=== PATIENT | female | born 1950 | race Caucasian/White ===

== ENCOUNTER → 2020-05-16 09:15 | Outpatient (BNV) | payer MEDICARE, SELFPAY | PROVIDERS: PCP Internal Medicine; Visit Provider Internal Medicine Medical Oncology | DX: D47.2 Monoclonal gammopathy (principal); M94.1 Relapsing polychondritis | CPT/HCPCS: 99212; 99213; 99214 ==

== ENCOUNTER → 2020-05-28 14:47 | Outpatient (BNVA) | payer MEDICARE, SELFPAY | PROVIDERS: PCP Internal Medicine; Visit Provider Surgery Vascular Surgery | DX: I83.11 Varicose veins of right lower extremity with inflammation (principal) | CPT/HCPCS: 99203; 99213 ==

== ENCOUNTER 2020-06-17 07:54 | Outpatient (REF) | payer MEDICARE, SELFPAY ==
--- NOTE | 2020-06-17 | US_ITS ---
EXAMINATION: RIGHT and LEFT LOWER EXTREMITY VENOUS ULTRASOUND (Reflux Exam) CLINICAL INDICATION: Varicose veins with inflammation COMPARISON: March 11, 2017 TECHNIQUE: Color flow triplex imaging and compression Doppler was performed to evaluate both the deep and the superficial systems bilaterally. To evaluate the superficial system, the examination was performed in the upright position. Color-flow Doppler ultrasound and compression ultrasound were utilized. In addition, maneuvers were utilized to demonstrate reflux. FINDINGS: 1. DEEP VENOUS ULTRASOUND OF THE RIGHT LOWER EXTREMITY: Respiratory variation, normal compression and augmented flow are noted in the right common femoral vein as well as the right popliteal vein and there is no evidence of deep venous thrombosis at these locations. There is no evidence of reflux in the deep system in either the common femoral vein or the popliteal vein. There is no evidence of a popliteal fossa cyst or popliteal artery aneurysm. 2. SUPERFICIAL ULTRASOUND WITH DOPPLER OF RIGHT LOWER EXTREMITY: The right great saphenous vein at the saphenofemoral junction measures 6 mm with no reflux, at the mid thigh 3 mm with no reflux, vdbro-aac-hmqh 3 mm with no reflux, ajujd-gbi-cgzx 2 mm with no reflux, at mid calf 2 mm with segmental reflux of approximately 2 seconds., and at the ankle measures 2 mm without reflux. The right small saphenous vein measures 3 mm and shows no reflux. 3. DEEP VENOUS ULTRASOUND OF THE LEFT LOWER EXTREMITY: Respiratory variation, normal compression and augmented flow are noted in the left common femoral vein as well as the left popliteal vein and there is no evidence of deep venous thrombosis at these locations. There is no evidence of reflux in the deep system in either the common femoral vein or the popliteal vein. . There is no evidence of a popliteal artery aneurysm. There is again noted be a popliteal fossa cyst measuring approximately 5.6 x 1.4 x 2.8 cm in size. 4. SUPERFICIAL ULTRASOUND WITH DOPPLER OF LEFT LOWER EXTREMITY: Left great saphenous vein at the saphenofemoral junction measures 11 mm, at the mid thigh 4 mm, wrykv-whg-[id number] 3 mm, kirbz-fit-slet 3 mm, at mid calf 3 mm and at the ankle measures 3 mm. There is no reflux demonstrated in the left great saphenous vein. The left small saphenous vein measures 4 mm and shows no reflux. US/US venous duplex LE BI IMPRESSION: 1. No evidence of reflux or thrombus in the common femoral veins or popliteal veins bilaterally. 2. Only segmental reflux within the mid calf greater saphenous vein of the right lower extremity.
== END 2020-06-17 07:55 | disposition home or self-care (01) ==
LOC: HO.US 07:54
PROVIDERS: PCP Internal Medicine; Visit Provider Surgery Vascular Surgery
DX: I83.893 Varicose veins of bilateral lower extremities with other complications (principal)
CPT/HCPCS: 93970

== ENCOUNTER → 2020-07-23 11:39 | Outpatient (BNVA) | payer MEDICARE, SELFPAY | PROVIDERS: PCP Internal Medicine; Referring Provider Internal Medicine; Visit Provider Surgery Vascular Surgery | DX: I83.11 Varicose veins of right lower extremity with inflammation (principal); Z87.891 Personal history of nicotine dependence | CPT/HCPCS: Q3014 ==

== ENCOUNTER → 2020-10-04 10:23 | Outpatient (BNVA) | payer MEDICARE, SELFPAY | PROVIDERS: PCP Internal Medicine; Visit Provider Surgery | DX: Q79.0 Congenital diaphragmatic hernia (principal); Z79.899 Other long term (current) drug therapy; Z87.891 Personal history of nicotine dependence | CPT/HCPCS: 99212 ==

== ENCOUNTER → 2020-10-22 09:55 | Outpatient (BNVA) | payer MEDICARE, SELFPAY | PROVIDERS: PCP Internal Medicine; Visit Provider Surgery Vascular Surgery | DX: I83.11 Varicose veins of right lower extremity with inflammation (principal) | CPT/HCPCS: 99212 ==

== ENCOUNTER 2020-11-29 10:01 | Outpatient (REF) | payer MEDICARE, SELFPAY ==
[2020-11-29 11:14] LABS: Glucose Urine UA NEG (NEG); Leukocyte Esterase Urine NEG (NEG); Nitrite Urine NEG (NEG); PH 5.5 (5.0-8.0); Specific Gravity - Urine 1.025 (1.005-1.025); Urine Blood TRACE (NEG); Urine Ketones NEG (NEG); Urine Protein NEG (NEG-TRACE)
[2020-11-29 11:17] LABS: Appearance Urine CLEAR; Color Urine YELLOW
[2020-11-29 11:18] LABS: MANUAL DIFF FLAG NO
[2020-11-29 11:28] LABS: RBC Urine 0-2 /HPF (0); Squamous Epithelial Cell Urine 1+ /LPF; WBC Urine 0 /HPF (0-4)
[2020-11-29 11:34] LABS: Basophils Absolute Auto 0.1 X10*3/uL (0.0-0.2); Basophils Percent Auto 1.3 % (0-2); Eosinophils Absolute Auto 0.2 X10*3/uL (0.0-0.4); Eosinophils Percent Auto 2.7 % (0-4); Hematocrit 42.3 % (37-47); Hemoglobin 13.5 g/dl (12.0-16.0); Imm Gran Abs Auto 0.02 X10*3/uL (0.00-0.03); Imm Gran Pct Auto 0.3 % (0.0-0.4); Lymphocytes Absolute Auto 2.1 X10*3/uL (1.2-4.9); Lymphocytes Percent Auto 32.4 % (20-40); Mean Corpuscular HGB Conc 31.9 g/dl (31.0-35.0); Mean Corpuscular Hemoglobin 29.8 pg (27.0-33.0); Mean Corpuscular Volume 93.4 fL (80-98); Mean Platelet Volume 11.8 fL (9.4-12.3); Monocytes Absolute Auto 0.6 X10*3/uL (0.1-1.2); Monocytes Percent Auto 8.6 % (2-11); Neutrophils Absolute Auto 3.5 X10*3/uL (2.0-8.3); Neutrophils Percent Auto 54.7 % (45-73); Platelet Count 245 X10*3/uL (160-400); Red Blood Count 4.53 X10*6/uL (4.20-5.50); Red Cell Distribution Width 13.7 % (11.0-16.0); White Blood Count 6.4 X10*3/uL (4.8-10.8)
[2020-11-29 11:47] LABS: Alanine Aminotransferase 9 U/L (0-31); Albumin Level 4.1 g/dL (3.5-5.0); Alkaline Phosphatase 95 U/L (39-117); Anion Gap 13 (12-20); Aspartate Amino Transferase 13 U/L (5-31); Bilirubin Total 0.9 mg/dL (0.0-1.0); Blood Urea Nitrogen 15 mg/dL (9-16); Calcium 9.6 mg/dL (8.4-10.2); Carbon Dioxide 28 mmol/L (22-29); Chloride 104 mmol/L (96-108); Cholesterol 225 mg/dL; Estimated Glomerular Filt Rate > 60; Glucose Fasting 105 mg/dL (60-99); HDL Cholesterol 58 mg/dL; LDL Cholesterol Calculated 142 mg/dl; Potassium 3.6 mmol/L (3.3-5.1); Sodium 141 mmol/L (135-145); Total Protein 6.8 g/dL (6.5-8.0); Triglycerides 126 mg/dL
[2020-11-29 12:10] LABS: Free T4 (Free Thyroxine) 1.04 ng/dL (0.71-1.85); TSH reflex Free T4 4.69 uIU/mL (0.32-4.0)
[2020-11-29 12:18] LABS: Erythrocyte Sedimentation Rate 7 MM/HR (0-20)
[2020-11-29 12:33] LABS: Folate 12.2 ng/mL (> or = 4.0); Vitamin B12 782 pg/mL (200-900)
[2020-12-04 20:57] LABS: Vitamin D 25-OH, D2 <4 ng/mL; Vitamin D 25-OH, D3 49 ng/mL; Vitamin D 25-OH, Total 49 ng/mL (30-100)
== END 2020-11-29 10:02 | disposition home or self-care (01) ==
LOC: HO.HMGCLDS 10:01
PROVIDERS: Nurse Practitioner Family; PCP Internal Medicine; Visit Provider Internal Medicine
DX: Z00.00 Encounter for general adult medical examination without abnormal findings (principal); M94.1 Relapsing polychondritis; M06.9 Rheumatoid arthritis, unspecified; E78.00 Pure hypercholesterolemia, unspecified; E53.8 Deficiency of other specified B group vitamins; G57.32 Lesion of lateral popliteal nerve, left lower limb; R73.01 Impaired fasting glucose; E03.9 Hypothyroidism, unspecified; D47.2 Monoclonal gammopathy; I10 Essential (primary) hypertension; K21.9 Gastro-esophageal reflux disease without esophagitis; E66.9 Obesity, unspecified; E55.9 Vitamin D deficiency, unspecified; M85.80 Other specified disorders of bone density and structure, unspecified site; R79.89 Other specified abnormal findings of blood chemistry
CPT/HCPCS: 36415; 80053; 80061; 81001; 82306; 82607; 82746; 84439; 84443; 85025; 85652

== ENCOUNTER 2020-12-11 08:45 | Outpatient (REF) | payer MEDICARE, SELFPAY ==
--- NOTE | ~2020-12-11 | MR_ITS ---
MR LUMBAR SPINE WITHOUT CONTRAST CLINICAL INFORMATION: Radiculopathy, lumbar region COMPARISON: Lumbar spine MRI 08/24/2015. TECHNIQUE: MRI of the lumbar spine was obtained using routine sequences without contrast. FINDINGS: Partially imaged rightward convex scoliotic curvature of the lumbar spine. Grade 1 anterolisthesis of L5 on S1 is unchanged. Vertebral body heights are preserved. Partial disc desiccation at all lumbar levels. Modic type I endplate signal changes at L4-L5. No additional bone marrow edema. No acute fractures. Conus terminates at the L1-L2 level. There is bilateral perinephric stranding. Bilateral paraspinal muscular atrophy. The L1-L2, L2-L3, and L3-L4 disc contours remain normal. There is stable mild to moderate bilateral facet arthropathy at these levels. No central canal stenosis and no foraminal stenosis at these levels. L4-L5: Diffuse annular disc bulge and severe bilateral facet arthropathy and ligamentum flavum thickening. Mild narrowing of the central canal and mild bilateral foraminal encroachment. Findings unchanged. L5-S1: Grade 1 anterolisthesis. Severe bilateral facet arthropathy. No central canal stenosis. No significant foraminal stenosis. MR/MR lumbar spine wo con IMPRESSION: - At L5-S1, there is stable grade 1 anterolisthesis in the setting of severe bilateral facet arthropathy without significant central canal stenosis nor significant foraminal stenosis at this level. - At L4-L5, multifactorial degenerative changes result in stable mild central canal stenosis and mild bilateral foraminal encroachment. - The remaining lumbar disc contours remain normal and there is mild to moderate facet arthropathy throughout the remainder of the lumbar spine. Partially imaged rightward convex scoliotic curvature of the thoracic spine. There is paraspinal muscular atrophy bilaterally that is unchanged.
== END 2020-12-11 08:46 | disposition home or self-care (01) ==
LOC: HO.MRI 08:45
PROVIDERS: Visit Provider Internal Medicine
DX: M54.16 Radiculopathy, lumbar region (principal); M51.36 Other intervertebral disc degeneration, lumbar region
CPT/HCPCS: 72148

== ENCOUNTER 2021-01-02 10:41 | Outpatient (REF) | payer MEDICARE, SELFPAY ==
--- NOTE | 2021-01-02 15:32 | PFT_ITS ---
INDICATION: Dyspnea. SPIROMETRY: The FEV1 to FVC of 86% with an FEV1 of 1.68 L, which is 77% predicted, and an FVC of 1.94 L, which is 68% predicted. No significant response to bronchodilators noted. Maximum voluntary ventilation 99% predicted. LUNG VOLUMES: Total lung capacity 76% predicted with an expiratory reserve volume of 34% predicted. DIFFUSION CAPACITY: 58% predicted. Also to note that the DLCO/VA was improved to 76% predicted. COMPARISONS: None. INTERPRETATION: No obstructive ventilatory defects identified. No significant response to bronchodilators noted. Normal maximum voluntary ventilation. Lung volumes do demonstrate a mild restrictive ventilatory defect. Therefore, need to consider elevated BMI versus underlying interstitial lung conditions and/or neuromuscular conditions. The patient also has a significantly decreased expiratory reserve volume secondary to an elevated BMI. The patient does have a moderate diffusion impairment, to some degree, does correct to normal when correcting for the alveolar volume. Therefore, need to consider underlying pulmonary vascular conditions and/or interstitial lung conditions. Also, should correct for hemoglobin. Clinical correlation warranted. MD RENAY Ochoa/MODMaximiliano / [id number]
== END 2021-01-02 10:42 | disposition home or self-care (01) ==
LOC: HO.RESP 10:41
PROVIDERS: PCP Internal Medicine; Visit Provider Internal Medicine
DX: R06.00 Dyspnea, unspecified (principal)
CPT/HCPCS: 94060; 94727; 94729

== ENCOUNTER → 2021-01-24 09:42 | Outpatient (BNVA) | payer MEDICARE, SELFPAY | PROVIDERS: PCP Internal Medicine; Visit Provider Hospitalist | DX: R91.1 Solitary pulmonary nodule (principal); J98.4 Other disorders of lung; K44.9 Diaphragmatic hernia without obstruction or gangrene | CPT/HCPCS: 99202 ==

== ENCOUNTER 2021-04-16 07:35 | Outpatient (REF) | payer MEDICARE, SELFPAY ==
--- NOTE | ~2021-04-16 | CT_ITS ---
EXAMINATION: CT CHEST WITHOUT CONTRAST CLINICAL INFORMATION: Congenital diaphragmatic hernia. COMPARISON: CT chest 04/18/2020 and 03/04/2019. TECHNIQUE: Multidetector volumetric CT imaging of the chest was done. Axial MIP volume rendering provided. Sagittal and coronal reformatted images were obtained. This CT examination was performed using dose optimization techniques as appropriate, variously including the following: *Automated exposure control *Adjustment of mA and/or kV according to patient size (this includes techniques or standardized protocols for targeted exams where dose is matched to indication/reason for exam; i.e. extremities or head) *Use of iterative reconstruction technique DLP: 211 mGy-cm FINDINGS: POST MANAGER: Mild asymmetric appearing thorax with dextroscoliosis. Moderately expanded lungs with mild cardiomegaly. There is an elevated right hemidiaphragm. LUNGS: The lungs are somewhat well expanded and clear of acute pneumonic process. Again visualized are small 2 mm nodules in the right upper lobe, peripherally based, (image 122/4 and 126/4). No additional pulmonary nodules, mass or consolidation is seen. MEDIASTINUM: The thyroid lobes are symmetrical and normal. The central trachea and the bronchi are widely patent. Heart size and the great vessels are normal caliber. No pericardial effusion is seen. Trace coronary artery calcifications are noted. Small shotty lymph nodes are seen in the mediastinum. PLEURA: There is no pleural effusion. No pleural mass or thickening. AXILLAE: No lymphadenopathy. UPPER ABDOMEN: Visualized liver, spleen, and pancreas appear unremarkable. There is a solitary gallstone. Bilateral adrenal glands are unremarkable. Stable left Bochdalek hernia containing fat. OSSEOUS STRUCTURES: There is mild dextroscoliosis with spondylosis throughout the mid dorsal spine. No lytic process. No fracture. There is acute kyphotic deformity mid dorsal spine. CT/CT chest wo con IMPRESSION: Stable right upper lobe 2 mm peripheral-based pulmonary nodules. No new nodules are seen. Elevated right hemidiaphragm with moderate kyphotic deformity mid dorsal spine and dextroscoliosis, stable. Solitary gallstone.
== END 2021-04-16 07:36 | disposition home or self-care (01) ==
LOC: HO.CT 07:35
PROVIDERS: Visit Provider Surgery
DX: Q79.0 Congenital diaphragmatic hernia (principal)
CPT/HCPCS: 71250

== ENCOUNTER → 2021-04-18 10:35 | Outpatient (BNVA) | payer MEDICARE, SELFPAY | PROVIDERS: PCP Internal Medicine; Visit Provider Surgery | DX: Q79.0 Congenital diaphragmatic hernia (principal); J98.6 Disorders of diaphragm; Z79.899 Other long term (current) drug therapy | CPT/HCPCS: 99212 ==

== ENCOUNTER 2021-04-25 12:18 | Outpatient (REF) | payer MEDICARE, SELFPAY ==
--- NOTE | ~2021-04-25 | FL_ITS ---
EXAMINATION: XR FLUOROSCOPY CLINICAL INFORMATION: Elevated diaphragm, sniff test. COMPARISON: None. TECHNIQUE: On the upright AP and lateral view under fluoroscopy, a sniff test was performed. FINDINGS: There is normal movement of entire right and left diaphragm and completed inspiration, expiration and stiff test in AP and lateral view. Also fluoroscopy cine was performed. FLUOROSCOPY TIME: 1.6 minutes. DOSE AREA PRODUCT: 34.437 uGy-m2 (microgray-meter squared). FL/FL fluoroscopy <1hr IMPRESSION: Normal movement of diaphragm on AP and lateral views under fluoroscopy.
== END 2021-04-25 12:19 | disposition home or self-care (01) ==
LOC: HO.XRAY 12:18
PROVIDERS: PCP Internal Medicine; Visit Provider Surgery
DX: J98.6 Disorders of diaphragm (principal)
CPT/HCPCS: 76000

== ENCOUNTER → 2021-05-02 10:24 | Outpatient (BNVA) | payer MEDICARE, SELFPAY | PROVIDERS: PCP Internal Medicine; Visit Provider Surgery | DX: Q79.0 Congenital diaphragmatic hernia (principal); Z79.899 Other long term (current) drug therapy | CPT/HCPCS: 99212 ==

== ENCOUNTER 2021-05-26 10:35 | Outpatient (REF) | payer MEDICARE, SELFPAY ==
[2021-05-26 13:53] LABS: MANUAL DIFF FLAG NO
[2021-05-26 13:58] LABS: Basophils Absolute Auto 0.1 X10*3/uL (0.0-0.2); Basophils Percent Auto 0.9 % (0-2); Eosinophils Absolute Auto 0.2 X10*3/uL (0.0-0.4); Eosinophils Percent Auto 2.4 % (0-4); Hematocrit 42.6 % (37-47); Imm Gran Abs Auto 0.02 X10*3/uL (0.00-0.03); Imm Gran Pct Auto 0.3 % (0.0-0.4); Lymphocytes Absolute Auto 2.2 X10*3/uL (1.2-4.9); Mean Corpuscular HGB Conc 32.9 g/dl (31.0-35.0); Mean Corpuscular Hemoglobin 30.3 pg (27.0-33.0); Mean Corpuscular Volume 92.2 fL (80-98); Mean Platelet Volume 12.1 fL (9.4-12.3); Monocytes Absolute Auto 0.7 X10*3/uL (0.1-1.2); Monocytes Percent Auto 8.9 % (2-11); Neutrophils Absolute Auto 4.3 X10*3/uL (2.0-8.3); Neutrophils Percent Auto 57.5 % (45-73); Platelet Count 240 X10*3/uL (160-400); Red Blood Count 4.62 X10*6/uL (4.20-5.50); White Blood Count 7.4 X10*3/uL (4.8-10.8)
[2021-05-26 13:59] LABS: Appearance Urine CLEAR; Color Urine YELLOW; Glucose Urine UA NEG (NEG); Leukocyte Esterase Urine NEG (NEG); Nitrite Urine NEG (NEG); Urine Blood NEG (NEG); Urine Ketones 5 MG/DL (NEG); Urine Protein NEG (NEG-TRACE)
[2021-05-26 14:09] LABS: Alanine Aminotransferase 11 U/L (0-31); Albumin Level 4.5 g/dL (3.5-5.0); Alkaline Phosphatase 92 U/L (39-117); Anion Gap 13 (12-20); Aspartate Amino Transferase 18 U/L (5-31); Bilirubin Total 0.6 mg/dL (0.0-1.0); Blood Urea Nitrogen 15 mg/dL (9-16); Calcium 10.5 mg/dL (8.4-10.2); Carbon Dioxide 30 mmol/L (22-29); Chloride 103 mmol/L (96-108); Estimated Glomerular Filt Rate > 60; Glucose Random 93 mg/dL (60-115); Potassium 4.7 mmol/L (3.3-5.1); Sodium 141 mmol/L (135-145); Total Protein 7.1 g/dL (6.5-8.0)
[2021-05-26 14:10] LABS: Cholesterol 207 mg/dL; HDL Cholesterol 53 mg/dL; LDL Cholesterol Calculated 135 mg/dl; Triglycerides 96 mg/dL
[2021-05-26 14:30] LABS: Free T4 (Free Thyroxine) 1.11 ng/dL (0.71-1.85); Thyroid Stimulating Hormone 6.59 uIU/mL (0.32-4.0); Vitamin D 25-OH Total 49.1 ng/mL (>30)
[2021-05-26 14:55] LABS: Erythrocyte Sedimentation Rate 13 MM/HR (0-20)
== END 2021-05-26 10:36 | disposition home or self-care (01) ==
LOC: HO.HMGCLDS 10:35
PROVIDERS: PCP Internal Medicine; Visit Provider Internal Medicine Rheumatology
DX: E78.00 Pure hypercholesterolemia, unspecified (principal); I10 Essential (primary) hypertension; E03.9 Hypothyroidism, unspecified; M06.09 Rheumatoid arthritis without rheumatoid factor, multiple sites; M85.89 Other specified disorders of bone density and structure, multiple sites; E55.9 Vitamin D deficiency, unspecified
CPT/HCPCS: 36415; 80053; 80061; 81003; 82306; 84439; 84443; 85025; 85652

== ENCOUNTER 2021-07-31 08:02 | Outpatient (REF) | payer MEDICARE, SELFPAY ==
--- NOTE | ~2021-07-31 | MM_ITS ---
EXAMINATION: BONE DENSITOMETRY CLINICAL INDICATION: Asymptomatic menopausal state. COMPARISON: Previous BD dated 09/24/2017 and baseline BD dated 05/18/2007. TECHNIQUE: Using a GTI DXA System (software version: 13.1) manufactured by [employer], dual-energy x-ray absorptiometry was performed of the lumbar spine and left hip. The images are of good technical quality. Summary results are attached. FINDINGS: AP SPINE L1-L4: Current: BMD 0.983 g/cm2, Z-score -1.1, T-score -1.6, osteopenia, 5.7% increase from previous, 6.3% decrease from baseline (<5% change is not significant). Prior: BMD 0.930 g/cm2. Baseline: BMD 0.925 g/cm2. LEFT FEMUR, NECK: Current: BMD 0.792 g/cm2, Z-score -0.8, T-score -1.8, osteopenia. Prior: BMD 0.803 g/cm2. Baseline: BMD 0.867 g/cm2. LEFT FEMUR, TOTAL: Current: BMD 0.918 g/cm2, Z-score 0.0, T-score -0.7, normal, 2.8% decrease from previous, 1.7% decrease from baseline (<5% change is not significant). Prior: BMD 0.944 g/cm2. Baseline: BMD 0.934 g/cm2. IDENTIFIED RISK FACTORS: Rheumatoid arthritis, osteoporosis, height loss, low calcium intake, anticonvulsants, menopause. HISTORY OF FRACTURE: None listed. MEDICATIONS: Vitamin D. MM/XR DEXA axial skeleton IMPRESSION: 1. DIAGNOSIS: Osteopenia based on the lowest T-score value of -1.8 in the femoral neck applying World Health Organization criteria. 2. 10-YEAR FRACTURE RISK PREDICTION, FRAX: Major osteoporotic fracture (clinical spine, forearm, hip or shoulder) 12.7%. Hip fracture 2.4%. 3. Treatment Recommendations: NOF guidelines recommend consideration for treatment in postmenopausal women and men age 50 and older presenting with the following: -A hip or vertebral (clinical or morphometric) fracture. -T-score less than or equal to -2.5 at the femoral neck or spine after appropriate evaluation to exclude secondary causes. -Low bone mass at the hip or spine and a 10-year fracture probability by FRAX of greater than or equal to 3% for hip fracture or greater than or equal to 20% for major osteoporotic fracture based on the [place] adapted WHO algorithm. 4. Other Recommendations: All treatment decisions require clinical judgment and consideration of individual patient factors, including patient preferences, comorbidities, previous drug use, risk factors not captured in the FRAX model (e.g. frailty, falls, vitamin D deficiency, increased bone turnover, interval significant decline in bone density) and possible under or overestimation of fracture risk by FRAX. Additional medical evaluation for secondary cause of low bone mineral density may be appropriate. FUTURE SCAN RECOMMENDATION: People with diagnosed cases of osteoporosis or at high risk for fracture should have regular bone mineral density tests. For patients eligible for Medicare, routine testing is allowed once every 2 years. The testing frequency can be increased to one year for patients who have rapidly progressing disease, those who are receiving or discontinuing medical therapy to restore bone mass, or have additional risk factors.
== END 2021-07-31 08:03 | disposition home or self-care (01) ==
LOC: HO.MAMMO 08:02
PROVIDERS: Visit Provider Internal Medicine
DX: Z13.820 Encounter for screening for osteoporosis (principal); M85.80 Other specified disorders of bone density and structure, unspecified site; Z78.0 Asymptomatic menopausal state; M05.9 Rheumatoid arthritis with rheumatoid factor, unspecified; Z79.899 Other long term (current) drug therapy
CPT/HCPCS: 77080

== ENCOUNTER 2021-08-19 09:00 | Outpatient (RCR) | payer MEDICARE, SELFPAY ==
--- NOTE | 2021-06-02 10:50 | MHC.PT.EP ---
[facility] [place] [facility] [place] Office [address] Yudi Fierro [address] [phone] F: [phone] F: [phone] F: [phone] F: [phone] Physical Therapy Plan of Care Date of Evaluation: Date of Surgery: Diagnosis: DECREASED BALANCE Assessment: Angela is a pleasant 71 yo female with increasing balance deficits following total knee arthroplasty in 2017. Upon exam she demonstrates weakness in the knee and hip, weakened core musculature, demonstrates altered gait pattern and balance. Functional limitations include decreased ability to perform long periods of walking and standing, decreased ability to perform stairs and squatting. She reports difficulty with homemaking and selfcare tasks, disrupted sleep. She reports decreased participation in community and recreational activities. Pt is a good candidate for skilled PT due to age, potential remediation of impairments, typical disease/condition progression and prognosis, comorbidities, and motivation. pt would benefit from tailored program of therapeutic activities, functional training, gait training, postural education, neuromuscular re-education, and modalities as needed. Frequency and Duration: The patient will be seen 2 x week for 6 weeks Short Term Goals: Initiate HEP and promote self management of symptoms Fci Goals: IN 6 WEEKS: TO DEMONSTRATE FULL KNEE ROM, EQUAL NILES TO DEMONSTRATE FULL LE STRENGTH, EQUAL NILES TO ASCEND AND DESCEND STAIRS WITHOUT PAIN GREATER THAN 2/10 TO AMBULATE AD DAVID ON LEVEL AND UNEVEN SURFACES FOR FITNESS WITHOUT PAIN GREATER THAN 2/10 TO PERFORM FULL FUNCTIONAL SQUAT WITHOUT SUBSTITUTION Treatment Plan: Modalities to reduce pain, spasms and effusion. Manual therapy to restore motion and function. Therapeutic exercise to improve strength and flexibility. Neuromuscular re-education for posture and balance. Therapeutic activities to return to functional activities of daily living. Electronically signed by: Kassi Pedraza PT, DPT Please sign and return to therapist. Thank you for your referral.
--- NOTE | 2021-09-12 13:26 | MHC.PT.DC ---
[facility] [place] Office [place] Office [place] Office [address] Fierro [address] [phone] F: [phone] F: [phone] F: [phone] F: [phone] Physical Therapy Discharge Report Diagnosis: DECREASED BALANCE Date of Surgery: Date of Evaluation: 06/02/21 Date of Discharge: 08/08/21 Treatments to Date: 19 Cancellations to Date: 3 No Shows to Date: 0 Discharge Status: Achieved Goals Improved Function Independent with HEP Discharge Summary: ALEXUS HAD PROGRESSED WELL WITH PT DEMONSTRATING IMPROVED GAIT PATTERN, IMPROVED BALANCE AND STRONGER LEs NILES. SHE IS INDEPENDENT WITH HER CURRENT HOME PROGRAM AND WILL CONTACT US WITH ANY QUESTIONS OR CONCERNS. Electronically signed by: KIMBER BELL PT, DPT Please sign and return to therapist. Thank you for your referral.
== END 2021-09-12 13:33 | disposition home or self-care (01) ==
LOC: HO.PT 09:00
PROVIDERS: PCP Internal Medicine; Visit Provider Internal Medicine Medical Oncology
DX: R26.89 Other abnormalities of gait and mobility (principal)
CPT/HCPCS: 97110; 97162; 97530

== ENCOUNTER → 2021-08-26 11:04 | Outpatient (BNVA) | payer MEDICARE, SELFPAY | PROVIDERS: PCP Internal Medicine; Visit Provider Hospitalist | DX: J98.4 Other disorders of lung (principal); R91.1 Solitary pulmonary nodule; G47.33 Obstructive sleep apnea (adult) (pediatric); K44.9 Diaphragmatic hernia without obstruction or gangrene | CPT/HCPCS: 99212 ==

== ENCOUNTER → 2021-09-15 09:01 | Outpatient (REF) | payer MEDICARE, SELFPAY | LOC: HO.SL 09:01 | PROVIDERS: PCP Internal Medicine; Visit Provider Hospitalist | DX: G47.33 Obstructive sleep apnea (adult) (pediatric) (principal) | CPT/HCPCS: 95806 ==

== ENCOUNTER 2021-10-20 09:49 | Outpatient (REF) | payer MEDICARE, SELFPAY ==
[2021-10-20 11:28] LABS: Appearance Urine CLEAR; Color Urine YELLOW; Glucose Urine UA NEG (NEG); Leukocyte Esterase Urine NEG (NEG); Nitrite Urine NEG (NEG); PH 6.5 (5.0-8.0); UACC Culture Trigger NO; Urine Blood TRACE (NEG); Urine Ketones NEG (NEG); Urine Protein NEG (NEG-TRACE)
[2021-10-20 11:40] LABS: MANUAL DIFF FLAG NO
[2021-10-20 11:52] LABS: Basophils Absolute Auto 0.1 X10*3/uL (0.0-0.2); Basophils Percent Auto 0.9 % (0-2); Eosinophils Absolute Auto 0.1 X10*3/uL (0.0-0.4); Eosinophils Percent Auto 1.9 % (0-4); Hematocrit 43.2 % (37.0-47.0); Hemoglobin 13.6 g/dl (12.0-16.0); Imm Gran Abs Auto 0.01 X10*3/uL (0.00-0.03); Imm Gran Pct Auto 0.1 % (0.0-0.4); Lymphocytes Absolute Auto 2.3 X10*3/uL (1.2-4.9); Lymphocytes Percent Auto 31.1 % (20-40); Mean Corpuscular HGB Conc 31.5 g/dl (31.0-35.0); Mean Corpuscular Hemoglobin 29.3 pg (27.0-33.0); Mean Corpuscular Volume 93.1 fL (80.0-98.0); Mean Platelet Volume 11.8 fL (9.4-12.3); Monocytes Absolute Auto 0.6 X10*3/uL (0.1-1.2); Monocytes Percent Auto 8.4 % (2-11); Neutrophils Absolute Auto 4.3 x10*3/uL (2.0-8.3); Neutrophils Percent Auto 57.6 % (45-73); Platelet Count 261 X10*3/uL (160-400); Red Blood Count 4.64 X10*6/uL (4.20-5.50); Red Cell Distribution Width 14.1 % (11.0-16.0); White Blood Count 7.5 X10*3/uL (4.8-10.8)
[2021-10-20 11:53] LABS: RBC Urine 0-2 /HPF (0); Squamous Epithelial Cell Urine TRACE /LPF; WBC Urine 0 /HPF (0-4)
[2021-10-20 12:13] LABS: Alanine Aminotransferase 13 U/L (0-31); Albumin Level 4.2 g/dL (3.5-5.0); Alkaline Phosphatase 90 U/L (39-117); Anion Gap 12 (12-20); Aspartate Amino Transferase 17 U/L (5-31); Bilirubin Total 0.7 mg/dL (0.0-1.0); Blood Urea Nitrogen 10 mg/dL (9-16); Calcium 10.2 mg/dL (8.4-10.2); Carbon Dioxide 30 mmol/L (22-29); Chloride 101 mmol/L (96-108); Cholesterol 221 mg/dL; Estimated Glomerular Filt Rate > 60; Glucose Fasting 101 mg/dL (60-99); HDL Cholesterol 61 mg/dL; LDL Cholesterol Calculated 137 mg/dl; Potassium 4.1 mmol/L (3.3-5.1); Sodium 139 mmol/L (135-145); Total Protein 6.9 g/dL (6.5-8.0); Triglycerides 115 mg/dL
[2021-10-20 12:37] LABS: Estimated Average Glucose 105 mg/dL; Hemoglobin A1c % 5.3 %
[2021-10-20 12:40] LABS: Thyroid Stimulating Hormone 7.35 uIU/mL (0.32-4.0); Vitamin D 25-OH Total 39.5 ng/mL (>30)
[2021-10-20 12:48] LABS: Folate 7.3 ng/mL (> or = 4.0); Vitamin B12 711 pg/mL (200-900)
== END 2021-10-20 09:50 | disposition home or self-care (01) ==
LOC: HO.HMGCLDS 09:49
PROVIDERS: PCP Internal Medicine; Visit Provider Internal Medicine
DX: E53.8 Deficiency of other specified B group vitamins (principal); R73.01 Impaired fasting glucose; E55.9 Vitamin D deficiency, unspecified; E03.9 Hypothyroidism, unspecified; I10 Essential (primary) hypertension; E78.00 Pure hypercholesterolemia, unspecified
CPT/HCPCS: 36415; 80053; 80061; 81001; 82306; 82607; 82746; 83036; 84439; 84443; 85025

== ENCOUNTER → 2021-12-01 11:09 | Outpatient (BNVA) | payer MEDICARE, SELFPAY | PROVIDERS: PCP Internal Medicine; Visit Provider Hospitalist | DX: J98.4 Other disorders of lung (principal); G47.33 Obstructive sleep apnea (adult) (pediatric); R91.1 Solitary pulmonary nodule; K44.9 Diaphragmatic hernia without obstruction or gangrene | CPT/HCPCS: 99212 ==

== ENCOUNTER 2022-02-16 07:25 | Outpatient (REF) | payer MEDICARE, SELFPAY ==
[2022-02-16 11:16] LABS: MANUAL DIFF FLAG NO
[2022-02-16 11:26] LABS: Basophils Absolute Auto 0.1 X10*3/uL (0.0-0.2); Basophils Percent Auto 1.2 % (0-2); Eosinophils Absolute Auto 0.2 X10*3/uL (0.0-0.4); Eosinophils Percent Auto 2.4 % (0-4); Hematocrit 41.4 % (37.0-47.0); Hemoglobin 13.3 g/dl (12.0-16.0); Imm Gran Abs Auto 0.03 X10*3/uL (0.00-0.03); Imm Gran Pct Auto 0.4 % (0.0-0.4); Lymphocytes Absolute Auto 2.2 X10*3/uL (1.2-4.9); Lymphocytes Percent Auto 33.1 % (20-40); Mean Corpuscular HGB Conc 32.1 g/dl (31.0-35.0); Mean Corpuscular Hemoglobin 29.3 pg (27.0-33.0); Mean Corpuscular Volume 91.2 fL (80.0-98.0); Mean Platelet Volume 12.7 fL (9.4-12.3); Monocytes Absolute Auto 0.5 X10*3/uL (0.1-1.2); Monocytes Percent Auto 7.4 % (2-11); Neutrophils Absolute Auto 3.7 x10*3/uL (2.0-8.3); Neutrophils Percent Auto 55.5 % (45-73); Platelet Count 237 X10*3/uL (160-400); Red Blood Count 4.54 X10*6/uL (4.20-5.50); Red Cell Distribution Width 13.8 % (11.0-16.0); White Blood Count 6.7 X10*3/uL (4.8-10.8)
[2022-02-16 11:31] LABS: Appearance Urine CLEAR; Color Urine YELLOW; Glucose Urine UA NEG (NEG); Leukocyte Esterase Urine NEG (NEG); Nitrite Urine NEG (NEG); Specific Gravity - Urine 1.015 (1.005-1.025); Urine Blood NEG (NEG); Urine Ketones NEG (NEG); Urine Protein NEG (NEG-TRACE)
[2022-02-16 11:37] LABS: Estimated Average Glucose 108 mg/dL; Hemoglobin A1c % 5.4 %
[2022-02-16 11:56] LABS: Alanine Aminotransferase 10 U/L (0-31); Albumin Level 4.1 g/dL (3.5-5.0); Alkaline Phosphatase 91 U/L (39-117); Anion Gap 12 (12-20); Aspartate Amino Transferase 16 U/L (5-31); Bilirubin Total 0.3 mg/dL (0.0-1.0); Blood Urea Nitrogen 10 mg/dL (9-16); Calcium 9.7 mg/dL (8.4-10.2); Carbon Dioxide 25 mmol/L (22-29); Chloride 108 mmol/L (96-108); Cholesterol 178 mg/dL; Estimated Glomerular Filt Rate > 60; Glucose Fasting 101 mg/dL (60-99); HDL Cholesterol 50 mg/dL; LDL Cholesterol Calculated 110 mg/dl; Potassium 4.5 mmol/L (3.3-5.1); Sodium 140 mmol/L (135-145); Total Protein 6.7 g/dL (6.5-8.0); Triglycerides 93 mg/dL
[2022-02-16 12:04] LABS: Thyroid Stimulating Hormone 6.13 uIU/mL (0.32-4.0); Vitamin D 25-OH Total 37.6 ng/mL (>30)
== END 2022-02-16 07:26 | disposition home or self-care (01) ==
LOC: HO.HMGCLDS 07:25
PROVIDERS: PCP Internal Medicine; Visit Provider Internal Medicine
DX: E78.00 Pure hypercholesterolemia, unspecified (principal); E55.9 Vitamin D deficiency, unspecified; I10 Essential (primary) hypertension; E03.9 Hypothyroidism, unspecified; R73.01 Impaired fasting glucose
CPT/HCPCS: 36415; 80053; 80061; 81003; 82306; 83036; 84439; 84443; 85025

== ENCOUNTER → 2022-03-16 10:50 | Outpatient (BNVA) | payer MEDICARE, SELFPAY | PROVIDERS: PCP Internal Medicine; Visit Provider Anesthesiology | DX: M47.816 Spondylosis without myelopathy or radiculopathy, lumbar region (principal); Z96.651 Presence of right artificial knee joint; E66.01 Morbid (severe) obesity due to excess calories; G89.4 Chronic pain syndrome; Z68.39 Body mass index [BMI] 39.0-39.9, adult | CPT/HCPCS: 99202 ==

== ENCOUNTER 2022-03-31 06:28 | Outpatient (REF) | payer MEDICARE, SELFPAY ==
--- NOTE | ~2022-03-31 | FL_ITS ---
EXAMINATION: XR FLUOROSCOPY WITH IMAGES CLINICAL INFORMATION: Bilateral lumbar injection. COMPARISON: Lumbar spine radiographs dated 03/29/2020. TECHNIQUE: Fluoroscopy performed by Dr. Kingston. Fluoroscopy time: 0.7. Cumulative Dose: 14.3 mGy. DAP: 3.92 Gy-cm2. Images: 6. FL/FL guidance in treatment room FINDINGS/IMPRESSION: Final image shows needles in place bilaterally at L3, L4 and L5. Please refer to the procedure report for more detailed findings.
== END 2022-03-31 06:29 | disposition home or self-care (01) ==
LOC: HO.RADIR 06:28
PROVIDERS: Visit Provider Anesthesiology
DX: M47.816 Spondylosis without myelopathy or radiculopathy, lumbar region (principal); G89.4 Chronic pain syndrome; E66.01 Morbid (severe) obesity due to excess calories; Z96.651 Presence of right artificial knee joint
CPT/HCPCS: 64493; 64494

== ENCOUNTER → 2022-04-02 11:14 | Outpatient (BNVA) | payer MEDICARE, SELFPAY | PROVIDERS: PCP Internal Medicine; Visit Provider Anesthesiology | DX: G89.4 Chronic pain syndrome (principal); M47.816 Spondylosis without myelopathy or radiculopathy, lumbar region; E66.01 Morbid (severe) obesity due to excess calories; Z96.651 Presence of right artificial knee joint | CPT/HCPCS: Q3014 ==

== ENCOUNTER 2022-04-14 06:29 | Outpatient (REF) | payer MEDICARE, SELFPAY | END 2022-04-14 06:30 | disposition home or self-care (01) | LOC: HO.RADIR 06:29 | PROVIDERS: Visit Provider Anesthesiology | DX: M47.816 Spondylosis without myelopathy or radiculopathy, lumbar region (principal); M25.561 Pain in right knee; E66.01 Morbid (severe) obesity due to excess calories; G89.4 Chronic pain syndrome; Z96.651 Presence of right artificial knee joint | CPT/HCPCS: 64450; J0690; J3300 ==

== ENCOUNTER 2022-05-20 10:34 | Outpatient (REF) | payer MEDICARE, SELFPAY ==
--- NOTE | ~2022-05-20 | CT_ITS ---
EXAMINATION: CT CHEST WITHOUT CONTRAST CLINICAL INFORMATION: Congenital diaphragmatic hernia COMPARISON: CT chest 04/16/2021 TECHNIQUE: Multidetector volumetric CT imaging of the chest was done. Axial MIP volume rendering provided. Sagittal and coronal reformatted images were obtained. This CT examination was performed using dose optimization techniques as appropriate, variously including the following: *Automated exposure control *Adjustment of mA and/or kV according to patient size (this includes techniques or standardized protocols for targeted exams where dose is matched to indication/reason for exam; i.e. 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 LUNGS: The lungs are well-expanded without acute pneumonic process. Previously seen subpleural 2 mm nodules in the right upper lobe, axial image 93/7 and 90/7, are stable. No additional nodules seen. No acute consolidation, mass or ground-glass density seen. MEDIASTINUM: There is focal eventration of posterior diaphragm. The thyroid lobes are symmetrical and normal. The central trachea and the bronchi are widely patent. Heart size and the great vessels are normal caliber. No pericardial effusion seen. No abnormal size mediastinal or hilar lymph nodes seen. There is posterior left hemidiaphragm Bochdalek hernia and focal eventration. CORONARY ARTERY CALCIFICATION: Trace coronary artery calcifications seen. PLEURA: There is no pleural effusion. No pleural mass or thickening. AXILLA: No lymphadenopathy. UPPER ABDOMEN: Visualized liver, spleen, pancreas and bilateral adrenal glands are unremarkable. There are multiple small radiopaque gallstones without wall thickening. OSSEOUS STRUCTURES: There is exaggerated thoracic kyphosis with mild ventral spondylosis. No aggressive lytic or sclerotic process seen. CT/CT chest wo IV con IMPRESSION: 1. Stable 2 mm subpleural nodules, right upper lobe. No new nodules seen. 2. Small left diaphragm Bochdalek hernia containing fat, is stable also visualized is focal eventration of left posterior diaphragm 3. Small radiopaque gallstones without wall thickening. Fleischner guidelines were followed.
== END 2022-05-20 10:35 | disposition home or self-care (01) ==
LOC: HO.CT 10:34
PROVIDERS: PCP Internal Medicine; Visit Provider Surgery
DX: Q79.0 Congenital diaphragmatic hernia (principal)
CPT/HCPCS: 71250

== ENCOUNTER → 2022-05-29 08:19 | Outpatient (BNVA) | payer MEDICARE, SELFPAY | PROVIDERS: PCP Internal Medicine; Visit Provider Surgery | DX: Q79.0 Congenital diaphragmatic hernia (principal) | CPT/HCPCS: Q3014 ==

== ENCOUNTER → 2022-06-22 11:34 | Outpatient (BNVA) | payer MEDICARE, SELFPAY | PROVIDERS: PCP Internal Medicine; Visit Provider Anesthesiology | DX: M47.816 Spondylosis without myelopathy or radiculopathy, lumbar region (principal); G89.4 Chronic pain syndrome; E66.01 Morbid (severe) obesity due to excess calories; Z68.41 Body mass index [BMI] 40.0-44.9, adult; Z96.651 Presence of right artificial knee joint | CPT/HCPCS: 99212 ==

== ENCOUNTER 2022-06-25 09:46 | Outpatient (REF) | payer MEDICARE, SELFPAY ==
[2022-06-25 10:02] LABS: MANUAL DIFF FLAG NO
[2022-06-25 10:18] LABS: Appearance Urine Clear; Color Urine Dark Yellow; Glucose Urine UA Negative (Negative); Leukocyte Esterase Urine Negative (Negative); Nitrite Urine Negative (Negative); PH 5.5 (5.0-9.0); Urine Blood Negative (Negative); Urine Ketones Trace mg/dL (Negative); Urine Protein Trace mg/dL (Neg-Trace)
[2022-06-25 10:49] LABS: Basophils Absolute Auto 0.1 X10*3/uL (0.0-0.2); Basophils Percent Auto 0.8 % (0-2); Eosinophils Absolute Auto 0.2 X10*3/uL (0.0-0.4); Eosinophils Percent Auto 3.3 % (0-4); Hematocrit 41.9 % (37.0-47.0); Hemoglobin 13.3 g/dl (12.0-16.0); Imm Gran Abs Auto 0.02 X10*3/uL (0.00-0.03); Imm Gran Pct Auto 0.3 % (0.0-0.4); Lymphocytes Absolute Auto 2.2 X10*3/uL (1.2-4.9); Lymphocytes Percent Auto 33.3 % (20-40); Mean Corpuscular HGB Conc 31.7 g/dl (31.0-35.0); Mean Corpuscular Hemoglobin 28.7 pg (27.0-33.0); Mean Corpuscular Volume 90.3 fL (80.0-98.0); Monocytes Absolute Auto 0.7 X10*3/uL (0.1-1.2); Monocytes Percent Auto 10.1 % (2-11); Neutrophils Absolute Auto 3.4 x10*3/uL (2.0-8.3); Neutrophils Percent Auto 52.2 % (45-73); Platelet Count 270 X10*3/uL (160-400); Red Blood Count 4.64 X10*6/uL (4.20-5.50); Red Cell Distribution Width 13.7 % (11.0-16.0); White Blood Count 6.5 X10*3/uL (4.8-10.8)
[2022-06-25 14:17] LABS: Alanine Aminotransferase 657 U/L (0-31); Alkaline Phosphatase 477 U/L (39-117); Anion Gap 15 (12-20); Aspartate Amino Transferase 532 U/L (5-31); Blood Urea Nitrogen 11 mg/dL (9-16); Calcium 10.1 mg/dL (8.4-10.2); Carbon Dioxide 27 mmol/L (22-29); Chloride 106 mmol/L (96-108); Cholesterol 181 mg/dL; Estimated Glomerular Filt Rate > 60; Free T4 (Free Thyroxine) 1.09 ng/dL (0.71-1.85); Glucose Fasting 96 mg/dL (60-99); HDL Cholesterol 49 mg/dL; LDL Cholesterol Calculated 118 mg/dl; Potassium 4.6 mmol/L (3.3-5.1); Sodium 143 mmol/L (135-145); Thyroid Stimulating Hormone 4.37 uIU/mL (0.32-4.0); Total Protein 6.6 g/dL (6.5-8.0); Triglycerides 70 mg/dL; Vitamin D 25-OH Total 50.1 ng/mL (>30)
[2022-06-25 16:39] LABS: Vitamin B12 1462 pg/mL (200-900)
== END 2022-06-25 09:47 | disposition home or self-care (01) ==
LOC: HO.LAB 09:46
PROVIDERS: PCP Internal Medicine; Visit Provider Internal Medicine
DX: I10 Essential (primary) hypertension (principal); E03.9 Hypothyroidism, unspecified; E55.9 Vitamin D deficiency, unspecified; E53.8 Deficiency of other specified B group vitamins; E78.00 Pure hypercholesterolemia, unspecified
CPT/HCPCS: 36415; 80053; 80061; 81003; 82306; 82607; 82746; 84439; 84443; 85025

== ENCOUNTER 2022-06-30 12:30 | Outpatient (REF) | payer MEDICARE, SELFPAY ==
[2022-06-30 12:46] LABS: MANUAL DIFF FLAG NO
[2022-06-30 13:53] LABS: Basophils Absolute Auto 0.1 X10*3/uL (0.0-0.2); Eosinophils Absolute Auto 0.2 X10*3/uL (0.0-0.4); Eosinophils Percent Auto 1.9 % (0-4); Hematocrit 37.6 % (37.0-47.0); Imm Gran Abs Auto 0.03 X10*3/uL (0.00-0.03); Imm Gran Pct Auto 0.4 % (0.0-0.4); Lymphocytes Absolute Auto 2.3 X10*3/uL (1.2-4.9); Lymphocytes Percent Auto 29.9 % (20-40); Mean Corpuscular HGB Conc 31.9 g/dl (31.0-35.0); Mean Corpuscular Hemoglobin 29.3 pg (27.0-33.0); Mean Corpuscular Volume 91.9 fL (80.0-98.0); Monocytes Absolute Auto 0.7 X10*3/uL (0.1-1.2); Monocytes Percent Auto 9.4 % (2-11); Neutrophils Absolute Auto 4.4 x10*3/uL (2.0-8.3); Neutrophils Percent Auto 57.4 % (45-73); Platelet Count 285 X10*3/uL (160-400); Red Blood Count 4.09 X10*6/uL (4.20-5.50); Red Cell Distribution Width 13.9 % (11.0-16.0); White Blood Count 7.7 X10*3/uL (4.8-10.8)
[2022-06-30 15:09] LABS: Alanine Aminotransferase 549 U/L (0-31); Albumin Level 3.8 g/dL (3.5-5.0); Alkaline Phosphatase 485 U/L (39-117); Aspartate Amino Transferase 745 U/L (5-31); Bilirubin Direct 0.3 mg/dL (0.0-0.5); Bilirubin Total 0.5 mg/dL (0.0-1.0); Gamma Glutamyl Transpeptidase 647 U/L (7-33); Lipase 23 U/L (8-78); Total Protein 6.2 g/dL (6.5-8.0)
[2022-06-30 16:12] LABS: Monotest Negative (Negative)
[2022-07-01 04:48] LABS: HBS Num1 0.33 mIU/mL (0-7.99); HBc Num1 0.23 S/CO (0.00-0.79); HBsAGNum1 0.18 S/CO (0.00-0.99); Hepatitis A Antibody IgM 0.15 Index (0-0.79); Hepatitis B Core Antibody Nonreactive (Nonreactive); Hepatitis B Surface Antigen Negative (Negative); ~HepC Num1 0.08 S/CO (0.00-0.79); ~Hepatitis A Antibody IgM Nonreactive (Nonreactive); ~Hepatitis B Surface Antibody NONREACTIVE (Nonreactive); ~Hepatitis C Antibody Nonreactive (Nonreactive)
== END 2022-06-30 12:31 | disposition home or self-care (01) ==
LOC: HO.LAB 12:30
PROVIDERS: PCP Internal Medicine; Visit Provider Internal Medicine
DX: R10.9 Unspecified abdominal pain (principal); R74.01 Elevation of levels of liver transaminase levels
CPT/HCPCS: 36415; 80076; 82977; 83690; 85025; 86308; 86704; 86706; 86709; 86803; 87340

== ENCOUNTER 2022-07-01 08:54 | Outpatient (REF) | payer MEDICARE, SELFPAY ==
--- NOTE | ~2022-07-01 | US_ITS ---
EXAMINATION: US ABDOMEN COMPLETE CLINICAL INFORMATION: Elevated LFTs. COMPARISON: Abdominal ultrasound and [address] scan both dated 03/04/2019. TECHNIQUE: Real-time imaging of the abdominal viscera. FINDINGS: PANCREAS: Visualized portions unremarkable. ABDOMINAL AORTA: Visualized portions unremarkable. INFERIOR VENA CAVA: Visualized portions unremarkable. LIVER: Unremarkable. GALLBLADDER: Small dependent gallstones without surrounding abnormality. COMMON BILE DUCT: Normal in caliber measuring 0.7 cm in diameter. RIGHT KIDNEY: 11.2 cm. Unremarkable. LEFT KIDNEY: 12.4 cm. Unremarkable. SPLEEN: 10.0 cm. Unremarkable. FREE FLUID: None. US/US abdomen complete IMPRESSION: Cholelithiasis without evidence for acute cholecystitis.
== END 2022-07-01 08:55 | disposition home or self-care (01) ==
LOC: HO.HMGCX 08:54
PROVIDERS: PCP Internal Medicine; Visit Provider Internal Medicine
DX: R10.9 Unspecified abdominal pain (principal); R74.01 Elevation of levels of liver transaminase levels
CPT/HCPCS: 76700

== ENCOUNTER → 2022-07-07 09:03 | Outpatient (BNVA) | payer MEDICARE, SELFPAY | PROVIDERS: PCP Internal Medicine; Visit Provider Hospitalist | DX: R91.1 Solitary pulmonary nodule (principal); J98.4 Other disorders of lung; K44.9 Diaphragmatic hernia without obstruction or gangrene; G47.33 Obstructive sleep apnea (adult) (pediatric) | CPT/HCPCS: 99212 ==

== ENCOUNTER 2022-07-08 11:56 | Inpatient (IN) | payer MEDICARE, SELFPAY ==
--- NOTE | ~2022-07-08 | CT_ITS ---
EXAMINATION: CT ABDOMEN AND PELVIS WITH CONTRAST CLINICAL INFORMATION: Abdominal pain, bloating COMPARISON: Ultrasound from 07/01/[address] from 03/04/2019 TECHNIQUE: Multidetector volumetric images were obtained from the superior aspect of the liver through the pubic symphysis following administration 85 mL of Omnipaque 350 intravenous contrast. Sagittal and coronal reformatted images were obtained on the technologist's workstation. Oral contrast: No This CT examination was performed using dose optimization techniques as appropriate, variously including the following: *Automated exposure control *Adjustment of mA and/or kV according to patient size (this includes techniques or standardized protocols for targeted exams where dose is matched to indication/reason for exam; i.e. extremities or head) *Use of iterative reconstruction technique DLP: 1048 mGy-cm FINDINGS: LUNG BASES: The visualized lung bases are unremarkable. LIVER, GALLBLADDER, AND BILIARY TREE: The liver is normal in size, shape, and attenuation. No focal hepatic lesion or biliary ductal dilatation is present. Calcified stones are seen within the fundus of the gallbladder. No gallbladder wall thickening. There is intrahepatic and extrahepatic biliary ductal dilatation is seen with 2 noncalcified filling defects seen in the distal common bile duct. Common bile duct measures a maximum diameter of 1.2 cm which is increased in size compared to the prior ultrasound, previously measuring 7 mm. Findings concerning for underlying choledocholithiasis with a worsening biliary obstruction PANCREAS: Unremarkable. SPLEEN: Unremarkable. ADRENAL GLANDS: Unremarkable. KIDNEYS AND URETERS: The kidneys are normal in size, shape, and attenuation. No hydronephrosis, hydroureter, or calculi seen. No perinephric stranding. BLADDER: Unremarkable. GASTROINTESTINAL TRACT: The small are unremarkable. The appendix is clearly identified. Diverticula seen within the sigmoid colon without evidence of acute diverticulitis ABDOMINAL WALL: No significant hernia is appreciated. LYMPH NODES: Normal. VASCULAR: Atherosclerotic calcifications seen in the aorta. PELVIC VISCERA: Coarse calcification seen within the uterus which could represent old fibroids. No pelvic mass lesion seen. OSSEOUS STRUCTURES: Unremarkable. CT/CT abdomen pelvis w IV con IMPRESSION: Noncalcified filling defects seen within the distal common bile duct with increasing intrahepatic and extrahepatic biliary duct dilatation. Findings consistent with choledocholithiasis with a worsening biliary obstruction.
--- NOTE | ~2022-07-08 | FL_ITS ---
EXAMINATION: XR FLUOROSCOPY WITH IMAGES CLINICAL INFORMATION: ERCP. Biliary ductal dilatation, noncalcified filling defects distal common duct on CT. COMPARISON: CT abdomen and pelvis with IV contrast 07/08/2022 TECHNIQUE: Fluoroscopy Supervised By: Dr. Faheem Peters. Fluoroscopy Time: 5.2 minutes. Cumulative Dose: 124.5 mGy. DAP: 33.8 Gycm2. Images: 4. FINDINGS: There is dilatation common hepatic duct and common bile duct. No focal stricture or extravasation. Filling defects noted on CT are not appreciated on the fluoroscopic spot images. FL/FL guidance in OR IMPRESSION: -Distended common hepatic duct and common bile duct. -No focal stricture or extravasation. -The noncalcified filling defects noted on CT are not clearly visualized.
[2022-07-08 14:24] VITALS: BP 170/81; PULSE 76; RESP 18; TEMP 36.8; O2SAT 97; BMI 38.0
--- NOTE | 2022-07-08 14:38 | ECG_ITS ---
Test Reason : Severe Abdominal Pain Blood Pressure : / mmHG Vent. 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
--- NOTE | 2022-07-08 14:40 | ED_ITS ---
HPI - Abdominal Pain General Chief Complaint: Abdominal Pain Stated Complaint: Sever abd pain/Back pain/Nausea Time Seen by Provider: 07/08/22 20:01 Related Data Home Medications Medication Instructions Recorded Confirmed cholecalciferol (vitamin D3) 25 1,000 unit PO DAILY 05/16/20 07/08/22 mcg (1,000 unit) chewable tablet (Vitamin D3) cyanocobalamin (vitamin B-12) 1,000 mcg PO DAILY 05/16/20 07/08/22 1,000 mcg tablet (Vitamin B-12) thiamine HCl (vitamin B1) 100 mg 300 mg PO DAILY 05/16/20 07/08/22 tablet (Vitamin B-1) pyridoxine (vitamin B6) 25 mg 25 mg PO DAILY 01/24/21 07/08/22 tablet levothyroxine 75 mcg tablet 75 mcg PO DAILY 07/08/22 07/08/22 Previous Rx's Medication Instructions Recorded albuterol sulfate 90 mcg/actuation 2 inh inhalation Q6H PRN shortness 08/26/21 aerosol inhaler of breath or wheezing 30 days #18 grams gabapentin 300 mg capsule 300 mg PO TID #270 caps 12/08/21 ibuprofen 800 mg tablet 800 mg PO TID PRN for fever #90 01/13/22 tabs amlodipine 2.5 mg tablet 2.5 mg PO DAILY #90 tabs 02/17/22 lisinopril 40 mg tablet 40 mg PO DAILY #90 tabs 02/17/22 omeprazole 20 mg capsule,delayed 20 mg PO DAILY #90 caps 03/31/22 release Allergies Allergy/AdvReac Type Severity Reaction Status Date / Time No Known Allergies Allergy Verified 07/07/22 09:07 [No Known Allergies*] [facility] Past Medical History Medical History Acquired hypothyroidism Benign essential hypertension Bochdalek hernia Chronic restrictive lung disease Depression Elevated LFTs Exertional dyspnea GERD without esophagitis Hernia, diaphragmatic Hiatal hernia Hypothyroidism Impaired fasting glucose Lumbar degenerative disc disease Neuropathy of left peroneal nerve Obesity (BMI 30-39.9) Osteopenia Primary osteoarthritis of right knee Pulmonary nodule Pure hypercholesterolemia Relapsing polychondritis Rheumatoid arthritis Right lumbar radiculopathy Thoracic scoliosis Vitamin B12 deficiency Vitamin D deficiency Surgical History History of appendectomy (~1963) History of carpal tunnel surgery (~03/2016) History of cataract surgery History of colonoscopy History of right knee joint replacement (~08/2016) History of surgery on right wrist (~02/2020) History of surgery on right wrist (~05/2004) Family History Family History Father CVD (cardiovascular disease) Mother Cancer Maternal Aunt Breast cancer Brother Colon cancer Social History Social History Household Members: Spouse Housing: House Are you a primary animal care technician to a significant other at home: No Do you presently have visiting nurse or other home services: No Alcohol intake: current Alcohol intake frequency: a few times a week Patient Tobacco Use Status: Former Tobacco user Tobacco use type: Cigarette Years Smoked: 40 e-Cigarette/Vaping Use: Never Used Second Hand Smoke Exposure: No Advance Directives: Yes Advance Directives Information Provided: No Advance Directives on File: No service: No Current occupational status: retired Cognitive needs: No Hearing needs: No Vision needs: Yes (reading glasses) Physical Exam ED Vital Signs: Vital Signs - 24 hr 07/08/22 14:24 Temperature 98.2 F Pulse Rate 76 Respiratory Rate 18 Blood Pressure 170/81 H Pulse Oximetry 97 Oxygen Delivery Method Room Air BMI result Body Mass Index 38.0 Course Course Course Narrative: RME: 72-year-old female history of depression, restrictive lung disease, GERD, rheumatoid arthritis, small-bowel obstruction, recently told that she had elevated liver tests of unclear cause who presents emergency department for evaluation of upper abdominal pain, nausea, feeling bloated x2 days. Patient states that the pain is constant but waxes and wanes in intensity, located mainly in the epigastric area sharp and is 10/10. She had no bowel movement today but did have a bowel movement yesterday. Vital signs revealed an elevated blood pressure of 170/81 otherwise unremarkable. Patient is awake alert, cooperative does not appear to be in distress HEENT exam unremarkable, neck supple, lungs clear to auscultation, breath sounds symmetric bilaterally, heart exam regular rate rhythm, abdomen patient has moderate right upper quadrant, moderate to severe epigastric and moderate left upper quadrant tenderness, she h as normoactive bowel sounds. Back revealed no CVA tenderness extremities unremarkable neurologic was nonfocal. I did order a CBC, CMP, lactic acid, lipase, PT/INR, urinalysis. Given the severity of her pain and her tenderness, patient be break brought back to a room and I did order morphine 4 mg IV, Zofran 4 mg IV normal saline x1 L. I will also obtain a CT scan of the abdomen pelvis with IV contrast and a right upper quadrant ultrasound. Medications Administered Generic Name Dose Route Start Last Admin Trade Name Freq PRN Reason Stop Dose Admin Amlodipine Besylate 2.5 mg 07/08/22 22:30 07/08/22 22:46 Amlodipine Besylate 2.5 Mg Tablet PO Not Given DAILY IGOR Protocol Gabapentin 300 mg 07/08/22 22:30 07/08/22 22:49 Gabapentin 300 Mg Capsule PO 300 mg TID IGOR Administration Lisinopril 40 mg 07/08/22 22:30 07/08/22 22:47 Lisinopril 40 Mg Tablet PO Not Given DAILY IGOR Protocol Discontinued Medications Generic Name Dose Route Start Last Admin Trade Name Freq PRN Reason Stop Dose Admin Famotidine 20 mg 07/08/22 20:21 07/08/22 21:16 Famotidine/Pf 20 Mg/2 Ml Vial IVPUSH 07/08/22 20:22 20 mg ONCE ONE Administration Sodium Chloride 1,000 mls @ 999 mls/hr 07/08/22 14:37 07/08/22 22:39 Ns IV 07/08/22 15:37 Infused .Q1H1M STA Infusion Ceftriaxone Sodium 1 gm/ 50 mls @ 100 mls/hr 07/08/22 21:42 07/08/22 23:18 Sodium Chloride IV 07/08/22 22:11 Infused ONCE ONE Infusion Iohexol 100 ml 07/08/22 20:28 07/08/22 20:28 Iohexol 350 Mg/Ml 100 Ml Infus..Btl IV 07/08/22 20:29 85 ml ONCE ONE Administration Morphine Sulfate 4 mg 07/08/22 14:37 07/08/22 21:17 Morphine Sulfate 4 Mg/Ml Cartridge IVPUSH 07/08/22 14:38 Not Given ONCE STA Protocol Ondansetron HCl 4 mg 07/08/22 14:37 07/08/22 21:16 Ondansetron Hcl 4 Mg/2 Ml Vial IVPUSH 07/08/22 14:38 Not Given ONCE ONE MDM - Abdominal Pain Lab Data Result diagrams: 07/08/22 15:08 07/08/22 15:08 Labs: Lab Results 07/08/22 07/08/22 07/08/22 Range/Units 15:08 15:08 15:08 WBC 8.0 (4.8-10.8) X10*3/uL RBC 4.51 (4.20-5.50) X10*6/uL Hgb 13.1 (12.0-16.0) g/dl Hct 40.2 (37.0-47.0) % MCV 89.1 (80.0-98.0) fL MCH 29.0 (27.0-33.0) pg MCHC 32.6 (31.0-35.0) g/dl RDW 13.8 (11.0-16.0) % Plt Count 208 D (160-400) X10*3/uL MPV 11.8 (9.4-12.3) fL Immature Gran % (Auto) 0.6 H (0.0-0.4) % Neut % (Auto) 84.1 H (45-73) % Lymph % (Auto) 5.5 L (20-40) % [place] % (Auto) 9.0 (2-11) % Eos % (Auto) 0.4 (0-4) % Baso % (Auto) 0.4 (0-2) % Lymph # (Auto) 0.4 L (1.2-4.9) X10*3/uL [place] # (Auto) 0.7 (0.1-1.2) X10*3/uL Eos # (Auto) 0.0 (0.0-0.4) X10*3/uL Baso # (Auto) 0.0 (0.0-0.2) X10*3/uL Abs Immat Gran (auto) 0.05 H (0.00-0.03) X10*3/uL Absolute Neuts (auto) 6.7 (2.0-8.3) x10*3/uL Absolute Nucleated RBC 0.000 (0.0-0.012) X10*3/uL Nucleated RBC % (auto) 0.0 (0.0-0.2) /100WBC PT (10.0-13.1) SEC INR (0.9-1.1) APTT (26.0-36.4) SEC Sodium 137 (135-145) mmol/L Potassium 4.4 (3.3-5.1) mmol/L Chloride 100 (96-108) mmol/L Carbon Dioxide 29 (22-29) mmol/L Anion Gap 12 (12-20) BUN 9 (9-16) mg/dL Creatinine 0.72 (0.5-1.4) mg/dL Estim Creat Clear Calc 78.5 Estimated GFR > 60 Random Glucose 119 H (60-115) mg/dL Lactic Acid 1.1 (0.5-2.0) mmol/L Calcium 9.9 (8.4-10.2) mg/dL Total Bilirubin 3.2 H (0.0-1.0) mg/dL AST 624 H (5-31) U/L ALT 571 H (0-31) U/L Alkaline Phosphatase 417 H (39-117) U/L Total Protein 6.5 (6.5-8.0) g/dL Albumin 3.9 (3.5-5.0) g/dL Lipase 22 (8-78) U/L Acetaminophen < 1 (<30) mcg/mL COVID-19 (PATRICIA) (Negative) COVID-19 Clin Com Influenza Type A (EVELYN) (Negative) Influenza Type B (EVELYN) (Negative) Influenza A & B Note 07/08/22 07/08/22 07/08/22 Range/Units 15:08 15:08 15:08 WBC (4.8-10.8) X10*3/uL RBC (4.20-5.50) X10*6/uL Hgb (12.0-16.0) g/dl Hct (37.0-47.0) % MCV (80.0-98.0) fL MCH (27.0-33.0) pg MCHC (31.0-35.0) g/dl RDW (11.0-16.0) % Plt Count (160-400) X10*3/uL MPV (9.4-12.3) fL Immature Gran % (Auto) (0.0-0.4) % Neut % (Auto) (45-73) % Lymph % (Auto) (20-40) % [place] % (Auto) (2-11) % Eos % (Auto) (0-4) % Baso % (Auto) (0-2) % Lymph # (Auto) (1.2-4.9) X10*3/uL [place] # (Auto) (0.1-1.2) X10*3/uL Eos # (Auto) (0.0-0.4) X10*3/uL Baso # (Auto) (0.0-0.2) X10*3/uL Abs Immat Gran (auto) (0.00-0.03) X10*3/uL Absolute Neuts (auto) (2.0-8.3) x10*3/uL Absolute Nucleated RBC (0.0-0.012) X10*3/uL Nucleated RBC % (auto) (0.0-0.2) /100WBC PT (10.0-13.1) SEC INR (0.9-1.1) APTT 31.0 (26.0-36.4) SEC Sodium (135-145) mmol/L Potassium (3.3-5.1) mmol/L Chloride (96-108) mmol/L Carbon Dioxide (22-29) mmol/L Anion Gap (12-20) BUN (9-16) mg/dL Creatinine (0.5-1.4) mg/dL Estim Creat Clear Calc Estimated GFR Random Glucose (60-115) mg/dL Lactic Acid (0.5-2.0) mmol/L Calcium (8.4-10.2) mg/dL Total Bilirubin (0.0-1.0) mg/dL AST (5-31) U/L ALT (0-31) U/L Alkaline Phosphatase (39-117) U/L Total Protein (6.5-8.0) g/dL Albumin (3.5-5.0) g/dL Lipase (8-78) U/L Acetaminophen (<30) mcg/mL COVID-19 (PATRICIA) Negative (Negative) COVID-19 Clin Com See Note Influenza Type A (EVELYN) Negative (Negative) Influenza Type B (EVELYN) Negative (Negative) Influenza A & B Note See Note 07/08/22 Range/Units 15:08 WBC (4.8-10.8) X10*3/uL RBC (4.20-5.50) X10*6/uL Hgb (12.0-16.0) g/dl Hct (37.0-47.0) % MCV (80.0-98.0) fL MCH (27.0-33.0) pg MCHC (31.0-35.0) g/dl RDW (11.0-16.0) % Plt Count (160-400) X10*3/uL MPV (9.4-12.3) fL Immature Gran % (Auto) (0.0-0.4) % Neut % (Auto) (45-73) % Lymph % (Auto) (20-40) % [place] % (Auto) (2-11) % Eos % (Auto) (0-4) % Baso % (Auto) (0-2) % Lymph # (Auto) (1.2-4.9) X10*3/uL [place] # (Auto) (0.1-1.2) X10*3/uL Eos # (Auto) (0.0-0.4) X10*3/uL Baso # (Auto) (0.0-0.2) X10*3/uL Abs Immat Gran (auto) (0.00-0.03) X10*3/uL Absolute Neuts (auto) (2.0-8.3) x10*3/uL Absolute Nucleated RBC (0.0-0.012) X10*3/uL Nucleated RBC % (auto) (0.0-0.2) /100WBC PT 12.3 (10.0-13.1) SEC INR 1.1 (0.9-1.1) APTT (26.0-36.4) SEC Sodium (135-145) mmol/L Potassium (3.3-5.1) mmol/L Chloride (96-108) mmol/L Carbon Dioxide (22-29) mmol/L Anion Gap (12-20) BUN (9-16) mg/dL Creatinine (0.5-1.4) mg/dL Estim Creat Clear Calc Estimated GFR Random Glucose (60-115) mg/dL Lactic Acid (0.5-2.0) mmol/L Calcium (8.4-10.2) mg/dL Total Bilirubin (0.0-1.0) mg/dL AST (5-31) U/L ALT (0-31) U/L Alkaline Phosphatase (39-117) U/L Total Protein (6.5-8.0) g/dL Albumin (3.5-5.0) g/dL Lipase (8-78) U/L Acetaminophen (<30) mcg/mL COVID-19 (PATRICIA) (Negative) COVID-19 Clin Com Influenza Type A (EVELYN) (Negative) Influenza Type B (EVELYN) (Negative) Influenza A & B Note Discharge Plan Discharge Clinical Impression: Biliary colic, Gallstone Patient Disposition: Admitted As Inpatient
[2022-07-08 15:15] LABS: MANUAL DIFF FLAG NO
[2022-07-08 15:17] LABS: Basophils Percent Auto 0.4 % (0-2); Eosinophils Percent Auto 0.4 % (0-4); Hematocrit 40.2 % (37.0-47.0); Hemoglobin 13.1 g/dl (12.0-16.0); Imm Gran Abs Auto 0.05 X10*3/uL (0.00-0.03); Imm Gran Pct Auto 0.6 % (0.0-0.4); Lymphocytes Absolute Auto 0.4 X10*3/uL (1.2-4.9); Lymphocytes Percent Auto 5.5 % (20-40); Mean Corpuscular HGB Conc 32.6 g/dl (31.0-35.0); Mean Corpuscular Volume 89.1 fL (80.0-98.0); Mean Platelet Volume 11.8 fL (9.4-12.3); Monocytes Absolute Auto 0.7 X10*3/uL (0.1-1.2); Neutrophils Absolute Auto 6.7 x10*3/uL (2.0-8.3); Neutrophils Percent Auto 84.1 % (45-73); Platelet Count 208 X10*3/uL (160-400); Red Blood Count 4.51 X10*6/uL (4.20-5.50); Red Cell Distribution Width 13.8 % (11.0-16.0)
[2022-07-08 15:23] LABS: INTERNATIONAL NORM RATIO 1.1 (0.9-1.1); Prothrombin Time 12.3 SEC (10.0-13.1)
[2022-07-08 15:28] LABS: Lactic Acid 1.1 mmol/L (0.5-2.0)
[2022-07-08 15:29] LABS: COVID-19 Test Negative (Negative); IDNOW Serial# BCCEAD1C
[2022-07-08 15:31] LABS: Alanine Aminotransferase 571 U/L (0-31); Albumin Level 3.9 g/dL (3.5-5.0); Alkaline Phosphatase 417 U/L (39-117); Anion Gap 12 (12-20); Aspartate Amino Transferase 624 U/L (5-31); Bilirubin Total 3.2 mg/dL (0.0-1.0); Blood Urea Nitrogen 9 mg/dL (9-16); Calcium 9.9 mg/dL (8.4-10.2); Carbon Dioxide 29 mmol/L (22-29); Chloride 100 mmol/L (96-108); Creatinine Clr Calc Pharmacy 78.5; Estimated Glomerular Filt Rate > 60; Glucose Random 119 mg/dL (60-115); IDNOW Serial# 9DB6401D; Influenza A Negative (Negative); Influenza B2 Negative (Negative); Lipase 22 U/L (8-78); Potassium 4.4 mmol/L (3.3-5.1); Sodium 137 mmol/L (135-145); Total Protein 6.5 g/dL (6.5-8.0)
[2022-07-08] MEDS: iohexoL 350 MG/ML 100 ML INFUS..BTL IV (20:28)
[2022-07-08] MEDS: Famotidine/PF 20 MG/2 ML VIAL IVPUSH (21:16)
[2022-07-08] MEDS: 0.9 % Sodium Chloride 1,000 ML 999 ML IV (21:17)
--- NOTE | 2022-07-08 22:07 | PHA.MEDREC ---
Pharmacy Consult ? Medication Reconciliation Pharmacy has completed the medication reconciliation. Pt told to stop her crestor per her Doctor
--- NOTE | 2022-07-08 22:30 | PM.IMHP ---
History of Present Illness Date of Service: 07/08/22 Chief Complaint: abd pain 72-year-old female with past medical history of hypertension, hyperlipidemia, hypothyroidism, presents to the hospital with complaints of intermittent abdominal pain and abnormal labs. Patient reports that she has been experiencing abdominal pain in the left upper, epigastric region radiating to the right, this has been going on for about a month, the pain is intermittent, associated with chills, lasting few minutes, resolving spontaneously. Worse with eating. Associated with nausea with no vomiting. Patient is also experiencing constipation last bowel movement 1 day ago. S Patient is also complaining of dark urine with no urinary symptoms including no frequency dysuria or urgency. 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 She denies any fever, no chest pain, no shortness of breath, no weakness numbness or tingling. According to the patient her doctor noticed abnormal liver chest, he asked her to stop taking statin, she has been off statin for 1 week and repeat liver panel continues to show elevated LFTs therefore asked to come to the hospital. On arrival to the ED patient hemodynamically stable with no significant abnormal vitals Labs are significant for 30 C count of 8.0, total bili of 3.2 up from 0.5 on 06/30 , AST of 624 ( 532->745->624 today), and ALT of 571 which has increased. Alk phos of 417. Abdomen pelvic CT shows noncalcified filling defect seen within the distal common bile duct with increasing intrahepatic and extrahepatic biliary duct dilatation, consistent with choledocholithiasis with worsening biliary obstruction. Review of Systems Review of Systems: Yes all other systems are reviewed and are negative [facility] Medical History Acquired hypothyroidism Benign essential hypertension Bochdalek hernia Chronic restrictive lung disease Depression Elevated LFTs Exertional dyspnea GERD without esophagitis Hernia, diaphragmatic Hiatal hernia Hypothyroidism Impaired fasting glucose Lumbar degenerative disc disease Neuropathy of left peroneal nerve Obesity (BMI 30-39.9) Osteopenia Primary osteoarthritis of right knee Pulmonary nodule Pure hypercholesterolemia Relapsing polychondritis Rheumatoid arthritis Right lumbar radiculopathy Thoracic scoliosis Vitamin B12 deficiency Vitamin D deficiency Family History Father CVD (cardiovascular disease) Mother Cancer Maternal Aunt Breast cancer Brother Colon cancer Surgical History History of appendectomy (~1963) History of carpal tunnel surgery (~03/2016) History of cataract surgery History of colonoscopy History of right knee joint replacement (~08/2016) History of surgery on right wrist (~02/2020) History of surgery on right wrist (~05/2004) Social History Household Members: Spouse Housing: House Are you a primary senior resident care director to a significant other at home: No Do you presently have visiting nurse or other home services: No Alcohol intake: current Alcohol intake frequency: holidays/special occasions only Alcohol type: wine Patient Tobacco Use Status: Former Tobacco user Tobacco use type: Cigarette Years Smoked: 40 Smoked in Last 30 Days: No e-Cigarette/Vaping Use: Never Used Second Hand Smoke Exposure: No Use of substances other than those prescribed or required for medical reasons: No Advance Directives: Yes Advance Directives Information Provided: No Advance Directives on File: No service: No Current occupational status: retired Cognitive needs: No Hearing needs: No Vision needs: Yes (reading glasses) Meds Allergies Allergy/AdvReac Type Severity Reaction Status Date / Time No Known Allergies Allergy Verified 07/07/22 09:07 [No Known Allergies*] Active Medications: Current Medications Acetaminophen (Acetaminophen Supp 650 Mg Supp.Rect) 650 mg MD Q6H PRN PRN Reason: Pain, Mild (Pain Scale 1-3) Morphine Sulfate (Morphine Sulfate 4 Mg/Ml Cartridge) 4 mg IVPUSH Q4H PRN; Protocol PRN Reason: Pain, Severe (Pain Scale 7-10) Ondansetron HCl (Ondansetron Hcl 4 Mg/2 Ml Vial) 4 mg IVPUSH Q8H PRN PRN Reason: Nausea and Vomiting Pharmacy Consult (Consult Rx Perform Med Rec) 1 each MISCELLANE ONCE PRN PRN Reason: Consult order Sodium Chloride (0.9 % Sodium Chloride Flush 3 Ml Syringe) [facility] Medications Medication Instructions Recorded Confirmed Last Taken Type cholecalciferol (vitamin D3) 25 1,000 unit PO DAILY 05/16/20 07/08/22 07/07/22 History mcg (1,000 unit) chewable tablet (Vitamin D3) cyanocobalamin (vitamin B-12) 1,000 mcg PO DAILY 05/16/20 07/08/22 07/07/22 History 1,000 mcg tablet (Vitamin B-12) thiamine HCl (vitamin B1) 100 mg 300 mg PO DAILY 05/16/20 07/08/22 07/07/22 History tablet (Vitamin B-1) pyridoxine (vitamin B6) 25 mg 25 mg PO DAILY 01/24/21 07/08/22 07/07/22 History tablet levothyroxine 75 mcg tablet 75 mcg PO DAILY 07/08/22 07/08/22 07/08/22 History Physical Exam Vital Signs and Narrative: Vital Signs: Last Vital Signs Temp 98.2 F 07/08/22 14:24 Pulse 76 07/08/22 14:24 Resp 18 07/08/22 14:24 BP 170/81 H 07/08/22 14:24 Pulse Ox 97 07/08/22 14:24 O2 Del Method 07/08/22 14:24 BMI result Body Mass Index 38.0 Const: General: cooperative and no acute distress Orientation/consciousness: patient oriented x3 Eyes: General: appearance normal, both eyes and all related structures Pupils: Equal, round and reactive pupils present Resp: Effort & Inspection: normal respiratory effort Auscultation: clear to auscultation bilaterally Cardio: Rate: regular rate Rhythm: regular rhythm GI: Other: Abdomen is tender to palpation in the epigastric and right upper quadrant, no rebound or guarding Palpation (GI): Soft to palpation Auscultation: normal bowel sounds Skin: General skin exam: no rashes or lesions noted Neuro: General: patient oriented x3 Cranial nerves: Yes Equal, round and reactive pupils present Cognition (Neuro): normal cognition Extrem: General: Yes normal to inspection and Yes no pedal edema Results Labs CBC and Chem 7: 07/08/22 15:08 07/08/22 15:08 Labs: Laboratory Results - last 24 hr 07/08/22 07/08/22 07/08/22 15:08 15:08 15:08 MCV 89.1 MCH 29.0 MCHC 32.6 RDW 13.8 Plt Count 208 D MPV 11.8 Immature Gran % (Auto) 0.6 H Neut % (Auto) 84.1 H Lymph % (Auto) 5.5 L [place] % (Auto) 9.0 Eos % (Auto) 0.4 Baso % (Auto) 0.4 Lymph # (Auto) 0.4 L [place] # (Auto) 0.7 Eos # (Auto) 0.0 Baso # (Auto) 0.0 Abs Immat Gran (auto) 0.05 H Absolute Neuts (auto) 6.7 Absolute Nucleated RBC 0.000 Nucleated RBC % (auto) 0.0 PT INR APTT Anion Gap 12 Estim Creat Clear Calc 78.5 Estimated GFR > 60 Random Glucose 119 H Lactic Acid 1.1 Calcium 9.9 Total Bilirubin 3.2 H AST 624 H ALT 571 H Alkaline Phosphatase 417 H Total Protein 6.5 Albumin 3.9 Lipase 22 COVID-19 (PATRICIA) COVID-19 Clin Com Influenza Type A (EVELYN) Influenza Type B (EVELYN) Influenza A & B Note 07/08/22 07/08/22 07/08/22 15:08 15:08 15:08 MCV MCH MCHC RDW Plt Count MPV Immature Gran % (Auto) Neut % (Auto) Lymph % (Auto) [place] % (Auto) Eos % (Auto) Baso % (Auto) Lymph # (Auto) [place] # (Auto) Eos # (Auto) Baso # (Auto) Abs Immat Gran (auto) Absolute Neuts (auto) Absolute Nucleated RBC Nucleated RBC % (auto) PT INR APTT 31.0 Anion Gap Estim Creat Clear Calc Estimated GFR Random Glucose Lactic Acid Calcium Total Bilirubin AST ALT Alkaline Phosphatase Total Protein Albumin Lipase COVID-19 (PATRICIA) Negative COVID-19 Clin Com See Note Influenza Type A (EVELYN) Negative Influenza Type B (EVELYN) Negative Influenza A & B Note See Note 07/08/22 15:08 MCV MCH MCHC RDW Plt Count MPV Immature Gran % (Auto) Neut % (Auto) Lymph % (Auto) [place] % (Auto) Eos % (Auto) Baso % (Auto) Lymph # (Auto) [place] # (Auto) Eos # (Auto) Baso # (Auto) Abs Immat Gran (auto) Absolute Neuts (auto) Absolute Nucleated RBC Nucleated RBC % (auto) PT 12.3 INR 1.1 APTT Anion Gap Estim Creat Clear Calc Estimated GFR Random Glucose Lactic Acid Calcium Total Bilirubin AST ALT Alkaline Phosphatase Total Protein Albumin Lipase COVID-19 (PATRICIA) COVID-19 Clin Com Influenza Type A (EVELYN) Influenza Type B (EVELYN) Influenza A & B Note Imaging Radiologist's Impressions: Impressions Abdomen/Pelvis CT 07/08/22 20:27 IMPRESSION: Noncalcified filling defects seen within the distal common bile duct with increasing intrahepatic and extrahepatic biliary duct dilatation. Findings consistent with choledocholithiasis with a worsening biliary obstruction. Assessment and Plan (1) Abdominal pain: Qualifiers: Abdominal location: generalized Qualified Code(s): R10.84 - Generalized abdominal pain Status: Acute (2) Choledocholithiasis: Status: Acute (3) Biliary colic: Status: Acute (4) Transaminitis: Status: Acute Plan 72-year-old female with past medical history of hypertension, hypothyroidism, presents the hospital with complaints of abdominal pain as well as abnormal LFTs # abdominal pain - likely secondary to biliary colic /choledocholithiasis - CT abdomen as above showing concern for choledocholithiasis - will treat with IV fluids, pain control # choledocholithiasis/biliary colic - evidence of transaminitis, with biliary duct dilatation is seen on CT abdomen - will order MRCP - GI consult for possible ERCP - at this time will hold off antibiotics as patient has no evidence of an acute infection - will keep NPO # transaminitis - likely secondary to above - hepatitis panel as well as Tylenol level ordered - hold statin - follow liver panel # hypertension - slightly elevated - resume home medications # hypothyroidism - levothyroxine DVT prophylaxis: SCDs for possible anticipation of surgical intervention given patient's choledocholithiasis, biliary colic, as well as transaminitis requiring further evaluation and management by GI patient required minimum 2 night inpatient hospital stay for further management and monitoring Quality Stroke Does the patient have a stroke diagnosis?: No VTE Prior VTE?: No VTE Risk Level:: Medical - moderate - high VTE Device Contraindication: N/A - Device Ordered VTE Drug Contraindication: Treatment Not Indicated
[2022-07-08] MEDS: cefTRIAXone sodium 1 GM in 0.9 % Sodium Chloride 50 ML IV (22:45)
[2022-07-08] MEDS: Gabapentin 300 MG CAPSULE PO (22:49)
[2022-07-08 23:09] LABS: Acetaminophen LAB < 1 mcg/mL (<30)
--- NOTE | 2022-07-08 23:14 | PC.NURSE ---
Notified Nicho Desouza MD to re-time pt.'s Amlodipine and Lisinopril. Also req. PRN Ibuprofen for pt.
[2022-07-08 23:56] VITALS: BP 148/69; PULSE 66; RESP 16; TEMP 37.1; O2SAT 97
[2022-07-09] VITALS (16 sets, daily range): BP systolic 130–178; BP diastolic 57–92; PULSE 56–80; RESP 11–20; TEMP 36.2–37; O2SAT 93–99
--- NOTE | 2022-07-09 04:37 | PC.NURSE ---
pt ambulated from her room to bathroom no problem
[2022-07-09 06:34] LABS: MANUAL DIFF FLAG NO
[2022-07-09 06:37] LABS: Basophils Percent Auto 0.8 % (0-2); Eosinophils Absolute Auto 0.1 X10*3/uL (0.0-0.4); Eosinophils Percent Auto 1.3 % (0-4); Hematocrit 35.5 % (37.0-47.0); Hemoglobin 11.6 g/dl (12.0-16.0); Imm Gran Abs Auto 0.01 X10*3/uL (0.00-0.03); Imm Gran Pct Auto 0.2 % (0.0-0.4); Lymphocytes Absolute Auto 1.2 X10*3/uL (1.2-4.9); Lymphocytes Percent Auto 23.1 % (20-40); Mean Corpuscular HGB Conc 32.7 g/dl (31.0-35.0); Mean Corpuscular Hemoglobin 29.1 pg (27.0-33.0); Monocytes Absolute Auto 0.8 X10*3/uL (0.1-1.2); Monocytes Percent Auto 15.5 % (2-11); Neutrophils Absolute Auto 3.1 x10*3/uL (2.0-8.3); Neutrophils Percent Auto 59.1 % (45-73); Platelet Count 185 X10*3/uL (160-400); Red Blood Count 3.99 X10*6/uL (4.20-5.50); Red Cell Distribution Width 13.9 % (11.0-16.0); White Blood Count 5.3 X10*3/uL (4.8-10.8)
[2022-07-09] MEDS: Levothyroxine Sodium 75 MCG TABLET PO (06:46)
[2022-07-09] MEDS: Omeprazole 20 MG CAPSULE.DR PO (06:46)
[2022-07-09 07:12] LABS: Alanine Aminotransferase 385 U/L (0-31); Albumin Level 3.3 g/dL (3.5-5.0); Alkaline Phosphatase 350 U/L (39-117); Aspartate Amino Transferase 302 U/L (5-31); Bilirubin Direct 2.2 mg/dL (0.0-0.5); Bilirubin Total 3.3 mg/dL (0.0-1.0); Blood Urea Nitrogen 7 mg/dL (9-16); Calcium 9.2 mg/dL (8.4-10.2); Creatinine Clr Calc Pharmacy 92.7; Estimated Glomerular Filt Rate > 60; Glucose Random 90 mg/dL (60-115); Total Protein 5.5 g/dL (6.5-8.0)
[2022-07-09 07:28] LABS: Anion Gap 12 (12-20); Carbon Dioxide 25 mmol/L (22-29); Chloride 103 mmol/L (96-108); Potassium 3.2 mmol/L (3.3-5.1); Sodium 137 mmol/L (135-145)
[2022-07-09 07:29] LABS: Appearance Urine Clear; Color Urine Dark Yellow; Glucose Urine UA Negative (Negative); Leukocyte Esterase Urine Small (1+) (Negative); Nitrite Urine Negative (Negative); PH 6.5 (5.0-9.0); UMIC TRIGGER UACC YES; Urine Blood Negative (Negative); Urine Ketones Trace mg/dL (Negative); Urine Protein Negative (Neg-Trace)
[2022-07-09 07:42] LABS: Bacteria Urine None Seen (None Seen); Hyaline Casts Urine 0-2 /LPF (0-2); Squamous Epithelial Cell Urine 0-2 /HPF (0-2); UACC Culture Trigger YES; WBC Urine 0-5 /HPF (0-5)
--- NOTE | 2022-07-09 08:13 | PC.NURSE ---
dr. huerta at bedside, pt aware of plan of care.
--- NOTE | 2022-07-09 08:40 | PC.NURSE ---
pt is a/o 4 no sob/reshma noted. lugs - cta. speaks in full sentences. heart sounds - regular. skin pink warm dry. no edema noted. c/o lower back disc. pt aware of plan of care for ercp this am.
[2022-07-09] MEDS: Gabapentin 300 MG CAPSULE PO ×3 (08:42→20:06)
[2022-07-09] MEDS: lisinopriL 40 MG TABLET PO (08:42)
[2022-07-09] MEDS: Cholecalciferol (Vitamin D3) 25 MCG TABLET PO (08:42)
[2022-07-09] MEDS: Pyridoxine HCl (Vitamin B6) 50 MG TABLET 25 MG PO (08:42)
[2022-07-09] MEDS: Cyanocobalamin (Vitamin B-12) 1,000 MCG TABLET 1000 MCG PO (08:43)
[2022-07-09] MEDS: 0.9 % Sodium Chloride Flush 3 ML SYRINGE IVFLUSH ×3 (08:43→20:06)
[2022-07-09] MEDS: Thiamine HCL 100 MG TABLET 300 MG PO (08:43)
[2022-07-09] MEDS: amLODIPine Besylate 2.5 MG TABLET PO (08:43)
--- NOTE | 2022-07-09 09:00 | PC.NURSE ---
rn to rn given to demond from [employer] [facility] [employer]. pt aware of plan of care.
--- NOTE | 2022-07-09 09:08 | PM.EVENT ---
Event Note Date of Service: 07/09/22 Event Note: GI consult dictated ERCP planned for today for treatment of CBD stones. Angela is aware of risks and benefits and agress to proceed. Surgical consultation ordered for consideration of cholecystectomy.
[2022-07-09 09:29] LABS: HBS Num1 0.54 mIU/mL (0-7.99); HBc Num1 0.12 S/CO (0.00-0.79); HBsAGNum1 0.24 S/CO (0.00-0.99); Hepatitis A Antibody IgM 0.11 Index (0-0.79); Hepatitis B Core Antibody Nonreactive (Nonreactive); Hepatitis B Surface Antigen Negative (Negative); ~HepC Num1 0.07 S/CO (0.00-0.79); ~Hepatitis A Antibody IgM Nonreactive (Nonreactive); ~Hepatitis B Surface Antibody NONREACTIVE (Nonreactive); ~Hepatitis C Antibody Nonreactive (Nonreactive)
--- NOTE | 2022-07-09 09:29 | P.CONAN_ITS ---
[facility] Active Problems Active Problems: All Active Problems (Updated 07/09/22 @ 06:00 by Yunior Desouza MD) Choledocholithiasis (Acute) Biliary colic (Acute) Gallstone (Acute) Abdominal pain (Acute) Transaminitis (Acute) Morbid obesity (Acute) Chronic pain syndrome (Acute) Status post total knee replacement, right (Acute) Spondylosis without myelopathy or radiculopathy, lumbar region (Acute) Depression (Acute) CHRIS (obstructive sleep apnea) (Acute) Pre-operative clearance (Acute) Acquired hypothyroidism (Acute) Osteopenia (Acute) Relapsing polychondritis (Acute) Acquired elevated diaphragm (Acute) Hiatal hernia (Acute) Chronic restrictive lung disease (Acute) Pulmonary nodule (Acute) Right lumbar radiculopathy (Acute) Hernia, diaphragmatic (Acute) Obesity (BMI 30-39.9) (Acute) Relapsing polychondritis (Acute) Vitamin D deficiency (Acute) Osteopenia (Acute) Elevated LFTs (Acute) GERD without esophagitis (Acute) Thoracic scoliosis (Acute) Lumbar degenerative disc disease (Acute) Vitamin B12 deficiency (Acute) Rheumatoid arthritis (Acute) Impaired fasting glucose (Acute) Primary osteoarthritis of right knee (Acute) Neuropathy of left peroneal nerve (Acute) Hypothyroidism (Acute) Exertional dyspnea (Acute) Pure hypercholesterolemia (Acute) Benign essential hypertension (Acute) Bo[place]dalek hernia (Acute) Varicose veins of right lower extremity with inflammation (Acute) MGUS (monoclonal gammopathy of unknown significance) (Acute) Past Medical History Medical History Acquired hypothyroidism Benign essential hypertension Bochdalek hernia Chronic restrictive lung disease Depression Elevated LFTs Exertional dyspnea GERD without esophagitis Hernia, diaphragmatic Hiatal hernia Hypothyroidism Impaired fasting glucose Lumbar degenerative disc disease Neuropathy of left peroneal nerve Obesity (BMI 30-39.9) Osteopenia Primary osteoarthritis of right knee Pulmonary nodule Pure hypercholesterolemia Relapsing polychondritis Rheumatoid arthritis Right lumbar radiculopathy Thoracic scoliosis Vitamin B12 deficiency Vitamin D deficiency Family History Family History Father CVD (cardiovascular disease) Mother Cancer Maternal Aunt Breast cancer Brother Colon cancer Family history of problems with anesthesia: No Surgical History Surgical History History of appendectomy (~1963) History of carpal tunnel surgery (~03/2016) History of cataract surgery History of colonoscopy History of right knee joint replacement (~08/2016) History of surgery on right wrist (~02/2020) History of surgery on right wrist (~05/2004) History of Problems with Anesthesia: No Social History Social History Household Members: Spouse Housing: House Are you a primary hearing care professional to a significant other at home: No Do you presently have visiting nurse or other home services: No Alcohol intake: current Alcohol intake frequency: holidays/special occasions only Alcohol type: wine Patient Tobacco Use Status: Former Tobacco user Quit Date: 2015 Tobacco use type: Cigarette Years Smoked: 40 e-Cigarette/Vaping Use: Never Used Second Hand Smoke Exposure: No Advance Directives Date on File: 07/09/22 service: No Current occupational status: retired Cognitive needs: No Hearing needs: No Vision needs: Yes (reading glasses) Meds Allergies Allergy/AdvReac Type Severity Reaction Status Date / Time No Known Allergies Allergy Verified 07/07/22 09:07 [No Known Allergies*] Active Medications: Current Medications Acetaminophen (Acetaminophen Supp 650 Mg Supp.Rect) 650 mg MN Q12H PRN PRN Reason: Pain, Mild (Pain Scale 1-3) Albuterol Sulfate (Albuterol Sulfate 90 Mcg 8 Gm Inhaler) 2 puff INHALE Q6H PRN PRN Reason: shortness of breath or wheezing Amlodipine Besylate (Amlodipine Besylate 2.5 Mg Tablet) 2.5 mg PO DAILY [facility]; Protocol Last Admin: 07/09/22 08:43 Dose: 2.5 mg Cyanocobalamin (Cyanocobalamin (Vitamin B-12) 1,000 Mcg Tablet) 1,000 mcg PO DAILY [facility] Last Admin: 07/09/22 08:43 Dose: 1,000 mcg Gabapentin (Gabapentin 300 Mg Capsule) 300 mg PO TID [facility] Last Admin: 07/09/22 08:42 Dose: 300 mg Levofloxacin (Levaquin) 500 mg in 100 mls @ 100 mls/hr IV PREOP ONE Stop: 07/09/22 10:02 Levothyroxine Sodium (Levothyroxine Sodium 75 Mcg Tablet) 75 mcg PO DAILY@0600 [facility] Last Admin: 07/09/22 06:46 Dose: 75 mcg Lisinopril (Lisinopril 40 Mg Tablet) 40 mg PO DAILY [facility]; Protocol Last Admin: 07/09/22 08:42 Dose: 40 mg Morphine Sulfate (Morphine Sulfate 4 Mg/Ml Cartridge) 4 mg IVPUSH Q4H PRN; Protocol PRN Reason: Pain, Severe (Pain Scale 7-10) Omeprazole (Omeprazole 20 Mg Capsule.Dr) 20 mg PO DAILY@0630 [facility] Last Admin: 07/09/22 06:46 Dose: 20 mg Ondansetron HCl (Ondansetron Hcl 4 Mg/2 Ml Vial) 4 mg IVPUSH Q8H PRN PRN Reason: Nausea and Vomiting Pharmacy Consult (Consult Rx Perform Med Rec) 1 each MISCELLANE ONCE PRN PRN Reason: Consult order Pyridoxine HCl (Pyridoxine Hcl (Vitamin B6) 50 Mg Tablet) 25 mg PO DAILY [facility] Last Admin: 07/09/22 08:42 Dose: 25 mg Sodium Chloride (0.9 % Sodium Chloride Flush 3 Ml Syringe) 3 ml IVFLUSH QSHIFT [facility] Last Admin: 07/09/22 08:43 Dose: 3 ml Thiamine HCl (Thiamine Hcl 100 Mg Tablet) 300 mg PO DAILY [facility] Last Admin: 07/09/22 08:43 Dose: 300 mg Vitamin D (Cholecalciferol (Vitamin D3) 25 Mcg Tablet) 25 mcg PO DAILY [facility] Last Admin: 07/09/22 08:42 Dose: 25 mcg Home Medications Medication Instructions Recorded Confirmed Last Taken Type cholecalciferol (vitamin D3) 25 1,000 unit PO DAILY 05/16/20 07/08/22 07/07/22 History mcg (1,000 unit) chewable tablet (Vitamin D3) cyanocobalamin (vitamin B-12) 1,000 mcg PO DAILY 05/16/20 07/08/22 07/07/22 History 1,000 mcg tablet (Vitamin B-12) thiamine HCl (vitamin B1) 100 mg 300 mg PO DAILY 05/16/20 07/08/22 07/07/22 History tablet (Vitamin B-1) pyridoxine (vitamin B6) 25 mg 25 mg PO DAILY 01/24/21 07/08/22 07/07/22 History tablet levothyroxine 75 mcg tablet 75 mcg PO DAILY 07/08/22 07/08/2207/08/22 History Exam Exam Date and Time: July 09, 2022 0929 Height,Weight and Vital Signs: Height 5 ft 3 in Weight 97.522 kg Last Vital Signs Temp 97.4 F 07/09/22 09:22 Pulse 70 07/09/22 09:22 Resp 17 07/09/22 09:22 BP 178/88 H 07/09/22 09:22 Pulse Ox 97 07/09/22 09:22 O2 Del Method 07/09/22 09:22 Pertinent Lab Results Pertinent Lab Results: Laboratory Tests 07/08/22 07/08/22 07/08/22 15:08 15:08 15:08 WBC 8.0 RBC 4.51 Hgb 13.1 Hct 40.2 MCV 89.1 MCH 29.0 MCHC 32.6 RDW 13.8 Plt Count 208 D MPV 11.8 Immature Gran % (Auto) 0.6 H Neut % (Auto) 84.1 H Lymph % (Auto) 5.5 L [place] % (Auto) 9.0 Eos % (Auto) 0.4 Baso % (Auto) 0.4 Lymph # (Auto) 0.4 L [place] # (Auto) 0.7 Eos # (Auto) 0.0 Baso # (Auto) 0.0 Abs Immat Gran (auto) 0.05 H Absolute Neuts (auto) 6.7 Absolute Nucleated RBC 0.000 Nucleated RBC % (auto) 0.0 PT INR APTT Sodium 137 Potassium 4.4 Chloride 100 Carbon Dioxide 29 Anion Gap 12 BUN 9 Creatinine 0.72 Estim Creat Clear Calc 78.5 Estimated GFR > 60 Random Glucose 119 H Lactic Acid 1.1 Calcium 9.9 Total Bilirubin 3.2 H Direct Bilirubin AST 624 H ALT 571 H Alkaline Phosphatase 417 H Total Protein 6.5 Albumin 3.9 Lipase 22 Urine Color Urine Appearance Urine pH Ur Specific [place] Urine Protein Urine Glucose (UA) Urine Ketones Urine Blood Urine Nitrite Ur Leukocyte Esterase Urine RBC Urine WBC Ur Squamous Epith Cells Urine Bacteria Hyaline Casts Acetaminophen < 1 COVID-19 (PATRICIA) COVID-19 Clin Com Influenza Type A (EVELYN) Influenza Type B (EVELYN) Influenza A & B Note 07/08/22 07/08/22 07/08/22 15:08 15:08 15:08 WBC RBC Hgb Hct MCV MCH MCHC RDW Plt Count MPV Immature Gran % (Auto) Neut % (Auto) Lymph % (Auto) [place] % (Auto) Eos % (Auto) Baso % (Auto) Lymph # (Auto) [place] # (Auto) Eos # (Auto) Baso # (Auto) Abs Immat Gran (auto) Absolute Neuts (auto) Absolute Nucleated RBC Nucleated RBC % (auto) PT INR APTT 31.0 Sodium Potassium Chloride Carbon Dioxide Anion Gap BUN Creatinine Estim Creat Clear Calc Estimated GFR Random Glucose Lactic Acid Calcium Total Bilirubin Direct Bilirubin AST ALT Alkaline Phosphatase Total Protein Albumin Lipase Urine Color Urine Appearance Urine pH Ur Specific [place] Urine Protein Urine Glucose (UA) Urine Ketones Urine Blood Urine Nitrite Ur Leukocyte Esterase Urine RBC Urine WBC Ur Squamous Epith Cells Urine Bacteria Hyaline Casts Acetaminophen COVID-19 (PATRICIA) Negative COVID-19 Clin Com See Note Influenza Type A (EVELYN) Negative Influenza Type B (EVELYN) Negative Influenza A & B Note See Note 07/08/22 07/09/22 07/09/22 15:08 06:03 06:03 WBC 5.3 RBC 3.99 L Hgb 11.6 L Hct 35.5 L MCV 89.0 MCH 29.1 MCHC 32.7 RDW 13.9 Plt Count 185 MPV 12.0 Immature Gran % (Auto) 0.2 Neut % (Auto) 59.1 Lymph % (Auto) 23.1 [place] % (Auto) 15.5 H Eos % (Auto) 1.3 Baso % (Auto) 0.8 Lymph # (Auto) 1.2 [place] # (Auto) 0.8 Eos # (Auto) 0.1 Baso # (Auto) 0.0 Abs Immat Gran (auto) 0.01 Absolute Neuts (auto) 3.1 Absolute Nucleated RBC 0.000 Nucleated RBC % (auto) 0.0 PT 12.3 INR 1.1 APTT Sodium 137 Potassium 3.2 L D Chloride 103 Carbon Dioxide 25 Anion Gap 12 BUN 7 L Creatinine 0.61 Estim Creat Clear Calc 92.7 Estimated GFR > 60 Random Glucose 90 Lactic Acid Calcium 9.2 D Total Bilirubin 3.3 H Direct Bilirubin 2.2 H AST 302 H ALT 385 H Alkaline Phosphatase 350 H Total Protein 5.5 L Albumin 3.3 L Lipase Urine Color Urine Appearance Urine pH Ur Specific [place] Urine Protein Urine Glucose (UA) Urine Ketones Urine Blood Urine Nitrite Ur Leukocyte Esterase Urine RBC Urine WBC Ur Squamous Epith Cells Urine Bacteria Hyaline Casts Acetaminophen COVID-19 (PATRICIA) COVID-19 Clin Com Influenza Type A (EVELYN) Influenza Type B (EVELYN) Influenza A & B Note 07/09/22 07:01 WBC RBC Hgb Hct MCV MCH MCHC RDW Plt Count MPV Immature Gran % (Auto) Neut % (Auto) Lymph % (Auto) [place] % (Auto) Eos % (Auto) Baso % (Auto) Lymph # (Auto) [place] # (Auto) Eos # (Auto) Baso # (Auto) Abs Immat Gran (auto) Absolute Neuts (auto) Absolute Nucleated RBC Nucleated RBC % (auto) PT INR APTT Sodium Potassium Chloride Carbon Dioxide Anion Gap BUN Creatinine Estim Creat Clear Calc Estimated GFR Random Glucose Lactic Acid Calcium Total Bilirubin Direct Bilirubin AST ALT Alkaline Phosphatase Total Protein Albumin Lipase Urine Color Dark Yellow Urine Appearance Clear Urine pH 6.5 Ur Specific [place] 1.020 Urine Protein Negative Urine Glucose (UA) Negative Urine Ketones Trace Urine Blood Negative Urine Nitrite Negative Ur Leukocyte Esterase Small (1+) H Urine RBC 3-5 H Urine WBC 0-5 Ur Squamous Epith Cells 0-2 Urine Bacteria None Seen Hyaline Casts 0-2 Acetaminophen COVID-19 (PATRICIA) COVID-19 Clin Com Influenza Type A (EVELYN) Influenza Type B (EVELYN) Influenza A & B Note Airway Mallampati Class: II TM Dist: >3cm Neck ROM: Full Assessment and Plan Assessment Anesthesia Assessment: Anesthesia Plan Discussed and Chart Reviewed Final Anesthetic Review Family History of Problems with Anesthesia: No History of Problems with Anesthesia: No NPO: Yes ASA Class: III Final Preanesthetic Review: No Changes in Pt Med Stat, Meds/Allgs Chart Reviewed, Consent Obtained/Reviewed and Anes Risks/Benef Reviewed Patient Risk: Intermediate Procedure Risk: Intermediate Anesthetic Plan Anesthetic Plan: GA Disposition: Standard PACU
--- NOTE | 2022-07-09 11:12 | PM.EVENT ---
Event Note Date of Service: 07/09/22 Event Note: ERCP 2 CBD stones extracted with balloon after sphincterotomy. Good drainage of dark bile at end of procedure Rec: clear liquid diet today follow [facility] gen surg eval
--- NOTE | 2022-07-09 11:16 | P.BOP_ITS ---
Brief Operative Note Date of Service: 07/09/22 Pre-op diagnosis: CBD stones Post-op diagnosis: same Procedure: ERCP Surgeon: Faheem Peters Anesthesia: GETA Was an Drum Dyeing Machine Operator used for this Procedure?: No Estimated blood loss (mL): 5 Pathology: none sent Condition: stable Disposition: PACU
--- NOTE | 2022-07-09 12:43 | PM.CNGS ---
History of Present Illness Consult details Consult date: 07/09/22 <MAYRA Carpenter Last Filed: 07/09/22 13:46> Requesting physician: Yunior Desouza <MAYRA Carpenter Last Filed: 07/09/22 13:46> Narrative: 72-year-old female with PMH of hypertension, hyperlipidemia, hypothyroidism who presented to the hospital with complaints of intermittent abdominal pain and abnormal labs. According to the patient, her doctor noticed abnormal liver enzymes, initially thought to be secondary to her statin. Repeat liver panel continued to show elevated LFTs and she was therefore sent to the ED. She also endorses intermittent abdominal pain in the epigastric region for about a month. The pain radiates to the RUQ and lasts only a few minutes and resolves. It occurs after eating and is associated with nausea with no vomiting. 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 In the ED, she had a total bili of 3.2, AST of 624 and ALT of 571, alk phos of 417. CBC was normal. Abd/pelvis CT shows noncalcified filling defect seen within the distal common bile duct with intra and extrahepatic biliary duct dilatation. ABD US showed no small gallstones without any gallbladder changes. She was seen by GI and underwent an ERCP today with removal of 2 CBD stones. Surgery was consulted for possible cholecystectomy. <Mer Gordillo PA-C Last Filed: 07/09/22 13:46> Review of Systems Constitutional: Constitutional: Denies chills and Denies fever(s) <MAYRA Carpenter Last Filed: 07/09/22 13:46> ENT: Denies dizziness <MAYRA Carpenter Last Filed: 07/09/22 13:46> Cardiovascular: Cardiovascular: Denies chest pain, Denies palpitations and Denies dyspnea <MAYRA Carpenter Last Filed: 07/09/22 13:46> Respiratory: Respiratory: Denies cough and Denies dyspnea <MAYRA Carpenter Last Filed: 07/09/22 13:46> Gastrointestinal: Gastrointestinal: Reports as per HPI <MAYRA Carpenter Last Filed: 07/09/22 13:46> Genitourinary: Genitourinary: Reports as per HPI <Mer Gordillo PA-C Last Filed: 07/09/22 13:46> Integumentary/Breasts: Skin/Breast: Denies rash <MAYRA Carpenter Last Filed: 07/09/22 13:46> Neurologic: Denies dizziness <MAYRA Carpenter Last Filed: 07/09/22 13:46> Endocrine: Endocrine: Denies palpitations <MAYRA Carpenter Last Filed: 07/09/22 13:46> PMF Past Medical History Medical History: Medical History Acquired hypothyroidism Benign essential hypertension Bochdalek hernia Chronic restrictive lung disease Depression Elevated LFTs Exertional dyspnea GERD without esophagitis Hernia, diaphragmatic Hiatal hernia Hypothyroidism Impaired fasting glucose Lumbar degenerative disc disease Neuropathy of left peroneal nerve Obesity (BMI 30-39.9) Osteopenia Primary osteoarthritis of right knee Pulmonary nodule Pure hypercholesterolemia Relapsing polychondritis Rheumatoid arthritis Right lumbar radiculopathy Thoracic scoliosis Vitamin B12 deficiency Vitamin D deficiency <MYARA Carpenter Last Filed: 07/09/22 13:46> Family History Family History: Family History Father CVD (cardiovascular disease) Mother Cancer Maternal Aunt Breast cancer Brother Colon cancer <MAYRA Carpenter Last Filed: 07/09/22 13:46> Surgical History Surgical History: Surgical History History of appendectomy (~1963) History of carpal tunnel surgery (~03/2016) History of cataract surgery History of colonoscopy History of right knee joint replacement (~08/2016) History of surgery on right wrist (~02/2020) History of surgery on right wrist (~05/2004) <MAYRA Carpenter Last Filed: 07/09/22 13:46> Social History Social History: Social History Household Members: Spouse Housing: House Are you a primary hemodialysis patient care specialist to a significant other at home: No Do you presently have visiting nurse or other home services: No Alcohol intake: current Alcohol intake frequency: holidays/special occasions only Alcohol type: wine Patient Tobacco Use Status: Former Tobacco user Quit Date: 2015 Tobacco use type: Cigarette Years Smoked: 40 e-Cigarette/Vaping Use: Never Used Second Hand Smoke Exposure: No Advance Directives Date on File: 07/09/22 service: No Current occupational status: retired Cognitive needs: No Hearing needs: No Vision needs: Yes (reading glasses) <Mer Gordillo PA-C - Last Filed: 07/09/22 13:46> Meds Allergies/Adverse reactions: Allergies Allergy/AdvReac Type Severity Reaction Status Date / Time No Known Allergies Allergy Verified 07/07/22 09:07 [No Known Allergies*] <Mer Gordillo PA-C - Last Filed: 07/09/22 13:46> Active Medications: Current Medications Acetaminophen (Acetaminophen Supp 650 Mg Supp.Rect) 650 mg [place] Q12H PRN PRN Reason: Pain, Mild (Pain Scale 1-3) Albuterol Sulfate (Albuterol Sulfate 90 Mcg 8 Gm Inhaler) 2 puff INHALE Q6H PRN PRN Reason: shortness of breath or wheezing Amlodipine Besylate (Amlodipine Besylate 2.5 Mg Tablet) 2.5 mg PO DAILY [facility]; Protocol Last Admin: 07/09/22 08:43 Dose: 2.5 mg Cyanocobalamin (Cyanocobalamin (Vitamin B-12) 1,000 Mcg Tablet) 1,000 mcg PO DAILY [facility] Last Admin: 07/09/22 08:43 Dose: 1,000 mcg Fentanyl (Fentanyl Citrate/Pf 100 Mcg/2 Ml Vial) 50 mcg IVPUSH Q5M PRN; Protocol PRN Reason: Pain, Severe (Pain Scale 7-10) Gabapentin (Gabapentin 300 Mg Capsule) 300 mg PO TID [facility] Last Admin: 07/09/22 08:42 Dose: 300 mg Levothyroxine Sodium (Levothyroxine Sodium 75 Mcg Tablet) 75 mcg PO DAILY@0600 [facility] Last Admin: 07/09/22 06:46 Dose: 75 mcg Lisinopril (Lisinopril 40 Mg Tablet) 40 mg PO DAILY [facility]; Protocol Last Admin: 07/09/22 08:42 Dose: 40 mg Morphine Sulfate (Morphine Sulfate 4 Mg/Ml Cartridge) 4 mg IVPUSH Q4H PRN; Protocol PRN Reason: Pain, Severe (Pain Scale 7-10) Omeprazole (Omeprazole 20 Mg Capsule.Dr) 20 mg PO DAILY@0630 [facility] Last Admin: 07/09/22 06:46 Dose: 20 mg Ondansetron HCl (Ondansetron Hcl 4 Mg/2 Ml Vial) 4 mg IVPUSH Q8H PRN PRN Reason: Nausea and Vomiting Ondansetron HCl (Ondansetron Hcl 4 Mg/2 Ml Vial) 4 mg IVPUSH ONCE PRN PRN Reason: Nausea and Vomiting Oxycodone HCl (Oxycodone Hcl Immed Release 5 Mg Tablet) 5 mg PO ONCE PRN PRN Reason: Pain, Severe (Pain Scale 7-10) Pharmacy Consult (Consult Rx Perform Med Rec) 1 each MISCELLANE ONCE PRN PRN Reason: Consult order Pyridoxine HCl (Pyridoxine Hcl (Vitamin B6) 50 Mg Tablet) 25 mg PO DAILY [facility] Last Admin: 07/09/22 08:42 Dose: 25 mg Sodium Chloride (0.9 % Sodium Chloride Flush 3 Ml Syringe) 3 ml IVFLUSH QSHIFT [facility] Last Admin: 07/09/22 08:43 Dose: 3 ml Thiamine HCl (Thiamine Hcl 100 Mg Tablet) 300 mg PO DAILY [facility] Last Admin: 07/09/22 08:43 Dose: 300 mg Vitamin D (Cholecalciferol (Vitamin D3) 25 Mcg Tablet) 25 mcg PO DAILY [facility] Last Admin: 07/09/22 08:42 Dose: 25 mcg <Mer Gordillo PA-C - Last Filed: 07/09/22 13:46> Home medications: Home Medications Medication Instructions Recorded Confirmed Last Taken Type cholecalciferol (vitamin D3) 25 1,000 unit PO DAILY 05/16/20 07/08/22 07/07/22 History mcg (1,000 unit) chewable tablet (Vitamin D3) cyanocobalamin (vitamin B-12) 1,000 mcg PO DAILY 05/16/20 07/08/22 07/07/22 History 1,000 mcg tablet (Vitamin B-12) thiamine HCl (vitamin B1) 100 mg 300 mg PO DAILY 05/16/20 07/08/22 07/07/22 History tablet (Vitamin B-1) pyridoxine (vitamin B6) 25 mg 25 mg PO DAILY 01/24/21 07/08/22 07/07/22 History tablet levothyroxine 75 mcg tablet 75 mcg PO DAILY 07/08/22 07/08/22 07/08/22 History <Mer Gordillo PA-C Last Filed: 07/09/22 13:46> Physical Exam Vital Signs: Vital Signs: Last Vital Signs Temp 97.9 F 07/09/22 11:22 Pulse 71 07/09/22 12:37 Resp 11 L 07/09/22 12:37 BP 174/80 H 07/09/22 12:37 Pulse Ox 94 07/09/22 12:37 O2 Del Method 07/09/22 12:37 O2 Flow Rate 2 07/09/22 11:52 BMI result Body Mass Index 38.0 <SHELTON Carpenter Mobitto Last Filed: 07/09/22 13:46> Const: General: comfortable, no acute distress and alert <SHELTON Carpenter Mobitto Last Filed: 07/09/22 13:46> Orientation/consciousness: patient oriented x3 <SHELTON Carpenter Mobitto Last Filed: 07/09/22 13:46> Eyes: Sclerae: sclerae normal <SHELTON Carpenter Mobitto Last Filed: 07/09/22 13:46> Resp: Effort & Inspection: normal respiratory effort <Mer Gordillo PA-C [place] Last Filed: 07/09/22 13:46> Cardio: Rate: regular rate <SHELTON Carpenter Mobitto Last Filed: 07/09/22 13:46> Rhythm: regular rhythm <SHELTON Carpenter Mobitto Last Filed: 07/09/22 13:46> GI: Inspection: No distended <SHELTON Carpenter Mobitto Last Filed: 07/09/22 13:46> Palpation (GI): Soft to palpation, nontender, no guarding, not rigid and Other GI palpation findings present (negative murphys sign) <Mer Gordillo PA-C - Last Filed: 07/09/22 13:46> Skin: General skin exam: no rashes or lesions noted <MAYRA Carpenter Last Filed: 07/09/22 13:46> Neuro: General: patient oriented x3 and moves all extremities <MAYRA Carpenter Last Filed: 07/09/22 13:46> Extrem: General: Yes no clubbing, cyanosis or edema <MAYRA Carpenter Last Filed: 07/09/22 13:46> Results Labs Result diagrams: : 07/09/22 06:03 07/09/22 06:03 <MAYRA Carpenter Last Filed: 07/09/22 13:46> Labs: Abnormal lab results 07/08/22 07/08/22 07/09/22 Range/Units 15:08 15:08 06:03 RBC 3.99 L (4.20-5.50) X10*6/uL Hgb 11.6 L (12.0-16.0) g/dl Hct 35.5 L (37.0-47.0) % Immature Gran % (Auto) 0.6 H (0.0-0.4) % Neut % (Auto) 84.1 H (45-73) % Lymph % (Auto) 5.5 L (20-40) % [place] % (Auto) 15.5 H (2-11) % Lymph # (Auto) 0.4 L (1.2-4.9) X10*3/uL Abs Immat Gran (auto) 0.05 H (0.00-0.03) X10*3/uL Potassium (3.3-5.1) mmol/L BUN (9-16) mg/dL Random Glucose 119 H (60-115) mg/dL Total Bilirubin 3.2 H (0.0-1.0) mg/dL Direct Bilirubin (0.0-0.5) mg/dL AST 624 H (5-31) U/L ALT 571 H (0-31) U/L Alkaline Phosphatase 417 H (39-117) U/L Total Protein (6.5-8.0) g/dL Albumin (3.5-5.0) g/dL Ur Leukocyte Esterase (Negative) Urine RBC (0-2) /HPF 07/09/22 07/09/22 Range/Units 06:03 07:01 RBC (4.20-5.50) X10*6/uL Hgb (12.0-16.0) g/dl Hct (37.0-47.0) % Immature Gran % (Auto) (0.0-0.4) % Neut % (Auto) (45-73) % Lymph % (Auto) (20-40) % [place] % (Auto) (2-11) % Lymph # (Auto) (1.2-4.9) X10*3/uL Abs Immat Gran (auto) (0.00-0.03) X10*3/uL Potassium 3.2 L D (3.3-5.1) mmol/L BUN 7 L (9-16) mg/dL Random Glucose (60-115) mg/dL Total Bilirubin 3.3 H (0.0-1.0) mg/dL Direct Bilirubin 2.2 H (0.0-0.5) mg/dL AST 302 H (5-31) U/L ALT 385 H (0-31) U/L Alkaline Phosphatase 350 H (39-117) U/L Total Protein 5.5 L (6.5-8.0) g/dL Albumin 3.3 L (3.5-5.0) g/dL Ur Leukocyte Esterase Small (1+) H (Negative) Urine RBC 3-5 H (0-2) /HPF Short CBC 07/08/22 07/09/22 Range/Units 15:08 06:03 WBC 8.0 5.3 (4.8-10.8) X10*3/uL Hgb 13.1 11.6 L (12.0-16.0) g/dl Hct 40.2 35.5 L (37.0-47.0) % Plt Count 208 D 185 (160-400) X10*3/uL BMP 07/08/22 07/09/22 15:08 06:03 Sodium 137 137 Potassium 4.4 3.2 L D Chloride 100 103 Carbon Dioxide 29 25 BUN 9 7 L Creatinine 0.72 0.61 Calcium 9.9 9.2 D Liver Function 07/08/22 07/09/22 Range/Units 15:08 06:03 Total Bilirubin 3.2 H 3.3 H (0.0-1.0) mg/dL Direct Bilirubin 2.2 H (0.0-0.5) mg/dL AST 624 H 302 H (5-31) U/L ALT 571 H 385 H (0-31) U/L Alkaline Phosphatase 417 H 350 H (39-117) U/L Albumin 3.9 3.3 L (3.5-5.0) g/dL Urine 07/09/22 Range/Units 07:01 Urine Color Dark Yellow Urine Appearance Clear Urine pH 6.5 (5.0-9.0) Ur Specific [place] 1.020 (1.005-1.025) Urine Protein Negative (Neg-Trace) mg/dL Urine Glucose (UA) Negative (Negative) mg/dL All other labs normal. <MAYRA Carpenter Last Filed: 07/09/22 13:46> Assessment and Plan (1) Choledocholithiasis: Status: Acute <MAYRA Carpenter Last Filed: 07/09/22 13:46> 72 year old female who presented to the ED for elevated LFTs and complaints of intermittent upper abdominal pain associated with nausea following meals x 1 month. She was found to have CBD stone on CT scan and underwent ERCP today with removal of 2 CBD stones. It appears she has been having episodes of biliary colic for the past month as well. Laparoscopic cholecystectomy possible open during this stay to prevent recurrence of the CBD stone and biliary colic was discussed. She is interested in the procedure during this stay. Will repeat LFTs tomorrow, if improving, plan for lap CCY possible open tomorrow. She is comfortable with plan. <Mer Gordillo PA-C - Last Filed: 07/09/22 13:46> 72 year old female who presented to the ED for elevated LFTs and complaints of intermittent upper abdominal pain associated with nausea following meals x 1 month. She was found to have CBD stone on CT scan and underwent ERCP today with removal of 2 CBD stones. It appears she has been having episodes of biliary colic for the past month as well. Laparoscopic cholecystectomy possible open during this stay to prevent recurrence of the CBD stone and biliary colic was discussed. She is interested in the procedure during this stay. Will repeat LFTs tomorrow, if improving, plan for lap CCY possible open tomorrow. She is comfortable with plan. CT and ultrasound reviewed, patient now s/p ERCP with CBD stone removal x2. Patient feels comfortable with improvement of her abdominal pain. We discussed laparoscopic cholecystectomy or possible open cholecystectomy in detail including the procedure, risks and alternatives, and she consents to the surgery. She will be added onto the operative schedule for tomorrow pending a.m. laboratories. <Eriberto Nix MD - Last Filed: 07/09/22 14:48> Procedures Date of Service Date of Service: 07/09/22 <Mer Gordillo PA-C - Last Filed: 07/09/22 13:46>
--- NOTE | 2022-07-09 15:59 | HO.PM.IMPN ---
Subjective Subjective Date of Service: 07/09/22 Interval History: seen and examined this afternoon following ERCP follow up for abdominal pain s/p ERCP with removal of two stones abdominal pain improved. no nausea or vomiting Review of Systems Review of Systems: Yes all other systems are reviewed and are negative Constitutional Constitutional: Denies chills and Denies fever(s) Cardiovascular Cardiovascular: Denies chest pain, Denies palpitations and Denies dyspnea Respiratory Respiratory: Denies cough and Denies dyspnea Gastrointestinal Gastrointestinal: Denies abdominal pain, Denies nausea and Denies vomiting Endocrine Endocrine: Denies palpitations Physical Exam Vital Signs: Vital Signs: Last Vital Signs Temp 97.7 F 07/09/22 15:42 Pulse 64 07/09/22 15:42 Resp 20 07/09/22 15:42 BP 171/73 H 07/09/22 15:42 Pulse Ox 94 07/09/22 15:42 O2 Del Method 07/09/22 15:42 O2 Flow Rate 2 07/09/22 11:52 BMI result Body Mass Index 38.0 Const: General: cooperative, comfortable, alert and awake Nutritional Appearance: overweight Orientation/consciousness: patient oriented x3 Resp: Effort & Inspection: normal respiratory effort and able to speak in complete sentences Auscultation: clear to auscultation bilaterally Cardio: Rate: regular rate Heart sounds: S1 normal heart sound present and S2 normal heart sound present GI: Inspection: No distended Palpation (GI): Soft to palpation and nontender Neuro: General: patient oriented x3 and CN's II-XI intact bilaterally Extrem: General: Yes no pedal edema Objective Data Active Medications Acetaminophen (Acetaminophen Supp 650 Mg Supp.Rect) 650 mg [place] Q12H PRN PRN Reason: Pain, Mild (Pain Scale 1-3) Albuterol Sulfate (Albuterol Sulfate 90 Mcg 8 Gm Inhaler) 2 puff INHALE Q6H PRN PRN Reason: shortness of breath or wheezing Amlodipine Besylate (Amlodipine Besylate 2.5 Mg Tablet) 2.5 mg PO DAILY [facility]; Protocol Last Admin: 07/09/22 08:43 Dose: 2.5 mg Documented By: PELON Cyanocobalamin (Cyanocobalamin (Vitamin B-12) 1,000 Mcg Tablet) 1,000 mcg PO DAILY [facility] Last Admin: 07/09/22 08:43 Dose: 1,000 mcg Documented By: PELON Fentanyl (Fentanyl Citrate/Pf 100 Mcg/2 Ml Vial) 50 mcg IVPUSH Q5M PRN; Protocol PRN Reason: Pain, Severe (Pain Scale 7-10) Gabapentin (Gabapentin 300 Mg Capsule) 300 mg PO TID [facility] Last Admin: 07/09/22 15:42 Dose: 300 mg Documented By: BRENDA Cefotetan Disodium 2 gm/ (Sodium Chloride) 50 mls @ 100 mls/hr IV PREOP ONE Stop: 07/10/22 14:16 Levothyroxine Sodium (Levothyroxine Sodium 75 Mcg Tablet) 75 mcg PO DAILY@0600 [facility] Last Admin: 07/09/22 06:46 Dose: 75 mcg Documented By: IMAN Lisinopril (Lisinopril 40 Mg Tablet) 40 mg PO DAILY [facility]; Protocol Last Admin: 07/09/22 08:42 Dose: 40 mg Documented By: PELON Morphine Sulfate (Morphine Sulfate 4 Mg/Ml Cartridge) 4 mg IVPUSH Q4H PRN; Protocol PRN Reason: Pain, Severe (Pain Scale 7-10) Omeprazole (Omeprazole 20 Mg Capsule.Dr) 20 mg PO DAILY@0630 [facility] Last Admin: 07/09/22 06:46 Dose: 20 mg Documented By: IMAN Ondansetron HCl (Ondansetron Hcl 4 Mg/2 Ml Vial) 4 mg IVPUSH Q8H PRN PRN Reason: Nausea and Vomiting Ondansetron HCl (Ondansetron Hcl 4 Mg/2 Ml Vial) 4 mg IVPUSH ONCE PRN PRN Reason: Nausea and Vomiting Oxycodone HCl (Oxycodone Hcl Immed Release 5 Mg Tablet) 5 mg PO ONCE PRN PRN Reason: Pain, Severe (Pain Scale 7-10) Pharmacy Consult (Consult Rx Perform Med Rec) 1 each MISCELLANE ONCE PRN PRN Reason: Consult order Pyridoxine HCl (Pyridoxine Hcl (Vitamin B6) 50 Mg Tablet) 25 mg PO DAILY [facility] Last Admin: 07/09/22 08:42 Dose: 25 mg Documented By: PELON Sodium Chloride (0.9 % Sodium Chloride Flush 3 Ml Syringe) 3 ml IVFLUSH QSHIFT [facility] Last Admin: 07/09/22 15:42 Dose: 3 ml Documented By: BRENDA Thiamine HCl (Thiamine Hcl 100 Mg Tablet) 300 mg PO DAILY [facility] Last Admin: 07/09/22 08:43 Dose: 300 mg Documented By: PELON Vitamin D (Cholecalciferol (Vitamin D3) 25 Mcg Tablet) 25 mcg PO DAILY [facility] Last Admin: 07/09/22 08:42 Dose: 25 mcg Documented By: PELON Labs CBC & Chem 7: 07/09/22 06:03 07/09/22 06:03 Labs: Laboratory Results - last 24 hr 07/08/22 07/08/22 07/09/22 15:08 15:08 06:03 MCV 89.0 MCH 29.1 MCHC 32.7 RDW 13.9 Plt Count 185 MPV 12.0 Immature Gran % (Auto) 0.2 Neut % (Auto) 59.1 Lymph % (Auto) 23.1 [place] % (Auto) 15.5 H Eos % (Auto) 1.3 Baso % (Auto) 0.8 Lymph # (Auto) 1.2 [place] # (Auto) 0.8 Eos # (Auto) 0.1 Baso # (Auto) 0.0 Abs Immat Gran (auto) 0.01 Absolute Neuts (auto) 3.1 Absolute Nucleated RBC 0.000 Nucleated RBC % (auto) 0.0 Anion Gap Estim Creat Clear Calc Estimated GFR Random Glucose Calcium Total Bilirubin Direct Bilirubin AST ALT Alkaline Phosphatase Total Protein Albumin Urine Color Urine Appearance Urine pH Ur Specific [place] Urine Protein Urine Glucose (UA) Urine Ketones Urine Blood Urine Nitrite Ur Leukocyte Esterase Urine RBC Urine WBC Ur Squamous Epith Cells Urine Bacteria Hyaline Casts Acetaminophen < 1 Hepatitis A IgM Ab Nonreactive Hep Bs Antigen Negative Hep Bs Antibody NONREACTIVE Hep B Core Total Ab Nonreactive Hepatitis C Ab (EIA) Nonreactive 07/09/22 07/09/22 06:03 07:01 MCV MCH MCHC RDW Plt Count MPV Immature Gran % (Auto) Neut % (Auto) Lymph % (Auto) [place] % (Auto) Eos % (Auto) Baso % (Auto) Lymph # (Auto) [place] # (Auto) Eos # (Auto) Baso # (Auto) Abs Immat Gran (auto) Absolute Neuts (auto) Absolute Nucleated RBC Nucleated RBC % (auto) Anion Gap 12 Estim Creat Clear Calc 92.7 Estimated GFR > 60 Random Glucose 90 Calcium 9.2 D Total Bilirubin 3.3 H Direct Bilirubin 2.2 H AST 302 H ALT 385 H Alkaline Phosphatase 350 H Total Protein 5.5 L Albumin 3.3 L Urine Color Dark Yellow Urine Appearance Clear Urine pH 6.5 Ur Specific [place] 1.020 Urine Protein Negative Urine Glucose (UA) Negative Urine Ketones Trace Urine Blood Negative Urine Nitrite Negative Ur Leukocyte Esterase Small (1+) H Urine RBC 3-5 H Urine WBC 0-5 Ur Squamous Epith Cells 0-2 Urine Bacteria None Seen Hyaline Casts 0-2 Acetaminophen Hepatitis A IgM Ab Hep Bs Antigen Hep Bs Antibody Hep B Core Total Ab Hepatitis C Ab (EIA) Assessment and Plan (1) Choledocholithiasis: Status: Acute (2) Biliary colic: Status: Acute Plan 72-year-old female with past medical history of hypertension, hypothyroidism, presents the hospital with complaints of abdominal pain as well as abnormal LFTs abdominal pain secondary to biliary colic/choledocholithiasis improved at this time choledocholithiasis/biliary colic evidence of transaminitis, with biliary duct dilatation is seen on CT abdomen seen by GI, s/p ERCP with removal of two CBD stones seen by surgery - plan for CCY tomorrow. npo at midnight transaminitis likely secondary to above hold statin follow LFTs hypertension continue lisinopril, norvasc if BP continues to be elevated will increase norvasc to 5 pm hypothyroidism continue levothyroxine DVT prophylaxis: SCDs for possible anticipation of surgical intervention attending - dr. Lentz Patient requires ongoing inpatient hospitalization for pain control, plan for cholecystectomy Quality Stroke Does the patient have a stroke diagnosis?: No VTE Prior VTE?: No VTE Risk Level:: Medical - moderate - high VTE Device Contraindication: N/A - Device Ordered VTE Drug Contraindication: Treatment Not Indicated
--- NOTE | 2022-07-09 22:03 | OP_ITS ---
SURGEON: Faheem Peters MD INDICATIONS: Common bile duct stones. PREOPERATIVE DIAGNOSIS: POSTOPERATIVE DIAGNOSIS: PROCEDURE PERFORMED: ERCP with sphincterotomy and common bile duct stone extraction. ESTIMATED BLOOD LOSS: COMPLICATIONS: ANESTHESIA: Monitored anesthesia care. ASSISTANTS: SPECIMENS: DESCRIPTION OF PROCEDURE: History and physical performed. The risks and benefits of the procedure were explained to the patient. The procedure was performed on 07/09/2022. The patient was placed in the prone position with a wedge under the right shoulder. The Olympus video duodenum scope was introduced into the esophagus, stomach, and duodenum. Examination was performed. The scope was removed. She tolerated the procedure well and was returned to the recovery area in stable condition. FINDINGS: Endoscopy: Limited examination of the esophagus, stomach, and duodenum was within normal limits. There was a large periampullary diverticulum. Bile was noted to drain from the major papilla, which appeared normal. Access to the common bile duct was gained with the guidewire passed through a sphincterotome. Cholangiography showed 2 filling defects consistent with the findings on her CT scan. These measured approximately 10 mm each. A sphincterotomy was performed with no immediate complications to about 10 mm. Next, a balloon extraction catheter was used to remove 2 brown common bile duct stones. Occlusion cholangiography following stone removal showed the common bile duct to be mildly dilated to about 10 to 12 mm. No further filling defects were identified. Intrahepatic ducts appeared normal. The cystic duct was partially seen to fill. No pancreatogram was attempted or obtained. There was excellent drainage of dark bile at the termination of the procedure. IMPRESSION: Common bile duct stones. RECOMMENDATION: 1. Follow liver function tests. 2. Cholecystectomy can be scheduled after general surgical consultation has been obtained. MD KEYLA Lopez/NEELIMA / [id number] MTDD
[2022-07-10] VITALS (15 sets, daily range): BP systolic 104–174; BP diastolic 51–77; PULSE 57–78; RESP 12–20; TEMP 36.1–37.2; O2SAT 93–100
--- NOTE | 2022-07-10 01:05 | CONS_ITS ---
DATE OF SERVICE: 07/09/2022 REFERRING PHYSICIAN: Yunior Desouza REASON FOR CONSULTATION: Common bile duct stones. HISTORY OF PRESENT ILLNESS: The patient is a pleasant 72-year-old woman who was admitted to the hospital after presenting to the emergency room yesterday with complaints of abdominal pain. She describes about 1 month of intermittent abdominal pain in the epigastric area and left upper quadrant, which radiates to the right upper quadrant and into the back. This has been worse with eating and has been associated with no fevers or chills. She has had some nausea but no vomiting. She has had intermittent dark urine and was seen by her primary care provider and noted to have elevated liver function tests. Imaging studies were obtained as an outpatient including ultrasound on July 01, which showed gallstones and normal common bile duct. Subsequently, CT scanning was obtained in the emergency room yesterday, which is remarkable for 2 filling defects in the bile duct consistent with bile duct stones. Liver function tests were also elevated. The patient's pain became more severe yesterday and she presented to the emergency room. She had been on a statin and this was stopped. PAST MEDICAL HISTORY: 1. Abdominal pain as above. 2. Hypertension. 3. Hyperlipidemia. 4. Hypothyroidism. 5. Gastroesophageal reflux disease. 6. Osteopenia. 7. Neuropathy. 8. Hiatal hernia. 9. Diaphragmatic hernia. 10. Depression. 11. Vitamin B12 and D deficiency. CURRENT MEDICATIONS: Her current medication list is reviewed in the chart. ALLERGIES: THERE ARE NONE REPORTED. FAMILY HISTORY: This is reviewed with the patient and is noncontributory. SOCIAL HISTORY: There is no current tobacco, alcohol, or substance abuse. REVIEW OF SYSTEMS: SKIN: No pruritus. HEENT: Negative. CARDIOPULMONARY: No shortness of breath or chest pain. GASTROINTESTINAL: As above. GENITOURINARY: Negative. NEUROPSYCHIATRIC: Negative. PHYSICAL EXAMINATION: GENERAL: Shows a pleasant female, lying on a stretcher. VITAL SIGNS: Reviewed in electronic medical record and are stable SKIN: Anicteric. HEENT: Shows no scleral icterus. NECK: Without lymphadenopathy or thyromegaly. LUNGS: Clear. HEART: Shows a regular rate and rhythm, S1, S2. No murmur. ABDOMEN: Soft without focal masses or tenderness. Bowel sounds are present. No organomegaly is noted. EXTREMITIES: Without edema. Laboratory data and imaging studies are reviewed. IMPRESSION: Common bile duct stones. I have recommended today that she undergo ERCP for further evaluation. I have discussed risks and benefits of the procedure with her. She understands these and agrees to proceed. This will be scheduled shortly. She will have surgical consultation for consideration of cholecystectomy. Thanks for asking me to see her. I will follow her in the hospital with you. MD KEYLA Lopez/NEELIMA / [phone]
[2022-07-10] MEDS: Levothyroxine Sodium 75 MCG TABLET PO (05:52)
[2022-07-10] MEDS: Omeprazole 20 MG CAPSULE.DR PO (05:52)
[2022-07-10 06:37] LABS: Hematocrit 37.7 % (37.0-47.0); Mean Corpuscular HGB Conc 31.8 g/dl (31.0-35.0); Mean Corpuscular Hemoglobin 29.1 pg (27.0-33.0); Mean Corpuscular Volume 91.3 fL (80.0-98.0); Mean Platelet Volume 12.1 fL (9.4-12.3); Platelet Count 215 X10*3/uL (160-400); Red Blood Count 4.13 X10*6/uL (4.20-5.50); Red Cell Distribution Width 13.9 % (11.0-16.0); White Blood Count 9.2 X10*3/uL (4.8-10.8)
[2022-07-10 07:26] LABS: Alanine Aminotransferase 300 U/L (0-31); Albumin Level 3.6 g/dL (3.5-5.0); Alkaline Phosphatase 371 U/L (39-117); Anion Gap 12 (12-20); Aspartate Amino Transferase 135 U/L (5-31); Bilirubin Direct 0.6 mg/dL (0.0-0.5); Bilirubin Total 1.3 mg/dL (0.0-1.0); Blood Urea Nitrogen 8 mg/dL (9-16); Calcium 9.7 mg/dL (8.4-10.2); Carbon Dioxide 29 mmol/L (22-29); Chloride 99 mmol/L (96-108); Creatinine Clr Calc Pharmacy 74.4; Estimated Glomerular Filt Rate > 60; Glucose Random 107 mg/dL (60-115); Potassium 4.2 mmol/L (3.3-5.1); Sodium 136 mmol/L (135-145)
--- NOTE | 2022-07-10 08:21 | P.CONAN_ITS ---
HPI - Anesthesia Eval Consult details Narrative: 72yo female patient for laparoscopic cholecystectomy PMFSH Active Problems Active Problems: All Active Problems (Updated 07/09/22 @ 06:00 by Yunior Desouza MD) Choledocholithiasis (Acute) Biliary colic (Acute) Gallstone (Acute) Abdominal pain (Acute) Transaminitis (Acute) Morbid obesity (Acute) Chronic pain syndrome (Acute) Status post total knee replacement, right (Acute) Spondylosis without myelopathy or radiculopathy, lumbar region (Acute) Depression (Acute) CHRIS (obstructive sleep apnea) (Acute)- Patient denies CHRIS. Had sleep study- below threshold for diagnosis of CHRIS Pre-operative clearance (Acute) Acquired hypothyroidism (Acute) Osteopenia (Acute) Relapsing polychondritis (Acute) Acquired elevated diaphragm (Acute) Hiatal hernia (Acute) Chronic restrictive lung disease (Acute) Pulmonary nodule (Acute) Right lumbar radiculopathy (Acute) Hernia, diaphragmatic (Acute) Obesity (BMI 30-39.9) (Acute) Relapsing polychondritis (Acute) Vitamin D deficiency (Acute) Osteopenia (Acute) Elevated LFTs (Acute) GERD without esophagitis (Acute) Thoracic scoliosis (Acute) Lumbar degenerative disc disease (Acute) Vitamin B12 deficiency (Acute) Rheumatoid arthritis (Acute) Impaired fasting glucose (Acute) Primary osteoarthritis of right knee (Acute) Neuropathy of left peroneal nerve (Acute) Hypothyroidism (Acute) Exertional dyspnea (Acute) Pure hypercholesterolemia (Acute) Benign essential hypertension (Acute) [place]dalek hernia (Acute) Varicose veins of right lower extremity with inflammation (Acute) MGUS (monoclonal gammopathy of unknown significance) (Acute) Past Medical History Medical History Acquired hypothyroidism Benign essential hypertension Bochdalek hernia Chronic restrictive lung disease Depression Elevated LFTs Exertional dyspnea GERD without esophagitis Hernia, diaphragmatic Hiatal hernia Hypothyroidism Impaired fasting glucose Lumbar degenerative disc disease Neuropathy of left peroneal nerve Obesity (BMI 30-39.9) Osteopenia Primary osteoarthritis of right knee Pulmonary nodule Pure hypercholesterolemia Relapsing polychondritis Rheumatoid arthritis Right lumbar radiculopathy Thoracic scoliosis Vitamin B12 deficiency Vitamin D deficiency Family History Family History Father CVD (cardiovascular disease) Mother Cancer Maternal Aunt Breast cancer Brother Colon cancer Family history of problems with anesthesia: No Surgical History Surgical History History of appendectomy (~1963) History of carpal tunnel surgery (~03/2016) History of cataract surgery History of colonoscopy History of right knee joint replacement (~08/2016) History of surgery on right wrist (~02/2020) History of surgery on right wrist (~05/2004) History of Problems with Anesthesia: No Social History Social History Household Members: Spouse Housing: House Are you a primary critical care unit nurse to a significant other at home: No Do you presently have visiting nurse or other home services: No Alcohol intake: current Alcohol intake frequency: holidays/special occasions only Alcohol type: wine Patient Tobacco Use Status: Former Tobacco user Quit Date: 2015 Tobacco use type: Cigarette Years Smoked: 40 e-Cigarette/Vaping Use: Never Used Second Hand Smoke Exposure: No Advance Directives Date on File: 07/09/22 service: No Current occupational status: retired Cognitive needs: No Hearing needs: No Vision needs: Yes (reading glasses) Meds Allergies Allergy/AdvReac Type Severity Reaction Status Date / Time No Known Allergies Allergy Verified 07/07/22 09:07 [No Known Allergies*] Active Medications: Current Medications Acetaminophen (Acetaminophen Supp 650 Mg Supp.Rect) 650 mg [place] Q12H PRN PRN Reason: Pain, Mild (Pain Scale 1-3) Albuterol Sulfate (Albuterol Sulfate 90 Mcg 8 Gm Inhaler) 2 puff INHALE Q6H PRN PRN Reason: shortness of breath or wheezing Amlodipine Besylate (Amlodipine Besylate 2.5 Mg Tablet) 2.5 mg PO DAILY IGOR; Protocol Last Admin: 07/09/22 08:43 Dose: 2.5 mg Cyanocobalamin (Cyanocobalamin (Vitamin B-12) 1,000 Mcg Tablet) 1,000 mcg PO DAILY IGOR Last Admin: 07/09/22 08:43 Dose: 1,000 mcg Fentanyl (Fentanyl Citrate/Pf 100 Mcg/2 Ml Vial) 50 mcg IVPUSH Q5M PRN; Protocol PRN Reason: Pain, Severe (Pain Scale 7-10) Gabapentin (Gabapentin 300 Mg Capsule) 300 mg PO TID IGOR Last Admin: 07/09/22 20:06 Dose: 300 mg Cefotetan Disodium 2 gm/ (Sodium Chloride) 50 mls @ 100 mls/hr IV PREOP ONE Stop: 07/10/22 14:16 Levothyroxine Sodium (Levothyroxine Sodium 75 Mcg Tablet) 75 mcg PO DAILY@0600 [facility] Last Admin: 07/10/22 05:52 Dose: 75 mcg Lisinopril (Lisinopril 40 Mg Tablet) 40 mg PO DAILY [facility]; Protocol Last Admin: 07/09/22 08:42 Dose: 40 mg Morphine Sulfate (Morphine Sulfate 4 Mg/Ml Cartridge) 4 mg IVPUSH Q4H PRN; Protocol PRN Reason: Pain, Severe (Pain Scale 7-10) Omeprazole (Omeprazole 20 Mg Capsule.Dr) 20 mg PO DAILY@0630 [facility] Last Admin: 07/10/22 05:52 Dose: 20 mg Ondansetron HCl (Ondansetron Hcl 4 Mg/2 Ml Vial) 4 mg IVPUSH Q8H PRN PRN Reason: Nausea and Vomiting Ondansetron HCl (Ondansetron Hcl 4 Mg/2 Ml Vial) 4 mg IVPUSH ONCE PRN PRN Reason: Nausea and Vomiting Oxycodone HCl (Oxycodone Hcl Immed Release 5 Mg Tablet) 5 mg PO ONCE PRN PRN Reason: Pain, Severe (Pain Scale 7-10) Pharmacy Consult (Consult Rx Perform Med Rec) 1 each MISCELLANE ONCE PRN PRN Reason: Consult order Pyridoxine HCl (Pyridoxine Hcl (Vitamin B6) 50 Mg Tablet) 25 mg PO DAILY [facility] Last Admin: 07/09/22 08:42 Dose: 25 mg Sodium Chloride (0.9 % Sodium Chloride Flush 3 Ml Syringe) 3 ml IVFLUSH QSHIFT [facility] Last Admin: 07/09/22 20:06 Dose: 3 ml Thiamine HCl (Thiamine Hcl 100 Mg Tablet) 300 mg PO DAILY [facility] Last Admin: 07/09/22 08:43 Dose: 300 mg Vitamin D (Cholecalciferol (Vitamin D3) 25 Mcg Tablet) 25 mcg PO DAILY [facility] Last Admin: 07/09/22 08:42 Dose: 25 mcg Home Medications Medication Instructions Recorded Confirmed Last Taken Type cholecalciferol (vitamin D3) 25 1,000 unit PO DAILY 05/16/20 07/08/22 07/07/22 History mcg (1,000 unit) chewable tablet (Vitamin D3) cyanocobalamin (vitamin B-12) 1,000 mcg PO DAILY 05/16/20 07/08/22 07/07/22 History 1,000 mcg tablet (Vitamin B-12) thiamine HCl (vitamin B1) 100 mg 300 mg PO DAILY 05/16/20 07/08/22 07/07/22 History tablet (Vitamin B-1) pyridoxine (vitamin B6) 25 mg 25 mg PO DAILY 01/24/21 07/08/22 07/07/22 History tablet levothyroxine 75 mcg tablet 75 mcg PO DAILY 07/08/22 07/08/22 07/08/22 History Exam Exam Date and Time: July 10, 2022820 Height,Weight and Vital Signs: Height 5 ft 3 in Weight 97.522 kg Last Vital Signs Temp 98.7 F 07/10/22 07:48 Pulse 64 07/10/22 07:48 Resp 16 07/10/22 07:48 BP 166/72 H 07/10/22 07:48 Pulse Ox 97 07/10/22 07:48 O2 Del Method 07/10/22 07:48 O2 Flow Rate 2 07/09/22 11:52 Pertinent Lab Results Pertinent Lab Results: Laboratory Tests 07/08/22 07/08/22 07/08/22 15:08 15:08 15:08 WBC 8.0 RBC 4.51 Hgb 13.1 Hct 40.2 MCV 89.1 MCH 29.0 MCHC 32.6 RDW 13.8 Plt Count 208 D MPV 11.8 Immature Gran % (Auto) 0.6 H Neut % (Auto) 84.1 H Lymph % (Auto) 5.5 L Garrard % (Auto) 9.0 Eos % (Auto) 0.4 Baso % (Auto) 0.4 Lymph # (Auto) 0.4 L Garrard # (Auto) 0.7 Eos # (Auto) 0.0 Baso # (Auto) 0.0 Abs Immat Gran (auto) 0.05 H Absolute Neuts (auto) 6.7 Absolute Nucleated RBC 0.000 Nucleated RBC % (auto) 0.0 PT INR APTT Sodium 137 Potassium 4.4 Chloride 100 Carbon Dioxide 29 Anion Gap 12 BUN 9 Creatinine 0.72 Estim Creat Clear Calc 78.5 Estimated GFR > 60 Random Glucose 119 H Lactic Acid 1.1 Calcium 9.9 Total Bilirubin 3.2 H Direct Bilirubin AST 624 H ALT 571 H Alkaline Phosphatase 417 H Total Protein 6.5 Albumin 3.9 Lipase 22 Urine Color Urine Appearance Urine pH Ur Specific [place] Urine Protein Urine Glucose (UA) Urine Ketones Urine Blood Urine Nitrite Ur Leukocyte Esterase Urine RBC Urine WBC Ur Squamous Epith Cells Urine Bacteria Hyaline Casts Acetaminophen < 1 COVID-19 (PATRICIA) COVID-19 Clin Com Hepatitis A IgM Ab Hep Bs Antigen Hep Bs Antibody Hep B Core Total Ab Hepatitis C Ab (EIA) Influenza Type A (EVELYN) Influenza Type B (EVELYN) Influenza A & B Note 07/08/22 07/08/22 07/08/22 15:08 15:08 15:08 WBC RBC Hgb Hct MCV MCH MCHC RDW Plt Count MPV Immature Gran % (Auto) Neut % (Auto) Lymph % (Auto) Garrard % (Auto) Eos % (Auto) Baso % (Auto) Lymph # (Auto) Garrard # (Auto) Eos # (Auto) Baso # (Auto) Abs Immat Gran (auto) Absolute Neuts (auto) Absolute Nucleated RBC Nucleated RBC % (auto) PT INR APTT 31.0 Sodium Potassium Chloride Carbon Dioxide Anion Gap BUN Creatinine Estim Creat Clear Calc Estimated GFR Random Glucose Lactic Acid Calcium Total Bilirubin Direct Bilirubin AST ALT Alkaline Phosphatase Total Protein Albumin Lipase Urine Color Urine Appearance Urine pH Ur Specific [place] Urine Protein Urine Glucose (UA) Urine Ketones Urine Blood Urine Nitrite Ur Leukocyte Esterase Urine RBC Urine WBC Ur Squamous Epith Cells Urine Bacteria Hyaline Casts Acetaminophen COVID-19 (PATRICIA) Negative COVID-19 Clin Com See Note Hepatitis A IgM Ab Hep Bs Antigen Hep Bs Antibody Hep B Core Total Ab Hepatitis C Ab (EIA) Influenza Type A (EVELYN) Negative Influenza Type B (EVELYN) Negative Influenza A & B Note See Note 07/08/22 07/08/22 07/09/22 15:08 15:08 06:03 WBC 5.3 RBC 3.99 L Hgb 11.6 L Hct 35.5 L MCV 89.0 MCH 29.1 MCHC 32.7 RDW 13.9 Plt Count 185 MPV 12.0 Immature Gran % (Auto) 0.2 Neut % (Auto) 59.1 Lymph % (Auto) 23.1 Garrard % (Auto) 15.5 H Eos % (Auto) 1.3 Baso % (Auto) 0.8 Lymph # (Auto) 1.2 Garrard # (Auto) 0.8 Eos # (Auto) 0.1 Baso # (Auto) 0.0 Abs Immat Gran (auto) 0.01 Absolute Neuts (auto) 3.1 Absolute Nucleated RBC 0.000 Nucleated RBC % (auto) 0.0 PT 12.3 INR 1.1 APTT Sodium Potassium Chloride Carbon Dioxide Anion Gap BUN Creatinine Estim Creat Clear Calc Estimated GFR Random Glucose Lactic Acid Calcium Total Bilirubin Direct Bilirubin AST ALT Alkaline Phosphatase Total Protein Albumin Lipase Urine Color Urine Appearance Urine pH Ur Specific [place] Urine Protein Urine Glucose (UA) Urine Ketones Urine Blood Urine Nitrite Ur Leukocyte Esterase Urine RBC Urine WBC Ur Squamous Epith Cells Urine Bacteria Hyaline Casts Acetaminophen COVID-19 (PATRICIA) COVID-19 Clin Com Hepatitis A IgM Ab Nonreactive Hep Bs Antigen Negative Hep Bs Antibody NONREACTIVE Hep B Core Total Ab Nonreactive Hepatitis C Ab (EIA) Nonreactive Influenza Type A (EVELYN) Influenza Type B (EVELYN) Influenza A & B Note 07/09/22 07/09/22 07/10/22 06:03 07:01 06:15 WBC 9.2 RBC 4.13 L Hgb 12.0 Hct 37.7 MCV 91.3 MCH 29.1 MCHC 31.8 RDW 13.9 Plt Count 215 MPV 12.1 Immature Gran % (Auto) Neut % (Auto) Lymph % (Auto) Garrard % (Auto) Eos % (Auto) Baso % (Auto) Lymph # (Auto) Garrard # (Auto) Eos # (Auto) Baso # (Auto) Abs Immat Gran (auto) Absolute Neuts (auto) Absolute Nucleated RBC 0.000 Nucleated RBC % (auto) 0.0 PT INR APTT Sodium 137 Potassium 3.2 L D Chloride 103 Carbon Dioxide 25 Anion Gap 12 BUN 7 L Creatinine 0.61 Estim Creat Clear Calc 92.7 Estimated GFR > 60 Random Glucose 90 Lactic Acid Calcium 9.2 D Total Bilirubin 3.3 H Direct Bilirubin 2.2 H AST 302 H ALT 385 H Alkaline Phosphatase 350 H Total Protein 5.5 L Albumin 3.3 L Lipase Urine Color Dark Yellow Urine Appearance Clear Urine pH 6.5 Ur Specific [place] 1.020 Urine Protein Negative Urine Glucose (UA) Negative Urine Ketones Trace Urine Blood Negative Urine Nitrite Negative Ur Leukocyte Esterase Small (1+) H Urine RBC 3-5 H Urine WBC 0-5 Ur Squamous Epith Cells 0-2 Urine Bacteria None Seen Hyaline Casts 0-2 Acetaminophen COVID-19 (PATRICIA) COVID-19 Clin Com Hepatitis A IgM Ab Hep Bs Antigen Hep Bs Antibody Hep B Core Total Ab Hepatitis C Ab (EIA) Influenza Type A (EVELYN) Influenza Type B (EVELYN) Influenza A & B Note 07/10/22 06:16 WBC RBC Hgb Hct MCV MCH MCHC RDW Plt Count MPV Immature Gran % (Auto) Neut % (Auto) Lymph % (Auto) Garrard % (Auto) Eos % (Auto) Baso % (Auto) Lymph # (Auto) Garrard # (Auto) Eos # (Auto) Baso # (Auto) Abs Immat Gran (auto) Absolute Neuts (auto) Absolute Nucleated RBC Nucleated RBC % (auto) PT INR APTT Sodium 136 Potassium 4.2 D Chloride 99 Carbon Dioxide 29 Anion Gap 12 BUN 8 L Creatinine 0.76 Estim Creat Clear Calc 74.4 Estimated GFR > 60 Random Glucose 107 Lactic Acid Calcium 9.7 Total Bilirubin 1.3 H Direct Bilirubin 0.6 H AST 135 H ALT 300 H Alkaline Phosphatase 371 H Total Protein 6.0 L Albumin 3.6 Lipase Urine Color Urine Appearance Urine pH Ur Specific [place] Urine Protein Urine Glucose (UA) Urine Ketones Urine Blood Urine Nitrite Ur Leukocyte Esterase Urine RBC Urine WBC Ur Squamous Epith Cells Urine Bacteria Hyaline Casts Acetaminophen COVID-19 (PATRICIA) COVID-19 Clin Com Hepatitis A IgM Ab Hep Bs Antigen Hep Bs Antibody Hep B Core Total Ab Hepatitis C Ab (EIA) Influenza Type A (EVELYN) Influenza Type B (EVELYN) Influenza A & B Note Airway Mallampati Class: III TM Dist: >3cm Neck ROM: Full Loose/Missing/Broken Teeth: No (Denies broken or loose teeth) Heart: RRR Lungs: CTAB Assessment and Plan Assessment Anesthesia Assessment: Anesthesia Plan Discussed and Chart Reviewed Final Anesthetic Review Family History of Problems with Anesthesia: No History of Problems with Anesthesia: No NPO: Yes ASA Class: III Final Preanesthetic Review: No Changes in Pt Med Stat, Meds/Allgs Chart Reviewed, Consent Obtained/Reviewed and Anes Risks/Benef Reviewed Patient Risk: Intermediate Procedure Risk: Intermediate Assessment/Block/Sedation in : Assess/Block/Sedation- Anesthetic Plan Anesthetic Plan: GA Disposition: Standard PACU
--- NOTE | 2022-07-10 10:00 | P.OP_ITS ---
Operative Note Operative Note Date of Service: 07/10/22 Narrative: Preoperative diagnosis: Choledocholithiasis, cholilithiasis Postoperative diagnosis: Same Procedure: Laparoscopic cholecystectomy Surgeon: Eriberto Nix MD Organic Preparation Technician: LESLI Carpenter Anesthesia: General endotracheal Indications for procedure: 72-year-old female patient presenting with complaints of epigastric abdominal pain radiating to the back found to have elevated liver function tests. CT abdomen and pelvis revealed 2 gallstones within the common bile duct. She is S/P ERCP with common bile duct stone removal yesterday. She presents today for laparoscopic cholecystectomy. Operative findings: Mildly inflamed gallbladder with multiple small gallstones within the gallbladder. Specimen: gallbladder Estimated blood loss: 5 mL Complications: non Procedure details: Patient was brought to the OR and placed in a supine position. After administering general anesthesia the patient's abdomen was prepped with ChloraPrep and draped in a sterile fashion. Local anesthesia consisting of 0.5% Sensorcaine with epinephrine was infiltrated in a periumbilical region. A 5 mm incision was made above the umbilicus in a transverse fashion. The Veress needle was then inserted while elevating abdominal cavity with towel clips. After positive drop test the abdomen was insufflated to a pressure of 15 mm of mercury. The Veress needle was then removed and a 5 mm trocar inserted. The camera was inserted in the abdomen explored. A 12 mm trocar was then placed in the epigastrium. Two 5 mm trocars placed in the right upper quadrant by the assistant program director. The patient was placed in reverse Trendelenburg positioning and rotated to the left. The gallbladder was grasped with the fundus and retracted cephalad by the assistant program director. The infundibulum was then grasped and retracted away from the liver bed, also by the assistant program director. The Dolphin dissected was then used by the surgeon to dissect the peritoneum off the infundibulum to reveal the junction with the cystic duct. Cystic artery was noted slightly medial and posterior to the cystic duct. After obtaining a critical view the cystic duct was doubly clipped and divided. The cystic artery was then doubly clipped and divided. The gallbladder was then dissected off the liver bed using electrocautery with an L hook. Hemostasis was assured all times using the electrocautery. When the gallbladder is completely dissected off the liver bed was placed in an Endo-Catch bag and brought out through the epigastric incision. The gallbladder was sent to pathology for further examination. The abdomen was then re-examined. The liver bed was irrigated and suctioned dry. No bleeding or bile leak could be identified. CO2 was then evacuated and all trocars removed. Fascia was closed at the epigastric incision using a [id number] 0 Polysorb suture. Skin was closed in all incisions using a subcuticular 4 0 Polysorb suture by both the surgeon and assistant program director. Sterile dressings consisting of Steri-Strips, 2 x 2 gauze, and Tegaderm were then applied. The patient tolerated the procedure well. Sponge instrument and needle counts reported as correct. The patient was transferred to PACU in stable condition.
[2022-07-10] MEDS: fentaNYL citrate/PF 100 MCG/2 ML VIAL 25 MCG IVPUSH ×4 (10:18→10:33)
[2022-07-10] MEDS: oxyCODONE HCl Immed Release 5 MG TABLET PO ×2 (10:43→13:42)
[2022-07-10] MEDS: fentaNYL citrate/PF 100 MCG/2 ML VIAL 50 MCG IVPUSH (11:07)
[2022-07-10] MEDS: Gabapentin 300 MG CAPSULE PO ×3 (13:39→20:37)
[2022-07-10] MEDS: Cholecalciferol (Vitamin D3) 25 MCG TABLET PO (13:40)
[2022-07-10] MEDS: Pyridoxine HCl (Vitamin B6) 50 MG TABLET 25 MG PO (13:40)
[2022-07-10] MEDS: lisinopriL 40 MG TABLET PO (13:40)
[2022-07-10] MEDS: Thiamine HCL 100 MG TABLET 300 MG PO (13:41)
[2022-07-10] MEDS: Cyanocobalamin (Vitamin B-12) 1,000 MCG TABLET 1000 MCG PO (13:41)
[2022-07-10] MEDS: amLODIPine Besylate 2.5 MG TABLET PO (13:42)
--- NOTE | 2022-07-10 14:04 | HO.PM.IMPN ---
Subjective Subjective Date of Service: 07/10/22 Interval History: seen and examined this afternoon follow up for abdominal pain s/p cholecystectomy this morning - reporting abdominal pain at incision site no nausea, vomiting Review of Systems Review of Systems: Yes all other systems are reviewed and are negative Constitutional Constitutional: Denies chills and Denies fever(s) Cardiovascular Cardiovascular: Denies chest pain, Denies palpitations and Denies dyspnea Respiratory Respiratory: Denies cough and Denies dyspnea Gastrointestinal Gastrointestinal: Reports abdominal pain, Denies nausea and Denies vomiting Endocrine Endocrine: Denies palpitations Physical Exam Vital Signs: Vital Signs: Last Vital Signs Temp 98.9 F 07/10/22 13:27 Pulse 78 07/10/22 13:27 Resp 20 07/10/22 13:27 BP 149/67 H 07/10/22 13:27 Pulse Ox 98 07/10/22 13:27 O2 Del Method 07/10/22 13:00 O2 Flow Rate 2 07/10/22 13:00 BMI result Body Mass Index 38.0 Const: Other: appears somewhat uncomfortable General: cooperative, alert and awake Nutritional Appearance: overweight Orientation/consciousness: patient oriented x3 Resp: Effort & Inspection: normal respiratory effort and able to speak in complete sentences Auscultation: clear to auscultation bilaterally Cardio: Rate: regular rate Heart sounds: S1 normal heart sound present and S2 normal heart sound present GI: Other: tender near surgical area Inspection: No distended Palpation (GI): Soft to palpation Neuro: General: patient oriented x3 and CN's II-XI intact bilaterally Extrem: General: Yes no pedal edema Objective Data Active Medications Acetaminophen (Acetaminophen Supp 650 Mg Supp.Rect) 650 mg MO Q12H PRN PRN Reason: Pain, Mild (Pain Scale 1-3) Albuterol Sulfate (Albuterol Sulfate 90 Mcg 8 Gm Inhaler) 2 puff INHALE Q6H PRN PRN Reason: shortness of breath or wheezing Amlodipine Besylate (Amlodipine Besylate 2.5 Mg Tablet) 2.5 mg PO DAILY [facility]; Protocol Last Admin: 07/10/22 13:42 Dose: 2.5 mg Documented By: BRENDA Cyanocobalamin (Cyanocobalamin (Vitamin B-12) 1,000 Mcg Tablet) 1,000 mcg PO DAILY [facility] Last Admin: 07/10/22 13:41 Dose: 1,000 mcg Documented By: BRENDA Gabapentin (Gabapentin 300 Mg Capsule) 300 mg PO TID [facility] Last Admin: 07/10/22 13:39 Dose: 300 mg Documented By: BRENDA Levothyroxine Sodium (Levothyroxine Sodium 75 Mcg Tablet) 75 mcg PO DAILY@0600 [facility] Last Admin: 07/10/22 05:52 Dose: 75 mcg Documented By: SALONI Lisinopril (Lisinopril 40 Mg Tablet) 40 mg PO DAILY [facility]; Protocol Last Admin: 07/10/22 13:40 Dose: 40 mg Documented By: BRENDA Morphine Sulfate (Morphine Sulfate 4 Mg/Ml Cartridge) 4 mg IVPUSH Q4H PRN; Protocol PRN Reason: Pain, Severe (Pain Scale 7-10) Omeprazole (Omeprazole 20 Mg Capsule.Dr) 20 mg PO DAILY@0630 [facility] Last Admin: 07/10/22 05:52 Dose: 20 mg Documented By: SALONI Ondansetron HCl (Ondansetron Hcl 4 Mg/2 Ml Vial) 4 mg IVPUSH Q8H PRN PRN Reason: Nausea and Vomiting Oxycodone HCl (Oxycodone Hcl Immed Release 5 Mg Tablet) 5 mg PO Q4H PRN PRN Reason: Pain, Moderate (Pain Scale 4-6 Last Admin: 07/10/22 13:42 Dose: 5 mg Documented By: BRENDA Pharmacy Consult (Consult Rx Perform Med Rec) 1 each MISCELLANE ONCE PRN PRN Reason: Consult order Polyethylene Glycol (Polyethylene Glycol 3350 17 Gm Powd.Pack) 17 gm PO DAILY PRN PRN Reason: Constipation Pyridoxine HCl (Pyridoxine Hcl (Vitamin B6) 50 Mg Tablet) 25 mg PO DAILY [facility] Last Admin: 07/10/22 13:40 Dose: 25 mg Documented By: BRENDA Senna/Docusate Sodium (Sennosides/Docusate Sodium Tablet) 1 tab PO DAILY [facility] Sodium Chloride (0.9 % Sodium Chloride Flush 3 Ml Syringe) 3 ml IVFLUSH QSHIFT [facility] Last Admin: 07/10/22 13:07 Dose: Not Given Documented By: BRENDA Non-Admin Reason: Off Unit: Surgery Thiamine HCl (Thiamine Hcl 100 Mg Tablet) 300 mg PO DAILY [facility] Last Admin: 07/10/22 13:41 Dose: 300 mg Documented By: BRENDA Vitamin D (Cholecalciferol (Vitamin D3) 25 Mcg Tablet) 25 mcg PO DAILY [facility] Last Admin: 07/10/22 13:40 Dose: 25 mcg Documented By: BRENDA Labs CBC & Chem 7: 07/10/22 06:15 07/10/22 06:16 Labs: Laboratory Results - last 24 hr 07/10/22 07/10/22 06:15 06:16 MCV 91.3 MCH 29.1 MCHC 31.8 RDW 13.9 Plt Count 215 MPV 12.1 Absolute Nucleated RBC 0.000 Nucleated RBC % (auto) 0.0 Anion Gap 12 Estim Creat Clear Calc 74.4 Estimated GFR > 60 Random Glucose 107 Calcium 9.7 Total Bilirubin 1.3 H Direct Bilirubin 0.6 H AST 135 H ALT 300 H Alkaline Phosphatase 371 H Total Protein 6.0 L Albumin 3.6 Microbiology Microbiology Results: Microbiology 07/09/22 00:00 Urine Culture - Final Urine clean catch - Urine peck top No growth. Assessment and Plan (1) Choledocholithiasis: Status: Acute Plan 72-year-old female with past medical history of hypertension, hypothyroidism, presents the hospital with complaints of abdominal pain as well as abnormal LFTs abdominal pain secondary to biliary colic/choledocholithiasis choledocholithiasis/biliary colic biliary duct dilatation is seen on CT abdomen seen by GI, s/p ERCP with removal of two CBD stones s/p CCY today transaminitis likely secondary to above hold statin LFTs trending down hypertension continue lisinopril, norvasc hypothyroidism continue levothyroxine DVT prophylaxis: SCDs attending - dr. Lentz Patient requires ongoing inpatient hospitalization for pain control Quality Stroke Does the patient have a stroke diagnosis?: No VTE Prior VTE?: No VTE Risk Level:: Medical - moderate - high VTE Device Contraindication: N/A - Device Ordered VTE Drug Contraindication: Treatment Not Indicated
[2022-07-10] MEDS: Sennosides/Docusate Sodium TABLET 1 TAB PO (14:33)
--- NOTE | 2022-07-10 15:13 | HO.POSTANES ---
Post Anesthesia Evaluation Post Anesthesia Evaluation Vital Signs: Vital Signs Temp Pulse Resp BP Pulse Ox O2 Del Method O2 Flow Rate 07/10/22 13:00 63 16 158/77 H 96 Nasal Cannula 2 07/10/22 12:30 64 16 154/60 H 96 Nasal Cannula 2 07/10/22 12:01 98.6 F 65 16 141/73 H 95 Nasal Cannula 2 07/10/22 11:31 97 F 57 16 143/71 H 95 Nasal Cannula 2 07/10/22 13:27 98.9 F 78 20 149/67 H 98 07/10/22 11:01 57 12 155/74 H 95 Nasal Cannula 2 07/10/22 10:46 97 F 60 16 152/68 H 96 Room Air 07/10/22 10:33 62 16 162/67 H 95 Room Air 07/10/22 10:33 16 07/10/22 10:28 16 07/10/22 10:23 20 07/10/22 10:18 20 07/10/22 10:28 62 16 169/66 H 100 Simple Mask 4 07/10/22 10:23 62 20 174/73 H 100 Simple Mask 4 07/10/22 10:18 97.9 F 69 20 174/76 H 100 Simple Mask 4 07/10/22 07:48 98.7 F 64 16 166/72 H 97 Room Air 07/10/22 06:00 97.9 F 61 17 135/68 95 Room Air Anesthesia: General Endotracheal-GETA Mental Status: Awake Pain Control: Satisfactory Nausea/Vomiting: None Hydration: Adequate Anesthesia-Related Issues: No Anes. Related Issues
[2022-07-10] MEDS: 0.9 % Sodium Chloride Flush 3 ML SYRINGE IVFLUSH ×2 (17:15→23:36)
[2022-07-11] VITALS (9 sets, daily range): BP systolic 76–115; BP diastolic 41–56; PULSE 72–87; RESP 16–18; TEMP 37.2–37.7; O2SAT 90–97
[2022-07-11] MEDS: Acetaminophen 325 MG TABLET 650 MG PO ×2 (01:37→14:45)
[2022-07-11] MEDS: Omeprazole 20 MG CAPSULE.DR PO (05:35)
[2022-07-11] MEDS: Levothyroxine Sodium 75 MCG TABLET PO (05:35)
[2022-07-11 06:07] LABS: Hematocrit 35.9 % (37.0-47.0); Hemoglobin 11.5 g/dl (12.0-16.0); Mean Corpuscular Hemoglobin 29.4 pg (27.0-33.0); Mean Corpuscular Volume 91.8 fL (80.0-98.0); Mean Platelet Volume 12.2 fL (9.4-12.3); Platelet Count 209 X10*3/uL (160-400); Red Blood Count 3.91 X10*6/uL (4.20-5.50); Red Cell Distribution Width 14.4 % (11.0-16.0)
[2022-07-11 06:37] LABS: Alanine Aminotransferase 206 U/L (0-31); Albumin Level 3.3 g/dL (3.5-5.0); Alkaline Phosphatase 289 U/L (39-117); Aspartate Amino Transferase 64 U/L (5-31); Bilirubin Direct 0.5 mg/dL (0.0-0.5); Bilirubin Total 1.2 mg/dL (0.0-1.0); Total Protein 5.5 g/dL (6.5-8.0)
[2022-07-11 06:41] LABS: Anion Gap 15 (12-20); Blood Urea Nitrogen 8 mg/dL (9-16); Calcium 8.9 mg/dL (8.4-10.2); Carbon Dioxide 29 mmol/L (22-29); Chloride 97 mmol/L (96-108); Creatinine Clr Calc Pharmacy 63.5; Estimated Glomerular Filt Rate > 60; Glucose Random 105 mg/dL (60-115); Potassium 3.7 mmol/L (3.3-5.1); Sodium 137 mmol/L (135-145)
[2022-07-11] MEDS: Cyanocobalamin (Vitamin B-12) 1,000 MCG TABLET 1000 MCG PO (09:20)
[2022-07-11] MEDS: Sennosides/Docusate Sodium TABLET 1 TAB PO (09:20)
[2022-07-11] MEDS: Pyridoxine HCl (Vitamin B6) 50 MG TABLET 25 MG PO (09:21)
[2022-07-11] MEDS: Thiamine HCL 100 MG TABLET 300 MG PO (09:21)
[2022-07-11] MEDS: Cholecalciferol (Vitamin D3) 25 MCG TABLET PO (09:22)
[2022-07-11] MEDS: Gabapentin 300 MG CAPSULE PO ×3 (09:22→20:30)
[2022-07-11] MEDS: amLODIPine Besylate 2.5 MG TABLET PO (09:22)
[2022-07-11] MEDS: 0.9 % Sodium Chloride Flush 3 ML SYRINGE IVFLUSH ×2 (09:23→16:22)
[2022-07-11] MEDS: lisinopriL 40 MG TABLET PO (09:25)
[2022-07-11] MEDS: oxyCODONE HCl Immed Release 5 MG TABLET PO (09:35)
--- NOTE | 2022-07-11 09:38 | PM.PNGS ---
Subjective Subjective Date of Service: 07/11/22 Interval history: Reports incisional pain mainly in the right upper quadrant. Was able to tolerate a diet today without nausea or vomiting. Physical Exam Vital Signs: Vital Signs: Last Vital Signs Temp 98.9 F 07/11/22 07:25 Pulse 72 07/11/22 07:25 Resp 18 07/11/22 07:25 BP 115/56 L 07/11/22 07:25 Pulse Ox 90 L 07/11/22 07:25 O2 Del Method 07/11/22 07:25 O2 Flow Rate 2 07/10/22 13:00 BMI result Body Mass Index 38.0 Const: General: comfortable Nutritional Appearance: well nourished Orientation/consciousness: patient oriented x3 Limitations: no limitations Resp: Effort & Inspection: normal respiratory effort, no audible wheezes, no cough and no respiratory distress GI: Other: Trocar incisions are clean, dry, and intact with intact dressings. Inspection: Yes normal to inspection Palpation (GI): Soft to palpation Neuro: General: patient oriented x3 Extrem: General: Yes no pedal edema Objective Data Active Medications Acetaminophen (Acetaminophen 325 Mg Tablet) 650 mg PO Q12H PRN PRN Reason: Pain, Mild (Pain Scale 1-3) Last Admin: 07/11/22 01:37 Dose: 650 mg Documented By: CHAYITO Albuterol Sulfate (Albuterol Sulfate 90 Mcg 8 Gm Inhaler) 2 puff INHALE Q6H PRN PRN Reason: shortness of breath or wheezing Amlodipine Besylate (Amlodipine Besylate 2.5 Mg Tablet) 2.5 mg PO DAILY [facility]; Protocol Last Admin: 07/11/22 09:22 Dose: 2.5 mg Documented By: STEPHANIE Cyanocobalamin (Cyanocobalamin (Vitamin B-12) 1,000 Mcg Tablet) 1,000 mcg PO DAILY [facility] Last Admin: 07/11/22 09:20 Dose: 1,000 mcg Documented By: STEPHANIE Gabapentin (Gabapentin 300 Mg Capsule) 300 mg PO TID [facility] Last Admin: 07/11/22 09:22 Dose: 300 mg Documented By: STEPHANIE Levothyroxine Sodium (Levothyroxine Sodium 75 Mcg Tablet) 75 mcg PO DAILY@0600 [facility] Last Admin: 07/11/22 05:35 Dose: 75 mcg Documented By: CHAYITO Lisinopril (Lisinopril 40 Mg Tablet) 40 mg PO DAILY [facility]; Protocol Last Admin: 07/11/22 09:25 Dose: 40 mg Documented By: STEPHANIE Morphine Sulfate (Morphine Sulfate 4 Mg/Ml Cartridge) 4 mg IVPUSH Q4H PRN; Protocol PRN Reason: Pain, Severe (Pain Scale 7-10) Omeprazole (Omeprazole 20 Mg Capsule.Dr) 20 mg PO DAILY@0630 [facility] Last Admin: 07/11/22 05:35 Dose: 20 mg Documented By: CHAYITO Ondansetron HCl (Ondansetron Hcl 4 Mg/2 Ml Vial) 4 mg IVPUSH Q8H PRN PRN Reason: Nausea and Vomiting Oxycodone HCl (Oxycodone Hcl Immed Release 5 Mg Tablet) 5 mg PO Q4H PRN PRN Reason: Pain, Moderate (Pain Scale 4-6 Last Admin: 07/11/22 09:35 Dose: 2.5 mg Documented By: STEPHANIE Comments: per pt request Pharmacy Consult (Consult Rx Perform Med Rec) 1 each MISCELLANE ONCE PRN PRN Reason: Consult order Polyethylene Glycol (Polyethylene Glycol 3350 17 Gm Powd.Pack) 17 gm PO DAILY PRN PRN Reason: Constipation Pyridoxine HCl (Pyridoxine Hcl (Vitamin B6) 50 Mg Tablet) 25 mg PO DAILY [facility] Last Admin: 07/11/22 09:21 Dose: 25 mg Documented By: STEPHANIE Senna/Docusate Sodium (Sennosides/Docusate Sodium Tablet) 1 tab PO DAILY [facility] Last Admin: 07/11/22 09:20 Dose: 1 tab Documented By: STEPHANIE Sodium Chloride (0.9 % Sodium Chloride Flush 3 Ml Syringe) 3 ml IVFLUSH QSHIFT [facility] Last Admin: 07/11/22 09:23 Dose: 3 ml Documented By: STEPHANIE Thiamine HCl (Thiamine Hcl 100 Mg Tablet) 300 mg PO DAILY [facility] Last Admin: 07/11/22 09:21 Dose: 300 mg Documented By: STEPHANIE Vitamin D (Cholecalciferol (Vitamin D3) 25 Mcg Tablet) 25 mcg PO DAILY [facility] Last Admin: 07/11/22 09:22 Dose: 25 mcg Documented By: STEPHANIE Labs CBC & Chem 7: 07/11/22 05:42 07/11/22 05:42 Labs: Laboratory Results - last 24 hr 07/11/22 07/11/22 07/11/22 05:42 05:42 05:42 MCV 91.8 MCH 29.4 MCHC 32.0 RDW 14.4 Plt Count 209 MPV 12.2 Absolute Nucleated RBC 0.000 Nucleated RBC % (auto) 0.0 Anion Gap 15 Estim Creat Clear Calc 63.5 Estimated GFR > 60 Random Glucose 105 Calcium 8.9 D Total Bilirubin 1.2 H Direct Bilirubin 0.5 AST 64 H ALT 206 H Alkaline Phosphatase 289 H Total Protein 5.5 L Albumin 3.3 L Microbiology Microbiology Results: Microbiology 07/09/22 00:00 Urine Culture - Final Urine clean catch - Urine peck top No growth. Procedures Date of Service Date of Service: 07/11/22 Progress Note: A&P Assessment and plan (1) Choledocholithiasis: Status: Acute (2) Biliary colic: Status: Acute Plan Pod 1 following laparoscopic cholecystectomy, pod 2 following ERCP with common bile duct stone removal. Overall patient is much improved. LFTs continue to trend to normal. Wounds are clean, dry, and intact. She is tolerating p.o. without nausea vomiting. Patient is clear for discharge to home today. She should follow later on this week as she is planning to fly to [place] for a next . Time Spent With Patient Time: Total time spent is greater than 50% in coordination of care (as documented) at patient's floor/unit and/or counseling patient: Quality Stroke Does the patient have a stroke diagnosis?: No VTE Prior VTE?: No VTE Risk Level:: Medical - moderate - high VTE Device Contraindication: N/A - Device Ordered VTE Drug Contraindication: Treatment Not Indicated
--- NOTE | 2022-07-11 11:32 | HO.POSTANES ---
Post Anesthesia Evaluation Post Anesthesia Evaluation Vital Signs: Vital Signs Temp Pulse Resp BP Pulse Ox O2 Del Method 07/11/22 07:25 98.9 F 72 18 115/56 L 90 L Room Air 07/11/22 03:04 99 F 73 18 101/51 L 92 Room Air Anesthesia: General Endotracheal-GETA Mental Status: Awake Pain Control: Satisfactory Nausea/Vomiting: None Hydration: Adequate Anesthesia-Related Issues: No Anes. Related Issues
--- NOTE | 2022-07-11 13:31 | MHC.CM.PN ---
CM MET WITH PT AND PT IS INDEPENDENT WITH CARE SHE HAS NO HOME SERVICES PT HAS A CANE SHE USES PRN SHE SAYS SHE HAS A HCP, COPY REQUESTED SHE IS COVID [place] AND HAD TWO BOOSTERS PCP: [facility] DELIVERED CURRENT DC PLAN IS HOME WITH NO SERVICES FAMILY TO TRANSPORT
--- NOTE | 2022-07-11 13:31 | HO.PM.IMPN ---
Subjective Subjective Date of Service: 07/11/22 Interval History: seen and examined this morning s/p CCY yesterday having pain at incision site was able to eat some oatmeal this morning Review of Systems Review of Systems: Yes all other systems are reviewed and are negative Constitutional Constitutional: Denies chills and Denies fever(s) Cardiovascular Cardiovascular: Denies chest pain and Denies palpitations Respiratory Respiratory: Reports cough Gastrointestinal Gastrointestinal: Reports abdominal pain, Denies nausea and Denies vomiting Endocrine Endocrine: Denies palpitations Physical Exam Vital Signs: Vital Signs: Last Vital Signs Temp 98.9 F 07/11/22 07:25 Pulse 72 07/11/22 07:25 Resp 18 07/11/22 07:25 BP 115/56 L 07/11/22 07:25 Pulse Ox 90 L 07/11/22 07:25 O2 Del Method 07/11/22 07:25 O2 Flow Rate 2 07/10/22 13:00 BMI result Body Mass Index 38.0 Const: Other: appears somewhat uncomfortable General: cooperative, alert and awake Nutritional Appearance: overweight Orientation/consciousness: patient oriented x3 Resp: Other: decreased respiratory effort, bracing with deep breaths Effort & Inspection: able to speak in complete sentences Cardio: Rate: regular rate Heart sounds: S1 normal heart sound present and S2 normal heart sound present GI: Other: tender near surgical area Inspection: No distended Palpation (GI): Soft to palpation Neuro: General: patient oriented x3 and CN's II-XI intact bilaterally Extrem: General: Yes no pedal edema Objective Data Active Medications Acetaminophen (Acetaminophen 325 Mg Tablet) 650 mg PO Q12H PRN PRN Reason: Pain, Mild (Pain Scale 1-3) Last Admin: 07/11/22 01:37 Dose: 650 mg Documented By: CHAYITO Albuterol Sulfate (Albuterol Sulfate 90 Mcg 8 Gm Inhaler) 2 puff INHALE Q6H PRN PRN Reason: shortness of breath or wheezing Albuterol/Ipratropium (Albuterol/Iprat 2.5/0.5mg 3 Ml Ampul.Neb) 3 ml INHALE RQ6H WHILE AWAKE [facility] Amlodipine Besylate (Amlodipine Besylate 2.5 Mg Tablet) 2.5 mg PO DAILY [facility]; Protocol Last Admin: 07/11/22 09:22 Dose: 2.5 mg Documented By: STEPHANIE Cyanocobalamin (Cyanocobalamin (Vitamin B-12) 1,000 Mcg Tablet) 1,000 mcg PO DAILY [facility] Last Admin: 07/11/22 09:20 Dose: 1,000 mcg Documented By: STEPHANIE Gabapentin (Gabapentin 300 Mg Capsule) 300 mg PO TID [facility] Last Admin: 07/11/22 09:22 Dose: 300 mg Documented By: STEPHANIE Levothyroxine Sodium (Levothyroxine Sodium 75 Mcg Tablet) 75 mcg PO DAILY@0600 [facility] Last Admin: 07/11/22 05:35 Dose: 75 mcg Documented By: CHAYITO Lisinopril (Lisinopril 40 Mg Tablet) 40 mg PO DAILY [facility]; Protocol Last Admin: 07/11/22 09:25 Dose: 40 mg Documented By: STEPHANIE Morphine Sulfate (Morphine Sulfate 4 Mg/Ml Cartridge) 4 mg IVPUSH Q4H PRN; Protocol PRN Reason: Pain, Severe (Pain Scale 7-10) Omeprazole (Omeprazole 20 Mg Capsule.Dr) 20 mg PO DAILY@0630 [facility] Last Admin: 07/11/22 05:35 Dose: 20 mg Documented By: CHAYITO Ondansetron HCl (Ondansetron Hcl 4 Mg/2 Ml Vial) 4 mg IVPUSH Q8H PRN PRN Reason: Nausea and Vomiting Oxycodone HCl (Oxycodone Hcl Immed Release 5 Mg Tablet) 2.5 mg PO Q4H PRN PRN Reason: Pain, Moderate (Pain Scale 4-6 Pharmacy Consult (Consult Rx Perform Med Rec) 1 each MISCELLANE ONCE PRN PRN Reason: Consult order Polyethylene Glycol (Polyethylene Glycol 3350 17 Gm Powd.Pack) 17 gm PO DAILY PRN PRN Reason: Constipation Pyridoxine HCl (Pyridoxine Hcl (Vitamin B6) 50 Mg Tablet) 25 mg PO DAILY [facility] Last Admin: 07/11/22 09:21 Dose: 25 mg Documented By: STEPHANIE Senna/Docusate Sodium (Sennosides/Docusate Sodium Tablet) 1 tab PO DAILY [facility] Last Admin: 07/11/22 09:20 Dose: 1 tab Documented By: STEPHANIE Sodium Chloride (0.9 % Sodium Chloride Flush 3 Ml Syringe) 3 ml IVFLUSH QSHIFT [facility] Last Admin: 07/11/22 09:23 Dose: 3 ml Documented By: STEPHANIE Thiamine HCl (Thiamine Hcl 100 Mg Tablet) 300 mg PO DAILY [facility] Last Admin: 07/11/22 09:21 Dose: 300 mg Documented By: STEPHANIE Vitamin D (Cholecalciferol (Vitamin D3) 25 Mcg Tablet) 25 mcg PO DAILY [facility] Last Admin: 07/11/22 09:22 Dose: 25 mcg Documented By: STEPHANIE Labs CBC & Chem 7: 07/11/22 05:42 07/11/22 05:42 Labs: Laboratory Results - last 24 hr 07/11/22 07/11/22 07/11/22 05:42 05:42 05:42 MCV 91.8 MCH 29.4 MCHC 32.0 RDW 14.4 Plt Count 209 MPV 12.2 Absolute Nucleated RBC 0.000 Nucleated RBC % (auto) 0.0 Anion Gap 15 Estim Creat Clear Calc 63.5 Estimated GFR > 60 Random Glucose 105 Calcium 8.9 D Total Bilirubin 1.2 H Direct Bilirubin 0.5 AST 64 H ALT 206 H Alkaline Phosphatase 289 H Total Protein 5.5 L Albumin 3.3 L Microbiology Microbiology Results: Microbiology 07/09/22 00:00 Urine Culture - Final Urine clean catch - Urine peck top No growth. Assessment and Plan (1) Choledocholithiasis: Status: Acute (2) Biliary colic: Status: Acute Plan 72-year-old female with past medical history of hypertension, hypothyroidism, presents the hospital with complaints of abdominal pain as well as abnormal LFTs abdominal pain secondary to biliary colic/choledocholithiasis choledocholithiasis/biliary colic biliary duct dilatation is seen on CT abdomen seen by GI, s/p ERCP with removal of two CBD stones s/p CCY today having pain at incision site, doesn't like to take pain meds. not taking deep breaths oxygen saturation low - probably r/t atelectasis, body habitus, will start IS, prn breathing treatments ambulate in hallway transaminitis likely secondary to above hold statin LFTs trending down hypertension continue lisinopril, norvasc hypothyroidism continue levothyroxine Obesity BMI 38.1 DVT prophylaxis: SCDs attending - dr. Lentz Patient requires ongoing inpatient hospitalization for pain control Quality Stroke Does the patient have a stroke diagnosis?: No VTE Prior VTE?: No VTE Risk Level:: Medical - moderate - high VTE Device Contraindication: N/A - Device Ordered VTE Drug Contraindication: Treatment Not Indicated
[2022-07-11] MEDS: Albuterol/Iprat 2.5/0.5MG 3 ML AMPUL.NEB INHALE ×2 (14:31→20:35)
--- NOTE | 2022-07-11 16:36 | PC.NURSE ---
Addendum entered by Stephany Allen RN 07/11/22 18:07: IV bolus infused as ordered,BP 96/52 pulse 78,Jessy Mehta notified Original Note: BP low 91/42 pulse 80,SAT 94 on RA ,PA richard Mehta notified
[2022-07-11] MEDS: 0.9 % Sodium Chloride 500 ML 999 ML IV (17:17)
[2022-07-11] MEDS: Lactated Ringers 1,000 ML 100 ML IVCONT (19:12)
[2022-07-11] MEDS: oxyCODONE HCl Immed Release 5 MG TABLET 2.5 MG PO (20:30)
[2022-07-12] VITALS: BP 133/58; PULSE 86; RESP 18; TEMP 36.8; O2SAT 92
[2022-07-12 04:56] VITALS: BP 135/60; PULSE 91; RESP 16; TEMP 36.8; O2SAT 93
[2022-07-12] MEDS: Levothyroxine Sodium 75 MCG TABLET PO (05:04)
[2022-07-12] MEDS: Omeprazole 20 MG CAPSULE.DR PO (05:04)
[2022-07-12] MEDS: Acetaminophen 325 MG TABLET 650 MG PO (05:06)
[2022-07-12 07:44] VITALS: BP 107/59; PULSE 80; RESP 15; TEMP 36.9; O2SAT 91
[2022-07-12] MEDS: Thiamine HCL 100 MG TABLET 300 MG PO (07:49)
[2022-07-12] MEDS: Sennosides/Docusate Sodium TABLET 1 TAB PO (07:50)
[2022-07-12] MEDS: Gabapentin 300 MG CAPSULE PO (07:50)
[2022-07-12] MEDS: Cholecalciferol (Vitamin D3) 25 MCG TABLET PO (07:50)
[2022-07-12] MEDS: Pyridoxine HCl (Vitamin B6) 50 MG TABLET 25 MG PO (07:50)
[2022-07-12] MEDS: Cyanocobalamin (Vitamin B-12) 1,000 MCG TABLET 1000 MCG PO (07:50)
[2022-07-12] MEDS: 0.9 % Sodium Chloride Flush 3 ML SYRINGE IVFLUSH (07:51)
[2022-07-12 08:00] VITALS: O2SAT 94
--- NOTE | 2022-07-12 09:04 | P.PNGS_ITS ---
Subjective Subjective Date of Service: 07/12/22 Interval history: patient feels improved today with decreased abdominal pain. She reports that her blood pressure is improved as well. Physical Exam Vital Signs: Vital Signs: Last Vital Signs Temp 98.4 F 07/12/22 07:44 Pulse 80 07/12/22 07:44 Resp 15 07/12/22 07:44 BP 107/59 L 07/12/22 07:44 Pulse Ox 94 07/12/22 08:00 O2 Del Method 07/12/22 08:00 O2 Flow Rate 2 07/10/22 13:00 BMI result Body Mass Index 38.0 Const: General: no acute distress and well developed Nutritional Appearance: well nourished Orientation/consciousness: patient oriented x3 Limitations: no limitations Eyes: Sclerae: sclerae normal GI: Other: Incisions are clean, dry, and intact without redness or discharge. Skin: Other: Warm, dry, no rash Neuro: General: patient oriented x3 Extrem: Other: no edema Objective Data Active Medications Acetaminophen (Acetaminophen 325 Mg Tablet) 650 mg PO Q12H PRN PRN Reason: Pain, Mild (Pain Scale 1-3) Last Admin: 07/12/22 05:06 Dose: 650 mg Documented By: CHAYITO Albuterol Sulfate (Albuterol Sulfate 90 Mcg 8 Gm Inhaler) 2 puff INHALE Q6H PRN PRN Reason: shortness of breath or wheezing Albuterol/Ipratropium (Albuterol/Iprat 2.5/0.5mg 3 Ml Ampul.Neb) 3 ml INHALE RQ6H WHILE AWAKE [facility] Last Admin: 07/12/22 08:18 Dose: Not Given Documented By: CEZAR Non-Admin Reason: pt not avail; Amlodipine Besylate (Amlodipine Besylate 2.5 Mg Tablet) 2.5 mg PO DAILY [facility]; Protocol Last Admin: 07/11/22 09:22 Dose: 2.5 mg Documented By: STEPHANIE Cyanocobalamin (Cyanocobalamin (Vitamin B-12) 1,000 Mcg Tablet) 1,000 mcg PO DAILY [facility] Last Admin: 07/12/22 07:50 Dose: 1,000 mcg Documented By: STEPHANIE Gabapentin (Gabapentin 300 Mg Capsule) 300 mg PO TID [facility] Last Admin: 07/12/22 07:50 Dose: 300 mg Documented By: STEPHANIE Levothyroxine Sodium (Levothyroxine Sodium 75 Mcg Tablet) 75 mcg PO DAILY@0600 [facility] Last Admin: 07/12/22 05:04 Dose: 75 mcg Documented By: CHAYITO Lisinopril (Lisinopril 40 Mg Tablet) 40 mg PO DAILY [facility]; Protocol Last Admin: 07/11/22 09:25 Dose: 40 mg Documented By: STEPHANIE Morphine Sulfate (Morphine Sulfate 4 Mg/Ml Cartridge) 4 mg IVPUSH Q4H PRN; Protocol PRN Reason: Pain, Severe (Pain Scale 7-10) Omeprazole (Omeprazole 20 Mg Capsule.Dr) 20 mg PO DAILY@0630 [facility] Last Admin: 07/12/22 05:04 Dose: 20 mg Documented By: CHAYITO Ondansetron HCl (Ondansetron Hcl 4 Mg/2 Ml Vial) 4 mg IVPUSH Q8H PRN PRN Reason: Nausea and Vomiting Oxycodone HCl (Oxycodone Hcl Immed Release 5 Mg Tablet) 2.5 mg PO Q4H PRN PRN Reason: Pain, Moderate (Pain Scale 4-6 Last Admin: 07/11/22 20:30 Dose: 2.5 mg Documented By: CHAYITO Pharmacy Consult (Consult Rx Perform Med Rec) 1 each MISCELLANE ONCE PRN PRN Reason: Consult order Polyethylene Glycol (Polyethylene Glycol 3350 17 Gm Powd.Pack) 17 gm PO DAILY PRN PRN Reason: Constipation Pyridoxine HCl (Pyridoxine Hcl (Vitamin B6) 50 Mg Tablet) 25 mg PO DAILY [facility] Last Admin: 07/12/22 07:50 Dose: 25 mg Documented By: STEPHANIE Senna/Docusate Sodium (Sennosides/Docusate Sodium Tablet) 1 tab PO DAILY [facility] Last Admin: 07/12/22 07:50 Dose: 1 tab Documented By: STEPHANIE Sodium Chloride (0.9 % Sodium Chloride Flush 3 Ml Syringe) 3 ml IVFLUSH QSHIFT [facility] Last Admin: 07/12/22 07:51 Dose: 3 ml Documented By: STEPHANIE Thiamine HCl (Thiamine Hcl 100 Mg Tablet) 300 mg PO DAILY [facility] Last Admin: 07/12/22 07:49 Dose: 300 mg Documented By: STEPHANIE Vitamin D (Cholecalciferol (Vitamin D3) 25 Mcg Tablet) 25 mcg PO DAILY [facility] Last Admin: 07/12/22 07:50 Dose: 25 mcg Documented By: STEPHANIE Labs CBC & Chem 7: 07/11/22 05:42 07/11/22 05:42 Procedures Date of Service Date of Service: 07/12/22 Progress Note: A&P Assessment and plan (1) Choledocholithiasis: Status: Acute (2) Biliary colic: Status: Acute Plan patient is now pod 2 following laparoscopic cholecystectomy. She has some hypotension yesterday in discharge was held. She has improved today with decreased abdominal pain and improved BP. She is tolerating regular diet without nausea or vomiting. Recommended she avoid fatty/greasy foods for the next month. She should also avoid lifting greater than 10 lb for 2 weeks following the surgery. She should follow-up later on this week for wound check prior to her travel to [place]. Time Spent With Patient Time: Total time spent is greater than 50% in coordination of care (as documented) at patient's floor/unit and/or counseling patient: Quality Stroke Does the patient have a stroke diagnosis?: No VTE Prior VTE?: No VTE Risk Level:: Medical - moderate - high VTE Device Contraindication: N/A - Device Ordered VTE Drug Contraindication: Treatment Not Indicated
--- NOTE | 2022-07-12 09:04 | MHC.CM.PN ---
Addendum entered by Norma Turner 07/14/22 10:20: AT TIME OF DC, NO [facility] ACCEPTED REFERRAL DUE TO INSURANCE AND STAFFING BARRIERS CM RECEIVED A MESSAGE TODAY FROM CALL CENTER STAFF INDICATING THE PT REPORTED BEING NERVOUS BECAUSE HER BP MEDS WERE STOPPED AND SHE IS GOING TO [place] ON WEDNESDAY CM RESENT REFERRAL HOWEVER THERE ARE STILL NO ACCEPTING AGENCIES CM CALLED VI AT [employer] AND EXPLAINED PTS SITUATION HE IS REVIEWING REFERRAL AND WILL CONTACT CM WITH AN ANSWER SOON POSSIBLE. Original Note: PT WILL DC HOME TODAY REFERRALS MADE FOR [facility] AWAITING RESPONSES PT WILL BE DISCHARGED, CM WILL CALL PT WITH [facility] INFORMATION IF UNKNOWN AT TIME OF DC WILL TRANSPORT
--- NOTE | 2022-07-12 09:13 | P.F2F_ITS ---
Service Date Service Date: 07/12/22 Encounter Date of encounter: 07/12/22 Reasons for Services Signs and symptoms assessed: needs nursing home for blood pressure monitoring Reason for nursing home: other MD Overseeing Care: Bolivar Ventura Homebound: Leaving the home is medically contraindicated at this time without the asist of a device and/or another person due th the listed conditions above and below. Reason homebound: weakness related to hospital stay Certification: Based on the above findings, I certify that this patient is confined to the home and needs intermittent nursing home care, physical therapy and/or speech t herapy, or continues to need occupational therapy. The patient is under my care, and I have initiated the establishment of the plan of care. The patient will be followed by a physician who will periodically review the plan of care.
--- NOTE | 2022-07-12 09:14 | PM.DS ---
DS: Providers Provider Date of Service: 07/12/22 Date of admission: 07/08/22 22:22 Date of discharge: 07/12/22 Primary care physician: Bolivar Ventura MD Consults: 07/08/22 22:20 Consult to Gastroenterology Routine Consulting Provider: Faheem Peters Reason for consultation: Choledocholithiasis, likely ERCP Has provider been notified: No 07/09/22 09:12 Consult to General Surgery Routine Consulting Provider: Eriberto Nix Reason for consultation: gallstones Has provider been notified: No Attending physician on discharge: Ramirez Lentz Discharging clinician: Hannah Mehta DS: Diagnosis Discharge Diagnosis (1) Choledocholithiasis: Status: Acute (2) Biliary colic: Status: Acute DS: Summary Hospital Course Hospital Course: From H&P on day of admission ?72-year-old female with past medical history of hypertension, hyperlipidemia, hypothyroidism, presents to the hospital with complaints of intermittent abdominal pain and abnormal labs.? Patient reports that she has been experiencing abdominal pain in the left upper, epigastric region radiating to the right, this has been going on for? about a month, the pain is intermittent, associated with chills, lasting few minutes, resolving spontaneously.? Worse with eating.? Associated with nausea with no vomiting.? Patient is also experiencing constipation last bowel movement 1 day ago.? S Patient is also complaining of dark urine with no urinary symptoms including no frequency dysuria or urgency.? 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 She denies any fever, no chest pain, no shortness of breath, no weakness numbness or tingling.? According to the patient her doctor noticed abnormal liver chest, he asked her to stop taking statin, she has been off statin for 1 week and repeat liver panel? continues to? show elevated LFTs therefore asked to come to the hospital. ? On arrival to the ED patient hemodynamically stable with no significant abnormal vitals Labs are significant for 30 C count of 8.0, total bili of 3.2 up from 0.5 on 06/30 ,? AST of 624 ( [phone] today),? and ALT of 571 which has increased.? Alk phos of 417.? Abdomen pelvic CT shows noncalcified filling defect seen within the distal common bile duct with increasing intrahepatic and extrahepatic biliary duct dilatation, consistent with choledocholithiasis with worsening biliary obstruction. abdominal pain secondary to biliary colic/choledocholithiasis choledocholithiasis/biliary colic biliary duct dilatation is seen on CT abdomen. seen by GI, s/p ERCP with removal of two CBD stones. Was seen by general surgery and underwent laparoscopic CCY 07/10. following surgery her oxygen saturation low likely as a result of atelectasis, body habitus. Her breathing improved after initiating incentive spirometry and increased ambulation. Her oxygen saturation at the time of discharge is 94% on room air. transaminitis likely secondary to above. LFTs trending down. Will need repeat liver function testing in the future to ensure resolution of transaminitis. hypertension. Blood pressure has been soft. lisinopril and norvasc were placed on hold. she should follow up with PCP to determine need to resume BP medication. She will be discharged home with [facility] for close blood pressure monitoring. Time Spent with Patient Time attestation: Total time spent providing and/or coordinating discharge services: Discharge coordination time: Greater than 30 minutes Quality: Safe Use of Opioids Does Pt have an Active Cancer Diagnosis on the Problem List?: No Quality: Stroke Does the patient have a stroke diagnosis?: No Physical Exam Vital Signs: Vital Signs: Last Vital Signs Temp 98.4 F 07/12/22 07:44 Pulse 80 07/12/22 07:44 Resp 15 07/12/22 07:44 BP 107/59 L 07/12/22 07:44 Pulse Ox 94 07/12/22 08:00 O2 Del Method 07/12/22 08:00 O2 Flow Rate 2 07/10/22 13:00 BMI result Body Mass Index 38.0 Const: General: cooperative, comfortable, alert and awake Nutritional Appearance: overweight Orientation/consciousness: patient oriented x3 Resp: Other: improvement in respiratory effort. diminished at bases Effort & Inspection: able to speak in complete sentences Cardio: Rate: regular rate Heart sounds: S1 normal heart sound present and S2 normal heart sound present GI: Inspection: No distended Palpation (GI): Soft to palpation and nontender Neuro: General: patient oriented x3 and CN's II-XI intact bilaterally Extrem: General: Yes no pedal edema DS: Data Data Completed and Pending Pending studies at discharge: Pending at discharge 07/10/22 09:25 Surgical [PTH] Routine Discharge Plan Discharge Anticipated Discharge Date/Time: 07/12/22 09:03 Patient Disposition: Home Health Service Discharge Diagnosis: choledocolithiasis s/p cholecystectomy Referrals: Bolivar Ventura MD [Primary Care Provider] - 1 Week Eriberto Nix MD [Physician] - 1 Week Discharge Medications: New oxycodone 5 mg Tablet 2.5 mg PO Q4H PRN (Reason: Pain, Moderate (Pain Scale 4-6) Qty: 14 0RF Rx Instructions: Partial Fill upon patient request. Continued gabapentin 300 mg capsule 300 mg PO TID Qty: 270 1RF ibuprofen 800 mg tablet 800 mg PO TID PRN (Reason: for fever) Qty: 90 1RF omeprazole 20 mg capsule,delayed release(DR/EC) 20 mg PO DAILY Qty: 90 3RF cholecalciferol (vitamin D3) [Vitamin D3] 25 mcg (1,000 unit) Tablet,Chewable 1,000 unit PO DAILY cyanocobalamin (vitamin B-12) [Vitamin B-12] 1,000 mcg Tablet 1,000 mcg PO DAILY thiamine HCl (vitamin B1) [Vitamin B-1] 100 mg Tablet 300 mg PO DAILY levothyroxine 75 mcg tablet 75 mcg PO DAILY pyridoxine (vitamin B6) 25 mg tablet 25 mg PO DAILY albuterol sulfate 90 mcg/actuation HFA aerosol inhaler 2 inh inhalation Q6H PRN (Reason: shortness of breath or wheezing) 30 Days Qty: 18 12RF Held amlodipine 2.5 mg tablet 2.5 mg PO DAILY Qty: 90 3RF Hold Instructions: until instructed to resume by PCP. [facility] will check blood pressure lisinopril 40 mg tablet 40 mg PO DAILY Qty: 90 3RF Hold Instructions: until instructed to resume by PCP Discharge Orders: Discharge Order (Routine); Ordered 07/12/22 Ordered By: Hannah Mehta Diet: Low fat, low cholesterol Activity on Discharge: No heavy lifting Stand Alone Forms: Patient Portal Discharge page Activity Restrictions/Additional Instructions: If the incision area is tender, you may apply an ice pack for short intervals (No more than 20 minutes on, followed by at least 20 minutes off). Do not apply heat. Do not use creams, lotions, or topical antibiotics unless instructed to do so by your surgeon. These can cause infection or allergic reaction. Ok to shower. Remove clear dressings 3 days following your procedure. You have steri strips (small white cloth strips) covering your incision- these will fall off ~1 week. No heavy lifting (>10lbs) or strenuous activity! Follow up in office with Dr. Nix in 1 week. ([phone]) Call Your Doctor If: -Your temperature exceeds 101.5? F -You experience excessive pain or swelling -You have an unexpected reaction to medication -You have excessive bleeding -You experience continued vomiting/nausea -Your incision begins to separate -Your incision shows signs of infection such as increased redness, swelling, excessive pain, drainage (light blood or clear fluid is normal) or heat Care Plan Goals: see below Health Concerns: common bile duct stones gallstones elevated liver function test atalectasis Plan of Treatment: Do not take blood pressure medication (lisinopril, Norvasc) until instructed to resume by PCP. BP was on lower side. Visiting nurses will come to check your blood pressure Call to schedule follow up appointment with your PCP Call to schedule follow up appointment with Dr. Nix Can use oxycodone for pain management. Use incentive spirometry every 1-2 hours while you are awake Will need repeat liver function test in the next week or two to evaluate liver function Assessment: see discharge summary Discharge Date/Time: 07/12/22 11:16
== END 2022-07-12 11:16 | disposition home health service (06) | DRG 419 ==
LOC: HO.ED 21:47 → HO.EDOVER 22:36 → HO.S3 07-09 14:17
PROVIDERS: Emergency Medicine Emergency Medical Services; Internal Medicine Gastroenterology; Surgery; Admitting Provider Internal Medicine; Emergency Provider Internal Medicine; PCP Internal Medicine; Visit Provider Physician Assistant Medical
PROC: 0FC98ZZ Extirpation of Matter from Common Bile Duct, Via Natural or Artificial Opening Endoscopic (ICD-10-PCS; CPT 43260; principal; 2022-07-09 09:30)
PROC: 0FT44ZZ Resection of Gallbladder, Percutaneous Endoscopic Approach (ICD-10-PCS; CPT 47562; principal; 2022-07-10 08:30)
DX: K80.50 Calculus of bile duct without cholangitis or cholecystitis without obstruction (principal); E03.9 Hypothyroidism, unspecified; E66.9 Obesity, unspecified; E78.5 Hyperlipidemia, unspecified; I10 Essential (primary) hypertension; K21.9 Gastro-esophageal reflux disease without esophagitis; Z20.822 Contact with and (suspected) exposure to COVID-19; Z68.38 Body mass index [BMI] 38.0-38.9, adult; Z87.891 Personal history of nicotine dependence; Z79.890 Hormone replacement therapy; Z79.899 Other long term (current) drug therapy
CPT/HCPCS: 36415; 74177; 80048; 80053; 80076; 80143; 81001; 83605; 83690; 85025; 85027; 85610; 85730; 86704; 86706; 86709; 86803; 87086; 87340; 87502; 87635; 88304; 93005; 94640; 99285; C1769; J0131; J0696; J1100; J1610; J1956; J2250; J2405; J2795; J3010; Q9967

== ENCOUNTER 2022-08-01 11:20 | Outpatient (REF) | payer MEDICARE, SELFPAY ==
[2022-08-01 12:06] LABS: Influenza A PCR NEGATIVE (Negative); Influenza B PCR NEGATIVE (Negative); Resp Syncy Virus RNA Qual PCR POSITIVE (Negative); SARS COV2 PCR INHOUSE NEGATIVE (Negative)
== END 2022-08-01 11:21 | disposition home or self-care (01) ==
LOC: HO.LNP 11:20
PROVIDERS: Visit Provider Internal Medicine
DX: Z20.822 Contact with and (suspected) exposure to COVID-19 (principal); R43.9 Unspecified disturbances of smell and taste
CPT/HCPCS: 0241U

== ENCOUNTER 2022-08-06 10:20 | Outpatient (REF) | payer MEDICARE, SELFPAY ==
[2022-08-06 11:47] LABS: Alanine Aminotransferase 12 U/L (0-31); Albumin Level 3.4 g/dL (3.5-5.0); Alkaline Phosphatase 103 U/L (39-117); Anion Gap 10 (12-20); Aspartate Amino Transferase 12 U/L (5-31); Bilirubin Direct 0.2 mg/dL (0.0-0.5); Bilirubin Total 0.6 mg/dL (0.0-1.0); Blood Urea Nitrogen 13 mg/dL (9-16); Carbon Dioxide 31 mmol/L (22-29); Chloride 103 mmol/L (96-108); Estimated Glomerular Filt Rate > 60; Glucose Random 117 mg/dL (60-115); Potassium 3.7 mmol/L (3.3-5.1); Sodium 140 mmol/L (135-145); Total Protein 5.8 g/dL (6.5-8.0)
== END 2022-08-06 10:21 | disposition home or self-care (01) ==
LOC: HO.HMGCLDS 10:20
PROVIDERS: PCP Internal Medicine; Visit Provider Internal Medicine
DX: R10.9 Unspecified abdominal pain (principal); R74.01 Elevation of levels of liver transaminase levels; R79.89 Other specified abnormal findings of blood chemistry
CPT/HCPCS: 36415; 80053; 82248

== ENCOUNTER 2022-10-26 09:51 | Outpatient (REF) | payer MEDICARE, SELFPAY ==
[2022-10-26 11:38] LABS: MANUAL DIFF FLAG NO
[2022-10-26 11:48] LABS: Basophils Absolute Auto 0.1 X10*3/uL (0.0-0.2); Basophils Percent Auto 1.2 % (0-2); Eosinophils Absolute Auto 0.4 X10*3/uL (0.0-0.4); Eosinophils Percent Auto 4.8 % (0-4); Hematocrit 41.5 % (37.0-47.0); Hemoglobin 13.1 g/dl (12.0-16.0); Imm Gran Abs Auto 0.07 X10*3/uL (0.00-0.03); Lymphocytes Absolute Auto 2.2 X10*3/uL (1.2-4.9); Lymphocytes Percent Auto 29.8 % (20-40); Mean Corpuscular HGB Conc 31.6 g/dl (31.0-35.0); Mean Corpuscular Hemoglobin 28.5 pg (27.0-33.0); Mean Corpuscular Volume 90.4 fL (80.0-98.0); Mean Platelet Volume 11.7 fL (9.4-12.3); Monocytes Absolute Auto 0.6 X10*3/uL (0.1-1.2); Monocytes Percent Auto 7.7 % (2-11); Neutrophils Percent Auto 55.5 % (45-73); Platelet Count 202 X10*3/uL (160-400); Red Blood Count 4.59 X10*6/uL (4.20-5.50); Red Cell Distribution Width 14.6 % (11.0-16.0); White Blood Count 7.3 X10*3/uL (4.8-10.8)
[2022-10-26 12:36] LABS: Alanine Aminotransferase 11 U/L (0-31); Albumin Level 3.8 g/dL (3.5-5.0); Alkaline Phosphatase 89 U/L (39-117); Anion Gap 14 (12-20); Aspartate Amino Transferase 19 U/L (5-31); Bilirubin Total 0.6 mg/dL (0.0-1.0); Blood Urea Nitrogen 17 mg/dL (9-16); Calcium 9.6 mg/dL (8.4-10.2); Carbon Dioxide 27 mmol/L (22-29); Chloride 105 mmol/L (96-108); Cholesterol 213 mg/dL; Estimated Glomerular Filt Rate > 60; Glucose Fasting 100 mg/dL (60-99); HDL Cholesterol 51 mg/dL; LDL Cholesterol Calculated 145 mg/dl; Potassium 5.1 mmol/L (3.3-5.1); Sodium 141 mmol/L (135-145); Total Protein 6.2 g/dL (6.5-8.0); Triglycerides 88 mg/dL
[2022-10-26 12:59] LABS: Free T4 (Free Thyroxine) 0.95 ng/dL (0.71-1.85); Thyroid Stimulating Hormone 6.51 uIU/mL (0.32-4.0)
== END 2022-10-26 09:52 | disposition home or self-care (01) ==
LOC: HO.HMGCLDS 09:51
PROVIDERS: PCP Internal Medicine; Visit Provider Internal Medicine
DX: I10 Essential (primary) hypertension (principal); E03.9 Hypothyroidism, unspecified; E78.00 Pure hypercholesterolemia, unspecified
CPT/HCPCS: 36415; 80053; 80061; 84439; 84443; 85025

== ENCOUNTER → 2022-10-28 12:00 | Outpatient (REF) | payer MEDICARE, SELFPAY ==
--- NOTE | 2022-10-28 12:07 | ECG_ITS ---
Test Reason : htn Blood Pressure : / mmHG Vent. 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
== END ==
LOC: HO.CARD 12:00
PROVIDERS: PCP Internal Medicine; Visit Provider Internal Medicine
DX: I10 Essential (primary) hypertension (principal)
CPT/HCPCS: 93005

== ENCOUNTER → 2022-12-29 09:50 | Outpatient (BNVA) | payer MEDICARE, SELFPAY | PROVIDERS: PCP Internal Medicine; Visit Provider Hospitalist | DX: G47.33 Obstructive sleep apnea (adult) (pediatric) (principal); R06.00 Dyspnea, unspecified; R91.1 Solitary pulmonary nodule; K44.9 Diaphragmatic hernia without obstruction or gangrene | CPT/HCPCS: 94618; 99212 ==

== ENCOUNTER → 2023-01-19 10:59 | Outpatient (REF) | payer MEDICARE, SELFPAY ==
--- NOTE | 2023-01-19 11:01 | CA_ITS ---
Acquisition Time: 2023-01-19 11:35:28 Total Exercise Time: 00:03:00 Test Indications: Dyspnea Medications: SEE EMAR Protocol: BLAKE Max HR: 120 BPM 81% of Pred: 148 BPM Max BP: 162/088 mmHG Max Work Load: 4.1 METS Exercise stress test exercise 3 min of Blake protocol stage 1 reduced speed 1.5mph briefly achieving 81% MPHR with need to stop due to moderate SOB, no chest discomfort, without arrhythmias, with no blood pressure taken during exercise, without ischemia at achieved workload. Echo images obtained by tech at rest and immediately post peak exercise. Definity contrast uised. Test reviewed with Dr. Cervantes. Referred By: Dread Tineo Overread By: RUTH CHOI
== END ==
LOC: HO.CARD 10:59
PROVIDERS: PCP Internal Medicine; Visit Provider Hospitalist
DX: R06.00 Dyspnea, unspecified (principal)
CPT/HCPCS: 93350; Q9957

== ENCOUNTER 2023-03-02 08:49 | Outpatient (REF) | payer MEDICARE, SELFPAY ==
--- NOTE | 2023-03-02 10:02 | PFT_ITS ---
Forced vital capacity is 68%, FEV1 74%. FEV1/FVC ratio is 82. FEF 25/75 101% and MVV 82%. Post bronchodilator therapy, there is no significant change. Total lung capacity 79% and residual volume 82%. Diffusion capacity 66%, and DL/VA 85%. CONCLUSION: Very mild degree of restrictive pulmonary disorder. No obstructive airway disorder. No response to bronchodilator therapy. Clinical correlation recommended. MD CHAS Jordan/NEELIMA / [id number]
== END 2023-03-02 08:50 | disposition home or self-care (01) ==
LOC: HO.RESP 08:49
PROVIDERS: PCP Internal Medicine; Visit Provider Hospitalist
DX: R06.00 Dyspnea, unspecified (principal)

== ENCOUNTER → 2023-03-02 10:02 | Outpatient (BNV) | payer MEDICARE, SELFPAY | PROVIDERS: PCP Internal Medicine; Visit Provider Internal Medicine | DX: R06.09 Other forms of dyspnea (principal); G47.33 Obstructive sleep apnea (adult) (pediatric) | CPT/HCPCS: 94060; 94727; 94729 ==

== ENCOUNTER → 2023-03-04 07:39 | Outpatient (REF) | payer MEDICARE, SELFPAY ==
--- NOTE | ~2023-03-04 | NM_ITS ---
Myocardial perfusion study Indication: Abnormal EKG to evaluate for myocardial ischemia Technique: The patient was brought in for a Lexiscan perfusion study on 03/04/2023. Patient performed low-level exercise and was injected 0.4 mg of Lexiscan intravenously. Within a minute of injection, 30 mCi of sestamibi was given intravenously. Images were obtained using the SPECT gamma camera interlaced with the gating device. Images were obtained in supine position. Resting perfusion study was performed on 03/05/2023. Patient was administered 30 mCi of sestamibi intravenously at rest. Images were then obtained in supine position. Images obtained with and without CT attenuation. Total DLP 178 mGy-cm. Images were processed with the software and compared side to side in short axis, horizontal long axis and vertical long axis views. Findings: The stress perfusion study showed non attenuated images show minimal thinning and minimally reduced uptake in the basal inferolateral wall of the LV myocardium. Rest of the LV myocardium is normally perfused. Attenuation corrected images show mildly reduced uptake in the apex of the LV myocardium. The gated study shows normal LV systolic function with calculated LVEF of 69%. LV cavity is normal in size. The gated study shows normal systolic wall thickening and contraction of segments. Resting study shows no change in perfusion pattern compared to stress perfusion study. Gating at rest reveals normal systolic wall motion with ejection fraction at 64%. The findings are consistent with normal myocardial perfusion. NM/NM joshua perf SPECT rest & str Impression: 1. Myocardial perfusion imaging study shows normal myocardial perfusion 2. Gated LVEF is 69%% 3. Transient ischemic dilatation not present EKG is nondiagnostic for ischemia
--- NOTE | 2023-03-04 07:43 | CA_ITS ---
Acquisition Time: 2023-03-04 08:18:50 Total Exercise Time: 00:02:00 Test Indications: Screening for CAD Medications: GABAPENTIN LEVOTHYROXINE FUROSEMIDE LISINOPRIL OMEPRAZOLE ROSUVASTATIN Protocol: LEXISCAN Max HR: 095 BPM 64% of Pred: 148 BPM Max BP: 124/078 mmHG Max Work Load: 1.0 METS Pharmacological stress test with Lexiscan injection while sitting and kicking her legs, without anginal symptoms, with isolated PVCs, with normotensive response to injection, with non-diagnositic EKGs, Aminophylline 75mg IVP given to reverse Lexiscan. Nuclear images pending. Test reviewed with Dr. Cervantes. Referred By: Dread Tineo Overread By: Tyra Rico
== END ==
LOC: HO.CARD 07:39
PROVIDERS: PCP Internal Medicine; Visit Provider Hospitalist
DX: R94.31 Abnormal electrocardiogram [ECG] [EKG] (principal); R06.00 Dyspnea, unspecified; E66.9 Obesity, unspecified
CPT/HCPCS: 78452; 93017; 94010; 94727; 94729; A9500; J0280; J2785

== ENCOUNTER → 2023-03-04 07:43 | Outpatient (BNV) | payer MEDICARE, SELFPAY | PROVIDERS: PCP Internal Medicine; Visit Provider Nurse Practitioner | DX: R94.31 Abnormal electrocardiogram [ECG] [EKG] (principal) | CPT/HCPCS: 78452; 93016; 93018 ==

== ENCOUNTER 2023-03-05 09:40 | Outpatient (REF) | payer MEDICARE, SELFPAY ==
[2023-03-05 13:17] LABS: MANUAL DIFF FLAG NO
[2023-03-05 13:40] LABS: Basophils Absolute Auto 0.1 X10*3/uL (0.0-0.2); Basophils Percent Auto 0.8 % (0-2); Eosinophils Absolute Auto 0.2 X10*3/uL (0.0-0.4); Eosinophils Percent Auto 2.8 % (0-4); Hemoglobin 13.7 g/dl (12.0-16.0); Imm Gran Abs Auto 0.02 X10*3/uL (0.00-0.03); Imm Gran Pct Auto 0.3 % (0.0-0.4); Lymphocytes Absolute Auto 2.5 X10*3/uL (1.2-4.9); Lymphocytes Percent Auto 35.3 % (20-40); Mean Corpuscular HGB Conc 31.9 g/dl (31.0-35.0); Mean Corpuscular Hemoglobin 29.4 pg (27.0-33.0); Mean Corpuscular Volume 92.3 fL (80.0-98.0); Mean Platelet Volume 11.9 fL (9.4-12.3); Monocytes Absolute Auto 0.6 X10*3/uL (0.1-1.2); Monocytes Percent Auto 8.1 % (2-11); Neutrophils Absolute Auto 3.8 x10*3/uL (2.0-8.3); Neutrophils Percent Auto 52.7 % (45-73); Platelet Count 220 X10*3/uL (160-400); Red Blood Count 4.66 X10*6/uL (4.20-5.50); Red Cell Distribution Width 13.7 % (11.0-16.0); White Blood Count 7.1 X10*3/uL (4.8-10.8)
[2023-03-05 13:59] LABS: Appearance Urine Clear; Color Urine Yellow; Glucose Urine UA Negative (Negative); Leukocyte Esterase Urine Negative (Negative); Nitrite Urine Negative (Negative); PH 5.5 (5.0-9.0); Urine Blood Negative (Negative); Urine Ketones Negative (Negative); Urine Protein Negative (Neg-Trace)
[2023-03-05 14:02] LABS: Alanine Aminotransferase 12 U/L (0-31); Alkaline Phosphatase 91 U/L (39-117); Anion Gap 15 (12-20); Aspartate Amino Transferase 20 U/L (5-31); Bilirubin Total 0.7 mg/dL (0.0-1.0); Blood Urea Nitrogen 17 mg/dL (9-16); C Reactive Protein 0.13 mg/dL (< or = 0.50); Calcium 9.8 mg/dL (8.4-10.2); Carbon Dioxide 23 mmol/L (22-29); Chloride 105 mmol/L (96-108); Cholesterol 220 mg/dL; Estimated Glomerular Filt Rate > 60; Glucose Fasting 101 mg/dL (60-99); HDL Cholesterol 61 mg/dL; LDL Cholesterol Calculated 137 mg/dl; Potassium 4.3 mmol/L (3.3-5.1); Sodium 139 mmol/L (135-145); Total Protein 6.9 g/dL (6.5-8.0); Triglycerides 110 mg/dL
[2023-03-05 14:18] LABS: Free T4 (Free Thyroxine) 0.88 ng/dL (0.71-1.85); Thyroid Stimulating Hormone 9.22 uIU/mL (0.32-4.0); Vitamin D 25-OH Total 80.5 ng/mL (>30)
[2023-03-05 14:30] LABS: Erythrocyte Sedimentation Rate 7 MM/HR (0-20)
[2023-03-10 19:13] LABS: CK-BB None Detected (None Detected); CK-MB 0 % (<5); CK-MM 100 % (95-100); Creatine Kinase,Total,Serum 62 U/L (29-143)
== END 2023-03-05 09:41 | disposition home or self-care (01) ==
LOC: HO.HMGCLDS 09:40
PROVIDERS: PCP Internal Medicine; Visit Provider Internal Medicine
DX: I10 Essential (primary) hypertension (principal); E78.00 Pure hypercholesterolemia, unspecified; E03.9 Hypothyroidism, unspecified; M94.1 Relapsing polychondritis; E55.9 Vitamin D deficiency, unspecified; R30.0 Dysuria
CPT/HCPCS: 36415; 80053; 80061; 81003; 82306; 82552; 84439; 84443; 85025; 85652; 86140

== ENCOUNTER 2023-03-09 09:39 | Outpatient (AMB) | payer MEDICARE, SELFPAY ==
[2023-03-09 09:43] VITALS: BP 122/78; PULSE 63; O2SAT 98; BMI 38.6
--- NOTE | 2023-03-09 09:43 | MHC.PC.OV ---
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 Required: No Accompanied by: Self / Same As Patient Allergies No Known Allergies [No Known Allergies*] Allergy (Verified 03/09/23 10:06) Medication List - Last Reconciled 03/09/23 by Bolivar Ventura MD albuterol sulfate 90 mcg/actuation 2 inhalations inhalation Q6H PRN 30 days cholecalciferol (vitamin D3) (Vitamin D3) 1,000 units PO DAILY cyanocobalamin (vitamin B-12) (Vitamin B-12) 1,000 mcg PO DAILY furosemide (Lasix) 20 mg PO DAILY 3 days gabapentin 300 mg PO TID ibuprofen 800 mg PO TID PRN levothyroxine 75 mcg PO QAM 90 days lisinopril 40 mg PO DAILY omeprazole 20 mg PO DAILY pyridoxine (vitamin B6) 25 mg PO DAILY rosuvastatin 20 mg PO DAILY 90 days thiamine HCl (vitamin B1) (Vitamin B-1) 300 mg PO DAILY Tobacco use date assessed: 03/09/23 Fall risk assessment: No Falls in past year Last assessed Fall Risk: 03/09/23 Dental Screening Dental Screen Date: 03/09/23 Did you have a dental visit in the last 12 months?: Yes Did you have a dental problem in the last 6 months where you did not have access to dental care?: No Was dental information given to patient?: Patient has dentist HPI relapsing polychondritis, hyperlipidemia, HTN HPI Details Patient comes in today for her follow up visit States that she feels okay She denies any headaches or dizziness Denies any chest pains, still has some ESTRELLA but this is mostly mild and have not gotten worse lately No nausea/vomiting, no abdominal pain No change in bowel habits noted Still has recurrent / frequent low back pain and recently, has been experiencing on and off pain around her right SI joint area - notes that her back hurts when she first tries to get up in the morning and sometimes has to lie back down for a while to let the pain subside Used to see Dr. Kingston for pain management but has not been back to see him since June 2022 Has also noticed a few skin lesions/skin tags on her trunk lately and would like to have these checked out further and removed if possible; states that the lesions do not itch or hurt Had her follow up labs done a few days ago - to discuss her results [facility] Medical History Acquired hypothyroidism Benign essential hypertension Bochdalek hernia Choledocholithiasis Chronic restrictive lung disease Depression Elevated LFTs Exertional dyspnea GERD without esophagitis Hernia, diaphragmatic Hiatal hernia Hypothyroidism Impaired fasting glucose Lumbar degenerative disc disease Neuropathy of left peroneal nerve Obesity (BMI 30-39.9) Osteopenia Primary osteoarthritis of right knee Pulmonary nodule Pure hypercholesterolemia Relapsing polychondritis Rheumatoid arthritis Right lumbar radiculopathy Thoracic scoliosis Vitamin B12 deficiency Vitamin D deficiency Surgical History History of appendectomy (~1963) History of carpal tunnel surgery (~03/2016) History of cataract surgery History of colonoscopy History of laparoscopic cholecystectomy (07/10/22) History of right knee joint replacement (~08/2016) History of surgery on right wrist (~02/2020) History of surgery on right wrist (~05/2004) Family History Father CVD (cardiovascular disease) Mother Ovarian cancer Maternal Aunt Breast cancer Brother Colon cancer Family/Other Breast cancer Family/Other Breast cancer Family/Other Breast cancer Social History Household Members: Spouse Housing: House Are you a primary neonatal intensive care nurse to a significant other at home: No Do you presently have visiting nurse or other home services: No Alcohol intake: current Alcohol intake frequency: holidays/special occasions only Alcohol type: wine Patient Tobacco Use Status: Former Tobacco user Quit Date: 2015 Tobacco use type: Cigarette Years Smoked: 40 e-Cigarette/Vaping Use: Never Used Second Hand Smoke Exposure: No Advance Directives Date on File: 07/09/22 service: No Current occupational status: retired Cognitive needs: No Hearing needs: No Vision needs: Yes (reading glasses) Questionnaire PHQ-9 Over the last 2 weeks, how often have you been bothered by any of the following problems? 1. Little interest or pleasure in doing things: several days 2. Feeling down, depressed, or hopeless: several days 3. Trouble falling or staying asleep, or sleeping too much: several days 4. Feeling tired or having little energy: several days 5. Poor appetite or overeating: not at all 6. Feeling bad about yourself - or that you are a failure or have let yourself or your family down: not at all 7. Trouble concentrating on things, such as reading the newspaper or watching television: several days 8. Moving or speaking so slowly that other people could have noticed. Or the opposite - being so fidgety or restless that you have been moving around a lot more than usual: not at all 9. Thoughts that you would be better off or of hurting yourself in some way: several days Total score: 6 Depression Screening Interpretation: Positive Depression Screening Follow-up: Existing condition and In treatment 29855 - PHQ-9 Billing: Yes Source: Developed by Drs. Jeremy Ramesh, Lesly Dias, Dayne Samano and colleagues, with an educational kashmir from [employer]. Thrive Questionnaire Date Thrive assessed: 03/09/23 I am a: Patient What is your living situation today?: I have a steady place to live Within the past 12 months, did the food you bought not last and you didn't have the money to get more?: Never true Within the past 12 months, did you worry whether your food would run out before you got money to buy more?: Never true Do you have trouble paying for medicines?: No Do you have trouble getting transportation to medical appointments?: No Do you have trouble paying your heating and electricity bill?: No Do you have trouble taking care of your child, family member or friend?: No Do you have trouble with day-to-day activities such as bathing, preparing meals, shopping, managing finances, etc.?: No Are you currently unemployed and looking for a job?: No Are you interested in more education?: No Please select the resources that you would like help with: None Currently or been in a relationship where the following occur: no concerns reported AUDIT C Alcohol Use Questionnaire (AUDIT-C) 1. How often do you have a drink containing alcohol?: Never 3. How often do you have six or more drinks on one occasion?: Never Total Score: 0 Score Reviewed/Action Taken: Yes KAVITHA-7 AMB Questionnaire KAVITHA-7 Date KAVITHA - 7 assessed: 03/09/23 Feeling nervous, anxious, or on edge: 0 = Not at all Not being able to stop or control worryin = Not at all Worrying too much about different things: 0 = Not at all Trouble relaxin = Not at all Being so restless that it is hard to sit still: 0 = Not at all Becoming easily annoyed or irritable: 0 = Not at all Feeling afraid as if something awful might happen: 0 = Not at all Total KAVITHA-7 score (0-4 normal; 5-9 mild; 10-14 moderate; 15-21 severe): 0 Source: Developed by Drs. Jeremy Ramesh, Lesly Dias, Dayne Samano and colleagues, with an educational kashmir from [employer]. Review of Systems Const Denies chills, Reports fatigue (mild), Denies fever(s) and Denies headache(s) ENT Denies dysphagia, Denies dizziness, Denies otalgia, Denies headache(s), Denies nasal congestion, Denies odynophagia and Denies sore throat Card Denies chest pain, Denies palpitations and Reports dyspnea on exertion (mild, unchanged from previous) Resp Denies chest congestion, Denies cough, Denies hemoptysis, Reports dyspnea on exertion (mild, unchanged from previous) and Denies wheezing GI Denies abdominal pain, Denies constipation, Denies dysphagia, Denies heartburn, Denies diarrhea, Denies nausea, Denies odynophagia and Denies vomiting Denies difficulty voiding, Denies nocturia and Denies dysuria Musc Reports back pain (with radiation of pain down her legs at times - chronic) and Reports arthralgias (right knee) Skin/Breast Details: (+) few raised dark lesions on her trunk - thinks that they may be skin tags Neuro Denies dizziness and Denies headache(s) Endo Reports fatigue (mild) and Denies palpitations Isidoro/Lymph Denies easy bruising Aller/Immun Denies wheezing Physical exam (Primary Care) Vital Signs: Last Vital Signs Pulse 63 03/09/23 09:43 BP 122/78 03/09/23 09:43 Pulse Ox 98 03/09/23 09:43 Oxygen Delivery Method Room Air 03/09/23 09:43 BMI result Body Mass Index 38.6 Tobacco/Smoking Status: Tobacco use Status Tobacco use date assessed 03/09/23 03/09/23 09:49 Patient Tobacco Use Status Former Tobacco user 03/09/23 09:49 Tobacco use type Cigarette 03/09/23 09:49 e-Cigarette/Vaping Use Never Used 03/09/23 09:49 PHQ-9: PHQ-9 Score PHQ-9: Total score 6 03/09/23 10:10 Depression Screening Interpretation: Positive Depression Screening Follow-up: Existing condition and In treatment Thrive Assessment: Date of Thrive Assessment Date Thrive assessed 03/09/23 03/09/23 09:49 Currently or been in a relationship where the following occur: no concerns reported Const General: no acute distress and alert HENMT Ears: TM's normal bilaterally and EAC's normal Throat: Yes posterior oropharynx normal and Yes tonsils normal (no TP congestion noted) Neck Neck: Yes no lymphadenopathy and Yes supple Resp Auscultation: no rales, no rhonchi, no wheezes and diminished lung sounds (slightly) bilateral Cardio Rate: regular rate Rhythm: regular rhythm Heart sounds: no murmurs GI Palpation (GI): Soft to palpation, nontender, no guarding and not rigid Auscultation: normal bowel sounds Back/Spine/Pelvis Thoracic/Lumbar Spine: lumbar spinal tenderness Sacroiliac joints: on the right tender to palpation Skin Other: (+) few scattered hyperpigmented and slightly raised keratotic lesions on the trunk Extrem General: Yes no clubbing, cyanosis or edema Right lower extremity: knee Details: tenderness; no swelling Results Reviewed Results Reviewed: Laboratory Tests 03/05/23 03/05/23 03/05/23 09:48 09:48 09:48 WBC 7.1 Hgb 13.7 Hct 43.0 Plt Count 220 Sodium 139 Potassium 4.3 Creatinine 0.80 Estimated GFR > 60 Fasting Glucose 101 H Calcium 9.8 AST 20 ALT 12 C-Reactive Protein 0.13 Triglycerides 110 Cholesterol 220 LDL Cholesterol, Calc 137 HDL Cholesterol 61 25-OH Vitamin D Total 80.5 TSH 9.22 H Free T4 0.88 Ur Specific [place] 1.020 Urine Protein Negative Urine Glucose (UA) Negative Urine Blood Negative Assessment and Plan Assessment & Plan (1) Benign essential hypertension: Code(s): I10 - Essential (primary) hypertension Plan: Reinforced low-sodium diet -?goal is systolic BP of at least 130 to 140 mm or less Continue Lisinopril 40 mg QD; Amlodipine 2.5 mg QD remains ON HOLD (2) Pure hypercholesterolemia: Code(s): E78.00 - Pure hypercholesterolemia, unspecified Plan: Results of her labs done a few days ago reviewed and discussed with patient Reinforced low cholesterol diet Continue Rosuvastatin 20 mg QD Will recheck labs in 4 months for follow up (3) Exertional dyspnea: Code(s): R06.00 - Dyspnea, unspecified Plan: Most likely multifactorial, including her weight Echocardiogram done in 06/2020 came out normal, with normal left ventricular chamber size, mild concentric left ventricular hypertrophy, basal septal hypertrophy of 1.8 cm, with normal regional wall motion and left ventricular ejection fraction is between 60-65%.? There are no hemodynamically significant valve disease and right-sided structures were not well seen on this study PFT done back in 2013 was normal; repeat PFTs done in 12/2020 also came back mostly normal, with no obstructive component and only mild restrictive ventilatory defect Was seen and evaluated by Pulmonary last year with no intervention recommended at the time Was sent for stress testing and PFTs a few months ago - Lexiscan stress testing done a few days ago came out unrevealing; nuclear imaging studies done subsequently came out normal Patient states that she also had her PFTs done a few days ago - results are not available to review at this time Follow-up with pulmonary as scheduled (4) Acquired hypothyroidism: Code(s): E03.9 - Hypothyroidism, unspecified Plan: Her TSH has increased further and free T4 level has declined on her recent labs Will increase her Levothyroxine from 75 mcg QD to 88 mcg QD Will recheck her TFTs in 4 months for follow up (5) Impaired fasting glucose: Code(s): R73.01 - Impaired fasting glucose Plan: FBS was at 101 mg/dl on her recent labs; HgbA1c was normal at 5.4% when checked a few months ago - will continue to monitor these regularly Reinforced low calorie diet / exercise as tolerated (6) Bochdalek hernia: Code(s): Q79.0 - Congenital diaphragmatic hernia Plan: Chest CT done in 2020 revealed the presence of a fat-containing Bochdalek hernia of the left hemidiaphragm with a small sliding-type hiatal hernia of the stomach - this is mostly unchanged compared to her scan on 03/04/2019 Was seen for this by thoracic surgery last year and recommended observation only Repeat chest CT done in May 2022 revealed stable 2 mm subpleural nodules, right upper lobe, with no new nodules seen; (+) small left diaphragm Bochdalek hernia containing fat that is stable; also visualized is focal eventration of left posterior diaphragm (7) Neuropathy of left peroneal nerve: Code(s): G57.32 - Lesion of lateral popliteal nerve, left lower limb Plan: Continue Gabapentin 300 mg 3 times a day (8) Primary osteoarthritis of right knee: Comment: S/P total right knee arthroplasty with Dr. Miramontes on 08/31/2016 without any significant improvement of her knee pain following surgery Has been seen for a follow-up by Dr. Jacobson, who recommended a revision of right knee prosthesis Patient reportedly went to see Dr. Edwards at [facility] for a 2nd opinion and was advised against revision surgery Subsequently went to see a Dr. Eriberto Kirk in [place] in 2019 but her insurance is declining to cover any appointments with him and all of her appointments are now on hold due to the COVID-19 pandemic Code(s): M17.11 - Unilateral primary osteoarthritis, right knee Plan: Follow up with orthopedics as scheduled (9) Rheumatoid arthritis: Code(s): M06.9 - Rheumatoid arthritis, unspecified Qualifiers: Rheumatoid arthritis location: unspecified site Rheumatoid factor presence: unspecified presence Qualified Code(s): M06.9 - Rheumatoid arthritis, unspecified Plan: Follow up with rheumatology (Dr. Walsh) as scheduld (10) Vitamin B12 deficiency: Code(s): E53.8 - Deficiency of other specified B group vitamins Plan: Corrected - continue OTC Vitamin B12 1000 mcg QD (11) GERD without esophagitis: Code(s): K21.9 - Gastro-esophageal reflux disease without esophagitis Plan: Dietary restrictions reinforced Continue Omeprazole 20 mg once a day and Famotidine 20 mg twice a day as needed (12) Lumbar degenerative disc disease: Code(s): M51.36 - Other intervertebral disc degeneration, lumbar region Plan: Reinforced activity and weight lifting restrictions MRI done in 2016 showed (+) changes of mild lumbar spondylosis Was following up with pain management for her chronic low back pain but has not been back since June 2022 Patient states that she would like to wait until her upcoming right wrist surgery is completed in June 2023 and will contact pain management again to schedule a follow up appt afterwards (13) Thoracic scoliosis: Code(s): M41.9 - Scoliosis, unspecified Qualifiers: Scoliosis type: unspecified scoliosis Qualified Code(s): M41.9 - Scoliosis, unspecified Plan: Recent back x-rays showed the presence of some kyphoscoliosis and thoracic scoliosis, which are probably contributing to patient's frequent back pain (14) Osteopenia: Comment: (Bone Dexa T-score -2.1 - 09/24/2017) Code(s): M85.80 - Other specified disorders of bone density and structure, unspecified site Qualifiers: Osteopenia location: unspecified Qualified Code(s): M85.80 - Other specified disorders of bone density and structure, unspecified site Plan: Repeat BMD done on 07/31/2021 showed (+) osteopenia with no significant change from her previous BMD except for a slight decrease in BMD in her AP spine Will continue to monitor BMD regularly (every 2 to 3 years) (15) Vitamin D deficiency: Code(s): E55.9 - Vitamin D deficiency, unspecified Plan: Continue Vitamin D3 1000 units daily (16) Relapsing polychondritis: Code(s): M94.1 - Relapsing polychondritis Plan: Follow up with rheumatology as scheduled (17) MGUS (monoclonal gammopathy of unknown significance): Code(s): D47.2 - Monoclonal gammopathy Plan: Follow up with hematology/oncology as scheduled for continuing surveillance and monitoring (18) Keratosis: Code(s): L57.0 - Actinic keratosis Plan: Will refer to dermatology for further evaluation and management (19) Depression: Code(s): F32.A - Depression, unspecified Qualifiers: Depression Type: unspecified Qualified Code(s): F32.A - Depression, unspecified Plan: Follow up with psychiatry as scheduled (20) Obesity (BMI 30-39.9): Code(s): E66.9 - Obesity, unspecified Plan: Reinforced diet/exercise as tolerated/lose weight Plan Follow up in 4 months Orders: Orders Vitamin B12 and Folate 4 Months E53.8 - Deficiency of other specified B group vitamins Comprehensive Prosper. Panel Fast 4 Months E78.00 - Pure hypercholesterolemia, unspecified Lipid Panel 4 Months E78.00 - Pure hypercholesterolemia, unspecified Free T4 (Free Thyroxine) 4 Months E03.9 - Hypothyroidism, unspecified Thyroid Stimulating Hormone 4 Months E03.9 - Hypothyroidism, unspecified Vitamin D 25-OH Total 4 Months E55.9 - Vitamin D deficiency, unspecified Complete Blood Count Auto Diff 4 Months I10 - Essential (primary) hypertension UA CC w/rflx Micro + Cult 4 Months R30.0 - Dysuria Referrals Dermatology Referral L57.0 - Actinic keratosis Medications: Changed From levothyroxine 75 mcg PO QAM 90 days 90 tabs 3RF E03.9 - Hypothyroidism, unspecified To levothyroxine 88 mcg PO QAM 90 days 90 tabs 3RF E03.9 - Hypothyroidism, unspecified Coding Level of Care Code Est Pt Level 4 (35041) Diagnoses Benign essential hypertension I10 Pure hypercholesterolemia E78.00 Exertional dyspnea R06.00 Acquired hypothyroidism E03.9 Impaired fasting glucose R73.01 Bochdalek hernia Q79.0 Neuropathy of left peroneal nerve G57.32 Primary osteoarthritis of right knee M17.11 Rheumatoid arthritis M06.9 Rheumatoid arthritis location: unspecified site Rheumatoid factor presence: unspecified presence Vitamin B12 deficiency E53.8 GERD without esophagitis K21.9 Lumbar degenerative disc disease M51.36 Thoracic scoliosis M41.9 Scoliosis type: unspecified scoliosis Osteopenia M85.80 Osteopenia location: unspecified Vitamin D deficiency E55.9 Relapsing polychondritis M94.1 MGUS (monoclonal gammopathy of unknown significance) D47.2 Keratosis L57.0 Depression F32.A Depression Type: unspecified Obesity (BMI 30-39.9) E66.9
== END 2023-03-09 10:41 | disposition home or self-care (01) ==
PROVIDERS: PCP Internal Medicine; Visit Provider Internal Medicine
DX: I10 Essential (primary) hypertension (principal); E03.9 Hypothyroidism, unspecified; M06.9 Rheumatoid arthritis, unspecified; K21.9 Gastro-esophageal reflux disease without esophagitis; E78.00 Pure hypercholesterolemia, unspecified; R06.00 Dyspnea, unspecified; R73.01 Impaired fasting glucose; Q79.0 Congenital diaphragmatic hernia; G57.32 Lesion of lateral popliteal nerve, left lower limb; M17.11 Unilateral primary osteoarthritis, right knee; E53.8 Deficiency of other specified B group vitamins; M51.36 Other intervertebral disc degeneration, lumbar region
CPT/HCPCS: 99214

== ENCOUNTER 2023-03-23 09:43 | Outpatient (AMB) | payer MEDICARE, SELFPAY ==
--- NOTE | 2023-03-23 09:48 | A.OFFVIS_ITS ---
Intake Vital Signs 03/23/23 09:50 Height 5 ft 3 in Weight 210 lb BMI 37.2 Pulse 67 Pulse Source Pulse Oximeter Pulse Oximetry (%) 96 Oxygen Delivery Method Room Air Intake Visit Reasons: PFT/Echo Results Washing Tub Operator Required: No Allergies No Known Allergies [No Known Allergies*] Allergy (Verified 03/23/23 09:51) HPI HPI Comments History of Present Illness Details Patient is a 72-year-old woman with a known history of cough in shortness of breath. [id number] in severity. The patient did have an abnormal chest x-ray and ultimately underwent a CT scan of the chest back in September 2020. Did demonstrate she has been a diaphragmatic hernia in addition to them the hiatal hernia and small pulmonary nodules. She did follow-up with thoracic surgery for the the bockdalek hernia. No surgical intervention needed. She was sent for pulmonary function studies which demonstrated a mild restrictive defect. Therefore she was referred to Pulmonary. Her cough is nonproductive in nature it is intermittent denies any postnasal drip or any wheezing. She does not use any respiratory medications. She does have symptoms of heartburn. She does take medications for Gerd. In addition to that she is taking an CHAITANYA inhibitor. She does have associated shortness of breath with activity. Mild in severity. Does get better with rest. We did review her CT scan of the chest demonstrating the small diaphragmatic hernia that is likely incidental finding. More significant and was her hiatal hernia in addition to the pulmonary nodules that we need follow-up. 08/26/2021 the patient is here for a pulmonary follow-up visit. Her symptoms are persistent. She continues to have dyspnea on exertion. Even with minimal activity. We did review her studies initially demonstrating the pulmonary function studies demonstrating the restrictive ventilatory defect. She also underwent a CT scan of the chest without any evidence of any interstitial lung disease. The patient also had a sniff study ruling out any evidence of any diaphragmatic paralysis. Her pulmonary function studies also demonstrated a moderate diffusion impairment. Explained to her that she may indeed also have a component of pulmonary vascular disease. We did briefly review her last echocardiogram from 2019 which demonstrated some degree of left ventricular hypertrophy. Explained to her that this could also result in increased pulmonary vascular pressures. In addition to that untreated sleep apnea can also result in increased pulmonary vascular pressures. She does have daytime drowsiness. Her [place] score is elevated 10/24. At this point I will request a home sleep study to assess for obstructive sleep apnea which may be contributing to her symptoms. 12/01/2021 the patient is here for pulmonary follow-up visit. She continues to have dyspnea on exertion. Moderate severity. Based on her pulmonary function study she appears to have evidence of restrictive lung disease. Therefore, I did recommend she start pulmonary rehabilitation. I do believe that this will provide her some benefit in improving her underlying dyspnea symptoms. In the meantime her dyspnea symptoms are likely multifactorial. Part deconditioning part restrictive lung disease but also need to consider pulmonary vascular conditions. The patient did have an elevated [place] score. We had her undergo a home sleep study. No significant evidence of sleep apnea although it is likely nondiagnostic. She did have significant episodes of apnea and specially hypopneas while laying supine. The patient also desaturated down to below 88% for about 12 minutes. I did request patient try positional therapy for now while not sleep in her back. She will try different devices in order to do so. Once the patient is able to do that we can repeat her overnight oximetry or consider having her undergo a in-lab PSG. Will do this based on her degree of daytime drowsiness And cardiovascular risk factors. The patient has a rescue inhaler available. She has not interested in starting any maintenance therapy at this time. 07/07/2022 the patient is here for pulmonary follow-up visit. Overall the patient is relatively well from a respiratory status. She continues to participate in pulmonary rehabilitation. She is completing the program and that she can consider continuing on her own. The patient has been able to make some strides in her pulmonary capacity. She is still complaining of epigastric disco mfort. Moderate severity. Sometimes radiates to her back. She does have a hiatal hernia. We did look at her recent CT scan of the chest done May 2022 demonstrating stable pulmonary nodules. She does have the hiatal hernia. She does take medications. We did talk about the importance of good reflux diet. In view of her epigastric discomfort the patient should be evaluated either with barium swallow or with an endoscopy. She is also having issues with transaminitis. She was recently taken off her lipid medication. She also had an ultrasound which is reassuring. Again, if she has any worsening epigastric discomfort she seek urgent medical advice. 12/29/2022 the patient is here for a pulmonary follow-up visit. She continues complaint of dyspnea on exertion. She has had an eventful year and has had multiple surgeries. She has recovered well in tolerated anesthesia well. She has to have 1 more wrist surgery couple min up at [facility]. In the meantime she continues to have shortness of breath. We reviewed a get her a previous pulmonary function studies demonstrating some degree of restriction. She does have incentive spirometer at home she is going to do so. But more than that there is a disproportional low to moderate diffusion impairment. Therefore pulmonary vascular conditions need to be considered. Hemoglobin has been stable. The patient does have lower extremity edema. She does use salt and she injury salt. It is likely that she does have some volume overload status. With the decrease in DLCO I also suspect that there is a cardiac component to her respiratory symptoms. Will request a stress echo. The patient has already has EKGs. In addition to that will plan to repeat her PFTs. She will try 3 day course of Lasix to see if we can improve her respiratory status at this time. 03/23/2023 the patient is here for pulmonary follow-up visit. She continues to be about the same. Still complaining of dyspnea on exertion. Moderate s everity. Specially going up a flight of stairs. She did participate in the pulmonary rehabilitation although she did not feel that she had a lot of teaching. I did reach out to the pulmonary rehab to see if they can give her some breathing techniques teachings. The patient does have some restrictive lung disease likely from her body habitus. She is also the condition and has significant discomfort primarily at the knees making it difficult for her to ambulate. We did have her undergo a cardiac evaluation based on the fact that she has had some lower extremity edema. She did have a stress echo that was nondiagnostic. Therefore she had had a Nikki nuclear scan that demonstrating no evidence of any underlying coronary artery disease or perfusion defects. Her gated EF was 69% which is reassuring. I did encourage the patient with the fact that her cardiac status is stable. I would also given Lasix to help with lower extremity edema the last time but she had some vomiting after worse and she is not sure if he was the medications so she stopped that after the 1st dose. She still has some lower extremity but is less in amount. [facility] Medical History Acquired hypothyroidism Benign essential hypertension [place]dale[place] hernia Choledocholithiasis Chronic restrictive lung disease Depression Elevated LFTs Exertional dyspnea GERD without esophagitis Hernia, diaphragmatic Hiatal hernia Hypothyroidism Impaired fasting glucose Lumbar degenerative disc disease Neuropathy of left peroneal nerve Obesity (BMI 30-39.9) Osteopenia Primary osteoarthritis of right knee Pulmonary nodule Pure hypercholesterolemia Relapsing polychondritis Rheumatoid arthritis Right lumbar radiculopathy Thoracic scoliosis Vitamin B12 deficiency Vitamin D deficiency Surgical History History of appendectomy (~1963) History of carpal tunnel surgery (~03/2016) History of cataract surgery History of colonoscopy History of laparoscopic cholecystectomy (07/10/22) History of right knee joint replacement (~08/2016) History of surgery on right wrist (~02/2020) History of surgery on right wrist (~05/2004) Family History Father CVD (cardiovascular disease) Mother Ovarian cancer Maternal Aunt Breast cancer Brother Colon cancer Family/Other Breast cancer Family/Other Breast cancer Family/Other Breast cancer Social History Household Members: Spouse Housing: House Are you a primary care transition manager to a significant other at home: No Do you presently have visiting nurse or other home services: No Alcohol intake: current Alcohol intake frequency: holidays/special occasions only Alcohol type: wine Patient Tobacco Use Status: Former Tobacco user Quit Date: 2015 Tobacco use type: Cigarette Years Smoked: 40 e-Cigarette/Vaping Use: Never Used Second Hand Smoke Exposure: No Advance Directives Date on File: 07/09/22 service: No Current occupational status: retired Cognitive needs: No Hearing needs: No Vision needs: Yes (reading glasses) Review of Systems Const Denies chills, Reports fatigue (mild), Denies fever(s), Denies headache(s) and Reports weight gain ENT Denies dysphagia, Denies dizziness, Denies otalgia, Denies headache(s), Denies nasal congestion, Denies odynophagia and Denies sore throat Card Denies chest pain, Denies palpitations and Reports dyspnea on exertion (mild, unchanged from previous) Resp Denies chest congestion, Denies cough, Denies hemoptysis, Reports dyspnea on exertion (mild, unchanged from previous) and Denies wheezing GI Denies abdominal pain, Denies constipation, Denies dysphagia, Denies heartburn, Denies diarrhea, Denies nausea, Denies odynophagia and Denies vomiting Denies difficulty voiding, Denies nocturia and Denies dysuria Musc Reports back pain (with radiation of pain down her legs at times - chronic), Reports myalgias and Reports arthralgias (right knee) Skin/Breast Details: (+) few raised dark lesions on her trunk - thinks that they may be skin tags Neuro Denies dizziness and Denies headache(s) Endo Reports fatigue (mild) and Denies palpitations Isidoro/Lymph Denies easy bruising Aller/Immun Denies wheezing Physical Exam Vital Signs: Last Vital Signs Pulse 67 03/23/23 09:50 Pulse Ox 96 03/23/23 09:50 Oxygen Delivery Method Room Air 03/23/23 09:50 BMI result Body Mass Index 37.2 Const General: alert HEENT Head: Yes atraumatic Eyes Pupils: Equal, round and reactive pupils present Neck Neck: Yes normal visual inspection, Yes full ROM and Yes no lymphadenopathy Chest Chest palpation & inspection: normal inspection of the chest Resp Effort & Inspection: normal respiratory effort Auscultation: diminished lung sounds Cardio Rate: regular rate Rhythm: regular rhythm Heart sounds: S1 normal heart sound present and S2 normal heart sound present GI Palpation (GI): Soft to palpation and nontender Auscultation: normal bowel sounds Skin General skin exam: rashes and/or lesions noted Neuro Cranial nerves: Yes Equal, round and reactive pupils present Extrem General: No clubbing, No cyanosis and Yes edema Assessment & Plan Assessment & Plan (1) CHRIS (obstructive sleep apnea): Code(s): G47.33 - Obstructive sleep apnea (adult) (pediatric) (2) Pulmonary nodule: Code(s): R91.1 - Solitary pulmonary nodule (3) Hernia, diaphragmatic: Code(s): K44.9 - Diaphragmatic hernia without obstruction or gangrene Qualifiers: Obstruction and gangrene presence: without obstruction or gangrene Qualified Code(s): K44.9 - Diaphragmatic hernia without obstruction or gangrene (4) Hiatal hernia: Code(s): K44.9 - Diaphragmatic hernia without obstruction or gangrene (5) Chronic restrictive lung disease: Code(s): J98.4 - Other disorders of lung Plan positional sleep therapy continue exercise regimen start Wixela stress echo non diagnostic, Nikki scan completely normal restart Pulmonary rehab low Na diet continue PPI reflux diet JAIMIE as needed F/U 6 months Orders: Orders Pulmonary Rehab Today J98.4 - Other disorders of lung Medications: New fluticasone propion-salmeterol 250-50 mcg/dose (Wixela Inhub) 1 inh inhalation Q12H 60 ea 11RF 30 days Coding Level of Care Code Est Pt Level 4 (53689) Diagnoses CHRIS (obstructive sleep apnea) G47.33 Pulmonary nodule R91.1 Hernia, diaphragmatic K44.9 Obstruction and gangrene presence: without obstruction or gangrene Hiatal hernia K44.9 Chronic restrictive lung disease J98.4 Time Spent (min) 20
[2023-03-23 09:50] VITALS: PULSE 67; O2SAT 96; BMI 37.2
== END 2023-03-23 10:16 | disposition home or self-care (01) ==
PROVIDERS: PCP Internal Medicine; Visit Provider Hospitalist
DX: G47.33 Obstructive sleep apnea (adult) (pediatric) (principal); R91.1 Solitary pulmonary nodule; K44.9 Diaphragmatic hernia without obstruction or gangrene; J98.4 Other disorders of lung
CPT/HCPCS: 99214

== ENCOUNTER → 2023-03-23 09:43 | Outpatient (BNVA) | payer MEDICARE, SELFPAY | PROVIDERS: PCP Internal Medicine; Visit Provider Hospitalist | DX: J98.4 Other disorders of lung (principal); R91.1 Solitary pulmonary nodule; G47.33 Obstructive sleep apnea (adult) (pediatric); K44.9 Diaphragmatic hernia without obstruction or gangrene | CPT/HCPCS: 99212 ==

== ENCOUNTER 2023-06-10 11:30 | Outpatient (RCR) | payer MEDICARE, SELFPAY ==
[2023-04-07 13:12] VITALS: PULSE 66
--- NOTE | 2023-04-07 15:11 | MHC.PR.IN ---
[address] [phone] F: [phone] Pulmonary Rehabilitation Individual Treatment Plan Angela Ellis is a 73 year old (F) who was referred to the Pulmonary Rehabilitation program by Dread Tineo. This patient who has a primary diagnosis of Pulmonary Fibrosis will begin pulmonary rehabilitation with monitored exercise and education to optimize both physical and social performance, autonomy, increase strength and endurance, and control dypsnea. The following information was gathered from the patient: Smoking History Current smoking status: Former Smoker Years smoked: 50 Last time smoked: Quit Date: 2015 Assistance with quitting needed: Past Medical History Medical History: Hypertension Bronchitis Depression Anxiety Vision Problems Surgeries: Wrist June 17 Past Pulmonary Hospitalizations # of hospitalizations in the past year: 0 # of ER vists due to breathing troubles in the past year: Current Pulmonary Medications Albuterol inhaler PRN Wixela 250/50 once daily Levothyrixine 88 MCG once daily Gabapentin Omeprazole Lisinopril Rosuvastatin Cholecalciferol B12 B1 Thiamine Allergy History Allergies: Current Oxygen Use Supplemental Oxygen Device Used: Liter flow: How often: Pulmonary History Cough: No Sputum: Yes Sleep device: Other pulmonary devices: Peak flow meter: No Nebulizer: No Suction: Ventilator: Secretion clearance: PEP: Influenza vaccine: No Pneumonia vaccine: Yes Patient Questionaire Scores MRC Dyspnea Scale (mRC): 3 CAT Score: PHQ-9 Score: 15 Pulmonary Function Test and Vital Signs Pulmonary Function Test Date of PFT 03/02/2023 FVC Actual 1.80% FVC Predicted 2.77% FEV1 Actual 1.55% FEV1 Predicted 2.08% FEV1/FVC Actual 84% FEV1/FVC Predicted 75% DLCO 15.17 Vital Signs Heart Rate 66 Blood Pressure SpO2 97% Respiratory Rate 18 shallow Six Minute Walk Test Supplemental Oxygen O2 L/min: RA FiO2: Resting Vitals SpO2: 95% BP: 142/86mmHg HR: 61 bpm Total Distance 740 Number/ Time of Rests (sec) 0 0 JOHNNY 5 METS 2.07 SpO2 92 HR (bpm) 99 MPH 1.40 Meters/Minute 38 Post-walk Vitals SpO2: 95 BP: 82 HR: 99 Performance Observations Pt walked unassisted for 6 minutes without a break. Great patient effort Pulmonary Rehabilitation Plan Topic Problem Goal Plan Comment Education Knowledge deficit of disease self management strategies Ineffective control of dyspnea Verbalize adequate disease self-management skills Effective control of dyspnea Disease overview Exacerbation prevention and management Home exercise program Panic Control Respiratory medication Educated initiated and ongoing of A&P of normal lung vs bad lung. Breathing techniques reviewed with demonstration. Normal mechanics of breathing. Hypoxia N/A, no s/s of hypoxemia SpO2 >90 Appropriate portable oxygen system obtained Using oxygen as ordered Monitor oxygen saturation with rest and exercise Pt does not use supplemental oxygen at this time. Psychosocial Anxiety Depression Verbalizes improved psychosocial coping strategies & mechanisms Benefits of exercise Relaxation techniques Coping techniques Stress management Education initiated and ongoing with coping techniques, dealing with worry, stress and anxiety. Activities of Daily Living Impaired ADL management ADL management and control of dyspnea ADL performance with pacing and pursed lip breathing Educate on pursed lip breathing and pacing with stairs and activity Diaphragmatic breathing and pursed lip breathing education initiated and ongoing. Nutrition & Weight Management Obese Lose weight during program Prevent further weight gain Education classes Education re ongoing weight monitoring Dash diet, reduced sodium intake, caloric deficit education initiated and ongoing Tobacco Managment Become/remain smoke free Benefits of quitting Coping strategies Pt has a 50 year pack history. She quit in 2016 and has been maintained. Medication Medication non-adherence Adherence to prescribed medications Importance of medication compliance Medications purpose Medication schedule Medication side-effects Prescribed medications Overview of current respiratory medications education initiated and ongoing. Inhaled Medication Incorrect inhaled prescription use Demo of MDI with spacer device MDI with spacer device Spacer teaching with demonstration and teach back initiated and ongoing. Secretion Management Ineffective airway clearance Pt able to clear secretion appropriately. Barajas cough and cough technique educated initiated and ongoing Exercise & Fitness Decreased strength & endurance Knowledge deficit of exercise guidelines & safety No regular exercise Pulmonary Rehab 2-3x/week Weight or resistance training 2-3x/week Aerobic Exercise: 30-60mins x 9 weeks Review benefits & core components of exercise program Review how to measure and monitor dyspnea level Review exercise safety guidelines Review frequency and duration of exercise Review exercise intensity JOHNNY RPD 3-4/10 Review home exercise guidelines Pt committed to pulmonary rehab 3X weekly. 6 minute walk Treadmill Mets 1.75 RPD 3 Rec elliptical Mets 2.6 RPD 2 UBE Mets 1.9 RPD 0 Diabetes Management Does patient have DM?: No Diabetes Type: Current Blood Glucose Level: Current A1C Level: Self Check: PT is not a current diabetic. Patient's Goals and Concerns To be able to move around more, learn breathing techniques to help with shortness of breath. . Export Freight Manager Review I have reviewed the outcome assessment, treatment plan, goals, and problem list. The treatment plan and goals support the patient's needs and abilities, and thereby recommend that the exercise plan be completed as documented. Special precautions or modifications to the treatment plan include:
[2023-04-13 14:20] VITALS: BP 128/78; BP 145/72
[2023-04-15 13:29] VITALS: BP 116/68; BP 132/74
[2023-04-16 13:28] VITALS: BP 115/80
[2023-04-20 13:24] VITALS: BP 115/80; BP 116/82
[2023-04-22 11:30] VITALS: BP 138/80; BP 144/82
[2023-04-23 11:30] VITALS: BP 132/68; BP 140/65
[2023-04-27 14:13] VITALS: BP 128/72; BP 136/88
[2023-04-29 14:47] VITALS: BP 130/76; BP 136/82
[2023-04-30 14:43] VITALS: BP 128/65; BP 152/68
[2023-05-04 14:28] VITALS: BP 122/68; BP 140/72
--- NOTE | 2023-05-07 07:45 | MHC.PR.RE ---
[address] [phone] F: [phone] Pulmonary Rehabilitation Reassessment Angela Ellis is a 73 year old (F) who was referred to the Pulmonary Rehabilitation program by Dread Tineo. This patient who has a primary diagnosis of Pulmonary Fibrosis has completed 11 sessions of the pulmonary rehabilitation program thus far with monitored exercise and education to optimize both physical and social performance, autonomy, increase strength and endurance, and control dypsnea. They were evaluated on 05/07/23. Reassessment Type: 30-day reassessment Topic Education/ Progress Progress Comments Education Demonstrates disease self-management strategies Using medications as directed Demonstrates strategies for anxiety and depression management 15 minutes of education on pulmonary rehab topics completed each session prior to warmup. See education sign off for topics. Hypoxia Current oxygen Use: RA Pt does not use supplemental oxygen at this time. Psychosocial PHQ-9 Score: 15 Activities of Daily Living Progressing progressing in her (ADLs) as a result of her participation in pulmonary rehab. The techniques and exercises introduced during their rehabilitation sessions have contributed significantly to this improvement. Nutrition & Weight Management Current weight: 220 BMI: Weight change: Weight Stable progressing towards weight goal, with a significant contribution from ongoing education on Rate my Plate. Monitoring and further guidance will continue to support her towards achieving their desired weight goal. Tobacco Stages of Change: Tobacco Use: Cigerettes/Day: Any nicotine replacement: Any cessation medication: Smoking quit date: Smokeless tobacco use and amount: Medication Met, taking 100% of time Albuterol inhaler PRN Wixela 250/50 once daily Levothyrixine 88 MCG once daily Gabapentin Omeprazole Lisinopril Rosuvastatin Cholecalciferol B12 B1 Thiamine Angela adheres to her prescribed medications, maintaining a 100% compliance rate. Inhaled Medication Patient verbalizes correct technique of: MDI: Yes DPI: Yes SMI: NEBULIZER: Patient has received comprehensive education on the proper use of respiratory medications, and they are now consistently demonstrating correct inhaler technique and medication administration. Additionally, the patient exhibits a strong understanding of medication-related cleaning routines and educated on recognizing and reporting any potential side effects. Secretion Management Patient provides adequate return demonstration of: Controlled cough: Yes Barajas cough: Acapella/ PEP Device: Yes CPT: Sputum management: Angela has been effectively educated on barajas cough and deep breathing techniques, and progressing in implementing these methods has been. They have been instructed in daily practice sessions lasting 10-15 minutes. Exercise & Fitness Aerobic Exercise Frequency: 2-3X daily Target heart range: 93-103 Heart rate range: 93-103 SpO2 Range: >92% JOHNNY RPD: 3-4 Time (minutes): 63 O2 use with exercise: 21% Current HEP: warmup 15 Recumbent Bike 2-3X mets 2.5 30 min Treadmill 2-3X mets 2.3 8 min Recumbent elliptical 2-3x met's 2.7 10 5 minute cool down. Angela been consistently progressing in her exercise program during pulmonary rehab, consistently achieving higher time or METs each week. Taxi Driver Supervisor Review I have reviewed the outcome re-assessment and treatment plan. The treatment plan and goals support the patient's needs and abilities, and thereby recommend that the exercise plan be completed as documented. Special precautions or modifications to the treatment plan include:
[2023-06-02 07:50] VITALS: BMI 39.0
--- NOTE | 2023-06-02 07:53 | MHC.PR.RE ---
[address] [phone] F: [phone] Pulmonary Rehabilitation Reassessment Angela Ellis is a 73 year old (F) who was referred to the Pulmonary Rehabilitation program by Dread Tineo. This patient who has a primary diagnosis of Pulmonary Fibrosis has completed 14 sessions of the pulmonary rehabilitation program thus far with monitored exercise and education to optimize both physical and social performance, autonomy, increase strength and endurance, and control dypsnea. They were evaluated on 06/02/23. Reassessment Type: 60-day reassessment Topic Education/ Progress Progress Comments Education Demonstrates disease self-management strategies Using medications as directed Demonstrates strategies for anxiety and depression management Hypoxia Current oxygen Use: RA Pt does not use supplemental oxygen at this time. Psychosocial PHQ-9 Score: 15 Activities of Daily Living Progressing progressing in her (ADLs) as a result of her participation in pulmonary rehab. The techniques and exercises introduced during their rehabilitation sessions have contributed significantly to this improvement. Nutrition & Weight Management Current weight: 220 BMI: 39.05 Weight change: Weight Stable progressing towards weight goal, with a significant contribution from ongoing education on [employer]. Monitoring and further guidance will continue to support her towards achieving their desired weight goal. Tobacco Stages of Change: Tobacco Use: Cigerettes/Day: Any nicotine replacement: Any cessation medication: Smoking quit date: Smokeless tobacco use and amount: Medication Met, taking 100% of time Albuterol inhaler PRN Wixela 250/50 once daily Levothyrixine 88 MCG once daily Gabapentin Omeprazole Lisinopril Rosuvastatin Cholecalciferol B12 B1 Thiamine Angela adhere to her prescribed medications, maintaining a 100% compliance rate. Inhaled Medication Patient verbalizes correct technique of: MDI: Yes DPI: Yes SMI: NEBULIZER: The patient has received comprehensive education on the proper use of respiratory medications, and they are now consistently demonstrating correct inhaler technique and medication administration. Additionally, the patient exhibits a strong understanding of medication-related cleaning routines and educated on recognizing and reporting any potential side effects. Secretion Management Patient provides adequate return demonstration of: Controlled cough: Yes Barajas cough: Acapella/ PEP Device: Yes CPT: Sputum management: The patient has been effectively educated on barajas cough and deep breathing techniques, and progressing in implementing these methods has been. They have been instructed in daily practice sessions lasting 10-15 minutes. Exercise & Fitness Aerobic Exercise Frequency: 2-3X daily Target heart range: 93-103 Heart rate range: 93-103 SpO2 Range: >92% JOHNNY RPD: 3-4 Time (minutes): 63 O2 use with exercise: 21% Current HEP: warmup 15 Recumbent Bike 2-3X mets 2.5 30 min Treadmill 2-3X mets 2.3 8 min Recumbent elliptical 2-3x met's 2.7 10 5 minute cool down. Angela been consistently progressing in her exercise program during pulmonary rehab, consistently achieving higher time or METs each week. Parasitologist Review I have reviewed the outcome re-assessment and treatment plan. The treatment plan and goals support the patient's needs and abilities, and thereby recommend that the exercise plan be completed as documented. Special precautions or modifications to the treatment plan include:
[2023-06-30 07:43] VITALS: BMI 39.0
--- NOTE | 2023-06-30 07:43 | MHC.PR.RE ---
[address] [phone] F: [phone] Pulmonary Rehabilitation Reassessment Angela Ellis is a 73 year old (F) who was referred to the Pulmonary Rehabilitation program by Dread Tineo. This patient who has a primary diagnosis of Pulmonary Fibrosis has completed 14 sessions of the pulmonary rehabilitation program thus far with monitored exercise and education to optimize both physical and social performance, autonomy, increase strength and endurance, and control dypsnea. They were evaluated on 06/02/23. Reassessment Type: 90-day reassessment Topic Education/ Progress Progress Comments Education Demonstrates disease self-management strategies Using medications as directed Demonstrates strategies for anxiety and depression management Hypoxia Current oxygen Use: RA Pt does not use supplemental oxygen at this time. Psychosocial PHQ-9 Score: 15 Activities of Daily Living Progressing progressing in her (ADLs) as a result of her participation in pulmonary rehab. The techniques and exercises introduced during their rehabilitation sessions have contributed significantly to this improvement. Nutrition & Weight Management Current weight: 220 BMI: 39.05 Weight change: Weight Stable progressing towards weight goal, with a significant contribution from ongoing education on [employer]. Monitoring and further guidance will continue to support her towards achieving their desired weight goal. Tobacco Stages of Change: Tobacco Use: Cigerettes/Day: Any nicotine replacement: Any cessation medication: Smoking quit date: Smokeless tobacco use and amount: Medication Met, taking 100% of time Albuterol inhaler PRN Wixela 250/50 once daily Levothyrixine 88 MCG once daily Gabapentin Omeprazole Lisinopril Rosuvastatin Cholecalciferol B12 B1 Thiamine Angela adhere to her prescribed medications, maintaining a 100% compliance rate. Inhaled Medication Patient verbalizes correct technique of: MDI: Yes DPI: Yes SMI: NEBULIZER: The patient has received comprehensive education on the proper use of respiratory medications, and they are now consistently demonstrating correct inhaler technique and medication administration. Additionally, the patient exhibits a strong understanding of medication-related cleaning routines and educated on recognizing and reporting any potential side effects. Secretion Management Patient provides adequate return demonstration of: Controlled cough: Yes Barajas cough: Acapella/ PEP Device: Yes CPT: Sputum management: The patient has been effectively educated on barajas cough and deep breathing techniques, and progressing in implementing these methods has been. They have been instructed in daily practice sessions lasting 10-15 minutes. Exercise & Fitness Aerobic Exercise Frequency: 2-3X daily Target heart range: 93-103 Heart rate range: 93-103 SpO2 Range: >92% JOHNNY RPD: 3-4 Time (minutes): 63 O2 use with exercise: 21% Current HEP: warmup 15 Recumbent Bike 2-3X mets 2.5 30 min Treadmill 2-3X mets 2.3 8 min Recumbent elliptical 2-3x met's 2.7 10 5 minute cool down. Angela been consistently progressing in her exercise program during pulmonary rehab, consistently achieving higher time or METs each week. Cart[employer] Forming Machine Tender Review I have reviewed the outcome re-assessment and treatment plan. The treatment plan and goals support the patient's needs and abilities, and thereby recommend that the exercise plan be completed as documented. Special precautions or modifications to the treatment plan include:
== END 2023-10-08 07:17 | disposition home or self-care (01) ==
LOC: HO.PR 11:30
PROVIDERS: PCP Internal Medicine; Visit Provider Hospitalist
DX: J84.10 Pulmonary fibrosis, unspecified (principal)
CPT/HCPCS: 94625

== ENCOUNTER 2023-07-12 10:10 | Outpatient (REF) | payer MEDICARE, SELFPAY ==
[2023-07-12 13:49] LABS: MANUAL DIFF FLAG NO
[2023-07-12 14:05] LABS: Appearance Urine Clear; Color Urine Yellow; Glucose Urine UA Negative (Negative); Leukocyte Esterase Urine Negative (Negative); Nitrite Urine Negative (Negative); Specific Gravity - Urine 1.025 (1.005-1.025); UMIC TRIGGER UACC YES; Urine Blood Trace (Negative); Urine Ketones Negative (Negative); Urine Protein Negative (Neg-Trace)
[2023-07-12 14:14] LABS: Alanine Aminotransferase 9 U/L (0-31); Albumin Level 3.9 g/dL (3.5-5.0); Alkaline Phosphatase 88 U/L (39-117); Anion Gap 10 (12-20); Aspartate Amino Transferase 16 U/L (5-31); Bilirubin Total 0.6 mg/dL (0.0-1.0); Blood Urea Nitrogen 14 mg/dL (9-16); C Reactive Protein 0.24 mg/dL (< or = 0.50); Calcium 9.9 mg/dL (8.4-10.2); Carbon Dioxide 27 mmol/L (22-29); Chloride 105 mmol/L (96-108); Cholesterol 203 mg/dL (<200); Estimated Glomerular Filt Rate > 60; Glucose Fasting 99 mg/dL (60-99); HDL Cholesterol 57 mg/dL (>40); LDL Cholesterol Calculated 131 mg/dL (<100); Potassium 4.7 mmol/L (3.3-5.1); Sodium 137 mmol/L (135-145); Total Protein 6.7 g/dL (6.5-8.0); Triglycerides 76 mg/dL (<150)
[2023-07-12 14:20] LABS: Bacteria Urine None Seen (None Seen); Hyaline Casts Urine 0-2 /LPF (0-2); RBC Urine 0-2 /HPF (0-2); Squamous Epithelial Cell Urine 0-2 /HPF (0-2); WBC Urine 0-5 /HPF (0-5)
[2023-07-12 14:31] LABS: Vitamin D 25-OH Total 48.7 ng/mL (>30)
[2023-07-12 14:42] LABS: Folate 5.3 ng/mL (> or = 4.0); Vitamin B12 504 pg/mL (200-900)
[2023-07-12 14:57] LABS: Basophils Absolute Auto 0.1 X10*3/uL (0.0-0.2); Basophils Percent Auto 0.9 % (0-2); Eosinophils Absolute Auto 0.2 X10*3/uL (0.0-0.4); Eosinophils Percent Auto 2.6 % (0-4); Hematocrit 40.5 % (37.0-47.0); Hemoglobin 12.9 g/dl (12.0-16.0); Imm Gran Abs Auto 0.01 X10*3/uL (0.00-0.03); Imm Gran Pct Auto 0.1 % (0.0-0.4); Lymphocytes Absolute Auto 2.3 X10*3/uL (1.2-4.9); Lymphocytes Percent Auto 33.6 % (20-40); Mean Corpuscular HGB Conc 31.9 g/dl (31.0-35.0); Mean Corpuscular Hemoglobin 29.6 pg (27.0-33.0); Mean Corpuscular Volume 92.9 fL (80.0-98.0); Mean Platelet Volume 11.9 fL (9.4-12.3); Monocytes Absolute Auto 0.6 X10*3/uL (0.1-1.2); Neutrophils Absolute Auto 3.8 x10*3/uL (2.0-8.3); Neutrophils Percent Auto 54.8 % (45-73); Platelet Count 222 X10*3/uL (160-400); Red Blood Count 4.36 X10*6/uL (4.20-5.50); Red Cell Distribution Width 13.2 % (11.0-16.0); White Blood Count 6.9 X10*3/uL (4.8-10.8)
[2023-07-12 15:23] LABS: Erythrocyte Sedimentation Rate 10 MM/HR (0-20)
== END 2023-07-12 10:11 | disposition home or self-care (01) ==
LOC: HO.HMGCLDS 10:10
PROVIDERS: Absent Provider Internal Medicine Rheumatology; PCP Internal Medicine; Visit Provider Internal Medicine
DX: E78.00 Pure hypercholesterolemia, unspecified (principal); E53.8 Deficiency of other specified B group vitamins; E03.9 Hypothyroidism, unspecified; E55.9 Vitamin D deficiency, unspecified; I10 Essential (primary) hypertension; M06.09 Rheumatoid arthritis without rheumatoid factor, multiple sites; D47.2 Monoclonal gammopathy; Z79.1 Long term (current) use of non-steroidal anti-inflammatories (NSAID)
CPT/HCPCS: 36415; 80053; 80061; 81001; 81003; 82306; 82607; 82746; 84443; 85025; 85652; 86140

== ENCOUNTER 2023-07-15 10:45 | Outpatient (AMB) | payer MEDICARE, SELFPAY ==
[2023-07-15 10:47] VITALS: BP 162/104; PULSE 69; O2SAT 98; BMI 39.5
--- NOTE | 2023-07-15 10:47 | A.OFFPC_ITS ---
Vital Signs 07/15/23 10:47 07/15/23 10:56 Height 5 ft 3 in Weight 223 lb BMI 39.5 BP 162/104 H 164/110 H Blood Pressure Location Rt brachial Lt brachial Position Sitting Sitting Pulse 69 Pulse Source Pulse Oximeter Pulse Oximetry (%) 98 Oxygen Delivery Method Room Air Intake Visit Reasons: relap.polychondritis,hyperlipidemia,hypothyroidism General Lot Attendant Required: No Accompanied by: Self / Same As Patient Allergies No Known Allergies [No Known Allergies*] Allergy (Verified 07/15/23 11:10) Medication List - Last Reconciled 07/15/23 by Bolivar Ventura MD albuterol sulfate 90 mcg/actuation 2 inhalations inhalation Q6H PRN 30 days cholecalciferol (vitamin D3) (Vitamin D3) 1,000 units PO DAILY cyanocobalamin (vitamin B-12) (Vitamin B-12) 1,000 mcg PO DAILY fluticasone propion-salmeterol 250-50 mcg/dose (Wixela Inhub) 1 inh inhalation Q12H 30 days gabapentin 300 mg PO TID ibuprofen 800 mg PO TID PRN levothyroxine 88 mcg PO QAM 90 days lisinopril 40 mg PO DAILY omeprazole 20 mg PO DAILY pyridoxine (vitamin B6) 25 mg PO DAILY rosuvastatin 20 mg PO DAILY 90 days thiamine HCl (vitamin B1) (Vitamin B-1) 300 mg PO DAILY Tobacco use date assessed: 07/15/23 Fall risk assessment: No Falls in past year Last assessed Fall Risk: 07/15/23 Dental Screening Dental Screen Date: 07/15/23 Did you have a dental visit in the last 12 months?: Yes Did you have a dental problem in the last 6 months where you did not have access to dental care?: No Was dental information given to patient?: Patient has dentist HPI relap.polychondritis,hyperlipidemia,hypothyroidism HPI Details Patient comes in today for her follow up visit States that she feels okay She denies any headaches or dizziness Denies any chest pains; she continues to experience some ESTRELLA - states that is mostly mild and have not gotten any worse lately She has been to pulmonary rehab for the past couple of months with some relief No nausea/vomiting, no abdominal pain No change in bowel habits noted She also still has recurrent low back pain and lately has also been experiencing increasing pain over her neck She denies any recent injury or trauma to her neck Had her follow up labs done a few days ago - to discuss her results [facility] Medical History Choledocholithiasis Depression Acquired hypothyroidism Hiatal hernia Chronic restrictive lung disease Pulmonary nodule Right lumbar radiculopathy Hernia, diaphragmatic Obesity (BMI 30-39.9) Relapsing polychondritis Vitamin D deficiency Osteopenia Elevated LFTs GERD without esophagitis Thoracic scoliosis Lumbar degenerative disc disease Vitamin B12 deficiency Rheumatoid arthritis Impaired fasting glucose Primary osteoarthritis of right knee Neuropathy of left peroneal nerve Hypothyroidism Exertional dyspnea Pure hypercholesterolemia Benign essential hypertension Bochdalek hernia Surgical History History of laparoscopic cholecystectomy (07/10/22) History of cataract surgery History of colonoscopy History of surgery on right wrist (~05/2004) History of appendectomy (~1963) History of surgery on right wrist (~02/2020) History of carpal tunnel surgery (~03/2016) History of right knee joint replacement (~08/2016) Family History Father CVD (cardiovascular disease) Mother Ovarian cancer Maternal Aunt Breast cancer Brother Colon cancer Family/Other Breast cancer Family/Other Breast cancer Family/Other Breast cancer Social History Household Members: Family Household Members Other:: 4 Housing: House Are you a primary clinical care manager to a significant other at home: No Do you presently have visiting nurse or other home services: No Alcohol intake: current Alcohol intake frequency: holidays/special occasions o nly Alcohol type: wine Patient Tobacco Use Status: Former Tobacco user Quit Date: 2015 Tobacco use type: Cigarette Years Smoked: 50 e-Cigarette/Vaping Use: Never Used Second Hand Smoke Exposure: No Advance Directives Date on File: 07/09/22 service: No Current occupational status: retired Cognitive needs: No Hearing needs: No Vision needs: Yes (reading glasses) Questionnaire PHQ-9 Over the last 2 weeks, how often have you been bothered by any of the following problems? 1. Little interest or pleasure in doing things: several days 2. Feeling down, depressed, or hopeless: several days 3. Trouble falling or staying asleep, or sleeping too much: several days 4. Feeling tired or having little energy: several days 5. Poor appetite or overeating: not at all 6. Feeling bad about yourself - or that you are a failure or have let yourself or your family down: not at all 7. Trouble concentrating on things, such as reading the newspaper or watching television: several days 8. Moving or speaking so slowly that other people could have noticed. Or the opposite - being so fidgety or restless that you have been moving around a lot more than usual: not at all 9. Thoughts that you would be better off or of hurting yourself in some way: several days Total score: 6 Depression Screening Interpretation: Positive Depression Screening Follow-up: Existing condition and In treatment Depression Screening Done: Yes 90501 - PHQ-9 Billing: Yes Source: Developed by Drs. Jeremy Ramesh, Lesly Dias, Dayne Samano and colleagues, with an educational kashmir from 1-800-DENTIST. Thrive Questionnaire Date Thrive assessed: 07/15/23 I am a: Patient What is your living situation today?: I have a steady place to live Within the past 12 months, did the food you bought not last and you didn't have the money to get more?: Never true Within the past 12 months, did you worry whether your food would run out before you got money to buy more?: Never true Do you have trouble paying for medicines?: No Do you have trouble getting transportation to medical appointments?: No Do you have trouble paying your heating and electricity bill?: No Do you have trouble taking care of your child, family member or friend?: No Do you have trouble with day-to-day activities such as bathing, preparing meals, shopping, managing finances, etc.?: No Are you currently unemployed and looking for a job?: No Are you interested in more education?: No Please select the resources that you would like help with: None Currently or been in a relationship where the following occur: no concerns reported AUDIT C Alcohol Use Questionnaire (AUDIT-C) 1. How often do you have a drink containing alcohol?: Never 3. How often do you have six or more drinks on one occasion?: Never Total Score: 0 Score Reviewed/Action Taken: Yes KAVITHA-7 AMB Questionnaire KAVITHA-7 Date KAVITHA - 7 assessed: 07/15/23 Feeling nervous, anxious, or on edge: 0 = Not at all Not being able to stop or control worryin = Not at all Worrying too much about different things: 0 = Not at all Trouble relaxin = Not at all Being so restless that it is hard to sit still: 0 = Not at all Becoming easily annoyed or irritable: 0 = Not at all Feeling afraid as if something awful might happen: 0 = Not at all Total KAVITHA-7 score (0-4 normal; 5-9 mild; 10-14 moderate; 15-21 severe): 0 Source: Developed by Drs. Jeremy Ramesh, Lesly Dias, Dayne Samano and colleagues, with an educational kashmir from 1-800-DENTIST. Review of Systems Const Denies chills, Reports fatigue, Denies fever(s) and Denies headache(s) ENT Denies dysphagia, Denies dizziness, Denies otalgia, Denies headache(s), Denies nasal congestion, Reports neck pain, Denies odynophagia and Denies sore throat Card Denies chest pain, Denies palpitations and Reports dyspnea on exertion (mild) Resp Denies chest congestion, Denies cough, Denies hemoptysis, Reports dyspnea on exertion (mild) and Denies wheezing GI Denies abdominal pain, Denies constipation, Denies dysphagia, Denies heartburn, Denies diarrhea, Denies nausea, Denies odynophagia and Denies vomiting Denies difficulty voiding, Denies nocturia and Denies dysuria Musc Reports back pain (with radiation of pain down her legs at times - chronic), Reports arthralgias (right knee) and Reports neck pain Skin/Breast Denies rash Neuro Denies dizziness and Denies headache(s) Endo Reports fatigue and Denies palpitations Isidoro/Lymph Denies easy bruising Aller/Immun Denies wheezing Physical exam (Primary Care) Vital Signs: Last Vital Signs Pulse 69 07/15/23 10:47 BP 164/110 H 07/15/23 10:56 Pulse Ox 98 07/15/23 10:47 Oxygen Delivery Method Room Air 07/15/23 10:47 BMI result Body Mass Index 39.5 Tobacco/Smoking Status: Tobacco use Status Tobacco use date assessed 07/15/23 07/15/23 10:48 Patient Tobacco Use Status Former Tobacco user 07/15/23 10:48 Tobacco use type Cigarette 07/15/23 10:48 e-Cigarette/Vaping Use Never Used 07/15/23 10:48 PHQ-9: PHQ-9 Score PHQ-9: Total score 6 07/15/23 11:32 Depression Screening Interpretation: Positive Depression Screening Follow-up: Existing condition and In treatment Thrive Assessment: Date of Thrive Assessment Date Thrive assessed 07/15/23 07/15/23 10:48 Currently or been in a relationship where the following occur: no concerns reported Const General: no acute distress and alert HENMT Ears: TM's normal bilaterally and EAC's normal Throat: Yes posterior oropharynx normal and Yes tonsils normal (no TP congestion noted) Neck Neck: Yes no lymphadenopathy and Yes supple Resp Auscultation: no rales, no rhonchi, no wheezes and diminished lung sounds ( slightly) bilateral Cardio Rate: regular rate Rhythm: regular rhythm Heart sounds: no murmurs GI Palpation (GI): Soft to palpation, nontender, no guarding and not rigid Auscultation: normal bowel sounds Back/Spine/Pelvis Cervical Spine: Cervical spine tenderness Thoracic/Lumbar Spine: lumbar spinal tenderness Sacroiliac joints: on the right tender to palpation Skin Rashes: no rashes Extrem General: Yes no clubbing, cyanosis or edema Right lower extremity: knee Details: tenderness; no swelling Results Reviewed Results Reviewed: Laboratory Tests 03/05/23 03/05/23 07/12/23 09:48 09:48 10:32 WBC 6.9 Hgb 12.9 Hct 40.5 Plt Count 222 ESR 10 Sodium 137 Potassium 4.7 Creatinine 0.77 Estimated GFR > 60 Fasting Glucose 99 Calcium 9.9 AST 16 ALT 9 Triglycerides Cholesterol 220 LDL Cholesterol, Calc 137 131 H HDL Cholesterol 61 Vitamin B12 25-OH Vitamin D Total TSH Ur Specific [place] Urine Protein Urine Glucose (UA) Urine Blood 07/12/23 07/12/23 10:32 10:32 WBC Hgb Hct Plt Count ESR Sodium Potassium Creatinine Estimated GFR Fasting Glucose Calcium AST ALT Triglycerides 76 Cholesterol 203 H LDL Cholesterol, Calc HDL Cholesterol 57 Vitamin B12 504 25-OH Vitamin D Total 48.7 TSH 5.60 H Ur Specific [place] 1.025 Urine Protein Negative Urine Glucose (UA) Negative Urine Blood Trace Assessment and Plan Assessment & Plan (1) Benign essential hypertension: Code(s): I10 - Essential (primary) hypertension Plan: Reinforced low-sodium diet -?goal is systolic BP of at least 130 to 140 mm or less Continue Lisinopril 40 mg QD She was also on Amlodipine 2.5 mg QD in the past but this was held previously and currently remains ON HOLD Advised that if her blood pressure continues to stay elevated, we may need to start her back on Amlodipine (2) Pure hypercholesterolemia: Code(s): E78.00 - Pure hypercholesterolemia, unspecified Plan: Results of her labs done a few days ago reviewed and discussed with patient Reinforced low cholesterol diet Continue Rosuvastatin 20 mg QD Will recheck her labs and fasting lipids in 4 months for follow up (3) Exertional dyspnea: Code(s): R06.00 - Dyspnea, unspecified Plan: Most likely multifactorial, including her weight Echocardiogram done in 06/2020 came out normal, with normal left ventricular chamber size, mild concentric left ventricular hypertrophy, basal septal hypertrophy of 1.8 cm, with normal regional wall motion and left ventricular ejection fraction is between 60-65%.? There are no hemodynamically significant valve disease and right-sided structures were not well seen on this study PFT done back in 2013 was normal; repeat PFTs done in 12/2020 also came back mostly normal, with no obstructive component and only mild restrictive ventilatory defect Was seen and evaluated by Pulmonary last year with no additional interventions recommended at the time Was sent for stress testing and PFTs a few months ago - Lexiscan stress testing done a few months ago came out unrevealing; nuclear imaging studies done subsequently came out normal Patient states that she also had her PFTs done a few months ago - results are not available to me at this time As she continues to experience frequent ESTRELLA, will send her again for repeat echocardiogram for further evaluation Patient has been going to pulmonary rehab for the past couple of months Follow-up with pulmonary as scheduled - has appt coming up next month (4) Acquired hypothyroidism: Code(s): E03.9 - Hypothyroidism, unspecified Plan: TFTs are improving from her previous numbers Continue Levothyroxine 88 mcg QD Will recheck her TFTs in 4 months for follow up (5) Impaired fasting glucose: Code(s): R73.01 - Impaired fasting glucose Plan: FBS was at 101 mg/dl on her recent labs; HgbA1c was normal at 5.4% when checked a few months ago - will continue to monitor these regularly Reinforced low calorie diet / exercise as tolerated (6) Bochdalek hernia: Code(s): Q79.0 - Congenital diaphragmatic hernia Plan: Chest CT done in 2020 revealed the presence of a fat-containing Bochdalek hernia of the left hemidiaphragm with a small sliding-type hiatal hernia of the stomach - this is mostly unchanged compared to her scan on 03/04/2019 Was seen for this by thoracic surgery last year and recommended observation only Repeat chest CT done in May 2022 revealed stable 2 mm subpleural nodules, right upper lobe, with no new nodules seen; (+) small left diaphragm Bochdalek hernia containing fat that is stable; also visualized is focal eventration of left posterior diaphragm (7) Neuropathy of left peroneal nerve: Code(s): G57.32 - Lesion of lateral popliteal nerve, left lower limb Plan: Continue Gabapentin 300 mg 3 times a day (8) Primary osteoarthritis of right knee: Comment: S/P total right knee arthroplasty with Dr. Miramontes on 08/31/2016 without any significant improvement of her knee pain following surgery Has been seen for a follow-up by Dr. Jacobson, who recommended a revision of right knee prosthesis Patient reportedly went to see Dr. Edwards at [facility] for a 2nd opinion and was advised against revision surgery Subsequently went to see a Dr. Eriberto Kirk in [place] in 2019 but her insurance is declining to cover any appointments with him and all of her appointments are now on hold due to the COVID-19 pandemic Code(s): M17.11 - Unilateral primary osteoarthritis, right knee Plan: Follow up with orthopedics as scheduled (9) Rheumatoid arthritis: Code(s): M06.9 - Rheumatoid arthritis, unspecified Qualifiers: Rheumatoid arthritis location: unspecified site Rheumatoid factor presence: unspecified presence Qualified Code(s): M06.9 - Rheumatoid arthritis, unspecified Plan: Follow up with rheumatology (Dr. Walsh) as scheduld (10) Vitamin B12 deficiency: Code(s): E53.8 - Deficiency of other specified B group vitamins Plan: Corrected - continue OTC Vitamin B12 1000 mcg QD (11) GERD without esophagitis: Code(s): K21.9 - Gastro-esophageal reflux disease without esophagitis Plan: Dietary restrictions reinforced Continue Omeprazole 20 mg once a day and Famotidine 20 mg twice a day as needed (12) Lumbar degenerative disc disease: Code(s): M51.36 - Other intervertebral disc degeneration, lumbar region Plan: Reinforced activity and weight lifting restrictions MRI done in 2016 showed (+) changes of mild lumbar spondylosis Was following up with pain management for her chronic low back pain but has not been back since June 2022 She previously mentioned that she would like to wait until her right wrist surgery is completed (done last month in June 2023) before checking back in with pain management - states that she will now contact pain management again to schedule a follow up appt SHWETA (13) Thoracic scoliosis: Code(s): M41.9 - Scoliosis, unspecified Qualifiers: Scoliosis type: unspecified scoliosis Qualified Code(s): M41.9 - Scoliosis, unspecified Plan: Recent back x-rays showed the presence of some kyphoscoliosis and thoracic scoliosis, which are probably contributing to patient's frequent back pain (14) Neck pain: Code(s): M54.2 - Cervicalgia Plan: Will send patient for cervical spine x-rays for further evaluation (15) Osteopenia: Comment: (Bone Dexa T-score -2.1 - 09/24/2017) Code(s): M85.80 - Other specified disorders of bone density and structure, unspecified site Qualifiers: Osteopenia location: unspecified Qualified Code(s): M85.80 - Other specified disorders of bone density and structure, unspecified site Plan: Repeat BMD done on 07/31/2021 showed (+) osteopenia with no significant change from her previous BMD except for a slight decrease in BMD in her AP spine Will continue to monitor BMD regularly (every 2 to 3 years) (16) Vitamin D deficiency: Code(s): E55.9 - Vitamin D deficiency, unspecified Plan: Continue Vitamin D3 1000 units QD (17) Relapsing polychondritis: Code(s): M94.1 - Relapsing polychondritis Plan: Follow up with rheumatology as scheduled (18) MGUS (monoclonal gammopathy of unknown significance): Code(s): D47.2 - Monoclonal gammopathy Plan: Follow up with hematology/oncology as scheduled for continuing surveillance and monitoring (19) Depression: Code(s): F32.A - Depression, unspecified Qualifiers: Depression Type: unspecified Qualified Code(s): F32.A - Depression, unspecified Plan: Follow up with psychiatry as scheduled (20) Obesity (BMI 30-39.9): Code(s): E66.9 - Obesity, unspecified Plan: Reinforced diet/exercise as tolerated/lose weight Plan Follow up in 4 months Orders: Orders Complete Blood Count Auto Diff 4 Months I10 - Essential (primary) hypertension Vitamin D 25-OH Total 4 Months E55.9 - Vitamin D deficiency, unspecified CA echo transthoracic complete 07/15/23 R06.09 - Other forms of dyspnea XR cervical spine 3V 07/15/23 M54.2 - Cervicalgia Comprehensive [place]. Panel Fast 4 Months E78.00 - Pure hypercholesterolemia, unspecified Lipid Panel 4 Months E78.00 - Pure hypercholesterolemia, unspecified UA CC w/rflx Micro + Cult 4 Months R30.0 - Dysuria Thyroid Stimulating Hormone 4 Months E03.9 - Hypothyroidism, unspecified Free T4 (Free Thyroxine) 4 Months E03.9 - Hypothyroidism, unspecified Hemoglobin A1c 4 Months R73.01 - Impaired fasting glucose Coding Level of Care Code Est Pt Level 4 (82973) Diagnoses Benign essential hypertension I10 Pure hypercholesterolemia E78.00 Exertional dyspnea R06.00 Acquired hypothyroidism E03.9 Impaired fasting glucose R73.01 Bochdalek hernia Q79.0 Neuropathy of left peroneal nerve G57.32 Primary osteoarthritis of right knee M17.11 Rheumatoid arthritis, involving unspecified site, unspecified whether rheumatoid factor present M06.9 Rheumatoid arthritis location: unspecified site Rheumatoid factor presence: unspecified presence Vitamin B12 deficiency E53.8 GERD without esophagitis K21.9 Lumbar degenerative disc disease M51.36 Scoliosis of thoracic spine, unspecified scoliosis type M41.9 Scoliosis type: unspecified scoliosis Neck pain M54.2 Osteopenia, unspecified location M85.80 Osteopenia location: unspecified Vitamin D deficiency E55.9 Relapsing polychondritis M94.1 MGUS (monoclonal gammopathy of unknown significance) D47.2 Depression, unspecified depression type F32.A Depression Type: unspecified Obesity (BMI 30-39.9) E66.9
[2023-07-15 10:56] VITALS: BP 164/110
== END 2023-07-15 11:55 | disposition home or self-care (01) ==
PROVIDERS: PCP Internal Medicine; Visit Provider Internal Medicine
DX: I10 Essential (primary) hypertension (principal); E78.00 Pure hypercholesterolemia, unspecified; M06.9 Rheumatoid arthritis, unspecified; R06.00 Dyspnea, unspecified; E03.9 Hypothyroidism, unspecified; R73.01 Impaired fasting glucose; Q79.0 Congenital diaphragmatic hernia; G57.32 Lesion of lateral popliteal nerve, left lower limb; M17.11 Unilateral primary osteoarthritis, right knee; E53.8 Deficiency of other specified B group vitamins; K21.9 Gastro-esophageal reflux disease without esophagitis; M51.36 Other intervertebral disc degeneration, lumbar region
CPT/HCPCS: 99214

== ENCOUNTER → 2023-08-06 12:45 | Outpatient (REF) | payer MEDICARE, SELFPAY ==
--- NOTE | 2023-08-06 12:48 | CA_ITS ---
Transthoracic Echocardiogram Patient (Last, First, Middle): Angela Landry A Gender: Female Date of : 1950 Age: 73 Procedure Date: 08/06/2023 Procedure Type: Transthoracic Echocardiogram Location: OP Height: 160.02 cm Weight: 99.34 kg BSA: 2.01 m2 Heart Rate: bpm BP: 125 / 70 mmHg Cigarette Book Maker: Referring MD: Bolivar Ventura MD Symptoms: R06.09 - Other forms of dyspnea Study Quality: Fair ECG Rhythm: Sinus Conclusions: - The left ventricular systolic function is normal. The calculated ejection fraction is 69% by biplane method. - There is severe septal asymmetric hypertrophy. - There is moderately increased left ventricular wall thickness. - No obvious valvular pathology seen on this study. Findings Procedure Information Contrast agent, definity, is being given per protocol without apparent complications. Left Ventricle Normal left ventricular cavity size. There is moderately increased left ventricular wall thickness. The left ventricular systolic function is normal. The calculated ejection fraction is 69% by biplane method. Diastolic function is normal for age. There is severe septal asymmetric hypertrophy. Right Ventricle Normal right ventricular cavity size and systolic function. Atria Left atrium with possible mild dilatation, but not well seen. The right atrium was not well visualized. Aortic Valve There is a normal trileaflet aortic valve. There is no aortic valve stenosis. There is no aortic valve regurgitation. Mitral Valve The mitral valve appears normal. There is no mitral valve regurgitation. There is no mitral valve stenosis. Pulmonic Valve The pulmonic valve is likely normal. Tricuspid Valve There is trace tricuspid valve regurgitation. There is no evidence of pulmonary hypertension. Great Vessels The asc aorta is normal in size. Venous The inferior vena cava is normal in size and collapses greater than 50% with inspiration. Pericardium/Pleural There is no evidence of pericardial effusion. Prior Study Comparison No significant change compared to prior study dated: 08/26/2016. Recommendations, Care & Conclusions No obvious valvular pathology seen on this study. Measurements 2D Linear Measurements IVSd: 1.35 0.6-0.9/0.6-1.0 cm LVIDd: 4.20 3.9-5.3/4.2-5.9 cm LVIDd Index: 2.09 2.4-3.2/2.2-3.1 cm/m2 LVIDs: 2.69 2.0-3.6 cm LVPWd: 1.34 0.7-1.1 cm Ao Root: 2.70 2.1-3.5 cm LA Diam: 3.30 2.7-3.8/3.0-4.0 cm LAIDs Index: 1.64 1.5-2.3 cm/m2 LV Mass: 263.11 67-162/88-224 g LV Mass Index: 130.90 43-95/49-115 g/m2 LVOT Diam: 2.00 3.0+(-)1.3 cm 2D Systolic Function EF 4C: 66.80 >55% EF 2C: 71.90 >55% EF BiP: 69.10 >55% Mitral Valve MV Pk E: 0.87 MV PK A: 0.90 MV Decel Time: 182.00 E/A: 1.00 E'Lateral: 6.20 E'Medial: 7.29 E/E' Med: 11.90 E/E' Lat: 14.00 PHT: 53.00 MVA PHT: 4.15 Decel Pettis: 4.77 Aortic Valve AoV Pk Maurice: 1.23 AoV Mn Maurice: 0.82 AoV VTI: 0.31 AoV Pk Grad: 6.00 Aov Mn Grad: 3.00 JAIME Cont.VTI: 2.99 LVOT LVOT Pk Maurice: 1.09 LVOT Mn Maurice: 0.72 LVOT VTI: 0.30 LVOT Pk Grad: 5.00 LVOT Mn Grad: 2.00 LVOT Diam: 2.00 LVOT Area: 3.14 Diastolic Function MV Pk E: 0.87 MV Pk A: 0.90 E/A: 1.00 E'Medial: 7.29 E/E' Med: 11.90 E' Laterial: 6.20 E/E' Lat: 14.00 Right Ventricle TAPSE (mm): 28.00 TVS' Maurice: 14.00 Tricuspid Valve TR Pk Maurice: 2.21 TR Pk Grad: 20.00 RA Press: 3.00 RVSP: 23.00 Great Vessels Aorta Ao Root-2D: 2.70 2.0-3.7 cm Ao Asc: 3.70 2.1-3.4 cm Pulmonary Valve PV Pk Maurice: 0.84 Peak PV Grad: 3.00 Updated in Other Vendor System with Status of Final Manjit Varghese MD electronically signed on 08/07/2023 2:03:02 PM with status of Final
== END ==
LOC: HO.CARD 12:45
PROVIDERS: PCP Internal Medicine; Visit Provider Internal Medicine
DX: R06.09 Other forms of dyspnea (principal); M54.2 Cervicalgia
CPT/HCPCS: 72040; 93306; Q9957

== ENCOUNTER → 2023-08-06 12:48 | Outpatient (BNV) | payer MEDICARE, SELFPAY | PROVIDERS: PCP Internal Medicine; Visit Provider Internal Medicine | DX: I42.9 Cardiomyopathy, unspecified (principal) | CPT/HCPCS: 93306 ==

== ENCOUNTER 2023-08-25 09:53 | Outpatient (AMB) | payer MEDICARE, SELFPAY ==
--- NOTE | 2023-08-25 09:57 | MHC.OFFVIS ---
Intake Vital Signs 08/25/23 10:00 Height 5 ft 3 in Weight 224 lb BMI 39.7 BP 128/62 Blood Pressure Location Rt brachial Position Sitting Pulse 64 Pulse Source Pulse Oximeter Pulse Oximetry (%) 99 Oxygen Delivery Method Room Air Intake Visit Reasons: PFT/Echo Results Allergies No Known Allergies [No Known Allergies*] Allergy (Verified 08/25/23 10:02) HPI HPI Comments History of Present Illness Details Patient is a 73-year-old woman with a known history of cough in shortness of breath. [id number] in severity. The patient did have an abnormal chest x-ray and ultimately underwent a CT scan of the chest back in September 2020. Did demonstrate she has been a diaphragmatic hernia in addition to them the hiatal hernia and small pulmonary nodules. She did follow-up with thoracic surgery for the the bockdalek hernia. No surgical intervention needed. She was sent for pulmonary function studies which demonstrated a mild restrictive defect. Therefore she was referred to Pulmonary. Her cough is nonproductive in nature it is intermittent denies any postnasal drip or any wheezing. She does not use any respiratory medications. She does have symptoms of heartburn. She does take medications for Gerd. In addition to that she is taking an CHAITANYA inhibitor. She does have associated shortness of breath with activity. Mild in severity. Does get better with rest. We did review her CT scan of the chest demonstrating the small diaphragmatic hernia that is likely incidental finding. More significant and was her hiatal hernia in addition to the pulmonary nodules that we need follow-up. 08/26/2021 the patient is here for a pulmonary follow-up visit. Her symptoms are persistent. She continues to have dyspnea on exertion. Even with minimal activity. We did review her studies initially demonstrating the pulmonary function studies demonstrating the restrictive ventilatory defect. She also underwent a CT scan of the chest without any evidence of any interstitial lung disease. The patient also had a sniff study ruling out any evidence of any diaphragmatic paralysis. Her pulmonary function studies also demonstrated a moderate diffusion impairment. Explained to her that she may indeed also have a component of pulmonary vascular disease. We did briefly review her last echocardiogram from 2019 which demonstrated some degree of left ventricular hypertrophy. Explained to her that this could also result in increased pulmonary vascular pressures. In addition to that untreated sleep apnea can also result in increased pulmonary vascular pressures. She does have daytime drowsiness. Her Glass[place] score is elevated 10/24. At this point I will request a home sleep study to assess for obstructive sleep apnea which may be contributing to her symptoms. 12/01/2021 the patient is here for pulmonary follow-up visit. She continues to have dyspnea on exertion. Moderate severity. Based on her pulmonary function study she appears to have evidence of restrictive lung disease. Therefore, I did recommend she start pulmonary rehabilitation. I do believe that this will provide her some benefit in improving her underlying dyspnea symptoms. In the meantime her dyspnea symptoms are likely multifactorial. Part deconditioning part restrictive lung disease but also need to consider pulmonary vascular conditions. The patient did have an elevated Glassport score. We had her undergo a home sleep study. No significant evidence of sleep apnea although it is likely nondiagnostic. She did have significant episodes of apnea and specially hypopneas while laying supine. The patient also desaturated down to below 88% for about 12 minutes. I did request patient try positional therapy for now while not sleep in her back. She will try different devices in order to do so. Once the patient is able to do that we can repeat her overnight oximetry or consider having her undergo a in-lab PSG. Will do this based on her degree of daytime drowsiness And cardiovascular risk factors. The patient has a rescue inhaler available. She has not interested in starting any maintenance therapy at this time. 07/07/2022 the patient is here for pulmonary follow-up visit. Overall the patient is relatively well from a respiratory status. She continues to participate in pulmonary rehabilitation. She is completing the program and that she can consider continuing on her own. The patient has been able to make some strides in her pulmonary capacity. She is still complaining of epigastric discomfort. Moderate severity. Sometimes radiates to her back. She does have a hiatal hernia. We did look at her recent CT scan of the chest done May 2022 demonstrating stable pulmonary nodules. She does have the hiatal hernia. She does take medications. We did talk about the importance of good reflux diet. In view of her epigastric discomfort the patient should be evaluated either with barium swallow or with an endoscopy. She is also having issues with transaminitis. She was recently taken off her lipid medication. She also had an ultrasound which is reassuring. Again, if she has any worsening epigastric discomfort she seek urgent medical advice. 12/29/2022 the patient is here for a pulmonary follow-up visit. She continues complaint of dyspnea on exertion. She has had an eventful year and has had multiple surgeries. She has recovered well in tolerated anesthesia well. She has to have 1 more wrist surgery couple min up at [facility]. In the meantime she continues to have shortness of breath. We reviewed a get her a previous pulmonary function studies demonstrating some degree of restriction. She does have incentive spirometer at home she is going to do so. But more than that there is a disproportional low to moderate diffusion impairment. Therefore pulmonary vascular conditions need to be considered. Hemoglobin has been stable. The patient does have lower extremity edema. She does use salt and she injury salt. It is likely that she does have some volume overload status. With the decrease in DLCO I also suspect that there is a cardiac component to her respiratory symptoms. Will request a stress echo. The patient has already has EKGs. In addition to that will plan to repeat her PFTs. She will try 3 day course of Lasix to see if we can improve her respiratory status at this time. 03/23/2023 the patient is here for pulmonary follow-up visit. She continues to be about the same. Still complaining of dyspnea on exertion. Moderate severity. Specially going up a flight of stairs. She did participate in the pulmonary rehabilitation although she did not feel that she had a lot of teaching. I did reach out to the pulmonary rehab to see if they can give her some breathing techniques teachings. The patient does have some restrictive lung disease likely from her body habitus. She is also the condition and has significant discomfort primarily at the knees making it difficult for her to ambulate. We did have her undergo a cardiac evaluation based on the fact that she has had some lower extremity edema. She did have a stress echo that was nondiagnostic. Therefore she had had a Nikki nuclear scan that demonstrating no evidence of any underlying coronary artery disease or perfusion defects. Her gated EF was 69% which is reassuring. I did encourage the patient with the fact that her cardiac status is stable. I would also given Lasix to help with lower extremity edema the last time but she had some vomiting after worse and she is not sure if he was the medications so she stopped that after the 1st dose. She still has some lower extremity but is less in amount. 08/25/2023 the patient is here for pulmonary follow-up visit. She is doing about the same still having dyspnea on exertion. She has multiple factors. She is having significant pains in her musculoskeletal area lower back area now in the upper neck area. She recently had an x-ray demonstrating spondylosis. She does have a follow-up with pain management. In the meantime she has been using the Wixela daily. She is going to try to increase that to twice a day. We did look at her PFTs and there was not anything significant as far as response to bronchodilators. One option will be to titrate her up to Trelegy to try muscarinic antagonist and maybe this scientific technical writer better airway response. In addition to that we did look at the echocardiogram again demonstrating hypertrophy of the left ventricle and explained to her that that can result in diastolic dysfunction and subsequent shortness of breath with increased heart rate. Therefore, will be good for her to be seen by employment instructional associate at this time to further adjust her medications appropriately. [facility] Medical History (Updated 08/25/23 @ 10:22 by Dread Tineo MD) Cardiac hypertrophy Choledocholithiasis Depression Acquired hypothyroidism Hiatal hernia Chronic restrictive lung disease Pulmonary nodule Right lumbar radiculopathy Hernia, diaphragmatic Obesity (BMI 30-39.9) Relapsing polychondritis Vitamin D deficiency Osteopenia Elevated LFTs GERD without esophagitis Thoracic scoliosis Lumbar degenerative disc disease Vitamin B12 deficiency Rheumatoid arthritis Impaired fasting glucose Primary osteoarthritis of right knee Neuropathy of left peroneal nerve Hypothyroidism Exertional dyspnea Pure hypercholesterolemia Benign essential hypertension Bochdalek hernia Surgical History History of laparoscopic cholecystectomy (07/10/22) History of cataract surgery History of colonoscopy History of surgery on right wrist (~05/2004) History of appendectomy (~1963) History of surgery on right wrist (~02/2020) History of carpal tunnel surgery (~03/2016) History of right knee joint replacement (~08/2016) Family History Father CVD (cardiovascular disease) Mother Ovarian cancer Maternal Aunt Breast cancer Brother Colon cancer Family/Other Breast cancer Family/Other Breast cancer Family/Other Breast cancer Social History Household Members: Family Household Members Other:: 4 Housing: House Are you a primary associate director career services to a significant other at home: No Do you presently have visiting nurse or other home services: No Alcohol intake: current Alcohol intake frequency: holidays/special occasions only Alcohol type: wine Patient Tobacco Use Status: Former Tobacco user Quit Date: 2015 Tobacco use type: Cigarette Years Smoked: 50 e-Cigarette/Vaping Use: Never Used Second Hand Smoke Exposure: No Advance Directives Date on File: 07/09/22 service: No Current occupational status: retired Cognitive needs: No Hearing needs: No Vision needs: Yes (reading glasses) Review of Systems Const Denies chills, Reports fatigue (mild), Denies fever(s), Denies headache(s) and Reports weight gain ENT Denies dysphagia, Denies dizziness, Denies otalgia, Denies headache(s), Denies nasal congestion, Denies odynophagia and Denies sore throat Card Denies chest pain, Denies palpitations and Reports dyspnea on exertion (mild, unchanged from previous) Resp Denies chest congestion, Denies cough, Denies hemoptysis, Reports dyspnea on exertion (mild, unchanged from previous) and Denies wheezing GI Denies abdominal pain, Denies constipation, Denies dysphagia, Denies heartburn, Denies diarrhea, Denies nausea, Denies odynophagia and Denies vomiting Denies difficulty voiding, Denies nocturia and Denies dysuria Musc Reports back pain (with radiation of pain down her legs at times - chronic), Reports myalgias and Reports arthralgias (right knee) Skin/Breast Details: (+) few raised dark lesions on her trunk - thinks that they may be skin tags Neuro Denies dizziness and Denies headache(s) Endo Reports fatigue (mild) and Denies palpitations Isidoro/Lymph Denies easy bruising Aller/Immun Denies wheezing Physical Exam Vital Signs: Last Vital Signs Pulse 64 08/25/23 10:00 BP 128/62 08/25/23 10:00 Pulse Ox 99 08/25/23 10:00 Oxygen Delivery Method Room Air 08/25/23 10:00 BMI result Body Mass Index 39.7 Const General: alert HEENT Head: Yes atraumatic Eyes Pupils: Equal, round and reactive pupils present Neck Neck: Yes normal visual inspection, Yes full ROM and Yes no lymphadenopathy Chest Chest palpation & inspection: normal inspection of the chest Resp Effort & Inspection: normal respiratory effort Auscultation: diminished lung sounds Cardio Rate: regular rate Rhythm: regular rhythm Heart sounds: S1 normal heart sound present and S2 normal heart sound present GI Palpation (GI): Soft to palpation and nontender Auscultation: normal bowel sounds Skin General skin exam: rashes and/or lesions noted Neuro Cranial nerves: Yes Equal, round and reactive pupils present Extrem General: No clubbing, No cyanosis and Yes edema Assessment & Plan Assessment & Plan (1) CHRIS (obstructive sleep apnea): Code(s): G47.33 - Obstructive sleep apnea (adult) (pediatric) (2) Pulmonary nodule: Code(s): R91.1 - Solitary pulmonary nodule (3) Hernia, diaphragmatic: Code(s): K44.9 - Diaphragmatic hernia without obstruction or gangrene Qualifiers: Obstruction and gangrene presence: without obstruction or gangrene Qualified Code(s): K44.9 - Diaphragmatic hernia without obstruction or gangrene (4) Hiatal hernia: Code(s): K44.9 - Diaphragmatic hernia without obstruction or gangrene (5) Chronic restrictive lung disease: Code(s): J98.4 - Other disorders of lung (6) Cardiac hypertrophy: Code(s): I51.7 - Cardiomegaly Plan positional sleep therapy continue exercise regimen increase Wixela BID, consider Trelegy cardiology referral to assess hypertrophy Pulmonary rehab low Na diet torsemide x 3 days continue PPI reflux diet JAIMIE as needed F/U 4-6 months Orders: Referrals Cardiology Referral I51.7 - Cardiomegaly Medications: New torsemide 10 mg PO DAILY 3 days 3 tabs 0RF Coding Level of Care Code Est Pt Level 4 (46530) Diagnoses CHRIS (obstructive sleep apnea) G47.33 Pulmonary nodule R91.1 Diaphragmatic hernia without obstruction and without gangrene K44.9 Obstruction and gangrene presence: without obstruction or gangrene Hiatal hernia K44.9 Chronic restrictive lung disease J98.4 Cardiac hypertrophy I51.7 Time Spent (min) 18
[2023-08-25 10:00] VITALS: BP 128/62; PULSE 64; O2SAT 99; BMI 39.7
== END 2023-08-25 10:28 | disposition home or self-care (01) ==
PROVIDERS: PCP Internal Medicine; Visit Provider Hospitalist
DX: G47.33 Obstructive sleep apnea (adult) (pediatric) (principal); R91.1 Solitary pulmonary nodule; K44.9 Diaphragmatic hernia without obstruction or gangrene; J98.4 Other disorders of lung; I51.7 Cardiomegaly
CPT/HCPCS: 99214

== ENCOUNTER → 2023-08-25 09:53 | Outpatient (BNVA) | payer MEDICARE, SELFPAY | PROVIDERS: PCP Internal Medicine; Visit Provider Hospitalist | DX: J98.4 Other disorders of lung (principal); G47.33 Obstructive sleep apnea (adult) (pediatric); R91.1 Solitary pulmonary nodule; K44.9 Diaphragmatic hernia without obstruction or gangrene; I51.7 Cardiomegaly | CPT/HCPCS: 99212 ==

== ENCOUNTER 2023-08-30 13:23 | Outpatient (AMB) | payer MEDICARE, SELFPAY ==
[2023-08-25 11:07] VITALS: BMI 39.0
--- NOTE | 2023-08-30 13:30 | A.OFFVIS_ITS ---
Intake Vital Signs 08/30/23 13:39 Height 5 ft 2 in Weight 221 lb BMI 40.4 BP 116/56 L Blood Pressure Location Rt brachial Position Sitting Respiration 14 Pulse 75 Pulse Source Pulse Oximeter Pulse Oximetry (%) 97 Oxygen Delivery Method Room Air Intake Visit Reasons: Spondylosis W/O Myelopathy or Rad/Cervical Reg. Intake Note: Patient reports pain 10/16. Allergies No Known Allergies [No Known Allergies*] Allergy (Verified 08/30/23 13:40) HPI HPI Comments History of Present Illness Details Angela came today to my office complaining on multiple pain generator after a long period of absence. In the past she received diagnostic medial branch block with good results and she was planned to do sprint PNS. Unfortunately her insurance company requested psychological evaluation. The patient believes that she can not do psychological evaluation with her psychologist. I do not mind if her psychologist knows how to do psychological evaluation and gives us proper form to perform psychological evaluation for neuromodulation. Alternatively I can schedule her with [facility] if this is not working for her. She also attracted my attention today to the pain in the right knee and pain in the right lower back in the projection of the right sacroiliac joint. The Shanell trigger test as well as Kentrell test on the right as well as pelvis compression test and Gaenslen test are all positive on the right. I think she is suffering among many things from sacroiliitis. I offered her to perform diagnostic right sacroiliac joint injection. She agreed to go for this procedure. As of the pain in the knee she is still considering infrapatellar saphenous nerve block to help her to get engaged and neuromodulation to help the pain in that knee however the issue is again is not only the injection but also psychological evaluation. She was offered in the past by Dr. Jacobson redo of her right knee total knee replacement however she is very reluctant to go for yet another surgery. Prior: ? She reports pain in the lower back with radiation into the right lower extremity as well as pain in the right knee.? She also reports pain in the right wrist.? Her pain in the knee and pain in the wrists are stemming from the total knee replacement total wrist replacement done prior elsewhere.? Dr. Jacobson was examining this patient and he recommended redo of the total knee replacement.? The back pain is severe enough to limit her activity she cannot sleep normally cannot do activities of the living she cannot function normally but she can take care of herself.? She is retired individual.? She reports that movements aggravates her pain.? Topical medicine and oral medications alleviate her pain minimally. ? For treatment of her lower back pain she had physical therapy done at [facility].? She reports minimal pain improvement almost none as result of physical therapy.? She had x-rays MRIs of the lumbar spine in the past it is dictated as below.? She never received any injections in the back but she received some steroid injections in the knees and the wrist. [facility] Medical History (Updated 08/30/23 @ 14:06 by Xavier Kingston MD) Cardiac hypertrophy Choledocholithiasis Depression Acquired hypothyroidism Hiatal hernia Chronic restrictive lung disease Pulmonary nodule Right lumbar radiculopathy Hernia, diaphragmatic Obesity (BMI 30-39.9) Relapsing polychondritis Vitamin D deficiency Osteopenia Elevated LFTs GERD without esophagitis Thoracic scoliosis Lumbar degenerative disc disease Vitamin B12 deficiency Rheumatoid arthritis Impaired fasting glucose Primary osteoarthritis of right knee Neuropathy of left peroneal nerve Hypothyroidism Exertional dyspnea Pure hypercholesterolemia Benign essential hypertension Bochdalek hernia Surgical History History of laparoscopic cholecystectomy (07/10/22) History of cataract surgery History of colonoscopy History of surgery on right wrist (~05/2004) History of appendectomy (~1963) History of surgery on right wrist (~02/2020) History of carpal tunnel surgery (~03/2016) History of right knee joint replacement (~08/2016) Family History Father CVD (cardiovascular disease) Mother Ovarian cancer Maternal Aunt Breast cancer Brother Colon cancer Family/Other Breast cancer Family/Other Breast cancer Family/Other Breast cancer Social History Household Members: Family Household Members Other:: 4 Housing: House Are you a primary physician assistant primary care to a significant other at home: No Do you presently have visiting nurse or other home services: No Alcohol intake: current Alcohol intake frequency: holidays/special occasions only Alcohol type: wine Patient Tobacco Use Status: Former Tobacco user Quit Date: 2015 Tobacco use type: Cigarette Years Smoked: 50 e-Cigarette/Vaping Use: Never Used Second Hand Smoke Exposure: No Advance Directives Date on File: 07/09/22 service: No Current occupational status: retired Cognitive needs: No Hearing needs: No Vision needs: Yes (reading glasses) Review of Systems Const All systems reviewed & are unremarkable except as noted in HPI and below ENT Reports Normal hearing present Neuro Reports Normal hearing present, Denies Abnormal speech present, Denies confusion and Denies Sensory deficit (Neuro) Psych Denies confusion Physical Exam Vital Signs: Last Vital Signs Pulse 75 08/30/23 13:39 Resp 14 08/30/23 13:39 BP 116/56 L 08/30/23 13:39 Pulse Ox 97 08/30/23 13:39 Oxygen Delivery Method Room Air 08/30/23 13:39 BMI result Body Mass Index 40.4 Const General: no acute distress; No confusion Nutritional Appearance: obese morbidly obese Orientation/consciousness: patient oriented x3 and No confusion Eyes General: appearance normal, both eyes and all related structures Pupils: Equal, round and reactive pupils present EOM: EOMs intact bilaterally Neck Neck: Yes full ROM Chest Chest palpation & inspection: normal inspection of the chest Resp Effort & Inspection: normal respiratory effort, able to speak in complete sentences, normal respiratory pattern, no audible wheezes and no cough Cardio Jugular venous distension: no JVD GI Inspection: Yes normal to inspection Back/Spine/Pelvis Other: There is scar on the anterior surface of the right knee delineating the previous total knee replacement. There is also a scar on posterior surface of the right wrist delineating total wrist replacement. She is demonstrating normal strength of bilateral lower extremities. She denies weakness in the feet admits numbness in the knee but not numbness in the feet. Able to flex herself forward without difficulty. However loading test is positive bilaterally. Able to flex herself in the lumbar spine backwards very minimally. Reports significant stiffness. SLR is negative bilaterally. Kentrell test is positive on the right. Fourteen finger test is positive on the right. Gaenslen test is positive on the right. Pelvic compression test is positive on the right.. Paraspinal regions of the lumbar spine more tender on palpation than midline spinal region. Range of motion in the right knee is limited. Neuro General: patient oriented x3, gait normal and No confusion Cranial nerves: Yes CN's II-XII intact bilaterally, Yes Equal, round and reactive pupils present, Yes Normal hearing present and Yes Ability to bilaterally elevate shoulders present Speech: No Abnormal speech present Gait exam (Neuro): Normal gait present Motor exam (neuro): 5/5 motor strength present throughout Sensory Exam: No Sensory deficit (Neuro) Extrem General: No pedal edema Psych Speech and movement: Normal speech and movement present Affect: normal affect Attitude: cooperative Thought process: Normal thought process present Thought content: Normal thought content present Insight: Good insight present (Psych) Judgement: Good judgement present (Psych) Assessment & Plan Assessment & Plan (1) Spondylosis without myelopathy or radiculopathy, lumbar region: Code(s): M47.816 - Spondylosis without myelopathy or radiculopathy, lumbar region (2) Status post total knee replacement, right: Code(s): Z96.651 - Presence of right artificial knee joint (3) Chronic pain syndrome: Code(s): G89.4 - Chronic pain syndrome (4) Morbid obesity: Code(s): E66.01 - Morbid (severe) obesity due to excess calories (5) Sacroiliitis: Code(s): M46.1 - Sacroiliitis, not elsewhere classified (6) Sacroiliac joint dysfunction of right side: Code(s): M53.3 - Sacrococcygeal disorders, not elsewhere classified Plan Angela received diagnostic L3 L4-5 medial branch block with great results. I was trying to schedule her for Sprint procedure however her insurance company denied her procedure based on the absence of psychological evaluation. She needs to go to psychological evaluation 1st. She believes that her psychiatrist can provide her necessary examination. Alternatively she needs to go to [facility] of her psychologist or psychiatrist are unable to give her the necessary evaluation. She was complaining today on pain in the projection of the right sacroiliac joint. Offered her sacroiliac joint injection. I will schedule it without sedation. The injection will be diagnostic. She was offered by a Dr. Jacobson total knee replacement redo. She is reluctant to go for this procedure. I can try to treat her pain in the knee with stim wave peripheral nerve stimulation. She needs to go for infrapatellar saphenous nerve block before this procedure. We discussed it today and might perform it in the future. Coding Level of Care Code Est Pt Level 3 (64424) Diagnoses Spondylosis without myelopathy or radiculopathy, lumbar region M47.816 Status post total knee replacement, right Z96.651 Chronic pain syndrome G89.4 Morbid obesity E66.01 Sacroiliitis M46.1 Sacroiliac joint dysfunction of right side M53.3
[2023-08-30 13:39] VITALS: BP 116/56; PULSE 75; RESP 14; O2SAT 97; BMI 40.4
== END 2023-08-30 13:56 | disposition home or self-care (01) ==
PROVIDERS: PCP Internal Medicine; Visit Provider Anesthesiology
DX: M47.816 Spondylosis without myelopathy or radiculopathy, lumbar region (principal); Z96.651 Presence of right artificial knee joint; G89.4 Chronic pain syndrome; E66.01 Morbid (severe) obesity due to excess calories; M46.1 Sacroiliitis, not elsewhere classified; M53.3 Sacrococcygeal disorders, not elsewhere classified
CPT/HCPCS: 99213

== ENCOUNTER → 2023-08-30 13:23 | Outpatient (BNVA) | payer MEDICARE, SELFPAY ==
[2023-08-25 11:07] VITALS: BMI 39.0
== END ==
PROVIDERS: PCP Internal Medicine; Visit Provider Anesthesiology
DX: M47.816 Spondylosis without myelopathy or radiculopathy, lumbar region (principal); M46.1 Sacroiliitis, not elsewhere classified; M53.3 Sacrococcygeal disorders, not elsewhere classified; G89.4 Chronic pain syndrome; Z96.651 Presence of right artificial knee joint; E66.01 Morbid (severe) obesity due to excess calories; Z68.41 Body mass index [BMI] 40.0-44.9, adult
CPT/HCPCS: 99212

== ENCOUNTER 2023-09-15 12:32 | Outpatient (AMB) | payer MEDICARE, SELFPAY ==
[2023-08-25 11:07] VITALS: BMI 39.0
--- NOTE | 2023-09-15 13:00 | A.OFFVIS_ITS ---
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 Her goal is to lose at lest 70 lbs.. She reports first being concerned about her weight 5 years. She has tried multiple methods of weight loss including GOLO without permanent results. She lives with . She is retired. She wakes at: 6-8 am, falls asleep watching TV on couch12 MN and then sleeps on and off on couch all night. Breakfast: wakes up and has coffee 2 cups with artificial flavor creamer and sugar free flavor. Sips on it all morning skips breakfast every day Lunch: 3-4 d/ week. If eats, 12- 2pm and would have cheese and crackers or a hb egg or PB and fluff sandwich - coffee again. Dinner: 6 pm - has last cup of coffee. Meal of 4- 6 oz protein and 6 oz veg etables, carbs some nights. May have salad with dinner. After dinner: most of the time nothing to eat. 4 saltine crackers with her evening dose of ibuprofen. May have a few cookies or a low sugar fudgesicle Other snacks: during he day - cheese and crackers or peanuts Liquids: no soda or fruit juice. Alcohol intake: stopped having 2-3 glasses wine with dinner about 1 week ago. tobacco: stopped in 2015, marijuana: Exercise: has stationary bike at home - last used 6-7 months ago. CHAITANYA:1 ESS: 2 GERD: 0 QOL: 101 PFS Medical History (Updated 08/30/23 @ 14:06 by Xavier Kingston MD) Cardiac hypertrophy Choledocholithiasis Depression Acquired hypothyroidism Hiatal hernia Chronic restrictive lung disease Pulmonary nodule Right lumbar radiculopathy Hernia, diaphragmatic Obesity (BMI 30-39.9) Relapsing polychondritis Vitamin D deficiency Osteopenia Elevated LFTs GERD without esophagitis Thoracic scoliosis Lumbar degenerative disc disease Vitamin B12 deficiency Rheumatoid arthritis Impaired fasting glucose Primary osteoarthritis of right knee Neuropathy of left peroneal nerve Hypothyroidism Exertional dyspnea Pure hypercholesterolemia Benign essential hypertension Bochdalek hernia Surgical History History of laparoscopic cholecystectomy (07/10/22) History of cataract surgery History of colonoscopy History of surgery on right wrist (~05/2004) History of appendectomy (~1963) History of surgery on right wrist (~02/2020) History of carpal tunnel surgery (~03/2016) History of right knee joint replacement (~08/2016) Family History Father CVD (cardiovascular disease) Mother Ovarian cancer Maternal Aunt Breast cancer Brother Colon cancer Family/Other Breast cancer Family/Other Breast cancer Family/Other Breast cancer Social History Household Members: Family Household Members Other:: 4 Housing: House Are you a primary vision care associate to a significant other at home: No Do you presently have visiting nurse or other home services: No Alcohol intake: current Alcohol intake frequency: holidays/special occasions only Alcohol type: wine Patient Tobacco Use Status: Former Tobacco user Quit Date: 2015 Tobacco use type: Cigarette Years Smoked: 50 e-Cigarette/Vaping Use: Never Used Second Hand Smoke Exposure: No Advance Directives Date on File: 07/09/22 service: No Current occupational status: retired Cognitive needs: No Hearing needs: No Vision needs: Yes (reading glasses) Assessment & Plan Assessment & Plan (1) Morbid obesity: Code(s): E66.01 - Morbid (severe) obesity due to excess calories Plan: This is a 73 yo woman with morbid obesity and multiple medical problems who prefers to start MWL program. She will start MWL classes and watch all classes before her appt with Honey. 1. Adequate sleep of 7-8 hours per night discussed - no TV, try for quiet and dark on couch to sleep 2. Healthy meal plan - stop skipping meals and stop all sweetened drinks All meals/MR's need to take 20 minutes to complete. Pt is very skeptical of a new meal plan. Does not like to eat much coffee with 2% milk and sugar free syrup 10 am - protein shake with water or UAM 2 p - yogurt or cc 6 pm- dinner of 6 oz lean protein, 6 oz vegetable, 1 serving fruit Exercise - Cardio 4 d week - she wants home exercises not her biek at this time Sit to be Fit or PE sititng for 20 minutes daily. LS 1 mile videos 4 d/ week. The importance of avoiding and breast feeding for at least 18 months after bariatric surgery was discussed in the information session and was reinforced today. Weight herself weekly and send me weights Needs TSH follow up with Dr Ventura Next appt with Honey in 4 weeks. Text me with any questions and weekly weights. Patient is morbidly obese and is not considered stable at this time.?I spent a total of 60 minutes reviewing/updating records, examining the patient and counseling the patient on weight management as detailed above. (2) CHRIS (obstructive sleep apnea): Code(s): G47.33 - Obstructive sleep apnea (adult) (pediatric) (3) Acquired hypothyroidism: Code(s): E03.9 - Hypothyroidism, unspecified (4) Hiatal hernia: Code(s): K44.9 - Diaphragmatic hernia without obstruction or gangrene (5) GERD without esophagitis: Code(s): K21.9 - Gastro-esophageal reflux disease without esophagitis (6) Cardiac hypertrophy: Code(s): I51.7 - Cardiomegaly Plan see above Coding Level of Care Code New Pt Level 5 (58131) Diagnoses Morbid obesity E66.01 CHRIS (obstructive sleep apnea) G47.33 Acquired hypothyroidism E03.9 Hiatal hernia K44.9 GERD without esophagitis K21.9 Cardiac hypertrophy I51.7
[2023-09-15 13:07] VITALS: PULSE 63; TEMP 36.1; O2SAT 95; BMI 40.3
== END 2023-09-15 14:11 | disposition home or self-care (01) ==
PROVIDERS: PCP Internal Medicine; Visit Provider Physician Assistant
DX: E66.01 Morbid (severe) obesity due to excess calories (principal); Z68.41 Body mass index [BMI] 40.0-44.9, adult
CPT/HCPCS: 99205

== ENCOUNTER → 2023-09-15 12:32 | Outpatient (BNVA) | payer MEDICARE, SELFPAY ==
[2023-08-25 11:07] VITALS: BMI 39.0
== END ==
PROVIDERS: PCP Internal Medicine; Visit Provider Physician Assistant
DX: E66.01 Morbid (severe) obesity due to excess calories (principal); E03.9 Hypothyroidism, unspecified; G47.33 Obstructive sleep apnea (adult) (pediatric); K44.9 Diaphragmatic hernia without obstruction or gangrene; K21.9 Gastro-esophageal reflux disease without esophagitis; I51.7 Cardiomegaly; Z68.41 Body mass index [BMI] 40.0-44.9, adult
CPT/HCPCS: 99202

== ENCOUNTER 2023-10-05 06:13 | Outpatient (REF) | payer MEDICARE, SELFPAY ==
[2023-08-25 11:07] VITALS: BMI 39.0
--- NOTE | ~2023-10-05 | FL_ITS ---
EXAMINATION: XR FLUOROSCOPY WITH IMAGES CLINICAL INFORMATION: Sacrococcygeal disorders, not elsewhere classified. COMPARISON: CT abdomen and pelvis dated 07/08/2022. TECHNIQUE: Fluoroscopy Supervised By: Dr. Kellen Hernandez. Fluoroscopy Time: 0.1 minutes. Cumulative Dose: 1.62 mGy. DAP: 0.0236 mGym2. Images: 1. FINDINGS: The submitted image shows an injection needle and injected contrast in the vicinity of the right sacroiliac joint. FL/FL guidance in treatment room IMPRESSION: Intraoperative fluoroscopy is provided during right sacroiliac joint pain injection. Please see the patient's Operative Report for full procedural details.
== END 2023-10-05 06:14 | disposition home or self-care (01) ==
LOC: CF 06:13
PROVIDERS: Visit Provider Anesthesiology
DX: M47.816 Spondylosis without myelopathy or radiculopathy, lumbar region (principal); G89.4 Chronic pain syndrome; E66.01 Morbid (severe) obesity due to excess calories; M46.1 Sacroiliitis, not elsewhere classified; M53.3 Sacrococcygeal disorders, not elsewhere classified; Z96.651 Presence of right artificial knee joint
CPT/HCPCS: 27096; J2795; Q9967

== ENCOUNTER 2023-10-05 07:47 | Outpatient (AMB) | payer MEDICARE, SELFPAY ==
[2023-08-25 11:07] VITALS: BMI 39.0
--- NOTE | 2023-10-05 07:47 | MHC.OFFVIS ---
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: No Accompanied by: Self / Same As Patient Allergies No Known Allergies [No Known Allergies*] Allergy (Verified 10/05/23 07:58) [facility] Medical History (Updated 08/30/23 @ 14:06 by Xavier Kingston MD) Cardiac hypertrophy Choledocholithiasis Depression Acquired hypothyroidism Hiatal hernia Chronic restrictive lung disease Pulmonary nodule Right lumbar radiculopathy Hernia, diaphragmatic Obesity (BMI 30-39.9) Relapsing polychondritis Vitamin D deficiency Osteopenia Elevated LFTs GERD without esophagitis Thoracic scoliosis Lumbar degenerative disc disease Vitamin B12 deficiency Rheumatoid arthritis Impaired fasting glucose Primary osteoarthritis of right knee Neuropathy of left peroneal nerve Hypothyroidism Exertional dyspnea Pure hypercholesterolemia Benign essential hypertension Bochdalek hernia Surgical History History of laparoscopic cholecystectomy (07/10/22) History of cataract surgery History of colonoscopy History of surgery on right wrist (~05/2004) History of appendectomy (~1963) History of surgery on right wrist (~02/2020) History of carpal tunnel surgery (~03/2016) History of right knee joint replacement (~08/2016) Family History Father CVD (cardiovascular disease) Mother Ovarian cancer Maternal Aunt Breast cancer Brother Colon cancer Family/Other Breast cancer Family/Other Breast cancer Family/Other Breast cancer Social History Household Members: Family Household Members Other:: 4 Housing: House Are you a primary career services representative to a significant other at home: No Do you presently have visiting nurse or other home services: No Alcohol intake: current Alcohol intake frequency: holidays/special occasions only Alcohol type: wine Patient Tobacco Use Status: Former Tobacco user Quit Date: 2015 Tobacco use type: Cigarette Years Smoked: 50 e-Cigarette/Vaping Use: Never Used Second Hand Smoke Exposure: No Advance Directives Date on File: 07/09/22 service: No Current occupational status: retired Cognitive needs: No Hearing needs: No Vision needs: Yes (reading glasses) Physical Exam Vital Signs: Last Vital Signs Pulse 77 10/05/23 09:21 Resp 16 10/05/23 09:21 BP 128/72 10/05/23 09:21 Pulse Ox 98 10/05/23 09:21 Oxygen Delivery Method Room Air 10/05/23 09:21 BMI result Body Mass Index 39.5 Assessment & Plan Assessment & Plan (1) Spondylosis without myelopathy or radiculopathy, lumbar region: Code(s): M47.816 - Spondylosis without myelopathy or radiculopathy, lumbar region (2) Status post total knee replacement, right: Code(s): Z96.651 - Presence of right artificial knee joint (3) Chronic pain syndrome: Code(s): G89.4 - Chronic pain syndrome (4) Morbid obesity: Code(s): E66.01 - Morbid (severe) obesity due to excess calories (5) Sacroiliitis: Code(s): M46.1 - Sacroiliitis, not elsewhere classified (6) Sacroiliac joint dysfunction of right side: Code(s): M53.3 - Sacrococcygeal disorders, not elsewhere classified Plan: Right diagnostic sacroiliac joint injection. Informed consent was explained thoroughly to the patient. All questions about benefits and risks for the procedure were answered. Patient came to the operating room and was positioned prone on the operating table with the pillow under the pelvis. Time out was performed delineating name and of the patient, allergies and the nature of the procedure. The lower back and buttocks of the patient were prepped with ChloraPrep prepped and draped with sterile utility towels. C-arm was brought over the operating field and sq picture of patient's pelvis was demonstrated on the screen. For the right joint tilting C-arm contralateral to the site of the joint the most posterior portion of the joints was superimposed with anterior silhouette of the joint. Skin was injected in the projection of the joint slightly medial to the location of the joint with 25 gauge 1/2 inch needle using local lidocaine 2% .After that 22 gauge 3 and 1/2 inch needle was driven to the right joint in tunnel vision fashion. When needle entered the joint capsule injection of the contrast was performed demonstrating intra-articular and minimally periarticular spread of the contrast. After that 4 cc. of ropivacaine 0.5% was injected into the joint. Upon completion of the injections the needle was removed Sterile dressing was applied. Upon completion of the injection patient was taken outside of the operating room to the recovery room where recovered uneventfully. Pasquale Miller received diagnostic L3 L4-5 medial branch block with great results. I was trying to schedule her for Sprint procedure however her insurance company denied her procedure based on the absence of psychological evaluation. She needs to go to psychological evaluation 1st. She believes that her psychiatrist can provide her necessary examination. Alternatively she needs to go to [facility] of her psychologist or psychiatrist are unable to give her the necessary evaluation. She was complaining today on pain in the projection of the right sacroiliac joint. Offered her sacroiliac joint injection. I will schedule it without sedation. The injection will be diagnostic. She was offered by a Dr. Jacobson total knee replacement redo. She is reluctant to go for this procedure. I can try to treat her pain in the knee with stim wave peripheral nerve stimulation. She needs to go for infrapatellar saphenous nerve block before this procedure. We discussed it today and might perform it in the future. Orders: Orders FL guidance in treatment room Today M53.3 - Sacrococcygeal disorders, not elsewhere classified Coding Level of Care Code Procedure Only Diagnoses Spondylosis without myelopathy or radiculopathy, lumbar region M47.816 Status post total knee replacement, right Z96.651 Chronic pain syndrome G89.4 Morbid obesity E66.01 Sacroiliitis M46.1 Sacroiliac joint dysfunction of right side M53.3
[2023-10-05 07:57] VITALS: BP 120/68; PULSE 76; RESP 16; O2SAT 98; BMI 39.5
[2023-10-05 09:21] VITALS: BP 128/72; PULSE 77; RESP 16; O2SAT 98; BMI 39.5
== END 2023-10-05 09:02 | disposition home or self-care (01) ==
LOC: HO.PMCPRC 07:47
PROVIDERS: PCP Internal Medicine; Visit Provider Anesthesiology
DX: M46.1 Sacroiliitis, not elsewhere classified (principal); M53.3 Sacrococcygeal disorders, not elsewhere classified
CPT/HCPCS: 27096

== ENCOUNTER 2023-10-11 08:53 | Outpatient (AMB) | payer MEDICARE, SELFPAY ==
[2023-08-25 11:07] VITALS: BMI 39.0
--- NOTE | 2023-10-11 08:54 | A.OFFVIS_ITS ---
Intake Vital Signs 10/11/23 09:01 Height 5 ft 2 in Weight 218 lb BMI 39.9 BP 140/82 H Blood Pressure Location Lt brachial Position Sitting Respiration 16 Pulse 67 Pulse Source Pulse Oximeter Pulse Oximetry (%) 96 Oxygen Delivery Method Room Air Intake Visit Reasons: RIGHT DIAGNOSTIC SIJ INJECTION/10/05/23/ confirm Intake Note: Patient comes in for post-op appointment. Reports pain 11/16. Allergies No Known Allergies [No Known Allergies*] Allergy (Verified 10/11/23 09:01) HPI HPI Comments History of Present Illness Details Angela is back in my office after diagnostic sacroiliac joint injection on the right. She reported 7 hours of complete pain relief from her sacroiliac joint projection in the coccyx and lateral to the right. She reported excellent mobility, excellent activities of daily living, she performed all the procedures and movements which usually aggravate her pain after the injection and she reported excellent results. I offered her treatment of her sacroiliac joint pain with Curonix PNS, alternatives of the treatment including steroid injections with all steroid side effects were explained to the patient, paintech procedure was not considered an option for the patient. I still need psychological evaluation in the order to help her patient. The patient is still reluctant to go for psychological evaluation with [facility]. She still has this idea of her own psychiatrist to deliver a note for us with permission to go for the procedure trial. I explained to the patient that if her psychiatrist will contact us we will provide an example of the note the psychiatrist needs to generate in the order to approve this patient for the procedure. Good results of diagnostic medial branch block in the lumbar spine in the past. Unfortunately her insurance company required psychological evaluation even for this procedure. The patient was reluctant to go for psychological evaluation so he ended up nowhere She also complains on pain in the knee. She said that the surgeon who was doing her total knee replacement is retired now. She firmly convinced that the pain in the knee can not be helped with some sort of a procedure in the knee. In the past Dr. Jacobson recommended redo of total knee replacement however the patient did not go for it. Prior: ? She reports pain in the lower back with radiation into the right lower extremity as well as pain in the right knee.? She also reports pain in the right wrist.? Her pain in the knee and pain in the wrists are stemming from the total knee replacement total wrist replacement done prior elsewhere.? Dr. Jacobson was examining this patient and he recommended redo of the total knee replacement.? The back pain is severe enough to limit her activity she cannot sleep normally cannot do activities of the living she cannot function normally but she can take care of herself.? She is retired individual.? She reports that movements aggravates her pain.? Topical medicine and oral medications alleviate her pain minimally. ? For treatment of her lower back pain she had physical therapy done at [facility].? She reports minimal pain improvement almost none as result of physical therapy.? She had x-rays MRIs of the lumbar spine in the past it is dictated as below.? She never received any injections in the back but she received some steroid injections in the knees and the wrist. [facility] Medical History (Updated 08/30/23 @ 14:06 by Xavier Kingstno MD) Cardiac hypertrophy Choledocholithiasis Depression Acquired hypothyroidism Hiatal hernia Chronic restrictive lung disease Pulmonary nodule Right lumbar radiculopathy Hernia, diaphragmatic Obesity (BMI 30-39.9) Relapsing polychondritis Vitamin D deficiency Osteopenia Elevated LFTs GERD without esophagitis Thoracic scoliosis Lumbar degenerative disc disease Vitamin B12 deficiency Rheumatoid arthritis Impaired fasting glucose Primary osteoarthritis of right knee Neuropathy of left peroneal nerve Hypothyroidism Exertional dyspnea Pure hypercholesterolemia Benign essential hypertension Bochdalek hernia Surgical History History of laparoscopic cholecystectomy (07/10/22) History of cataract surgery History of colonoscopy History of surgery on right wrist (~05/2004) History of appendectomy (~1963) History of surgery on right wrist (~02/2020) History of carpal tunnel surgery (~03/2016) History of right knee joint replacement (~08/2016) Family History Father CVD (cardiovascular disease) Mother Ovarian cancer Maternal Aunt Breast cancer Brother Colon cancer Family/Other Breast cancer Family/Other Breast cancer Family/Other Breast cancer Social History Household Members: Family Household Members Other:: 4 Housing: House Are you a primary veterinarian laboratory animal care to a significant other at home: No Do you presently have visiting nurse or other home services: No Alcohol intake: current Alcohol intake frequency: holidays/special occasions only Alcohol type: wine Patient Tobacco Use Status: Former Tobacco user Quit Date: 2015 Tobacco use type: Cigarette Years Smoked: 50 e-Cigarette/Vaping Use: Never Used Second Hand Smoke Exposure: No Advance Directives Date on File: 07/09/22 service: No Current occupational status: retired Cognitive needs: No Hearing needs: No Vision needs: Yes (reading glasses) Review of Systems Const All systems reviewed & are unremarkable except as noted in HPI and below ENT Reports Normal hearing present Neuro Reports Normal hearing present, Denies Abnormal speech present, Denies confusion and Denies Sensory deficit (Neuro) Psych Denies confusion Physical Exam Vital Signs: Last Vital Signs Pulse 67 10/11/23 09:01 Resp 16 10/11/23 09:01 BP 140/82 H 10/11/23 09:01 Pulse Ox 96 10/11/23 09:01 Oxygen Delivery Method Room Air 10/11/23 09:01 BMI result Body Mass Index 39.9 Const General: no acute distress; No confusion Nutritional Appearance: obese morbidly obese Orientation/consciousness: patient oriented x3 and No confusion Eyes General: appearance normal, both eyes and all related structures Pupils: Equal, round and reactive pupils present EOM: EOMs intact bilaterally Neck Neck: Yes full ROM Chest Chest palpation & inspection: normal inspection of the chest Resp Effort & Inspection: normal respiratory effort, able to speak in complete sentences, normal respiratory pattern, no audible wheezes and no cough Cardio Jugular venous distension: no JVD GI Inspection: Yes normal to inspection Back/Spine/Pelvis Other: There is scar on the anterior surface of the right knee delineating the previous total knee replacement. There is also a scar on posterior surface of the right wrist delineating total wrist replacement. She is demonstrating normal strength of bilateral lower extremities. She denies weakness in the feet admits numbness in the knee but not numbness in the feet. Able to flex herself forward without difficulty. However loading test is positive bilaterally. Able to flex herself in the lumbar spine backwards very minimally. Reports significant stiffness. SLR is negative bilaterally. Kentrell test is positive on the right. Fourteen finger test is positive on the right. Gaenslen test is positive on the right. Pelvic compression test is positive on the right.. Paraspinal regions of the lumbar spine more tender on palpation than midline spinal region. Range of motion in the right knee is limited. Neuro General: patient oriented x3, gait normal and No confusion Cranial nerves: Yes CN's II-XII intact bilaterally, Yes Equal, round and reac tive pupils present, Yes Normal hearing present and Yes Ability to bilaterally elevate shoulders present Speech: No Abnormal speech present Gait exam (Neuro): Normal gait present Motor exam (neuro): 5/5 motor strength present throughout Sensory Exam: No Sensory deficit (Neuro) Assessment & Plan Assessment & Plan (1) Spondylosis without myelopathy or radiculopathy, lumbar region: Code(s): M47.816 - Spondylosis without myelopathy or radiculopathy, lumbar region (2) Status post total knee replacement, right: Code(s): Z96.651 - Presence of right artificial knee joint (3) Chronic pain syndrome: Code(s): G89.4 - Chronic pain syndrome (4) Morbid obesity: Code(s): E66.01 - Morbid (severe) obesity due to excess calories (5) Sacroiliitis: Code(s): M46.1 - Sacroiliitis, not elsewhere classified (6) Sacroiliac joint dysfunction of right side: Code(s): M53.3 - Sacrococcygeal disorders, not elsewhere classified Plan Angela received diagnostic sacroiliac joint injection on the right with good results. Curonix PNS was discussed brochure was given. She still needs psychological evaluation for this procedure. Angela received diagnostic L3 L4-5 medial branch block with great results. I was trying to schedule her for Sprint procedure however her insurance company denied her procedure based on the absence of psychological evaluation. She needs to go to psychological evaluation for this procedure as well. She believes that her psychiatrist can provide her necessary examination. Alternatively she needs to go to [facility] of her psychologist or psychiatrist are unable to give her the necessary evaluation. She was complaining today on pain in the projection of the right sacroiliac joint. Offered her sacroiliac joint injection. I will schedule it without sedation. The injection will be diagnostic. She was offered by Dr. Jacobson total knee replacement redo. She was reluctant to go for this procedure. However today she told me that she may consider some intervention in her knee to help her pain there. Next time she is asking me about it I will send her to Dr. Jacobson again. Patient Instructions: I here by testify that I spent 35 minutes in conversation with this patient as well as planning her care, and organizing her note. Coding Level of Care Code Est Pt Level 4 (74664) Diagnoses Spondylosis without myelopathy or radiculopathy, lumbar region M47.816 Status post total knee replacement, right Z96.651 Chronic pain syndrome G89.4 Morbid obesity E66.01 Sacroiliitis M46.1 Sacroiliac joint dysfunction of right side M53.3
[2023-10-11 09:01] VITALS: BP 140/82; PULSE 67; RESP 16; O2SAT 96; BMI 39.9
== END 2023-10-11 09:28 | disposition home or self-care (01) ==
PROVIDERS: PCP Internal Medicine; Visit Provider Anesthesiology
DX: M47.816 Spondylosis without myelopathy or radiculopathy, lumbar region (principal); Z96.651 Presence of right artificial knee joint; G89.4 Chronic pain syndrome; E66.01 Morbid (severe) obesity due to excess calories; M46.1 Sacroiliitis, not elsewhere classified; M53.3 Sacrococcygeal disorders, not elsewhere classified
CPT/HCPCS: 99214

== ENCOUNTER → 2023-10-11 08:53 | Outpatient (BNVA) | payer MEDICARE, SELFPAY ==
[2023-08-25 11:07] VITALS: BMI 39.0
== END ==
PROVIDERS: PCP Internal Medicine; Visit Provider Anesthesiology
DX: M47.816 Spondylosis without myelopathy or radiculopathy, lumbar region (principal); M46.1 Sacroiliitis, not elsewhere classified; M53.3 Sacrococcygeal disorders, not elsewhere classified; G89.4 Chronic pain syndrome; E66.01 Morbid (severe) obesity due to excess calories; Z96.651 Presence of right artificial knee joint; Z68.39 Body mass index [BMI] 39.0-39.9, adult
CPT/HCPCS: 99212

== ENCOUNTER 2023-10-13 10:54 | Outpatient (AMB) | payer MEDICARE, SELFPAY ==
[2023-08-25 11:07] VITALS: BMI 39.0
--- NOTE | 2023-10-13 11:05 | A.OFFVIS_ITS ---
Intake Intake Visit Reasons: (OV) Initial Nutrition [facility] Allergies No Known Allergies [No Known Allergies*] Allergy (Verified 10/11/23 09:01) HPI Nutrition Presentation Reason for consult elevated BMI Diet Assmnt Details 10am shake - equate powder with water - 1 scoop = 30g protein - pt will check her nutrition label to make sure this is the correct serving 2pm yogurt or cottage cheese - feels lik e this is enough , not normally hungry at lunchtime 5pm dinner 8pm pure protein bar - sometimes skips Exercise: Trying to increase movement as tolerated. a few times per week getting in workouts at home for 30 mins Most Recent Diabetes Results: No Data to Display [facility] Medical History (Updated 08/30/23 @ 14:06 by Xavier Kingston MD) Cardiac hypertrophy Choledocholithiasis Depression Acquired hypothyroidism Hiatal hernia Chronic restrictive lung disease Pulmonary nodule Right lumbar radiculopathy Hernia, diaphragmatic Obesity (BMI 30-39.9) Relapsing polychondritis Vitamin D deficiency Osteopenia Elevated LFTs GERD without esophagitis Thoracic scoliosis Lumbar degenerative disc disease Vitamin B12 deficiency Rheumatoid arthritis Impaired fasting glucose Primary osteoarthritis of right knee Neuropathy of left peroneal nerve Hypothyroidism Exertional dyspnea Pure hypercholesterolemia Benign essential hypertension Bochdalek hernia Surgical History History of laparoscopic cholecystectomy (07/10/22) History of cataract surgery History of colonoscopy History of surgery on right wrist (~05/2004) History of appendectomy (~1963) History of surgery on right wrist (~02/2020) History of carpal tunnel surgery (~03/2016) History of right knee joint replacement (~08/2016) Family History Father CVD (cardiovascular disease) Mother Ovarian cancer Maternal Aunt Breast cancer Brother Colon cancer Family/Other Breast cancer Family/Other Breast cancer Family/Other Breast cancer Social History Household Members: Family Household Members Other:: 4 Housing: House Are you a primary small animal caretaker to a significant other at home: No Do you presently have visiting nurse or other home services: No Alcohol intake: current Alcohol intake frequency: holidays/special occasions only Alcohol type: wine Patient Tobacco Use Status: Former Tobacco user Quit Date: 2015 Tobacco use type: Cigarette Years Smoked: 50 e-Cigarette/Vaping Use: Never Used Second Hand Smoke Exposure: No Advance Directives Date on File: 07/09/22 service: No Current occupational status: retired Cognitive needs: No Hearing needs: No Vision needs: Yes (reading glasses) Assessment & Plan Assessment & Plan (1) Morbid obesity: Code(s): E66.01 - Morbid (severe) obesity due to excess calories Plan see below Patient Instructions: discussed the importance of adequate protein and fiber , continue structured meals. increase exercise as tolerated starting with very short walks to the mailbox, or at home sitting resistance training. Coding Level of Care Code Nutr Indiv Intake (07241) Diagnoses Morbid obesity E66.01 Time Spent (min) 60
== END 2023-10-13 13:31 | disposition home or self-care (01) ==
PROVIDERS: PCP Internal Medicine; Visit Provider Dietitian, Registered
DX: E66.01 Morbid (severe) obesity due to excess calories (principal)

== ENCOUNTER → 2023-10-13 10:54 | Outpatient (BNVA) | payer MEDICARE, SELFPAY ==
[2023-08-25 11:07] VITALS: BMI 39.0
== END ==
PROVIDERS: PCP Internal Medicine; Visit Provider Dietitian, Registered
DX: E66.01 Morbid (severe) obesity due to excess calories (principal)
CPT/HCPCS: 97802

== ENCOUNTER 2023-11-03 09:59 | Outpatient (AMB) | payer MEDICARE, SELFPAY ==
[2023-08-25 11:07] VITALS: BMI 39.0
[2023-11-03 10:01] VITALS: PULSE 71; O2SAT 96; BMI 38.8
--- NOTE | 2023-11-03 10:01 | A.OFFVIS_ITS ---
Intake Vital Signs 11/03/23 10:01 Height 5 ft 2 in Weight 212 lb BMI 38.8 Pulse 71 Pulse Source Pulse Oximeter Pulse Oximetry (%) 96 Oxygen Delivery Method Room Air Intake Visit Reasons: PFT/Echo Results Spray Gun Operator Required: No Allergies No Known Allergies [No Known Allergies*] Allergy (Verified 11/03/23 10:05) HPI HPI Comments History of Present Illness Details Patient is a 73-year-old woman with a known history of cough in shortness of breath. [id number] in severity. The patient did have an abnormal chest x-ray and ultimately underwent a CT scan of the chest back in September 2020. Did demonstrate she has been a diaphragmatic hernia in addition to them the hiatal hernia and small pulmonary nodules. She did follow-up with thoracic surgery for the the bockdalek hernia. No surgical intervention needed. She was sent for pulmonary function studies which demonstrated a mild restrictive defect. Therefore she was referred to Pulmonary. Her cough is nonproductive in nature it is intermittent denies any postnasal drip or any wheezing. She does not use any respiratory medications. She does have symptoms of heartburn. She does take medications for Gerd. In addition to that she is taking an CHAITANYA inhibitor. She does have associated shortness of breath with activity. Mild in severity. Does get better with rest. We did review her CT scan of the chest demonstrating the small diaphragmatic hernia that is likely incidental finding. More significant and was her hiatal hernia in addition to the pulmonary nodules that we need follow-up. 08/26/2021 the patient is here for a pulmonary follow-up visit. Her symptoms are persistent. She continues to have dyspnea on exertion. Even with minimal activity. We did review her studies initially demonstrating the pulmonary function studies demonstrating the restrictive ventilatory defect. She also underwent a CT scan of the chest without any evidence of any interstitial lung disease. The patient also had a sniff study ruling out any evidence of any diaphragmatic paralysis. Her pulmonary function studies also demonstrated a moderate diffusion impairment. Explained to her that she may indeed also have a component of pulmonary vascular disease. We did briefly review her last echocardiogram from 2019 which demonstrated some degree of left ventricular hypertrophy. Explained to her that this could also result in increased pulmonary vascular pressures. In addition to that untreated sleep apnea can also result in increased pulmonary vascular pressures. She does have daytime drowsiness. Her [place] score is elevated 06/01. At this point I will request a home sleep study to assess for obstructive sleep apnea which may be contributing to her symptoms. 12/01/2021 the patient is here for pulmonary follow-up visit. She continues to have dyspnea on exertion. Moderate severity. Based on her pulmonary function study she appears to have evidence of restrictive lung disease. Therefore, I did recommend she start pulmonary rehabilitation. I do believe that this will provide her some benefit in improving her underlying dyspnea symptoms. In the meantime her dyspnea symptoms are likely multifactorial. Part deconditioning part restrictive lung disease but also need to consider pulmonary vascular conditions. The patient did have an elevated [place] score. We had her undergo a home sleep study. No significant evidence of sleep apnea although it is likely nondiagnostic. She did have significant episodes of apnea and specially hypopneas while laying supine. The patient also desaturated down to below 88% for about 12 minutes. I did request patient try positional therapy for now while not sleep in her back. She will try different devices in order to do so. Once the patient is able to do that we can repeat her overnight oximetry or consider having her undergo a in-lab PSG. Will do this based on her degree of daytime drowsiness And cardiovascular risk factors. The patient has a rescue inhaler available. She has not interested in starting any maintenance therapy at this time. 07/07/2022 the patient is here for pulmo nary follow-up visit. Overall the patient is relatively well from a respiratory status. She continues to participate in pulmonary rehabilitation. She is completing the program and that she can consider continuing on her own. The patient has been able to make some strides in her pulmonary capacity. She is still complaining of epigastric disc omfort. Moderate severity. Sometimes radiates to her back. She does have a hiatal hernia. We did look at her recent CT scan of the chest done May 2022 demonstrating stable pulmonary nodules. She does have the hiatal hernia. She does take medications. We did talk about the importance of good reflux diet. In view of her epigastric discomfort the patient should be evaluated either with barium swallow or with an endoscopy. She is also having issues with transaminitis. She was recently taken off her lipid medication. She also had an ultrasound which is reassuring. Again, if she has any worsening epigastric discomfort she seek urgent medical advice. 12/29/2022 the patient is here for a pulm onary follow-up visit. She continues complaint of dyspnea on exertion. She has had an eventful year and has had multiple surgeries. She has recovered well in tolerated anesthesia well. She has to have 1 more wrist surgery couple min up at [facility]. In the meantime she continues to have shortness of breath. We reviewed a get her a previous pulmonary function studies demonstrating some degree of restriction. She does have incentive spirometer at home she is going to do so. But more than that there is a disproportional low to moderate diffusion impairment. Therefore pulmonary vascular conditions need to be considered. Hemoglobin has been stable. The patient does have lower extremity edema. She does use salt and she injury salt. It is likely that she does have some volume overload status. With the decrease in DLCO I also suspect that there is a cardiac component to her respiratory symptoms. Will request a stress echo. The patient has already has EKGs. In addition to that will plan to repeat her PFTs. She will try 3 day course of Lasix to see if we can improve her respiratory status at this time. 03/23/2023 the patient is here for pulmon inez follow-up visit. She continues to be about the same. Still complaining of dyspnea on exertion. Moderate severity. Specially going up a flight of stairs. She did participate in the pulmonary rehabilitation although she did not feel that she had a lot of teaching. I did reach out to the pulmonary rehab to see if they can give her some breathing techniques teachings. The patient does have some restrictive lung disease likely from her body habitus. She is also the condition and has significant discomfort primarily at the knees making it difficult for her to ambulate. We did have her undergo a cardiac evaluation based on the fact that she has had some lower extremity edema. She did have a stress echo that was nondiagnostic. Therefore she had had a Nikki nuclear scan that demonstrating no evidence of any underlying coronary artery disease or perfusion defects. Her gated EF was 69% which is reassuring. I did encourage the patient with the fact that her cardiac status is stable. I would also given Lasix to help with lower extremity edema the last time but she had some vomiting after worse and she is not sure if he was the medications so she stopped that after the 1st dose. She still has some lower extremity but is less in amount. 08/25/2023 the patient is here for pulmon inez follow-up visit. She is doing about the same still having dyspnea on exertion. She has multiple factors. She is having significant pains in her musculoskeletal area lower back area now in the upper neck area. She recently had an x-ray demonstrating spondylosis. She does have a follow-up with pain management. In the meantime she has been using the Wixela daily. She is going to try to increase that to twice a day. We did look at her PFTs and there was not anything significant as far as response to bronchodilators. One option will be to titrate her up to Trelegy to try muscarinic antagonist and maybe this policy writer typist better airway response. In addition to that we did look at the echocardiogram again demonstrating hypertrophy of the left ventricle and explained to her that that can result in diastolic dysfunction and subsequent shortness of breath with increased heart rate. Therefore, will be good for her to be seen by rfid systems engineer at this time to further adjust her medications appropriately. 11/03/2023 the patient is here for a pulm onary follow-up visit. She continues have dyspnea on exertion. Moderate severity. Which has other issues going on such as her back discomfort and also her hand discomfort. She was doing rehab but it was difficult for her to do with all her orthopedic issues. Now the patient will be seeing Cardiology for the severe asymmetrical septal hypertroph y. Wondering how much that is affecting her breathing. I did give her a small dose of diuretic during the last visit for 3 days which did help decrease some of the lower extremity edema. She will talk to Cardiology to see if additional diuretic therapy is warranted. We did look at her last CT scan of the chest that was done about a year ago which demonstrated a small 2 mm pulmonary nodule in the right upper lobe area. The patient also had a Bochdalek hernia. She had been seen by thoracic surgery in the past was small and therefore no intervention warranted. Will go ahead and plan to repeat a CT scan in 4-6 months in order to reassess the pulmonary nodule and also to reassess her hernia. [facility] Medical History (Updated 08/30/23 @ 14:06 by Xavier Kingston MD) Cardiac hypertrophy Choledocholithiasis Depression Acquired hypothyroidism Hiatal hernia Chronic restrictive lung disease Pulmonary nodule Right lumbar radiculopathy Hernia, diaphragmatic Obesity (BMI 30-39.9) Relapsing polychondritis Vitamin D deficiency Osteopenia Elevated LFTs GERD without esophagitis Thoracic scoliosis Lumbar degenerative disc disease Vitamin B12 deficiency Rheumatoid arthritis Impaired fasting glucose Primary osteoarthritis of right knee Neuropathy of left peroneal nerve Hypothyroidism Exertional dyspnea Pure hypercholesterolemia Benign essential hypertension Bochdalek hernia Surgical History History of laparoscopic cholecystectomy (07/10/22) History of cataract surgery History of colonoscopy History of surgery on right wrist (~05/2004) History of appendectomy (~1963) History of surgery on right wrist (~02/2020) History of carpal tunnel surgery (~03/2016) History of right knee joint replacement (~08/2016) Family History Father CVD (cardiovascular disease) Mother Ovarian cancer Maternal Aunt Breast cancer Brother Colon cancer Family/Other Breast cancer Family/Other Breast cancer Family/Other Breast cancer Social History Household Members: Family Household Members Other:: 4 Housing: House Are you a primary veterinarian laboratory animal care to a significant other at home: No Do you presently have visiting nurse or other home services: No Alcohol intake: current Alcohol intake frequency: holidays/special occasions only Alcohol type: wine Patient Tobacco Use Status: Former Tobacco user Quit Date: 2015 Tobacco use type: Cigarette Years Smoked: 50 e-Cigarette/Vaping Use: Never Used Second Hand Smoke Exposure: No Advance Directives Date on File: 07/09/22 service: No Current occupational status: retired Cognitive needs: No Hearing needs: No Vision needs: Yes (reading glasses) Review of Systems Const Denies chills, Reports fatigue (mild), Denies fever(s), Denies headache(s) and Reports weight gain ENT Denies dysphagia, Denies dizziness, Denies otalgia, Denies headache(s), Denies nasal congestion, Denies odynophagia and Denies sore throat Card Denies chest pain, Denies palpitations and Reports dyspnea on exertion (mild, unchanged from previous) Resp Denies chest congestion, Denies cough, Denies hemoptysis, Reports dyspnea on exertion (mild, unchanged from previous) and Denies wheezing GI Denies abdominal pain, Denies constipation, Denies dysphagia, Denies heartburn, Denies diarrhea, Denies nausea, Denies odynophagia and Denies vomiting Denies difficulty voiding, Denies nocturia and Denies dysuria Musc Reports back pain (with radiation of pain down her legs at times - chronic), Reports myalgias and Reports arthralgias (right knee) Skin/Breast Details: (+) few raised dark lesions on her trunk - thinks that they may be skin tags Neuro Denies dizziness and Denies headache(s) Endo Reports fatigue (mild) and Denies palpitations Isidoro/Lymph Denies easy bruising Aller/Immun Denies wheezing Physical Exam Vital Signs: Last Vital Signs Pulse 71 11/03/23 10:01 Pulse Ox 96 11/03/23 10:01 Oxygen Delivery Method Room Air 11/03/23 10:01 BMI result Body Mass Index 38.8 Const General: alert HEENT Head: Yes atraumatic Eyes Pupils: Equal, round and reactive pupils present Neck Neck: Yes normal visual inspection, Yes full ROM and Yes no lymphadenopathy Chest Chest palpation & inspection: normal inspection of the chest Resp Effort & Inspection: normal respiratory effort Auscultation: diminished lung sounds Cardio Rate: regular rate Rhythm: regular rhythm Heart sounds: S1 normal heart sound present and S2 normal heart sound present GI Palpation (GI): Soft to palpation and nontender Auscultation: normal bowel sounds Skin General skin exam: rashes and/or lesions noted Neuro Cranial nerves: Yes Equal, round and reactive pupils present Extrem General: No clubbing, No cyanosis and Yes edema Assessment & Plan Assessment & Plan (1) CHRIS (obstructive sleep apnea): Code(s): G47.33 - Obstructive sleep apnea (adult) (pediatric) (2) Pulmonary nodule: Code(s): R91.1 - Solitary pulmonary nodule (3) Hernia, diaphragmatic: Code(s): K44.9 - Diaphragmatic hernia without obstruction or gangrene Qualifiers: Obstruction and gangrene presence: without obstruction or gangrene Qualified Code(s): K44.9 - Diaphragmatic hernia without obstruction or gangrene (4) Hiatal hernia: Code(s): K44.9 - Diaphragmatic hernia without obstruction or gangrene (5) Chronic restrictive lung disease: Code(s): J98.4 - Other disorders of lung (6) Cardiac hypertrophy: Code(s): I51.7 - Cardiomegaly Plan positional sleep therapy continue exercise regimen continue Wixela BID, consider Trelegy cardiology referral to assess hypertrophy in November Pulmonary rehab low Na diet continue PPI reflux diet JAIMIE as needed CT chest in 4-6 months F/U 4-6 months Orders: Orders CT chest wo IV con 5 Months R91.1 - Solitary pulmonary nodule Coding Level of Care Code Est Pt Level 4 (54632) Diagnoses CHRIS (obstructive sleep apnea) G47.33 Pulmonary nodule R91.1 Diaphragmatic hernia without obstruction and without gangrene K44.9 Obstruction and gangrene presence: without obstruction or gangrene Hiatal hernia K44.9 Chronic restrictive lung disease J98.4 Cardiac hypertrophy I51.7 Time Spent (min) 18
== END 2023-11-03 10:31 | disposition home or self-care (01) ==
PROVIDERS: PCP Internal Medicine; Visit Provider Hospitalist
DX: G47.33 Obstructive sleep apnea (adult) (pediatric) (principal); R91.1 Solitary pulmonary nodule; K44.9 Diaphragmatic hernia without obstruction or gangrene; J98.4 Other disorders of lung; I51.7 Cardiomegaly
CPT/HCPCS: 99214

== ENCOUNTER → 2023-11-03 09:59 | Outpatient (BNVA) | payer MEDICARE, SELFPAY ==
[2023-08-25 11:07] VITALS: BMI 39.0
== END ==
PROVIDERS: PCP Internal Medicine; Visit Provider Hospitalist
DX: J98.4 Other disorders of lung (principal); I51.7 Cardiomegaly; G47.33 Obstructive sleep apnea (adult) (pediatric); R91.1 Solitary pulmonary nodule; K44.9 Diaphragmatic hernia without obstruction or gangrene
CPT/HCPCS: 99212

== ENCOUNTER 2023-11-10 10:59 | Outpatient (AMB) | payer MEDICARE, SELFPAY ==
[2023-08-25 11:07] VITALS: BMI 39.0
--- NOTE | 2023-11-10 11:02 | A.OFFVIS_ITS ---
Intake Vital Signs 11/10/23 11:04 Height 5 ft 2 in Weight 213 lb 13.574 oz BMI 39.1 BP 148/90 H Blood Pressure Location Lt brachial Position Sitting Pulse 69 Intake Visit Reasons: [employer]ING [employer]/ Noman/ cardiomegaley Intake Note: NPV w/ EKG Family Program Specialist Required: No Accompanied by: Self / Same As Patient Allergies No Known Allergies [No Known Allergies*] Allergy (Verified 11/10/23 11:05) Medication List - Last Reconciled 11/10/23 by Manjit Varghese MD albuterol sulfate 90 mcg/actuation 2 inhalations inhalation Q6H PRN 30 days amlodipine 2.5 mg PO DAILY cholecalciferol (vitamin D3) (Vitamin D3) 1,000 units PO DAILY cyanocobalamin (vitamin B-12) (Vitamin B-12) 1,000 mcg PO DAILY fluticasone propion-salmeterol 250-50 mcg/dose (Wixela Inhub) 1 inh inhalation Q12H 30 days gabapentin 300 mg PO TID ibuprofen 800 mg PO TID PRN levothyroxine 88 mcg PO QAM 90 days lisinopril 40 mg PO DAILY omeprazole 20 mg PO DAILY pyridoxine (vitamin B6) 25 mg PO DAILY rosuvastatin 20 mg PO DAILY 90 days thiamine HCl (vitamin B1) (Vitamin B-1) 300 mg PO DAILY HPI HPI Comments History of Present Illness Details Angela has been referred for evaluation of abnormal echocardiographic findings including left ventricular hypertrophy. Patient herself does not have any known cardiac issues. No history of any coronary disease, myocardial infarction or cardiomyopathy. Her main complaint is that whenever she is walking she gets short of breath. This has been somewhat of a long-term issue but more so recently. It seems that she does have poorly controlled hypertension. Even today's blood pressure is on the higher side. She is on lisinopril/amlodipine for that. Otherwise, no clear-cut angina. [facility] Medical History (Updated 11/10/23 @ 11:35 by Manjit Varghese MD) Cardiac hypertrophy Choledocholithiasis Depression Acquired hypothyroidism Hiatal hernia Chronic restrictive lung disease Pulmonary nodule Right lumbar radiculopathy Hernia, diaphragmatic Obesity (BMI 30-39.9) Relapsing polychondritis Vitamin D deficiency Osteopenia Elevated LFTs GERD without esophagitis Thoracic scoliosis Lumbar degenerative disc disease Vitamin B12 deficiency Rheumatoid arthritis Impaired fasting glucose Primary osteoarthritis of right knee Neuropathy of left peroneal nerve Hypothyroidism Exertional dyspnea Pure hypercholesterolemia Benign essential hypertension Bochdalek hernia Surgical History History of laparoscopic cholecystectomy (07/10/22) History of cataract surgery History of colonoscopy History of surgery on right wrist (~05/2004) History of appendectomy (~1963) History of surgery on right wrist (~02/2020) History of carpal tunnel surgery (~03/2016) History of right knee joint replacement (~08/2016) Family History Father CVD (cardiovascular disease) Mother Ovarian cancer Maternal Aunt Breast cancer Brother Colon cancer Family/Other Breast cancer Family/Other Breast cancer Family/Other Breast cancer Social History Household Members: Family Household Members Other:: 4 Housing: House Are you a primary career counselor to a significant other at home: No Do you presently have visiting nurse or other home services: No Alcohol intake: current Alcohol intake frequency: holidays/special occasions only Alcohol type: wine Patient Tobacco Use Status: Former Tobacco user Quit Date: 2015 Tobacco use type: Cigarette Years Smoked: 50 e-Cigarette/Vaping Use: Never Used Second Hand Smoke Exposure: No Advance Directives Date on File: 07/09/22 service: No Current occupational status: retired Cognitive needs: No Hearing needs: No Vision needs: Yes (reading glasses) Review of Systems Const Denies chills, Denies daytime sleepiness, Denies fatigue, Denies fever(s), Denies frequent falls, Denies night sweats, Denies snoring, Denies weakness, Denies weight gain and Denies weight loss Eyes Denies loss of vision ENT Denies dizziness and Denies hearing loss Card Denies chest pain, Denies chest pain with activity, Denies syncope, Denies rapid heart rate, Denies edema, Denies claudication, Denies leg edema, Denies lightheadedness, Denies palpitations and Denies orthopnea Resp Denies cough, Denies excessive phlegm production, Denies snoring and Denies wheezing GI Denies abdominal pain, Denies hematochezia, Denies change in bowel habits, Denies change in stool character, Denies heartburn, Denies nausea and Denies vomiting Denies hematuria, Denies urinary frequency and Denies dysuria Musc Denies arthralgias, Denies muscle weakness, Denies numbness and Denies tingling Skin/Breast Denies nail changes and Denies rash Neuro Denies Abnormal speech present, Denies dizziness, Denies syncope, Denies frequen t falls, Denies loss of vision, Denies memory loss, Denies numbness, Denies tingling and Denies weakness Psych Denies depression and Denies memory loss Endo Denies fatigue and Denies palpitations Aller/Immun Denies wheezing Physical Exam Vital Signs: Last Vital Signs Pulse 69 11/10/23 11:04 BP 148/90 H 11/10/23 11:04 BMI result Body Mass Index 39.1 Const General: comfortable and no acute distress Orientation/consciousness: patient oriented x3 HEENT Other: Unremarkable Head: Yes normal to inspection Neck Neck: Yes normal visual inspection Chest Chest palpation & inspection: normal inspection of the chest Resp Auscultation: clear to auscultation bilaterally Cardio Palpation: normal PMI Heart sounds: S1 normal heart sound present, S2 normal heart sound present, no gallops, Murmur heart sound present systolic I/ and at the right sternal border and no rubs GI Palpation (GI): Soft to palpation Back/Spine/Pelvis Other: unremarkable Skin General skin exam: no rashes or lesions noted Neuro General: patient oriented x3 Speech: No Abnormal speech present Extrem General: Yes normal to inspection Psych Mental Status: mental status grossly normal Office Procedures EKG Details: EKG with sinus rhythm at 69/Min and nonspecific ST-T changes. [id number], Complete Assessment & Plan Assessment & Plan (1) Cardiac hypertrophy: Code(s): I51.7 - Cardiomegaly (2) Abnormal finding on EKG: Code(s): R94.31 - Abnormal electrocardiogram [ECG] [EKG] (3) Essential hypertension: Code(s): I10 - Essential (primary) hypertension Plan Baseline EKG shows nonspecific ST-T changes. In the echocardiogram, LVEF 69%. Moderate concentric left ventricular hypertrophy with severe septal hypertrophy. Otherwise unremarkable. In the exercise stress echocardiogram, she was able to exercise only for 3 minutes and reached 4.1 Mets. Poor exercise tolerance. The echocardiographic component was nondiagnostic. Then pharmacological stress perfusion imaging study showed normal perfusion and normal gated LVEF. Overall, suspect poorly controlled hypertension, secondary left ventricular hypertrophy and shortness of breath secondary to that with additional components of deconditioning/pulmonary etiology. Advised to do a daily home diary for the next 6 weeks or so. We will review this and then make changes accordingly. Probably increase the amlodipine dosing. We will also do a PYP scan to assess for ATTR amyloid although suspect less likely. Follow-up in 6 weeks. Orders: Orders NM TC PYP cardiac amyloidosis Today E85.4 - Organ-limited amyloidosis, I43 - Cardiomyopathy in diseases classified elsewhere Coding Level of Care Code New Pt Level 4 (99852) Diagnoses Cardiac hypertrophy I51.7 Abnormal finding on EKG R94.31 Essential hypertension I10 CPT Codes EKG - CPT: 99634-[id number], Complete ([id number])
[2023-11-10 11:04] VITALS: BP 148/90; PULSE 69; BMI 39.1
== END 2023-11-10 11:27 | disposition home or self-care (01) ==
PROVIDERS: PCP Internal Medicine; Visit Provider Internal Medicine
DX: I51.7 Cardiomegaly (principal); R94.31 Abnormal electrocardiogram [ECG] [EKG]; I10 Essential (primary) hypertension
CPT/HCPCS: 93010; 99214

== ENCOUNTER → 2023-11-10 10:59 | Outpatient (BNVA) | payer MEDICARE, SELFPAY ==
[2023-08-25 11:07] VITALS: BMI 39.0
== END ==
PROVIDERS: PCP Internal Medicine; Visit Provider Internal Medicine
DX: I10 Essential (primary) hypertension (principal); I51.7 Cardiomegaly; R94.31 Abnormal electrocardiogram [ECG] [EKG]
CPT/HCPCS: 93005; 99212

== ENCOUNTER 2023-11-16 09:09 | Outpatient (REF) | payer MEDICARE, SELFPAY ==
[2023-08-25 11:07] VITALS: BMI 39.0
[2023-11-16 10:28] LABS: Appearance Urine Clear; Color Urine Yellow; Glucose Urine UA Negative (Negative); Leukocyte Esterase Urine Negative (Negative); Nitrite Urine Negative (Negative); PH 5.5 (5.0-9.0); Urine Blood Negative (Negative); Urine Ketones 15 mg/dL (Negative); Urine Protein Negative (Neg-Trace)
[2023-11-16 10:29] LABS: MANUAL DIFF FLAG NO
[2023-11-16 10:38] LABS: Basophils Absolute Auto 0.1 X10*3/uL (0.0-0.2); Basophils Percent Auto 1.1 % (0-2); Eosinophils Absolute Auto 0.3 X10*3/uL (0.0-0.4); Eosinophils Percent Auto 4.1 % (0-4); Hematocrit 40.4 % (37.0-47.0); Hemoglobin 13.2 g/dl (12.0-16.0); Imm Gran Abs Auto 0.01 X10*3/uL (0.00-0.03); Imm Gran Pct Auto 0.2 % (0.0-0.4); Lymphocytes Absolute Auto 1.9 X10*3/uL (1.2-4.9); Lymphocytes Percent Auto 29.9 % (20-40); Mean Corpuscular HGB Conc 32.7 g/dl (31.0-35.0); Mean Corpuscular Hemoglobin 29.5 pg (27.0-33.0); Mean Corpuscular Volume 90.2 fL (80.0-98.0); Mean Platelet Volume 12.2 fL (9.4-12.3); Monocytes Absolute Auto 0.6 X10*3/uL (0.1-1.2); Monocytes Percent Auto 8.7 % (2-11); Neutrophils Absolute Auto 3.6 x10*3/uL (2.0-8.3); Platelet Count 207 X10*3/uL (160-400); Red Blood Count 4.48 X10*6/uL (4.20-5.50); Red Cell Distribution Width 13.9 % (11.0-16.0); White Blood Count 6.3 X10*3/uL (4.8-10.8)
[2023-11-16 11:46] LABS: Estimated Average Glucose 105 mg/dL; Hemoglobin A1c % 5.3 % (<6.0)
[2023-11-16 12:21] LABS: Alanine Aminotransferase 10 U/L (0-31); Albumin Level 3.9 g/dL (3.5-5.0); Alkaline Phosphatase 82 U/L (39-117); Anion Gap 11 (12-20); Aspartate Amino Transferase 17 U/L (5-31); Bilirubin Total 0.5 mg/dL (0.0-1.0); Blood Urea Nitrogen 22 mg/dL (9-16); Calcium 9.7 mg/dL (8.4-10.2); Carbon Dioxide 26 mmol/L (22-29); Chloride 107 mmol/L (96-108); Cholesterol 194 mg/dL (<200); Estimated Glomerular Filt Rate > 60; Glucose Fasting 85 mg/dL (60-99); HDL Cholesterol 47 mg/dL (>40); LDL Cholesterol Calculated 134 mg/dL (<100); Potassium 4.1 mmol/L (3.3-5.1); Sodium 140 mmol/L (135-145); Total Protein 6.8 g/dL (6.5-8.0); Triglycerides 66 mg/dL (<150)
[2023-11-16 12:27] LABS: Free T4 (Free Thyroxine) 1.14 ng/dL (0.71-1.85); Thyroid Stimulating Hormone 3.58 uIU/mL (0.32-4.0); Vitamin D 25-OH Total 43.8 ng/mL (>30)
== END 2023-11-16 09:10 | disposition home or self-care (01) ==
LOC: HO.HMGCLDS 09:09
PROVIDERS: PCP Internal Medicine; Visit Provider Internal Medicine
DX: R30.0 Dysuria (principal); E78.00 Pure hypercholesterolemia, unspecified; I10 Essential (primary) hypertension; E55.9 Vitamin D deficiency, unspecified; E03.9 Hypothyroidism, unspecified; R73.01 Impaired fasting glucose
CPT/HCPCS: 36415; 80053; 80061; 81003; 82306; 83036; 84439; 84443; 85025

== ENCOUNTER 2023-11-19 08:52 | Outpatient (AMB) | payer MEDICARE, SELFPAY ==
[2023-08-25 11:07] VITALS: BMI 39.0
--- NOTE | 2023-11-19 08:53 | A.OFFVIS_ITS ---
Intake VS Expanded 11/19/23 08:57 BP 174/70 H Blood Pressure Location Lt brachial Blood Pressure Position Sitting Pulse 70 Pulse Source Pulse Oximeter Temp 96.3 F L Temperature Source Temporal Artery Scan Pulse Oximetry 97 Oxygen Delivery Method Room Air Height 5 ft 2 in Weight 212 lb BMI 38.8 Body Fat % 44.8 Body Fat Mass 95.0 Fat Free Mass 116.8 Visceral Fat Rating 15.0 Body Water % 38.8 Body Water Mass 82.2 Muscle Mass/Score 110.8 Basal Metabolic Rate/Score 1,621 Intake Visit Reasons: (OV) F/U [facility] Allergies No Known Allergies [No Known Allergies*] Allergy (Verified 11/19/23 09:01) HPI HPI Comments History of Present Illness Details Patient is a pleasant 73-year-old female returns to the office today in follow-up for the medical weight loss program. She was seen in the office for the 1st time on 09/15/2023 with a weight of 220.6 and a BMI of 40.7. Today's weight is 212 lb with a BMI of 38.8. She has lost 8.6 lb or 3.8% total body weight loss. She states she is doing well overall but wishes she had lost more weight. She adjusted the meal plan on her own without direction from the office. She did try a home videos, Griselda Ruiz, x1 although did not continue. meal, plan: morning, Protein bar: pure protein lunch, skip mid afternoon yogurt, or shake equate 1 scoop in 8 oz water dinner: salad or meat and veg, not measuring approx 4-6 oz by eyeball 8 pm bar or yogurt drinkin-3 cups coffee, 32 oz water Exercise: none, could join a gym, limited mobility due to breathing [facility] Medical History Cardiac hypertrophy Choledocholithiasis Depression Acquired hypothyroidism Hiatal hernia Chronic restrictive lung disease Pulmonary nodule Right lumbar radiculopathy Hernia, diaphragmatic Obesity (BMI 30-39.9) Relapsing polychondritis Vitamin D deficiency Osteopenia Elevated LFTs GERD without esophagitis Thoracic scoliosis Lumbar degenerative disc disease Vitamin B12 deficiency Rheumatoid arthritis Impaired fasting glucose Primary osteoarthritis of right knee Neuropathy of left peroneal nerve Hypothyroidism Exertional dyspnea Pure hypercholesterolemia Benign essential hypertension Bochdalek hernia Surgical History History of laparoscopic cholecystectomy (07/10/22) History of cataract surgery History of colonoscopy History of surgery on right wrist (~05/2004) History of appendectomy (~1963) History of surgery on right wrist (~02/2020) History of carpal tunnel surgery (~03/2016) History of right knee joint replacement (~08/2016) Family History Father CVD (cardiovascular disease) Mother Ovarian cancer Maternal Aunt Breast cancer Brother Colon cancer Family/Other Breast cancer Family/Other Breast cancer Family/Other Breast cancer Social History Household Members: Family Household Members Other:: 4 Housing: House Are you a primary administrator health care facility to a significant other at home: No Do you presently have visiting nurse or other home services: No Alcohol intake: current Alcohol intake frequency: holidays/special occasions only Alcohol type: wine Patient Tobacco Use Status: Former Tobacco user Quit Date: 2015 Tobacco use type: Cigarette Years Smoked: 50 e-Cigarette/Vaping Use: Never Used Second Hand Smoke Exposure: No Advance Directives Date on File: 07/09/22 service: No Current occupational status: retired Cognitive needs: No Hearing needs: No Vision needs: Yes (reading glasses) Physical Exam Vital Signs: Last Vital Signs Temp 96.3 F L 11/19/23 08:57 Pulse 70 11/19/23 08:57 BP 174/70 H 11/19/23 08:57 Pulse Ox 97 11/19/23 08:57 Oxygen Delivery Method Room Air 11/19/23 08:57 BMI result Body Mass Index 38.8 Const General: healthy appearing and no acute distress Resp Effort & Inspection: normal respiratory effort Auscultation: clear to auscultation bilaterally Cardio Rate: regular rate Rhythm: regular rhythm GI Auscultation: normal bowel sounds Extrem General: Yes normal to inspection Assessment & Plan Assessment & Plan (1) Obesity (BMI 30-39.9): Code(s): E66.9 - Obesity, unspecified Plan: We will change meal plan: Pure protein bar Equate shake, half scoop in 8 oz of water or unsweetened almond milk Italian yogurt Meal with 8 forks of protein and 8 forks of vegetables Increase water to 48 oz to 64 oz daily Encouraged to use stationary bike at home or resume Griselda Joseph videos or sit and be fit videos. Return to clinic 4-6 weeks Coding Level of Care Code Est Pt Level 3 (94871) Diagnoses Obesity (BMI 30-39.9) E66.9
[2023-11-19 08:57] VITALS: BP 174/70; PULSE 70; TEMP 35.7; O2SAT 97; BMI 38.8
== END 2023-11-19 09:52 | disposition home or self-care (01) ==
PROVIDERS: PCP Internal Medicine; Visit Provider Physician Assistant Surgical
DX: E66.9 Obesity, unspecified (principal); Z68.38 Body mass index [BMI] 38.0-38.9, adult
CPT/HCPCS: 99213

== ENCOUNTER → 2023-11-19 08:52 | Outpatient (BNVA) | payer MEDICARE, SELFPAY ==
[2023-08-25 11:07] VITALS: BMI 39.0
== END ==
PROVIDERS: PCP Internal Medicine; Visit Provider Physician Assistant Surgical
DX: E66.9 Obesity, unspecified (principal); Z68.38 Body mass index [BMI] 38.0-38.9, adult
CPT/HCPCS: 99212

== ENCOUNTER 2023-11-22 10:44 | Outpatient (AMB) | payer MEDICARE, SELFPAY ==
[2023-08-25 11:07] VITALS: BMI 39.0
--- NOTE | 2023-11-22 10:48 | A.OFFPC_ITS ---
Vital Signs 11/22/23 10:50 11/22/23 11:27 Height 5 ft 2 in Weight 213 lb BMI 39.0 BP 120/70 170/100 H Blood Pressure Location Lt brachial Lt brachial Position Sitting Sitting Pulse 60 Pulse Source Pulse Oximeter Pulse Oximetry (%) 100 Oxygen Delivery Method Room Air Intake Visit Reasons: 4 month f/u Intake Note: Patient is here to follow up on HTN,, Sacrolilitis, Chronic pain syndrome. . Vibratory Pile Driver Required: No Inspectors And Regulatory Officers: Not Required per policy Accompanied by: Self / Same As Patient Allergies No Known Allergies [No Known Allergies*] Allergy (Verified 11/22/23 11:11) Medication List - Last Reconciled 11/22/23 by Bolivar Ventura MD albuterol sulfate 90 mcg/actuation 2 inhalations inhalation Q6H PRN 30 days amlodipine 2.5 mg PO DAILY cholecalciferol (vitamin D3) (Vitamin D3) 1,000 units PO DAILY cyanocobalamin (vitamin B-12) (Vitamin B-12) 1,000 mcg PO DAILY fluticasone propion-salmeterol 250-50 mcg/dose (Wixela Inhub) 1 inh inhalation Q12H 30 days gabapentin 300 mg PO TID ibuprofen 800 mg PO TID PRN levothyroxine 88 mcg PO QAM 90 days lisinopril 40 mg PO DAILY omeprazole 20 mg PO DAILY pyridoxine (vitamin B6) 25 mg PO DAILY rosuvastatin 20 mg PO DAILY 90 days thiamine HCl (vitamin B1) (Vitamin B-1) 300 mg PO DAILY Tobacco use date assessed: 11/22/23 Fall risk assessment: No Falls in past year Last assessed Fall Risk: 11/22/23 Dental Screening Dental Screen Date: 11/22/23 Did you have a dental visit in the last 12 months?: Yes Did you have a dental problem in the last 6 months where you did not have access to dental care?: No Was dental information given to patient?: Patient has dentist HPI 4 month f/u HPI Details Patient comes in today for her follow up visit States that she feels okay She denies any headaches or dizziness Denies any chest pains; she continues to experience some ESTRELLA but states that is mostly mild and have not gotten any worse lately No nausea/vomiting, no abdominal pain No change in bowel habits noted She still has recurrent low back pain and joints (knees) pain but states that these have been manageable Needs a few of her Rx refilled Had her follow up labs done last week - to discuss her results [facility] Medical History Cardiac hypertrophy Choledocholithiasis Depression Acquired hypothyroidism Hiatal hernia Chronic restrictive lung disease Pulmonary nodule Right lumbar radiculopathy Hernia, diaphragmatic Obesity (BMI 30-39.9) Relapsing polychondritis Vitamin D deficiency Osteopenia Elevated LFTs GERD without esophagitis Thoracic scoliosis Lumbar degenerative disc disease Vitamin B12 deficiency Rheumatoid arthritis Impaired fasting glucose Primary osteoarthritis of right knee Neuropathy of left peroneal nerve Hypothyroidism Exertional dyspnea Pure hypercholesterolemia Benign essential hypertension Bochdalek hernia Surgical History History of laparoscopic cholecystectomy (07/10/22) History of cataract surgery History of colonoscopy History of surgery on right wrist (~05/2004) History of appendectomy (~1963) History of surgery on right wrist (~02/2020) History of carpal tunnel surgery (~03/2016) History of right knee joint replacement (~08/2016) Family History Father CVD (cardiovascular disease) Mother Ovarian cancer Maternal Aunt Breast cancer Brother Colon cancer Family/Other Breast cancer Family/Other Breast cancer Family/Other Breast cancer Social History Household Members: Family Household Members Other:: 4 Housing: House Are you a primary respiratory care assistant to a significant other at home: No Do you presently have visiting nurse or other home services: No Alcohol intake: current Alcohol intake frequency: holidays/special occasions only Alcohol type: wine Patient Tobacco Use Status: Former Tobacco user Quit Date: 2015 Tobacco use type: Cigarette Years Smoked: 50 e-Cigarette/Vaping Use: Never Used Second Hand Smoke Exposure: No Advance Directives Date on File: 07/09/22 service: No Current occupational status: retired Cognitive needs: No Hearing needs: No Vision needs: Yes (reading glasses) Questionnaire PHQ-9 Over the last 2 weeks, how often have you been bothered by any of the following problems? 1. Little interest or pleasure in doing things: not at all 2. Feeling down, depressed, or hopeless: not at all 3. Trouble falling or staying asleep, or sleeping too much: not at all 4. Feeling tired or having little energy: not at all 5. Poor appetite or overeating: not at all 6. Feeling bad about yourself - or that you are a failure or have let yourself or your family down: not at all 7. Trouble concentrating on things, such as reading the newspaper or watching television: not at all 8. Moving or speaking so slowly that other people could have noticed. Or the opposite - being so fidgety or restless that you have been moving around a lot more than usual: not at all 9. Thoughts that you would be better off or of hurting yourself in some way: not at all Total score: 0 Depression Screening Interpretation: Negative Depression Screening Done: Yes 56952 - PHQ-9 Billing: Yes Source: Developed by Drs. Jeremy Ramesh, Lesly Dias, Dayne Samano and colleagues, with an educational kashmir from [employer]. Thrive Questionnaire Date Thrive assessed: 11/22/23 I am a: Patient What is your living situation today?: I have a steady place to live Within the past 12 months, did the food you bought not last and you didn't have the money to get more?: Never true Within the past 12 months, did you worry whether your food would run out before you got money to buy more?: Never true Do you have trouble paying for medicines?: No Do you have trouble getting transportation to medical appointments?: No Do you have trouble paying your heating and electricity bill?: No Do you have trouble taking care of your child, family member or friend?: No Do you have trouble with day-to-day activities such as bathing, preparing meals, shopping, managing finances, etc.?: No Are you currently unemployed and looking for a job?: No Are you interested in more education?: No Currently or been in a relationship where the following occur: no concerns reported THRIVE Score: 0 AUDIT C Alcohol Use Questionnaire (AUDIT-C) 1. How often do you have a drink containing alcohol?: Never 2. How many drinks containing alcohol do you have on a typical day when you are drinking?: 1 or 2 3. How often do you have six or more drinks on one occasion?: Never Total Score: 0 Score Reviewed/Action Taken: Yes KAVITHA-7 AMB Questionnaire KAVITHA-7 Date KAVITHA - 7 assessed: 11/22/23 Feeling nervous, anxious, or on edge: 1 = Several days Not being able to stop or control worryin = Not at all Worrying too much about different things: 0 = Not at all Trouble relaxin = Not at all Being so restless that it is hard to sit still: 0 = Not at all Becoming easily annoyed or irritable: 1 = Several days Feeling afraid as if something awful might happen: 1 = Several days Total KAVITHA-7 score (0-4 normal; 5-9 mild; 10-14 moderate; 15-21 severe): 3 Source: Developed by Drs. Jeremy Ramesh, Lesly Dias, Dayne Samano and colleagues, with an educational kashmir from [employer]. Review of Systems Const Denies chills, Reports fatigue, Denies fever(s) and Denies headache(s) ENT Denies dysphagia, Denies dizziness, Denies otalgia, Denies headache(s), Denies nasal congestion, Reports neck pain, Denies odynophagia and Denies sore throat Card Denies chest pain, Denies palpitations and Reports dyspnea on exertion (mild) Resp Denies chest congestion, Denies cough, Denies hemoptysis, Reports dyspnea on exertion (mild) and Denies wheezing GI Denies abdominal pain, Denies constipation, Denies dysphagia, Denies heartburn, Denies diarrhea, Denies nausea, Denies odynophagia and Denies vomiting Denies difficulty voiding, Denies nocturia and Denies dysuria Musc Reports back pain (with radiation of pain down her legs at times - chronic), Reports arthralgias (right knee) and Reports neck pain Skin/Breast Denies rash Neuro Denies dizziness and Denies headache(s) Endo Reports fatigue and Denies palpitations Isidoro/Lymph Denies easy bruising Aller/Immun Denies wheezing Physical exam (Primary Care) Vital Signs: Last Vital Signs Pulse 60 11/22/23 10:50 BP 170/100 H 11/22/23 11:27 Pulse Ox 100 11/22/23 10:50 Oxygen Delivery Method Room Air 11/22/23 10:50 BMI result Body Mass Index 39.0 Tobacco/Smoking Status: Tobacco use Status Tobacco use date assessed 11/22/23 11/22/23 10:57 Patient Tobacco Use Status Former Tobacco user 11/22/23 10:57 Tobacco use type Cigarette 11/22/23 10:57 e-Cigarette/Vaping Use Never Used 11/22/23 10:57 PHQ-9: PHQ-9 Score PHQ-9: Total score 0 11/22/23 11:13 Depression Screening Interpretation: Negative Thrive Assessment: Date of Thrive Assessment Date Thrive assessed 11/22/23 11/22/23 10:57 Currently or been in a relationship where the following occur: no concerns reported Const General: no acute distress and alert HENMT Ears: TM's normal bilaterally and EAC's normal Throat: Yes posterior oropharynx normal and Yes tonsils normal (no TP congestion noted) Neck Neck: Yes no lymphadenopathy and Yes supple Resp Auscultation: no rales, no rhonchi, no wheezes and diminished lung sounds (slightly) bilateral Cardio Rate: regular rate Rhythm: regular rhythm Heart sounds: no murmurs GI Palpation (GI): Soft to palpation and nontender Auscultation: normal bowel sounds General: Yes no CVA tenderness Back/Spine/Pelvis Back: no CVA tenderness Cervical Spine: Cervical spine tenderness Thoracic/Lumbar Spine: lumbar spinal tenderness Sacroiliac joints: on the right tender to palpation Skin Rashes: no rashes Extrem General: Yes no clubbing, cyanosis or edema Right lower extremity: knee Details: tenderness; no swelling Results Reviewed Results Reviewed: Laboratory Tests 11/16/23 11/16/23 09:20 09:30 WBC 6.3 Hgb 13.2 Hct 40.4 Plt Count 207 Sodium 140 Potassium 4.1 Creatinine 0.72 Estimated GFR > 60 Fasting Glucose 85 Hemoglobin A1c % 5.3 Calcium 9.7 AST 17 ALT 10 Triglycerides 66 Cholesterol 194 LDL Cholesterol, Calc 134 H HDL Cholesterol 47 25-OH Vitamin D Total 43.8 TSH 3.58 Free T4 1.14 Ur Specific [place] 1.020 Urine Protein Negative Urine Glucose (UA) Negative Urine Blood Negative Urine Nitrite Negative Ur Leukocyte Esterase Negative Assessment and Plan Assessment & Plan (1) Benign essential hypertension: Code(s): I10 - Essential (primary) hypertension Plan: Reinforced low-sodium diet -?goal is systolic BP of at least 130 to 140 mm or less Continue Lisinopril 40 mg QD and Amlodipine 2.5 mg QD She is reminded to continue monitoring her blood pressure regularly and if her systolic BP remains elevated and does not get under 140 mm at all, then she should consider going up on her Amlodipine 2.5 mg to 5 mg QD or 2.5 mg BID as recommended by cardiology recently (2) Pure hypercholesterolemia: Code(s): E78.00 - Pure hypercholesterolemia, unspecified Plan: Results of her labs done last week reviewed and discussed with patient Reinforced low cholesterol diet Continue Rosuvastatin 20 mg QD Will recheck her labs and fasting lipids in 4 months for follow up (3) Exertional dyspnea: Code(s): R06.00 - Dyspnea, unspecified Plan: Most likely multifactorial, including due to her weight Echocardiogram done in 06/2020 came out normal, with normal left ventricular chamber size, mild concentric left ventricular hypertrophy, basal septal hypertrophy of 1.8 cm, with normal regional wall motion and left ventricular ejection fraction is between 60-65%.? There are no hemodynamically significant valve disease and right-sided structures were not well seen on this study Repeat echocardiogram done in July 2023 this time showed normal left ventricular systolic function, with the calculated ejection fraction at 69% (by biplane method) BUT there is severe septal asymmetric hypertrophy and moderately increased left ventricular wall thickness. No obvious valvular pathology seen on this study PFT done back in 2013 was normal; repeat PFTs done in 12/2020 also came back mostly normal, with no obstructive component and only mild restrictive ventilatory defect Per pulmonary last year, no additional interventions recommended at the time She was sent for stress testing and repeat PFTs last year - Lexiscan stress testing came out unrevealing; nuclear imaging studies done subsequently came out normal She is scheduled for a PYP scan to assess for ATTR amyloid next month for further evaluation and to assess for amyloidosis although per cardiology, this is unlikely (4) Acquired hypothyroidism: Code(s): E03.9 - Hypothyroidism, unspecified Plan: Her TFTs are normal on her recent labs Continue Levothyroxine 88 mcg QD Will recheck her TFTs in 4 months for follow up (5) Impaired fasting glucose: Code(s): R73.01 - Impaired fasting glucose Plan: FBS was at 101 mg/dl on her recent labs; HgbA1c was normal at 5.3% on her recent labs (was at 5.4% when checked a few months ago) - will continue to monitor these regularly Reinforced low calorie diet / exercise as tolerated (6) Bochdalek hernia: Code(s): Q79.0 - Congenital diaphragmatic hernia Plan: Chest CT done in 2020 revealed the presence of a fat-containing Bochdalek hernia of the left hemidiaphragm with a small sliding-type hiatal hernia of the stomach - this is mostly unchanged compared to her scan on 03/04/2019 Was seen for this by thoracic surgery last year and recommended observation only Repeat chest CT done in May 2022 revealed stable 2 mm subpleural nodules, right upper lobe, with no new nodules seen; (+) small left diaphragm Bochdalek hernia containing fat that is stable; also visualized is focal eventration of left posterior diaphragm (7) Neuropathy of left peroneal nerve: Code(s): G57.32 - Lesion of lateral popliteal nerve, left lower limb Plan: Continue Gabapentin 300 mg 3 times a day (8) Primary osteoarthritis of right knee: Comment: S/P total right knee arthroplasty with Dr. Miramontes on 08/31/2016 without any significant improvement of her knee pain following surgery Has been seen for a follow-up by Dr. Jacobson, who recommended a revision of ri ght knee prosthesis Patient reportedly went to see Dr. Edwards at [facility] for a 2nd opinion and was advised against revision surgery Subsequently went to see a Dr. Eriberto Kirk in [place] in 2019 but her insurance is declining to cover any appointments with him and all of her appointments are now on hold due to the COVID-19 pandemic Code(s): M17.11 - Unilateral primary osteoarthritis, right knee Plan: Follow up with orthopedics as scheduled (9) Rheumatoid arthritis: Code(s): M06.9 - Rheumatoid arthritis, unspecified Qualifiers: Rheumatoid arthritis location: unspecified site Rheumatoid factor presence: unspecified presence Qualified Code(s): M06.9 - Rheumatoid arthritis, unspecified Plan: Follow up with rheumatology (Dr. Walsh) as scheduld (10) Vitamin B12 deficiency: Code(s): E53.8 - Deficiency of other specified B group vitamins Plan: Corrected - continue OTC Vitamin B12 1000 mcg QD (11) GERD without esophagitis: Code(s): K21.9 - Gastro-esophageal reflux disease without esophagitis Plan: Dietary restrictions reinforced Continue Omeprazole 20 mg once a day and Famotidine 20 mg twice a day as needed (12) Lumbar degenerative disc disease: Code(s): M51.36 - Other intervertebral disc degeneration, lumbar region Plan: Reinforced activity and weight lifting restrictions MRI done in 2016 showed (+) changes of mild lumbar spondylosis Follow up with pain management as scheduled (13) Thoracic scoliosis: Code(s): M41.9 - Scoliosis, unspecified Qualifiers: Scoliosis type: unspecified scoliosis Qualified Code(s): M41.9 - Scoliosis, unspecified Plan: Recent back x-rays showed the presence of some kyphoscoliosis and thoracic scoliosis, which are probably contributing to patient's frequent back pain (14) Osteopenia: Comment: (Bone Dexa T-score -2.1 - 09/24/2017) Code(s): M85.80 - Other specified disorders of bone density and structure, unspecified site Qualifiers: Osteopenia location: unspecified Qualified Code(s): M85.80 - Other specified disorders of bone density and structure, unspecified site Plan: Repeat BMD done on 07/31/2021 showed (+) osteopenia with no significant change from her previous BMD except for a slight decrease in BMD in her AP spine Will continue to monitor BMD regularly (every 2 to 3 years) (15) Vitamin D deficiency: Code(s): E55.9 - Vitamin D deficiency, unspecified Plan: Continue Vitamin D3 1000 units QD (16) Relapsing polychondritis: Code(s): M94.1 - Relapsing polychondritis Plan: Follow up with rheumatology as scheduled (17) MGUS (monoclonal gammopathy of unknown significance): Code(s): D47.2 - Monoclonal gammopathy Plan: Follow up with hematology/oncology as scheduled for continuing surveillance and monitoring (18) Depression: Code(s): F32.A - Depression, unspecified Qualifiers: Depression Type: unspecified Qualified Code(s): F32.A - Depression, unspecified Plan: Follow up with psychiatry as scheduled (19) Obesity (BMI 30-39.9): Code(s): E66.9 - Obesity, unspecified Plan: Reinforced diet/exercise as tolerated/lose weight Plan Follow up in 4 months Orders: Orders Complete Blood Count Auto Diff 4 Months D64.9 - Anemia, unspecified Thyroid Stimulating Hormone 4 Months E03.9 - Hypothyroidism, unspecified Free T4 (Free Thyroxine) 4 Months E03.9 - Hypothyroidism, unspecified Vitamin B12 and Folate 4 Months E53.8 - Deficiency of other specified B group vitamins Vitamin D 25-OH Total 4 Months E55.9 - Vitamin D deficiency, unspecified Comprehensive Almond. Panel Fast 4 Months E78.00 - Pure hypercholesterolemia, unspecified Lipid Panel 4 Months E78.00 - Pure hypercholesterolemia, unspecified UA CC w/rflx Micro + Cult 4 Months R30.0 - Dysuria Medications: Refilled omeprazole 20 mg PO DAILY 90 caps 3RF gabapentin 300 mg PO TID 270 caps 1RF levothyroxine 88 mcg PO QAM 90 days 90 tabs 3RF E03.9 - Hypothyroidism, unspecified rosuvastatin 20 mg PO DAILY 90 days 90 tabs 3RF Coding Level of Care Code Est Pt Level 4 (28723) Diagnoses Benign essential hypertension I10 Pure hypercholesterolemia E78.00 Exertional dyspnea R06.00 Acquired hypothyroidism E03.9 Impaired fasting glucose R73.01 Bochdalek hernia Q79.0 Neuropathy of left peroneal nerve G57.32 Primary osteoarthritis of right knee M17.11 Rheumatoid arthritis, involving unspecified site, unspecified whether rheumatoid factor present M06.9 Rheumatoid arthritis location: unspecified site Rheumatoid factor presence: unspecified presence Vitamin B12 deficiency E53.8 GERD without esophagitis K21.9 Lumbar degenerative disc disease M51.36 Scoliosis of thoracic spine, unspecified scoliosis type M41.9 Scoliosis type: unspecified scoliosis Osteopenia, unspecified location M85.80 Osteopenia location: unspecified Vitamin D deficiency E55.9 Relapsing polychondritis M94.1 MGUS (monoclonal gammopathy of unknown significance) D47.2 Depression, unspecified depression type F32.A Depression Type: unspecified Obesity (BMI 30-39.9) E66.9
[2023-11-22 10:50] VITALS: BP 120/70; PULSE 60; O2SAT 100; BMI 39.0
[2023-11-22 11:27] VITALS: BP 170/100
== END 2023-11-22 11:44 | disposition home or self-care (01) ==
PROVIDERS: PCP Internal Medicine; Visit Provider Internal Medicine
DX: I10 Essential (primary) hypertension (principal); E78.00 Pure hypercholesterolemia, unspecified; R06.00 Dyspnea, unspecified; M06.9 Rheumatoid arthritis, unspecified; E03.9 Hypothyroidism, unspecified; R73.01 Impaired fasting glucose; Q79.0 Congenital diaphragmatic hernia; G57.32 Lesion of lateral popliteal nerve, left lower limb; M17.11 Unilateral primary osteoarthritis, right knee; E53.8 Deficiency of other specified B group vitamins; K21.9 Gastro-esophageal reflux disease without esophagitis; M51.36 Other intervertebral disc degeneration, lumbar region
CPT/HCPCS: 99214

== ENCOUNTER → 2024-01-05 10:01 | Outpatient (REF) | payer MEDICARE, SELFPAY ==
[2023-08-25 11:07] VITALS: BMI 39.0
--- NOTE | ~2024-01-05 | NM_ITS ---
EXAMINATION: TC-PYP CARDIAC STUDY CLINICAL INFORMATION: Evaluation for cardiac amyloidosis. 73 years old Female with increased left ventricle wall thickness and shortness of breath COMPARISON None available TECHNIQUE: 25 mCi of Tc-99m pyrophosphate was injected intravenously. Planar images of the chest were obtained in the anterior and left lateral views at 3 [address] SPECT-CT images of the chest were also obtained. FINDINGS: 1. Image Quality: Adequate 2. Semi-quantitative visual scoring of the cardiac uptake is performed as follows: 0 = absent cardiac uptake and intense bone uptake 3. H-CL Ratio if Applicable: <1 4. Ancillary Finds: Mild calcific changes noted in the arch as well as the descending thoracic aorta NM/NM TC PYP cardiac amyloidosis IMPRESSION: 1. No evidence of all myocardial uptake during of presence of ATTR type of amyloidosis 2. Please note that the Tc-99m PYP is more sensitive in detecting transthyretin-related cardiac amyloidosis than that of light-chain cardiac amyloidosis.
== END ==
LOC: HO.NUCMED 10:01
PROVIDERS: PCP Internal Medicine; Visit Provider Internal Medicine
DX: E85.3 Secondary systemic amyloidosis (principal); I43 Cardiomyopathy in diseases classified elsewhere
CPT/HCPCS: 78803; A9538

== ENCOUNTER → 2024-01-05 10:05 | Outpatient (BNV) | payer MEDICARE, SELFPAY ==
[2023-08-25 11:07] VITALS: BMI 39.0
== END ==
PROVIDERS: PCP Internal Medicine; Visit Provider Internal Medicine Cardiovascular Disease
DX: I42.2 Other hypertrophic cardiomyopathy (principal); R06.02 Shortness of breath
CPT/HCPCS: 78830

== ENCOUNTER 2024-01-07 10:56 | Outpatient (AMB) | payer MEDICARE, SELFPAY ==
[2023-08-25 11:07] VITALS: BMI 39.0
--- NOTE | 2024-01-07 10:58 | A.OFFVIS_ITS ---
VS Expanded 01/07/24 11:06 BP 142/67 H Blood Pressure Location Rt brachial Blood Pressure Position Sitting Pulse 65 Pulse Source Pulse Oximeter Temp 97.0 F Temperature Source Temporal Artery Scan Pulse Oximetry 98 Oxygen Delivery Method Room Air Height 5 ft 2 in Weight 207 lb 3.2 oz BMI 37.9 Body Fat % 44.1 Body Fat Mass 91.2 Fat Free Mass 115.8 Visceral Fat Rating 15.0 Body Water % 39.4 Body Water Mass 81.6 Muscle Mass/Score 109.8 Basal Metabolic Rate/Score 1,601 Intake Visit Reasons: (OV) F/U MWL Allergies No Known Allergies [No Known Allergies*] Allergy (Verified 01/07/24 11:02) HPI Comments Details: Patient is a pleasant 73-year-old female returns to the office today in follow- up for the medical weight loss program. She was seen in the office for the 1st time on 09/15/2023 with a weight of 220.6 and a BMI of 40.7. Today's weight is 207.2 lb with a BMI of 37.9. She has lost 13.4 lb or 6% total body weight loss. She states she is doing well overall but wishes she had lost more weight. SHe did not follow the meal plan while on vacation. She did try a home videos, Griselda Ruiz, x1 although did not continue. She fell to her knee when she was on vacation in [place] on her R TKR knee. She has not been seen by Ortho since the injury 01/02/24. Pure protein bar Equate shake, half scoop in 8 oz of water or unsweetened almond milk Georgian yogurt Meal with 8 forks of protein and 8 forks of vegetables Drinking 48 oz to 64 oz daily Exercise: prior to vacation stattionary bike 10 minutes2 x per day 4-5 x per week. [facility] Medical History Cardiac hypertrophy Choledocholithiasis Depression Acquired hypothyroidism Hiatal hernia Chronic restrictive lung disease Pulmonary nodule Right lumbar radiculopathy Hernia, diaphragmatic Obesity (BMI 30-39.9) Relapsing polychondritis Vitamin D deficiency Osteopenia Elevated LFTs GERD without esophagitis Thoracic scoliosis Lumbar degenerative disc disease Vitamin B12 deficiency Rheumatoid arthritis Impaired fasting glucose Primary osteoarthritis of right knee Neuropathy of left peroneal nerve Hypothyroidism Exertional dyspnea Pure hypercholesterolemia Benign essential hypertension Bochdalek hernia Surgical History History of laparoscopic cholecystectomy (07/10/22) History of cataract surgery History of colonoscopy History of surgery on right wrist (~05/2004) History of appendectomy (~1963) History of surgery on right wrist (~02/2020) History of carpal tunnel surgery (~03/2016) History of right knee joint replacement (~08/2016) Family History Father CVD (cardiovascular disease) Mother Ovarian cancer Maternal Aunt Breast cancer Brother Colon cancer Family/Other Breast cancer Family/Other Breast cancer Family/Other Breast cancer Social History Household Members: Family Household Members Other:: 4 Housing: House Are you a primary wild animal caretaker to a significant other at home: No Do you presently have visiting nurse or other home services: No Alcohol intake: current Alcohol intake frequency: holidays/special occasions only Alcohol type: wine Patient Tobacco Use Status: Former Tobacco user Tobacco use type: Cigarette Years Smoked: 50 e-Cigarette/Vaping Use: Never Used Second Hand Smoke Exposure: No Advance Directives Date on File: 07/09/22 service: No Current occupational status: retired Cognitive needs: No Hearing needs: No Vision needs: Yes (reading glasses) Physical Exam Const General: healthy appearing and no acute distress Resp Effort & Inspection: normal respiratory effort Auscultation: clear to auscultation bilaterally Cardio Rate: regular rate Rhythm: regular rhythm GI Auscultation: normal bowel sounds Extrem General: Yes normal to inspection Assessment & Plan Assessment & Plan (1) Obesity (BMI 30-39.9): Code(s): E66.9 - Obesity, unspecified Category: Medical Plan: She will continue to follow the meal plan. We discussed walking in the pool as an exercise. She will contact Orthopedics regarding her significant right knee pain after a fall approximately 5 days ago. She may follow-up in our clinic as needed. She has lost 13.4 lb, 6% total body weight loss in the 3 months that she has been in the program. Her mobility has been identified as a barrier to her success, additionally she did change the meal plan on her own previously although this was corrected at her last visit.
[2024-01-07 11:06] VITALS: BP 142/67; PULSE 65; TEMP 36.1; O2SAT 98; BMI 37.9
== END 2024-01-07 11:40 | disposition home or self-care (01) ==
PROVIDERS: PCP Internal Medicine; Visit Provider Physician Assistant Surgical
DX: E66.9 Obesity, unspecified (principal); Z68.37 Body mass index [BMI] 37.0-37.9, adult
CPT/HCPCS: 99213

== ENCOUNTER → 2024-01-07 10:56 | Outpatient (BNVA) | payer MEDICARE, SELFPAY ==
[2023-08-25 11:07] VITALS: BMI 39.0
== END ==
PROVIDERS: PCP Internal Medicine; Visit Provider Physician Assistant Surgical
DX: E66.9 Obesity, unspecified (principal); Z68.37 Body mass index [BMI] 37.0-37.9, adult
CPT/HCPCS: 99212

== ENCOUNTER 2024-01-24 10:41 | Outpatient (AMB) | payer MEDICARE, SELFPAY ==
[2023-08-25 11:07] VITALS: BMI 39.0
[2024-01-24 10:43] VITALS: BP 138/60; PULSE 74; BMI 19.6
--- NOTE | 2024-01-24 10:43 | MHC.OFFVIS ---
Vital Signs 01/24/24 10:43 Height 5 ft 2 in Weight 107 lb BMI 19.6 BP 138/60 Blood Pressure Location Lt brachial Position Sitting Pulse 74 Pulse Source Pulse Oximeter Intake Visit Reasons: fu nuclear stress Allergies No Known Allergies [No Known Allergies*] Allergy (Verified 01/07/24 11:02) Medication List - Last Reconciled 01/24/24 by Manjit Varghese MD albuterol sulfate 90 mcg/actuation 2 inhalations inhalation Q6H PRN 30 days amlodipine 5 mg PO DAILY cholecalciferol (vitamin D3) (Vitamin D3) 1,000 units PO DAILY cyanocobalamin (vitamin B-12) (Vitamin B-12) 1,000 mcg PO DAILY fluticasone propion-salmeterol 250-50 mcg/dose (Wixela Inhub) 1 inh inhalation Q12H 30 days gabapentin 300 mg PO TID ibuprofen 800 mg PO TID PRN levothyroxine 88 mcg PO QAM 90 days lisinopril 40 mg PO DAILY omeprazole 20 mg PO DAILY pyridoxine (vitamin B6) 25 mg PO DAILY rosuvastatin 20 mg PO DAILY 90 days thiamine HCl (vitamin B1) (Vitamin B-1) 300 mg PO DAILY HPI Comments Details: Angela returns for follow-up. In the past, she was referred for evaluation of left ventricle hypertrophy findings on the echocardiogram. Patient herself does not have any known cardiac issues. No history of any coronary disease, myocardial infarction or cardiomyopathy. Her main complaint is that whenever she is walking she gets short of breath. This has been somewhat of a long-term issue but more so recently. It seems that she does have poorly controlled hypertension. Meds have been adjusted for blood pressure. Otherwise, she feels okay. No new complaints. [facility], [facility] Medical History Cardiac hypertrophy Choledocholithiasis Depression Acquired hypothyroidism Hiatal hernia Chronic restrictive lung disease Pulmonary nodule Right lumbar radiculopathy Hernia, diaphragmatic Obesity (BMI 30-39.9) Relapsing polychondritis Vitamin D deficiency Osteopenia Elevated LFTs GERD without esophagitis Thoracic scoliosis Lumbar degenerative disc disease Vitamin B12 deficiency Rheumatoid arthritis Impaired fasting glucose Primary osteoarthritis of right knee Neuropathy of left peroneal nerve Hypothyroidism Exertional dyspnea Pure hypercholesterolemia Benign essential hypertension Bochdalek hernia Surgical History History of laparoscopic cholecystectomy (07/10/22) History of cataract surgery History of colonoscopy History of surgery on right wrist (~05/2004) History of appendectomy (~1963) History of surgery on right wrist (~02/2020) History of carpal tunnel surgery (~03/2016) History of right knee joint replacement (~08/2016) Family History Father CVD (cardiovascular disease) Mother Ovarian cancer Maternal Aunt Breast cancer Brother Colon cancer Family/Other Breast cancer Family/Other Breast cancer Family/Other Breast cancer Social History Household Members: Family Household Members Other:: 4 Housing: House Are you a primary childcare center administrator to a significant other at home: No Do you presently have visiting nurse or other home services: No Alcohol intake: current Alcohol intake frequency: holidays/special occasions only Alcohol type: wine Patient Tobacco Use Status: Former Tobacco user Tobacco use type: Cigarette Years Smoked: 50 e-Cigarette/Vaping Use: Never Used Second Hand Smoke Exposure: No Advance Directives Date on File: 07/09/22 service: No Current occupational status: retired Cognitive needs: No Hearing needs: No Vision needs: Yes (reading glasses) Review of Systems Const Denies weakness ENT Denies dizziness Card Denies chest pain, Denies chest pain with activity, Denies syncope, Denies rapid heart rate, Denies pedal edema, Denies edema, Denies leg edema, Denies lightheadedness, Denies palpitations, Denies dyspnea, Denies dyspnea on exertion and Denies orthopnea Resp Denies cough, Denies dyspnea and Denies dyspnea on exertion GI Denies hematochezia and Denies change in stool character Musc Denies abnormal gait, Denies muscle cramps, Denies muscle weakness, Denies numbness, Denies radiating pain into limb and Denies tingling Neuro Denies abnormal gait, Denies dizziness, Denies syncope, Denies numbness, Denies tingling and Denies weakness Endo Denies palpitations Physical Exam Vital Signs: Last Vital Signs Pulse 74 01/24/24 10:43 BP 138/60 01/24/24 10:43 BMI result Body Mass Index 19.6 Const General: comfortable and no acute distress Orientation/consciousness: patient oriented x3 HEENT Other: Unremarkable Head: Yes normal to inspection Neck Neck: Yes normal visual inspection Chest Chest palpation & inspection: normal inspection of the chest Resp Auscultation: clear to auscultation bilaterally Cardio Palpation: normal PMI Heart sounds: S1 normal heart sound present, S2 normal heart sound present, no gallops, no murmurs and no rubs GI Palpation (GI): Soft to palpation Back/Spine/Pelvis Other: unremarkable Skin General skin exam: no rashes or lesions noted Neuro General: patient oriented x3 Extrem General: Yes normal to inspection Psych Mental Status: mental status grossly normal Assessment & Plan Assessment & Plan (1) Cardiac hypertrophy: Code(s): I51.7 - Cardiomegaly Category: Medical (2) Abnormal finding on EKG: Code(s): R94.31 - Abnormal electrocardiogram [ECG] [EKG] Category: Medical (3) Essential hypertension: Code(s): I10 - Essential (primary) hypertension Category: Medical Plan Baseline EKG shows nonspecific ST-T changes. In the echocardiogram, LVEF 69%. Moderate concentric left ventricular hypertrophy with severe septal hypertrophy. Otherwise unremarkable. In the exercise stress echocardiogram, she was able to exercise only for 3 minutes and reached 4.1 Mets. Poor exercise tolerance. The echocardiographic component was nondiagnostic. Then pharmacological stress perfusion imaging study showed normal perfusion and normal gated LVEF. PYP scan shows no evidence of amyloid. Overall, suspect poorly controlled hypertension, secondary left ventricular hypertrophy and shortness of breath secondary to that with additional components of deconditioning/pulmonary etiology. Blood pressure seems to be better on a combination of lisinopril and amlodipine. No further changes made today. She can monitor her own blood pressure at home and maintain a diary and contact us as necessary. We discussed about it today. Medications: Changed From amlodipine 2.5 mg PO DAILY 90 tabs 3RF To amlodipine 5 mg PO DAILY Coding Level of Care Code Est Pt Level 4 (24059) Diagnoses Cardiac hypertrophy I51.7 Abnormal finding on EKG R94.31 Essential hypertension I10
== END 2024-01-24 11:02 | disposition home or self-care (01) ==
PROVIDERS: PCP Internal Medicine; Visit Provider Internal Medicine
DX: I51.7 Cardiomegaly (principal); R94.31 Abnormal electrocardiogram [ECG] [EKG]; I10 Essential (primary) hypertension
CPT/HCPCS: 99214

== ENCOUNTER → 2024-01-24 10:41 | Outpatient (BNVA) | payer MEDICARE, SELFPAY ==
[2023-08-25 11:07] VITALS: BMI 39.0
== END ==
PROVIDERS: PCP Internal Medicine; Visit Provider Internal Medicine
DX: I51.7 Cardiomegaly (principal); I10 Essential (primary) hypertension; R94.31 Abnormal electrocardiogram [ECG] [EKG]
CPT/HCPCS: 99212

== ENCOUNTER 2024-03-09 14:08 | Outpatient (AMB) | payer MEDICARE, SELFPAY ==
[2023-08-25 11:07] VITALS: BMI 39.0
--- NOTE | 2024-03-09 14:16 | AM.OFFWIN_ITS ---
Intake Vital Signs 03/09/24 14:17 Height 5 ft 2 in Weight 206 lb BMI 37.7 BP 116/74 Blood Pressure Location Lt brachial Position Sitting Pulse 74 Pulse Source Pulse Oximeter Temp 98.0 F Temp Source Temporal Artery Scan Pulse Oximetry (%) 97 Oxygen Delivery Method Room Air Intake Visit Reasons: EP cough, cold, respiratory issues 1 week Intake Note: pt c/o cough, cold, respiratory issues x 1 week Patient Tobacco Use Status: Former Tobacco user Allergies No Known Allergies [No Known Allergies*] Allergy (Verified 03/09/24 14:16) Do you need a note to return to daycare/school/sports/work: No HPI HPI Comments History of Present Illness Details 73 y/o female patient who presents to [facility] walk in clinic with c/o URI symptoms. Pt reports cough worse at night. Denies fevers, chills, nausea or vomiting. [facility] Medical History Cardiac hypertrophy Choledocholithiasis Depression Acquired hypothyroidism Hiatal hernia Chronic restrictive lung disease Pulmonary nodule Right lumbar radiculopathy Hernia, diaphragmatic Obesity (BMI 30-39.9) Relapsing polychondritis Vitamin D deficiency Osteopenia Elevated LFTs GERD without esophagitis Thoracic scoliosis Lumbar degenerative disc disease Vitamin B12 deficiency Rheumatoid arthritis Impaired fasting glucose Primary osteoarthritis of right knee Neuropathy of left peroneal nerve Hypothyroidism Exertional dyspnea Pure hypercholesterolemia Benign essential hypertension Bochdalek hernia Surgical History History of laparoscopic cholecystectomy (07/10/22) History of cataract surgery History of colonoscopy History of surgery on right wrist (~05/2004) History of appendectomy (~1963) History of surgery on right wrist (~02/2020) History of carpal tunnel surgery (~03/2016) History of right knee joint replacement (~08/2016) Family History Father CVD (cardiovascular disease) Mother Ovarian cancer Maternal Aunt Breast cancer Brother Colon cancer Family/Other Breast cancer Family/Other Breast cancer Family/Other Breast cancer Social History Household Members: Family Household Members Other:: 4 Housing: House Are you a primary care trainer to a significant other at home: No Do you presently have visiting nurse or other home services: No Alcohol intake: current Alcohol intake frequency: holidays/special occasions only Alcohol type: wine Patient Tobacco Use Status: Former Tobacco user Tobacco use type: Cigarette Years Smoked: 50 e-Cigarette/Vaping Use: Never Used Second Hand Smoke Exposure: No Advance Directives Date on File: 07/09/22 service: No Current occupational status: retired Cognitive needs: No Hearing needs: No Vision needs: Yes (reading glasses) Review of Systems Const All systems reviewed & are unremarkable except as noted in HPI and below Physical Exam Vital Signs: Last Vital Signs Temp 98.0 F 03/09/24 14:17 Pulse 74 03/09/24 14:17 BP 116/74 03/09/24 14:17 Pulse Ox 97 03/09/24 14:17 Oxygen Delivery Method Room Air 03/09/24 14:17 BMI result Body Mass Index 37.7 Const General: comfortable and no acute distress Nutritional Appearance: obese Orientation/consciousness: patient oriented x3 HEENT Head: Yes normocephalic Ears: external ears normal and TM abnormal bulging and with fluid behind the TM; not bullous, not dull, not with effusion, not perforated and not retracted General nose exam: Abnormal mucous membranes and turbinates present pale and Nasal discharge present Face and sinus: Yes sinuses nontender Mouth: moist mucous membranes Throat: Yes posterior oropharynx normal Resp Effort & Inspection: normal respiratory effort and able to speak in complete sentences Auscultation: clear to auscultation bilaterally, no crackles, no rales, no rhonchi and no wheezes Cardio Heart sounds: S1 normal heart sound present and S2 normal heart sound present Neuro General: patient oriented x3, gait normal and moves all extremities Psych Speech and movement: Normal speech and movement present Assessment & Plan Assessment & Plan (1) Acute respiratory disease: Code(s): J06.9 - Acute upper respiratory infection, unspecified Plan: OTC cough remedies Rest and hydrate well with warm fluids and honey SARs ordered Pt asked for Zpack. (2) Cough in adult: Code(s): R05.9 - Cough, unspecified Plan: OTC cough remedies Rest and hydrate well with warm fluids and honey SARs ordered Pt asked for Zpack. Plan OTC cough remedies Rest and hydrate well with warm fluids and honey SARs ordered Pt asked for Zpack. Orders: Orders SARS-CoV2/FLU/RSV Today J06.9 - Acute upper respiratory infection, unspecified Medications: New azithromycin 500 mg PO DAILY 3 tabs 0RF 3 days J06.9 - Acute upper respiratory infection, unspecified benzonatate 100 mg PO TID 60 caps 0RF R05.9 - Cough, unspecified cetirizine (Zyrtec) 10 mg PO DAILY PRN 90 tabs 0RF allergy symptoms J06.9 - Acute upper respiratory infection, unspecified Coding Level of Care Code Est Pt Level 3 (03987) Diagnoses Acute respiratory disease J06.9 Cough in adult R05.9 Time Spent (min) 15
[2024-03-09 14:17] VITALS: BP 116/74; PULSE 74; TEMP 36.7; O2SAT 97; BMI 37.7
== END 2024-03-09 14:36 | disposition home or self-care (01) ==
PROVIDERS: PCP Internal Medicine; Visit Provider Nurse Practitioner Family
DX: J06.9 Acute upper respiratory infection, unspecified (principal); R05.9 Cough, unspecified
CPT/HCPCS: 99213

== ENCOUNTER 2024-03-09 14:38 | Outpatient (REF) | payer MEDICARE, SELFPAY ==
[2023-08-25 11:07] VITALS: BMI 39.0
[2024-03-09 17:03] LABS: Influenza A PCR NEGATIVE (Negative); Influenza B PCR NEGATIVE (Negative); Resp Syncy Virus RNA Qual PCR NEGATIVE (Negative); SARS COV2 PCR INHOUSE NEGATIVE (Negative)
== END 2024-03-09 14:39 | disposition home or self-care (01) ==
LOC: HO.LAB 14:38
PROVIDERS: Visit Provider Nurse Practitioner Family
DX: J06.9 Acute upper respiratory infection, unspecified (principal)
CPT/HCPCS: 0241U

== ENCOUNTER 2024-03-17 16:49 | Outpatient (AMB) | payer MEDICARE, SELFPAY ==
[2023-08-25 11:07] VITALS: BMI 39.0
--- NOTE | 2024-03-17 16:46 | MHC.PC.OV ---
Intake Visit Reasons: Med Follow up-Amlodipine Gyro Compass Tester Required: No Information Interpreted: non-clinical & clinical Senior Javascript Developer: Not Required per policy Accompanied by: Self / Same As Patient Allergies No Known Allergies [No Known Allergies*] Allergy (Verified 03/17/24 17:41) Medication List - Last Reconciled 03/17/24 by Bolivar Ventura MD albuterol sulfate 90 mcg/actuation 2 inhalations inhalation Q6H PRN 30 days amlodipine 5 mg PO DAILY azithromycin 500 mg PO DAILY 3 days benzonatate 100 mg PO TID cetirizine (Zyrtec) 10 mg PO DAILY PRN cholecalciferol (vitamin D3) (Vitamin D3) 1,000 units PO DAILY cyanocobalamin (vitamin B-12) (Vitamin B-12) 1,000 mcg PO DAILY fluticasone propion-salmeterol 250-50 mcg/dose (Wixela Inhub) 1 inh inhalation Q12H 30 days gabapentin 300 mg PO TID ibuprofen 800 mg PO TID PRN levothyroxine 88 mcg PO QAM 90 days lisinopril 40 mg PO DAILY omeprazole 20 mg PO DAILY pyridoxine (vitamin B6) 25 mg PO DAILY rosuvastatin 20 mg PO DAILY 90 days thiamine HCl (vitamin B1) (Vitamin B-1) 300 mg PO DAILY Tobacco use date assessed: 11/22/23 Dental Screening Dental Screen Date: 11/22/23 HPI Med Follow up-Amlodipine HPI Details Patient's follow-up visit / consultation today is done over the phone - this is a Telehealth visit Patient's current medications have been reviewed and verified with patient and / or caregiver / proxy and have been updated accordingly in the medication list Patient states that she has been experiencing increased cough and congestion since 03/01/24 She went to the walk-in last week on 03/09/24 and was sent for testing for COVID and RSV - was advised that her tests all came back negative and she was nonetheless treated empirically with Azithromycin x 3 days Relates that her cough and symptoms were getting better with the Rx but it was only for 3 days and her cough slowly got worse again a couple of days after she was done with the Abx States that her cough is now most non-productive as her mucus and phlegm production seems to have cleared up with the Abx Relates feeling fatigued and somewhat SOB (has ESTRELLA) lately She denies any fever, headaches or dizziness Denies any chest pains No nausea/vomiting, no abdominal pain No change in bowel habits noted Adds that she was prescribed Benzonatate 100 mg at the walk-in last week but it is not helping much Recalls that I gave her the 200 mg dose before that seems to work better - is asking for a new Rx Also need Rx for Amlodipine 5 mg tablets now - states that she has been doubling up on her 2.5 mg Rx but would now like to get the 5 mg tablets instead [facility] Medical History Cardiac hypertrophy Choledocholithiasis Depression Acquired hypothyroidism Hiatal hernia Chronic restrictive lung disease Pulmonary nodule Right lumbar radiculopathy Hernia, diaphragmatic Obesity (BMI 30-39.9) Relapsing polychondritis Vitamin D deficiency Osteopenia Elevated LFTs GERD without esophagitis Thoracic scoliosis Lumbar degenerative disc disease Vitamin B12 deficiency Rheumatoid arthritis Impaired fasting glucose Primary osteoarthritis of right knee Neuropathy of left peroneal nerve Hypothyroidism Exertional dyspnea Pure hypercholesterolemia Benign essential hypertension Bochdalek hernia Surgical History History of laparoscopic cholecystectomy (07/10/22) History of cataract surgery History of colonoscopy History of surgery on right wrist (~05/2004) History of appendectomy (~1963) History of surgery on right wrist (~02/2020) History of carpal tunnel surgery (~03/2016) History of right knee joint replacement (~08/2016) Family History Father CVD (cardiovascular disease) Mother Ovarian cancer Maternal Aunt Breast cancer Brother Colon cancer Family/Other Breast cancer Family/Other Breast cancer Family/Other Breast cancer Social History Household Members: Family Household Members Other:: 4 Housing: House Are you a primary child care teacher to a significant other at home: No Do you presently have visiting nurse or other home services: No Alcohol intake: current Alcohol intake frequency: holidays/special occasions only Alcohol type: wine Patient Tobacco Use Status: Former Tobacco user Tobacco use type: Cigarette Years Smoked: 50 e-Cigarette/Vaping Use: Never Used Second Hand Smoke Exposure: No Advance Directives Date on File: 07/09/22 service: No Current occupational status: retired Cognitive needs: No Hearing needs: No Vision needs: Yes (reading glasses) Questionnaire Thrive Questionnaire Date Thrive assessed: 11/22/23 KAVITHA-7 AMB Questionnaire KAVITHA-7 Date KAVITHA - 7 assessed: 11/22/23 Source: Developed by Drs. Jeremy Ramesh, Lesly Dias, Dayne Samano and colleagues, with an educational kashmir from [employer]. Review of Systems Const Denies chills, Reports fatigue, Denies fever(s) and Denies headache(s) ENT Denies dysphagia, Denies dizziness, Denies otalgia, Denies headache(s), Reports nasal congestion, Denies odynophagia, Denies sinus pain and Denies sore throat Card Denies chest pain, Denies palpitations and Reports dyspnea on exertion Resp Reports chest congestion, Reports cough (non-productive; worst at night), Reports dyspnea on exertion and Denies wheezing GI Denies abdominal pain, Denies constipation, Denies dysphagia, Denies heartburn, Denies diarrhea and Denies odynophagia Denies nocturia, Denies dysuria and Denies urinary urgency Skin/Breast Denies rash Neuro Denies dizziness and Denies headache(s) Endo Reports fatigue and Denies palpitations Aller/Immun Denies wheezing Physical exam (Primary Care) Vital Signs: Physical examination is not performed as visit / consultation today is done over the phone - Telehealth visit All physical findings indicated here, if present, are as per patient's and / or caregivers / proxy's report Tobacco/Smoking Status: Tobacco use Status Tobacco use date assessed 11/22/23 03/17/24 16:48 Patient Tobacco Use Status Former Tobacco user 03/17/24 16:48 Tobacco use type Cigarette 03/17/24 16:48 e-Cigarette/Vaping Use Never Used 03/17/24 16:48 Thrive Assessment: Date of Thrive Assessment Date Thrive assessed 11/22/23 03/17/24 16:48 Telehealth Telehealth Telehealth Platform: Telephone Location of provider rendering services: practice address Location of patient: address on file Patient Identification confirmed using: Name, : Yes Telehealth method: voice only Patient verbally consented to treatment: Yes Patient verbally consented to billing insurance company: Yes Patient informed of any privacy concerns related to visit: Yes Minutes spent on Phone/Video with Pt.: 18 Assessment and Plan Assessment & Plan (1) Bronchitis: Code(s): J40 - Bronchitis, not specified as acute or chronic Plan: Will start her empirically on Azithromycin QD x 10 days Will also send in Rx for Benzon[place] 200 mg TID PRN for cough (2) Benign essential hypertension: Code(s): I10 - Essential (primary) hypertension Plan: Reinforced low-sodium diet -?goal is systolic BP of at least 130 to 140 mm or less Continue Lisinopril 40 mg QD and Amlodipine 5 mg QD - Rx sent She is reminded to continue monitoring her blood pressure regularly Plan Follow up as scheduled in June 2024 Medications: New azithromycin take 500 mg today (day 1), then 250 mg for 10 days (days 2-11) PO 12 tabs 0RF Changed From amlodipine 5 mg PO DAILY To amlodipine 5 mg PO DAILY 90 tabs 1RF 90 days From benzonatate 100 mg PO TID 60 caps 0RF R05.9 - Cough, unspecified To benzonatate 200 mg PO TID PRN 90 caps 0RF cough 30 days R05.9 - Cough, unspecified Coding Level of Care Code Tele Est Pt Level 3 (69206) Diagnoses Bronchitis J40 Benign essential hypertension I10
== END 2024-03-17 18:03 | disposition home or self-care (01) ==
LOC: HO.HMGH 16:49
PROVIDERS: PCP Internal Medicine; Visit Provider Internal Medicine
DX: J40 Bronchitis, not specified as acute or chronic (principal); I10 Essential (primary) hypertension
CPT/HCPCS: 99442

== ENCOUNTER 2024-03-27 12:44 | Outpatient (REF) | payer MEDICARE, SELFPAY ==
[2023-08-25 11:07] VITALS: BMI 39.0
--- NOTE | ~2024-03-27 | CT_ITS ---
EXAMINATION: CT CHEST WITHOUT CONTRAST CLINICAL INFORMATION: Follow-up pulmonary nodules. COMPARISON: Prior chest CT examinations, most recently 04/18/2020. TECHNIQUE: Multidetector volumetric CT imaging of the chest was done. Axial MIP volume rendering provided. Sagittal and coronal reformatted images were obtained. This CT examination was performed using dose optimization techniques as appropriate, variously including the following: *Automated exposure control *Adjustment of mA and/or kV according to patient size (this includes techniques or standardized protocols for targeted exams where dose is matched to indication/reason for exam; i.e. extremities or head) *Use of iterative reconstruction technique DLP: 167 mGy-cm FINDINGS: GREENKEEPER: The lungs are symmetrically well-expanded and grossly clear. There is a moderate thoracic dextroscoliosis. LUNGS: At the lateral right apex (5:141 and 146), there are 2 noncalcified 2 mm nodules. These are stable from prior CT examinations including 04/18/2020, and they are considered benign, requiring no imaging follow-up. No new nodule, mass, infiltrate or groundglass opacity is seen. There is no generalized increase in peripheral interlobular septal markings. There is mild biapical pleural and parenchymal scarring. Mild focal scar/subsegmental atelectasis is seen at the lateral left base, without associated underlying airway obstruction. No generalized small airway thickening is seen. The central airways appear patent. MEDIASTINUM: The thyroid is unremarkable. There is no thoracic aortic aneurysm. There are mild atherosclerotic calcifications of the great vessel origins and thoracic aorta. No mediastinal or hilar lymphadenopathy is seen. CORONARY ARTERY CALCIFICATION: Very mild. PLEURA: There is no pleural effusion. No pleural mass or thickening. AXILLA: No lymphadenopathy. UPPER ABDOMEN: The gallbladder is surgically absent. The adrenal glands are unremarkable. OSSEOUS STRUCTURES: There is a marked kyphoscoliosis. There is multi-level thoracic spondylosis. A benign, sclerotic, well-marginated bone island is seen within the T3 vertebral body. No acute or aggressive osseous finding is noted. CT/CT chest wo IV con IMPRESSION: 1. There are 2 noncalcified 2 mm right apical subpleural nodules, which are unchanged from prior CT examinations including 04/18/2020. These are benign and require no imaging follow-up. 2. No new nodule, mass, infiltrate or groundglass opacity is seen. 3. There is no thoracic lymphadenopathy or pleural effusion. 4. There are severe degenerative changes of the thoracic spine, with a marked kyphoscoliosis. No acute or aggressive osseous finding is noted. Fleischner guidelines were followed. Electronically signed by: Eriberto Street MD 05/18/2024 04:37 PM EDT RP
== END 2024-03-27 12:45 | disposition home or self-care (01) ==
LOC: HO.CT 12:44
PROVIDERS: Visit Provider Hospitalist
DX: R91.1 Solitary pulmonary nodule (principal)
CPT/HCPCS: 71250

== ENCOUNTER 2024-05-02 10:09 | Outpatient (AMB) | payer MEDICARE, SELFPAY ==
[2023-08-25 11:07] VITALS: BMI 39.0
--- NOTE | 2024-05-02 10:19 | MHC.OFFVIS ---
Vital Signs 05/02/24 10:21 Height 5 ft 2 in Weight 206 lb BMI 37.7 BP 128/70 Blood Pressure Location Lt brachial Position Sitting Pulse 63 Pulse Source Pulse Oximeter Pulse Oximetry (%) 99 Oxygen Delivery Method Room Air Intake Visit Reasons: Obstructive sleep apnea Yarn Skeins Examiner Required: No Allergies No Known Allergies [No Known Allergies*] Allergy (Verified 05/02/24 10:19) HPI Comments Details: Patient is a 74-year-old woman with a known history of cough in shortness of breath. [id number] in severity. The patient did have an abnormal chest x-ray and ultimately underwent a CT scan of the chest back in September 2020. Did demonstrate she has been a diaphragmatic hernia in addition to them the hiatal hernia and small pulmonary nodules. She did follow-up with thoracic surgery for the the bockdalek hernia. No surgical intervention needed. She was sent for pulmonary function studies which demonstrated a mild restrictive defect. Therefore she was referred to Pulmonary. Her cough is nonproductive in nature it is intermittent denies any postnasal drip or any wheezing. She does not use any respiratory medications. She does have symptoms of heartburn. She does take medications for Gerd. In addition to that she is taking an CHAITANYA inhibitor. She does have associated shortness of breath with activity. Mild in severity. Does get better with rest. We did review her CT scan of the chest demonstrating the small diaphragmatic hernia that is likely incidental finding. More significant and was her hiatal hernia in addition to the pulmonary nodules that we need follow-up. 08/26/2021 the patient is here for a pulmonary follow-up visit. Her symptoms are persistent. She continues to have dyspnea on exertion. Even with minimal activity. We did review her studies initially demonstrating the pulmonary function studies demonstrating the restrictive ventilatory defect. She also underwent a CT scan of the chest without any evidence of any interstitial lung disease. The patient also had a sniff study ruling out any evidence of any diaphragmatic paralysis. Her pulmonary function studies also demonstrated a moderate diffusion impairment. Explained to her that she may indeed also have a component of pulmonary vascular disease. We did briefly review her last echocardiogram from 2019 which demonstrated some degree of left ventricular hypertrophy. Explained to her that this could also result in increased pulmonary vascular pressures. In addition to that untreated sleep apnea can also result in increased pulmonary vascular pressures. She does have daytime drowsiness. Her [place] score is elevated 06/01. At this point I will request a home sleep study to assess for obstructive sleep apnea which may be contributing to her symptoms. 12/01/2021 the patient is here for pulmonary follow-up visit. She continues to have dyspnea on exertion. Moderate severity. Based on her pulmonary function study she appears to have evidence of restrictive lung disease. Therefore, I did recommend she start pulmonary rehabilitation. I do believe that this will provide her some benefit in improving her underlying dyspnea symptoms. In the meantime her dyspnea symptoms are likely multifactorial. Part deconditioning part restrictive lung disease but also need to consider pulmonary vascular conditions. The patient did have an elevated [place] score. We had her undergo a home sleep study. No significant evidence of sleep apnea although it is likely nondiagnostic. She did have significant episodes of apnea and specially hypopneas while laying supine. The patient also desaturated down to below 88% for about 12 minutes. I did request patient try positional therapy for now while not sleep in her back. She will try different devices in order to do so. Once the patient is able to do that we can repeat her overnight oximetry or consider having her undergo a in-lab PSG. Will do this based on her degree of daytime drowsiness And cardiovascular risk factors. The patient has a rescue inhaler available. She has not interested in starting any maintenance therapy at this time. 07/07/2022 the patient is here for pulmonary follow-up visit. Overall the patient is relatively well from a respiratory status. She continues to participate in pulmonary rehabilitation. She is completing the program and that she can consider continuing on her own. The patient has been able to make some strides in her pulmonary capacity. She is still complaining of epigastric discomfort. Moderate severity. Sometimes radiates to her back. She does have a hiatal hernia. We did look at her recent CT scan of the chest done May 2022 demonstrating stable pulmonary nodules. She does have the hiatal hernia. She does take medications. We did talk about the importance of good reflux diet. In view of her epigastric discomfort the patient should be evaluated either with barium swallow or with an endoscopy. She is also having issues with transaminitis. She was recently taken off her lipid medication. She also had an ultrasound which is reassuring. Again, if she has any worsening epigastric discomfort she seek urgent medical advice. 12/29/2022 the patient is here for a pulmonary follow-up visit. She continues complaint of dyspnea on exertion. She has had an eventful year and has had multiple surgeries. She has recovered well in tolerated anesthesia well. She has to have 1 more wrist surgery couple min up at [facility]. In the meantime she continues to have shortness of breath. We reviewed a get her a previous pulmonary function studies demonstrating some degree of restriction. She does have incentive spirometer at home she is going to do so. But more than that there is a disproportional low to moderate diffusion impairment. Therefore pulmonary vascular conditions need to be considered. Hemoglobin has been stable. The patient does have lower extremity edema. She does use salt and she injury salt. It is likely that she does have some volume overload status. With the decrease in DLCO I also suspect that there is a cardiac component to her respiratory symptoms. Will request a stress echo. The patient has already has EKGs. In addition to that will plan to repeat her PFTs. She will try 3 day course of Lasix to see if we can improve her respiratory status at this time. 03/23/2023 the patient is here for pulmonary follow-up visit. She continues to be about the same. Still complaining of dyspnea on exertion. Moderate severity. Specially going up a flight of stairs. She did participate in the pulmonary rehabilitation although she did not feel that she had a lot of teaching. I did reach out to the pulmonary rehab to see if they can give her some breathing techniques teachings. The patient does have some restrictive lung disease likely from her body habitus. She is also the condition and has significant discomfort primarily at the knees making it difficult for her to ambulate. We did have her undergo a cardiac evaluation based on the fact that she has had some lower extremity edema. She did have a stress echo that was nondiagnostic. Therefore she had had a Nikki nuclear scan that demonstrating no evidence of any underlying coronary artery disease or perfusion defects. Her gated EF was 69% which is reassuring. I did encourage the patient with the fact that her cardiac status is stable. I would also given Lasix to help with lower extremity edema the last time but she had some vomiting after worse and she is not sure if he was the medications so she stopped that after the 1st dose. She still has some lower extremity but is less in amount. 08/25/2023 the patient is here for pulmonary follow-up visit. She is doing about the same still having dyspnea on exertion. She has multiple factors. She is having significant pains in her musculoskeletal area lower back area now in the upper neck area. She recently had an x-ray demonstrating spondylosis. She does have a follow-up with pain management. In the meantime she has been using the Wixela daily. She is going to try to increase that to twice a day. We did look at her PFTs and there was not anything significant as far as response to bronchodilators. 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 In addition to that we did look at the echocardiogram again demonstrating hypertrophy of the left ventricle and explained to her that that can result in diastolic dysfunction and subsequent shortness of breath with increased heart rate. Therefore, will be good for her to be seen by sanding supervisor at this time to further adjust her medications appropriately. 11/03/2023 the patient is here for a pulmonary follow-up visit. She continues have dyspnea on exertion. Moderate severity. Which has other issues going on such as her back discomfort and also her hand discomfort. She was doing rehab but it was difficult for her to do with all her orthopedic issues. Now the patient will be seeing Cardiology for the severe asymmetrical septal hypertrophy. Wondering how much that is affecting her breathing. I did give her a small dose of diuretic during the last visit for 3 days which did help decrease some of the lower extremity edema. She will talk to Cardiology to see if additional diuretic therapy is warranted. We did look at her last CT scan of the chest that was done about a year ago which demonstrated a small 2 mm pulmonary nodule in the right upper lobe area. The patient also had a Bochdalek hernia. She had been seen by thoracic surgery in the past was small and therefore no intervention warranted. Will go ahead and plan to repeat a CT scan in 4-6 months in order to reassess the pulmonary nodule and also to reassess her hernia. 05/02/2024 the patient is here for a pulmonary follow-up visit. She is still having the same symptoms. Complains of dyspnea on exertion. She is wondering the etiology. We did talk about the multifactorial aspect of things that she does have hypertrophic cardiac changes, in addition to that there is evidence of restrictive lung disease due to her body habitus in addition to that there is a component of deconditioning. She is also concerned that she is feeling dizzy lately. She has an appointment with ENT. Feels like she is has pressure in her ears. She does have some nasal congestion nasal spray may be helpful for that. We did talk about the pathophysiology of the pressure gradients of the sinuses. I do believe that a nasal spray we helpful. She has had issues with epistaxis in the past we did go with the instructions on how to use it properly to try to minimize that. The patient also admits to drinking alcohol. Sometimes she drinks more than other times. She does drink usually hard liquor including Tequila and vodka. Sometimes she drinks red wine. She moves blood some days more than others. But has been on a regular basis. The patient is concerned because her brother was diagnosed with ataxia. She understands that this could be related to alcohol drinking. She needs to cut down. I did not appreciate any evidence of any ataxia this time. Although she needs to be evaluated further by her primary care doctor or neurologist. [facility] Medical History Cardiac hypertrophy Choledocholithiasis Depression Acquired hypothyroidism Hiatal hernia Chronic restrictive lung disease Pulmonary nodule Right lumbar radiculopathy Hernia, diaphragmatic Obesity (BMI 30-39.9) Relapsing polychondritis Vitamin D deficiency Osteopenia Elevated LFTs GERD without esophagitis Thoracic scoliosis Lumbar degenerative disc disease Vitamin B12 deficiency Rheumatoid arthritis Impaired fasting glucose Primary osteoarthritis of right knee Neuropathy of left peroneal nerve Hypothyroidism Exertional dyspnea Pure hypercholesterolemia Benign essential hypertension Bochdalek hernia Surgical History History of laparoscopic cholecystectomy (07/10/22) History of cataract surgery History of colonoscopy History of surgery on right wrist (~05/2004) History of appendectomy (~1963) History of surgery on right wrist (~02/2020) History of carpal tunnel surgery (~03/2016) History of right knee joint replacement (~08/2016) Family History Father CVD (cardiovascular disease) Mother Ovarian cancer Maternal Aunt Breast cancer Brother Colon cancer Family/Other Breast cancer Family/Other Breast cancer Family/Other Breast cancer Social History Household Members: Family Household Members Other:: 4 Housing: House Are you a primary home health aide caregiver to a significant other at home: No Do you presently have visiting nurse or other home services: No Alcohol intake: current Alcohol intake frequency: holidays/special occasions only Alcohol type: wine Patient Tobacco Use Status: Former Tobacco user Tobacco use type: Cigarette Years Smoked: 50 e-Cigarette/Vaping Use: Never Used Second Hand Smoke Exposure: No Advance Directives Date on File: 07/09/22 service: No Current occupational status: retired Cognitive needs: No Hearing needs: No Vision needs: Yes (reading glasses) Review of Systems Const Denies chills, Reports fatigue (mild), Denies fever(s), Denies headache(s) and Reports weight gain ENT Denies dysphagia, Reports dizziness, Denies otalgia, Denies headache(s), Denies nasal congestion, Denies odynophagia and Denies sore throat Card Denies chest pain, Denies palpitations and Reports dyspnea on exertion (mild, unchanged from previous) Resp Denies chest congestion, Denies cough, Denies hemoptysis, Reports dyspnea on exertion (mild, unchanged from previous) and Denies wheezing GI Denies abdominal pain, Denies constipation, Denies dysphagia, Denies heartburn, Denies diarrhea, Denies nausea, Denies odynophagia and Denies vomiting Denies difficulty voiding, Denies nocturia and Denies dysuria Musc Reports back pain (with radiation of pain down her legs at times - chronic), Reports myalgias and Reports arthralgias (right knee) Skin/Breast Details: (+) few raised dark lesions on her trunk - thinks that they may be skin tags Neuro Reports dizziness, Denies headache(s) and Reports tremor(s) Endo Reports fatigue (mild) and Denies palpitations Isidoro/Lymph Denies easy bruising Aller/Immun Denies wheezing Physical Exam Vital Signs: Last Vital Signs Pulse 63 05/02/24 10:21 BP 128/70 05/02/24 10:21 Pulse Ox 99 05/02/24 10:21 Oxygen Delivery Method Room Air 05/02/24 10:21 BMI result Body Mass Index 37.7 Const General: alert HEENT Head: Yes atraumatic Eyes Pupils: Equal, round and reactive pupils present Neck Neck: Yes normal visual inspection, Yes full ROM and Yes no lymphadenopathy Chest Chest palpation & inspection: normal inspection of the chest Resp Effort & Inspection: normal respiratory effort Auscultation: diminished lung sounds Cardio Rate: regular rate Rhythm: regular rhythm Heart sounds: S1 normal heart sound present and S2 normal heart sound present GI Palpation (GI): Soft to palpation and nontender Auscultation: normal bowel sounds Skin General skin exam: rashes and/or lesions noted Neuro Cranial nerves: Yes Equal, round and reactive pupils present Extrem General: No clubbing, No cyanosis and Yes edema Assessment & Plan Assessment & Plan (1) CHRIS (obstructive sleep apnea): Code(s): G47.33 - Obstructive sleep apnea (adult) (pediatric) Category: Medical (2) Pulmonary nodule: Code(s): R91.1 - Solitary pulmonary nodule Category: Medical (3) Hernia, diaphragmatic: Code(s): K44.9 - Diaphragmatic hernia without obstruction or gangrene Category: Medical Qualifiers: Obstruction and gangrene presence: without obstruction or gangrene Qualified Code(s): K44.9 - Diaphragmatic hernia without obstruction or gangrene (4) Hiatal hernia: Code(s): K44.9 - Diaphragmatic hernia without obstruction or gangrene Category: Medical (5) Chronic restrictive lung disease: Code(s): J98.4 - Other disorders of lung Category: Medical (6) Cardiac hypertrophy: Code(s): I51.7 - Cardiomegaly Category: Medical (7) Sinusitis: Code(s): J32.9 - Chronic sinusitis, unspecified Category: Medical Qualifiers: Sinusitis location: unspecified location Chronicity: chronic Qualified Code(s): J32.9 - Chronic sinusitis, unspecified Plan positional sleep therapy continue exercise regimen continue Wixela BID Pulmonary rehab low Na diet continue PPI reflux diet JAIMIE as needed sinus xray nasal steroid spray CT chest in 4-6 months needs to cut down on her alcohol intake F/U 6-8 months Orders: Orders XR sinus min 3V Today J32.9 - Chronic sinusitis, unspecified Medications: New fluticasone propionate 50 mcg/actuation 2 sprays intranasal DAILY 15.8 mL 11RF 30 days J31.0 - Chronic rhinitis Coding Level of Care Code Est Pt Level 4 (75204) Diagnoses CHRIS (obstructive sleep apnea) G47.33 Pulmonary nodule R91.1 Diaphragmatic hernia without obstruction and without gangrene K44.9 Obstruction and gangrene presence: without obstruction or gangrene Hiatal hernia K44.9 Chronic restrictive lung disease J98.4 Cardiac hypertrophy I51.7 Chronic sinusitis, unspecified location J32.9 Sinusitis location: unspecified location Chronicity: chronic Time Spent (min) 17
[2024-05-02 10:21] VITALS: BP 128/70; PULSE 63; O2SAT 99; BMI 37.7
== END 2024-05-02 10:48 | disposition home or self-care (01) ==
PROVIDERS: PCP Internal Medicine; Visit Provider Hospitalist
DX: G47.33 Obstructive sleep apnea (adult) (pediatric) (principal); R91.1 Solitary pulmonary nodule; K44.9 Diaphragmatic hernia without obstruction or gangrene; J98.4 Other disorders of lung; I51.7 Cardiomegaly; J32.9 Chronic sinusitis, unspecified
CPT/HCPCS: 99214

== ENCOUNTER → 2024-05-02 10:09 | Outpatient (BNVA) | payer MEDICARE, SELFPAY ==
[2023-08-25 11:07] VITALS: BMI 39.0
== END ==
PROVIDERS: PCP Internal Medicine; Visit Provider Hospitalist
DX: G47.33 Obstructive sleep apnea (adult) (pediatric) (principal); J98.4 Other disorders of lung; J32.9 Chronic sinusitis, unspecified; I51.7 Cardiomegaly; R91.1 Solitary pulmonary nodule; K44.9 Diaphragmatic hernia without obstruction or gangrene
CPT/HCPCS: 99212

== ENCOUNTER 2024-06-21 08:57 | Outpatient (REF) | payer MEDICARE, SELFPAY ==
[2023-08-25 11:07] VITALS: BMI 39.0
[2024-06-21 10:29] LABS: MANUAL DIFF FLAG NO
[2024-06-21 10:36] LABS: Appearance Urine Clear; Color Urine Yellow; Glucose Urine UA Negative (Negative); Leukocyte Esterase Urine Negative (Negative); Nitrite Urine Negative (Negative); PH 6.5 (5.0-9.0); Specific Gravity - Urine 1.015 (1.005-1.025); Urine Blood Negative (Negative); Urine Ketones Negative (Negative); Urine Protein Negative (Neg-Trace)
[2024-06-21 10:44] LABS: Basophils Absolute Auto 0.1 X10*3/uL (0.0-0.2); Basophils Percent Auto 1.1 % (0-2); Eosinophils Absolute Auto 0.3 X10*3/uL (0.0-0.4); Eosinophils Percent Auto 4.6 % (0-4); Hematocrit 38.5 % (37.0-47.0); Hemoglobin 12.4 g/dl (12.0-16.0); Imm Gran Abs Auto 0.01 X10*3/uL (0.00-0.03); Imm Gran Pct Auto 0.2 % (0.0-0.4); Lymphocytes Absolute Auto 2.3 X10*3/uL (1.2-4.9); Lymphocytes Percent Auto 37.9 % (20-40); Mean Corpuscular HGB Conc 32.2 g/dl (31.0-35.0); Mean Corpuscular Hemoglobin 29.8 pg (27.0-33.0); Mean Corpuscular Volume 92.5 fL (80.0-98.0); Mean Platelet Volume 11.2 fL (9.4-12.3); Monocytes Absolute Auto 0.6 X10*3/uL (0.1-1.2); Monocytes Percent Auto 9.8 % (2-11); Neutrophils Absolute Auto 2.8 x10*3/uL (2.0-8.3); Neutrophils Percent Auto 46.4 % (45-73); Platelet Count 224 X10*3/uL (160-400); Red Blood Count 4.16 X10*6/uL (4.20-5.50); Red Cell Distribution Width 14.3 % (11.0-16.0); White Blood Count 6.1 X10*3/uL (4.8-10.8)
[2024-06-21 11:05] LABS: Alanine Aminotransferase 13 U/L (0-31); Albumin Level 3.9 g/dL (3.5-5.0); Alkaline Phosphatase 87 U/L (39-117); Anion Gap 12 (12-20); Aspartate Amino Transferase 19 U/L (5-31); Bilirubin Total 0.4 mg/dL (0.0-1.0); Blood Urea Nitrogen 21 mg/dL (9-16); Calcium 9.7 mg/dL (8.4-10.2); Carbon Dioxide 27 mmol/L (22-29); Chloride 105 mmol/L (96-108); Cholesterol 209 mg/dL (<200); Estimated Glomerular Filt Rate > 60; Glucose Fasting 97 mg/dL (60-99); HDL Cholesterol 58 mg/dL (>40); LDL Cholesterol Calculated 140 mg/dL (<100); Potassium 4.7 mmol/L (3.3-5.1); Sodium 139 mmol/L (135-145); Total Protein 6.7 g/dL (6.5-8.0); Triglycerides 56 mg/dL (<150)
[2024-06-21 11:30] LABS: Free T4 (Free Thyroxine) 1.08 ng/dL (0.71-1.85); Thyroid Stimulating Hormone 4.24 uIU/mL (0.32-4.0); Vitamin D 25-OH Total 49.2 ng/mL (>30)
[2024-06-21 11:48] LABS: Folate 10.6 ng/mL (> or = 4.0); Vitamin B12 366 pg/mL (200-900)
== END 2024-06-21 08:58 | disposition home or self-care (01) ==
LOC: HO.HMGCX 08:57
PROVIDERS: PCP Internal Medicine; Referring Provider Hospitalist; Visit Provider Internal Medicine
DX: J32.9 Chronic sinusitis, unspecified (principal); R30.0 Dysuria; E78.00 Pure hypercholesterolemia, unspecified; E53.8 Deficiency of other specified B group vitamins; E55.9 Vitamin D deficiency, unspecified; E03.9 Hypothyroidism, unspecified; D64.9 Anemia, unspecified
CPT/HCPCS: 36415; 70220; 80053; 80061; 81003; 82306; 82607; 82746; 84439; 84443; 85025

== ENCOUNTER → 2024-06-21 09:15 | Outpatient (BNV) | payer MEDICARE, SELFPAY ==
[2023-08-25 11:07] VITALS: BMI 39.0
== END ==
PROVIDERS: PCP Internal Medicine; Referring Provider Hospitalist; Visit Provider Radiology Diagnostic Radiology
DX: J32.9 Chronic sinusitis, unspecified (principal)
CPT/HCPCS: 70220

== ENCOUNTER 2024-06-23 15:43 | Outpatient (AMB) | payer MEDICARE, SELFPAY ==
[2023-08-25 11:07] VITALS: BMI 39.0
[2024-06-23 15:53] VITALS: BP 120/78; PULSE 67; O2SAT 98; BMI 37.9
--- NOTE | 2024-06-23 15:53 | A.OFFPC_ITS ---
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 Accompanied by: Self / Same As Patient Allergies No Known Allergies [No Known Allergies*] Allergy (Verified 06/23/24 16:37) Medication List - Last Reconciled 06/23/24 by Bolivar Ventura MD albuterol sulfate 90 mcg/actuation 2 inhalations inhalation Q6H PRN 30 days amlodipine 5 mg PO DAILY 90 days benzonatate 200 mg PO TID PRN 30 days cetirizine (Zyrtec) 10 mg PO DAILY PRN cholecalciferol (vitamin D3) (Vitamin D3) 1,000 units PO DAILY cyanocobalamin (vitamin B-12) (Vitamin B-12) 1,000 mcg PO DAILY fluticasone propion-salmeterol 250-50 mcg/dose (Wixela Inhub) 1 inh inhalation Q12H 30 days fluticasone propionate 50 mcg/actuation 2 sprays intranasal DAILY 30 days gabapentin 300 mg PO TID ibuprofen 800 mg PO TID PRN levothyroxine 88 mcg PO QAM 90 days lisinopril 40 mg PO DAILY omeprazole 20 mg PO DAILY pyridoxine (vitamin B6) 25 mg PO DAILY rosuvastatin 20 mg PO DAILY 90 days thiamine HCl (vitamin B1) (Vitamin B-1) 300 mg PO DAILY Tobacco use date assessed: 06/23/24 Fall risk assessment: No Falls in past year Last assessed Fall Risk: 06/23/24 Dental Screening Dental Screen Date: 06/23/24 Did you have a dental visit in the last 12 months?: Yes Did you have a dental problem in the last 6 months where you did not have access to dental care?: No Was dental information given to patient?: Patient has dentist HPI 4mth f/u - see comments HPI Details Patient comes in today for her follow up visit States that she feels okay but she still feels fatigued often She also has an itchy rash over the back of her neck - states that she cannot see the rash but the skin on the back of her neck where it is itchy feels very rough and dry Notes that she's had the itching there for a while now (months) She has been applying some OTC salve on it for a couple of weeks with no relief She denies any headaches or dizziness Denies any chest pains, no increased shortness of breath No nausea/vomiting, no abdominal pain No change in bowel habits noted She had her follow-up labs done a couple of days ago and would like to know how her labs came out [facility] Medical History Cardiac hypertrophy Choledocholithiasis Depression Acquired hypothyroidism Hiatal hernia Chronic restrictive lung disease Pulmonary nodule Right lumbar radiculopathy Hernia, diaphragmatic Obesity (BMI 30-39.9) Relapsing polychondritis Vitamin D deficiency Osteopenia Elevated LFTs GERD without esophagitis Thoracic scoliosis Lumbar degenerative disc disease Vitamin B12 deficiency Rheumatoid arthritis Impaired fasting glucose Primary osteoarthritis of right knee Neuropathy of left peroneal nerve Hypothyroidism Exertional dyspnea Pure hypercholesterolemia Benign essential hypertension Bochdalek hernia Surgical History History of laparoscopic cholecystectomy (07/10/22) History of cataract surgery History of colonoscopy History of surgery on right wrist (~05/2004) History of appendectomy (~1963) History of surgery on right wrist (~02/2020) History of carpal tunnel surgery (~03/2016) History of right knee joint replacement (~08/2016) Family History Father CVD (cardiovascular disease) Mother Ovarian cancer Maternal Aunt Breast cancer Brother Colon cancer Family/Other Breast cancer Family/Other Breast cancer Family/Other Breast cancer Social History Household Members: Family Household Members Other:: 4 Housing: House Are you a primary care services manager to a significant other at home: No Do you presently have visiting nurse or other home services: No Alcohol intake: current Alcohol intake frequency: holidays/special occasions only Alcohol type: wine Patient Tobacco Use Status: Former Tobacco user Tobacco use type: Cigarette Years Smoked: 50 e-Cigarette/Vaping Use: Never Used Second Hand Smoke Exposure: No Advance Directives Date on File: 07/09/22 service: No Current occupational status: retired Cognitive needs: No Hearing needs: No Vision needs: Yes (reading glasses) Questionnaire PHQ-9 Over the last 2 weeks, how often have you been bothered by any of the following problems? 1. Little interest or pleasure in doing things: not at all 2. Feeling down, depressed, or hopeless: not at all 3. Trouble falling or staying asleep, or sleeping too much: not at all 4. Feeling tired or having little energy: not at all 5. Poor appetite or overeating: not at all 6. Feeling bad about yourself - or that you are a failure or have let yourself or your family down: not at all 7. Trouble concentrating on things, such as reading the newspaper or watching television: not at all 8. Moving or speaking so slowly that other people could have noticed. Or the opposite - being so fidgety or restless that you have been moving around a lot more than usual: not at all 9. Thoughts that you would be better off or of hurting yourself in some way: not at all Total score: 0 Depression Screening Interpretation: Negative Depression Screening Done: Yes 94119 - PHQ-9 Billing: Yes Source: Developed by Drs. Jeremy Ramesh, Lesly Dias, Dayne Samano and colleagues, with an educational kashmir from [employer]. Thrive Questionnaire Date Thrive assessed: 06/23/24 I am a: Patient What is your living situation today?: I have a steady place to live Within the past 12 months, did the food you bought not last and you didn't have the money to get more?: Never true Within the past 12 months, did you worry whether your food would run out before you got money to buy more?: Never true Do you have trouble paying for medicines?: No Do you have trouble getting transportation to medical appointments?: No Do you have trouble paying your heating and electricity bill?: No Do you have trouble taking care of your child, family member or friend?: No Do you have trouble with day-to-day activities such as bathing, preparing meals, shopping, managing finances, etc.?: No Are you currently unemployed and looking for a job?: No Are you interested in more education?: No Please select the resources that you would like help with: None Currently or been in a relationship where the following occur: No concerns reported THRIVE Score: 0 AUDIT C Alcohol Use Questionnaire (AUDIT-C) 1. How often do you have a drink containing alcohol?: Never 2. How many drinks containing alcohol do you have on a typical day when you are drinking?: 1 or 2 3. How often do you have six or more drinks on one occasion?: Never Total Score: 0 Score Reviewed/Action Taken: Yes KAVITHA-7 AMB Questionnaire KAVITHA-7 Date KAVITHA - 7 assessed: 06/23/24 Feeling nervous, anxious, or on edge: 0 = Not at all Not being able to stop or control worryin = Not at all Worrying too much about different things: 0 = Not at all Trouble relaxin = Not at all Being so restless that it is hard to sit still: 0 = Not at all Becoming easily annoyed or irritable: 0 = Not at all Feeling afraid as if something awful might happen: 0 = Not at all Total KAVITHA-7 score (0-4 normal; 5-9 mild; 10-14 moderate; 15-21 severe): 0 Source: Developed by Drs. Jeremy Ramesh, Lesly Dias, Dayne Samano and colleagues, with an educational kashmir from [employer]. Review of Systems Const Denies chills, Reports fatigue, Denies fever(s) and Denies headache(s) ENT Denies dysphagia, Denies dizziness, Denies otalgia, Denies headache(s), Denies neck pain, Denies odynophagia and Denies sore throat Card Denies chest pain, Denies palpitations and Reports dyspnea on exertion (mild) Resp Denies chest congestion, Denies cough, Denies excessive phlegm production and Reports dyspnea on exertion (mild) GI Denies abdominal pain, Denies constipation, Denies dysphagia, Denies heartburn, Denies diarrhea and Denies odynophagia Denies nocturia, Denies dysuria and Denies urinary urgency Musc Reports back pain, Reports arthralgias (involving multiple joints) and Denies neck pain Skin/Breast Reports pruritus (over the back of the neck) and Reports rash (over the back of the neck) Neuro Denies dizziness and Denies headache(s) Endo Reports fatigue and Denies palpitations Physical exam (Primary Care) Vital Signs: Last Vital Signs Pulse 67 06/23/24 15:53 BP 120/78 06/23/24 15:53 Pulse Ox 98 06/23/24 15:53 Oxygen Delivery Method Room Air 06/23/24 15:53 BMI result Body Mass Index 37.9 Tobacco/Smoking Status: Tobacco use Status Tobacco use date assessed 06/23/24 06/23/24 15:55 Patient Tobacco Use Status Former Tobacco user 06/23/24 15:55 Tobacco use type Cigarette 06/23/24 15:55 e-Cigarette/Vaping Use Never Used 06/23/24 15:55 PHQ-9: PHQ-9 Score PHQ-9: Total score 0 06/23/24 16:50 Depression Screening Interpretation: Negative Thrive Assessment: Date of Thrive Assessment Date Thrive assessed 06/23/24 06/23/24 15:55 Currently or been in a relationship where the following occur: No concerns reported Const General: no acute distress and alert HENMT Ears: TM's normal bilaterally and EAC's normal Throat: Yes posterior oropharynx normal and Yes tonsils normal (no TP congestion noted) Neck Neck: Yes no lymphadenopathy and Yes supple Thyroid: Thyroid normal Resp Auscultation: no rales, no rhonchi and diminished lung sounds (slightly) bilateral Cardio Rate: regular rate Rhythm: regular rhythm Heart sounds: no murmurs GI Palpation (GI): Soft to palpation and nontender Auscultation: normal bowel sounds General: Yes no CVA tenderness Back/Spine/Pelvis Back: no CVA tenderness Cervical Spine: Cervical spine tenderness Thoracic/Lumbar Spine: lumbar spinal tenderness Sacroiliac joints: on the right tender to palpation Skin Other: (+) large dry patch of skin with some scaling noted over the entire area on the back of the neck Extrem General: Yes no clubbing, cyanosis or edema Right lower extremity: knee Details: tenderness; no swelling Results Reviewed Results Reviewed: Laboratory Tests 06/21/24 06/21/24 09:02 09:05 WBC 6.1 Hgb 12.4 Hct 38.5 Plt Count 224 Sodium 139 Potassium 4.7 Creatinine 0.75 Estimated GFR > 60 Fasting Glucose 97 Calcium 9.7 AST 19 ALT 13 Triglycerides 56 Cholesterol 209 H LDL Cholesterol, Calc 140 H HDL Cholesterol 58 Vitamin B12 366 25-OH Vitamin D Total 49.2 TSH 4.24 H Free T4 1.08 Ur Specific [place] 1.015 Urine Protein Negative Urine Glucose (UA) Negative Urine Blood Negative Urine Nitrite Negative Ur Leukocyte Esterase Negative Coding Level of Care Code Est Pt Level 4 (22587) Complex EM visit Add On G2211 Diagnoses Benign essential hypertension I10 Pure hypercholesterolemia E78.00 Chronic restrictive lung disease J98.4 Acquired hypothyroidism E03.9 Impaired fasting glucose R73.01 Bochdalek hernia Q79.0 Neuropathy of left peroneal nerve G57.32 Primary osteoarthritis of right knee M17.11 Rheumatoid arthritis, involving unspecified site, unspecified whether rheumatoid factor present M06.9 Rheumatoid arthritis location: unspecified site Rheumatoid factor presence: unspecified presence Vitamin B12 deficiency E53.8 GERD without esophagitis K21.9 Degeneration of intervertebral disc of lumbar region with discogenic back pain M51.360 Disc-related pain type: discogenic back pain only Osteopenia, unspecified location M85.80 Osteopenia location: unspecified Scoliosis of thoracic spine, unspecified scoliosis type M41.9 Scoliosis type: unspecified scoliosis Vitamin D deficiency E55.9 Relapsing polychondritis M94.1 MGUS (monoclonal gammopathy of unknown significance) D47.2 Pruritic rash L28.2 Alcohol use Z78.9 Depression, unspecified depression type F32.A Depression Type: unspecified Obesity (BMI 30-39.9) E66.9 Additional Codes PHQ-9 - 39584 - PHQ-9 Billing: Yes ([id number]) Assessment & Plan Assessment & Plan (1) Benign essential hypertension: Code(s): I10 - Essential (primary) hypertension Category: Medical Plan: Reinforced low-sodium diet -?goal is systolic BP of at least 130 to 140 mm or less Continue Lisinopril 40 mg QD and Amlodipine 5 mg QD She is reminded to continue monitoring her blood pressure regularly (2) Pure hypercholesterolemia: Code(s): E78.00 - Pure hypercholesterolemia, unspecified Category: Medical Plan: Results of her labs done a couple of days ago reviewed and discussed with patient Reinforced low cholesterol diet Continue Rosuvastatin 20 mg QD Will recheck her labs and fasting lipids in 4 months for follow up (3) Chronic restrictive lung disease: Code(s): J98.4 - Other disorders of lung Category: Medical Plan: Patient continues to present with chronic ESTRELLA and has been advised that this is likely multifactorial - partly due to deconditioning and partly to restrictive lung disease She had pulmonary function studies done in the past that demonstrated (+) restrictive ventilatory defect suggesting the presence of restrictive lung disease She has been following up with pulmonary at [facility] and has been referred to pulmonary rehab with mixed results She also has (+) hypertrophic cardiac changes on echocardiogram She has been evaluated as well for CHRIS and her home sleep study came back negative She has Albuterol HFA to use for rescue if needed and has declined Rx for m aintenance inhaler in the past Follow up with pulmonary as scheduled (4) Acquired hypothyroidism: Code(s): E03.9 - Hypothyroidism, unspecified Category: Medical Plan: Her TFTs remain normal on her recent labs Continue Levothyroxine 88 mcg QD Will recheck her TFTs in 4 months for follow up (5) Impaired fasting glucose: Code(s): R73.01 - Impaired fasting glucose Category: Medical Plan: FBS was normal at 97 mg/dl on her recent labs; HgbA1c was normal at 5.3% and 5.4% when checked in the past Reinforced low calorie/low carb diet Will continue to monitor her FBS regularly (6) Bochdalek hernia: Code(s): Q79.0 - Congenital diaphragmatic hernia Category: Medical Plan: Chest CT done in 2020 revealed the presence of a fat-containing Bochdalek hernia of the left hemidiaphragm with a small sliding-type hiatal hernia of the stomach - this is mostly unchanged compared to her scan on 03/04/2019 She was seen for this by thoracic surgery last year and recommended observation only Repeat chest CT done in May 2022 revealed stable 2 mm subpleural nodules, right upper lobe, with no new nodules seen; (+) small left diaphragm Bochdalek hernia containing fat that is stable; also visualized is focal eventration of left posterior diaphragm Unclear at this time how much of her diaphragmatic hernia is affecting her breathing (7) Neuropathy of left peroneal nerve: Code(s): G57.32 - Lesion of lateral popliteal nerve, left lower limb Category: Medical Plan: Continue Gabapentin 300 mg TID (8) Primary osteoarthritis of right knee: Comment: S/P total right knee arthroplasty with Dr. Miramontes on 08/31/2016 without any significant improvement of her knee pain following surgery Has been seen for a follow-up by Dr. Jacobson, who recommended a revision of right knee prosthesis Patient reportedly went to see Dr. Edwards at [facility] for a 2nd opinion and was advised against revision surgery Subsequently went to see a Dr. Eriberto Kirk in [place] in 2019 but her insurance is declining to cover any appointments with him and all of her appointments are now on hold due to the COVID-19 pandemic Code(s): M17.11 - Unilateral primary osteoarthritis, right knee Category: Medical Plan: Follow up with orthopedics as scheduled (9) Rheumatoid arthritis: Code(s): M06.9 - Rheumatoid arthritis, unspecified Category: Medical Qualifiers: Rheumatoid arthritis location: unspecified site Rheumatoid factor presence: unspecified presence Qualified Code(s): M06.9 - Rheumatoid arthritis, unspecified Plan: Follow up with rheumatology (Dr. Walsh) as scheduld (10) Vitamin B12 deficiency: Code(s): E53.8 - Deficiency of other specified B group vitamins Category: Medical Plan: Continue OTC Vitamin B12 1000 mcg QD (11) GERD without esophagitis: Code(s): K21.9 - Gastro-esophageal reflux disease without esophagitis Category: Medical Plan: Dietary restrictions reinforced Continue Omeprazole 20 mg once a day and Famotidine 20 mg twice a day as needed (12) Lumbar degenerative disc disease: Code(s): M51.36 - Other intervertebral disc degeneration, lumbar region Category: Medical Qualifiers: Disc-related pain type: discogenic back pain only Qualified Code(s): M51.360 - Other intervertebral disc degeneration, lumbar region with discogenic back pain only Plan: Reinforced activity and weight lifting restrictions MRI done in 2015 showed (+) changes of mild lumbar spondylosis Follow up with pain management as scheduled (13) Osteopenia: Comment: (Bone Dexa T-score -2.1 - 09/24/2017) Code(s): M85.80 - Other specified disorders of bone density and structure, unspecified site Category: Medical Qualifiers: Osteopenia location: unspecified Qualified Code(s): M85.80 - Other specified disorders of bone density and structure, unspecified site Plan: Repeat BMD done on 07/31/2021 showed (+) osteopenia with no significant change from her previous BMD except for a slight decrease in BMD in her AP spine Will continue to monitor BMD regularly (every 2 to 3 years) - have advised patient that it is now time for her repeat BMD (ordered) (14) Thoracic scoliosis: Code(s): M41.9 - Scoliosis, unspecified Category: Medical Qualifiers: Scoliosis type: unspecified scoliosis Qualified Code(s): M41.9 - Scoliosis, unspecified Plan: Recent back x-rays showed the presence of some kyphoscoliosis and thoracic scoliosis, which are probably contributing to patient's frequent back pain (15) Vitamin D deficiency: Code(s): E55.9 - Vitamin D deficiency, unspecified Category: Medical Plan: Continue Vitamin D3 1000 units QD (16) Relapsing polychondritis: Code(s): M94.1 - Relapsing polychondritis Category: Medical Plan: Follow up with rheumatology as scheduled (17) MGUS (monoclonal gammopathy of unknown significance): Code(s): D47.2 - Monoclonal gammopathy Category: Medical Plan: Her protein electrophoresis is still testing positive for IgA kappa monoclonal band but her numbers have been stable for years Follow up with hematology/oncology as scheduled for continuing surveillance and monitoring (18) Pruritic rash: Code(s): L28.2 - Other prurigo Category: Medical Plan: Primarily over the back of the neck - no relief with OTC skin emollients recently Will start her on Triamcinolone Acetonide 0.5% cream BID PRN (19) Alcohol use: Code(s): Z78.9 - Other specified health status Category: Social Hx Plan: Patient admits to drinking alcohol regularly - states that sometimes she drinks more than others She usually drinks hard liquor, including Tequila and Vodka but sometimes drinks red wine Has been advised to try cutting back and ultimately quit, if possible (20) Depression: Code(s): F32.A - Depression, unspecified Category: Medical Qualifiers: Depression Type: unspecified Qualified Code(s): F32.A - Depression, unspecified Plan: Follow up with psychiatry as scheduled (21) Obesity (BMI 30-39.9): Code(s): E66.9 - Obesity, unspecified Category: Medical Plan: Reinforced diet; exercise and weight loss are not realistic given patient's multiple physical issues and comorbidities Plan Follow up in 4 months Orders: Orders Complete Blood Count Auto Diff 4 Months D64.9 - Anemia, unspecified, M94.1 - Relapsing polychondritis Free T4 (Free Thyroxine) 4 Months E03.9 - Hypothyroidism, unspecified, M94.1 - Relapsing polychondritis UA CC w/rflx Micro + Cult 4 Months M94.1 - Relapsing polychondritis, R30.0 - Dysuria Vitamin B12 and Folate 4 Months E53.8 - Deficiency of other specified B group vitamins, M94.1 - Relapsing polychondritis C Reactive Protein 4 Months M94.1 - Relapsing polychondritis Lipid Panel 4 Months E78.00 - Pure hypercholesterolemia, unspecified, M94.1 - Relapsing polychondritis Comprehensive [place]. Panel Fast 4 Months E78.00 - Pure hypercholesterolemia, unspecified, M94.1 - Relapsing polychondritis Thyroid Stimulating Hormone 4 Months E03.9 - Hypothyroidism, unspecified, M94.1 - Relapsing polychondritis Vitamin D 25-OH Total 4 Months E55.9 - Vitamin D deficiency, unspecified, M94.1 - Relapsing polychondritis Erythrocyte Sedimentation Rate 4 Months M79.7 - Fibromyalgia, M94.1 - Relapsing polychondritis Medications: New triamcinolone acetonide 0.5% 1 appl topical BID PRN 30 grams 0RF rash on back of neck
== END 2024-06-23 17:05 | disposition home or self-care (01) ==
PROVIDERS: PCP Internal Medicine; Visit Provider Internal Medicine
DX: I10 Essential (primary) hypertension (principal); E78.00 Pure hypercholesterolemia, unspecified; M06.9 Rheumatoid arthritis, unspecified; J98.4 Other disorders of lung; E03.9 Hypothyroidism, unspecified; R73.01 Impaired fasting glucose; Q79.0 Congenital diaphragmatic hernia; G57.32 Lesion of lateral popliteal nerve, left lower limb; M17.11 Unilateral primary osteoarthritis, right knee; E53.8 Deficiency of other specified B group vitamins; K21.9 Gastro-esophageal reflux disease without esophagitis; M51.360 Other intervertebral disc degeneration, lumbar region with discogenic back pain only

== ENCOUNTER → 2024-06-23 15:43 | Outpatient (BNVA) | payer MEDICARE, SELFPAY ==
[2023-08-25 11:07] VITALS: BMI 39.0
== END ==
PROVIDERS: PCP Internal Medicine; Visit Provider Internal Medicine
DX: I10 Essential (primary) hypertension (principal); E78.00 Pure hypercholesterolemia, unspecified; J98.4 Other disorders of lung; E03.9 Hypothyroidism, unspecified; R73.01 Impaired fasting glucose; Q79.0 Congenital diaphragmatic hernia; G57.32 Lesion of lateral popliteal nerve, left lower limb; M17.11 Unilateral primary osteoarthritis, right knee; M06.9 Rheumatoid arthritis, unspecified; E53.8 Deficiency of other specified B group vitamins; K21.9 Gastro-esophageal reflux disease without esophagitis; M85.80 Other specified disorders of bone density and structure, unspecified site; M41.9 Scoliosis, unspecified; E55.9 Vitamin D deficiency, unspecified; M94.1 Relapsing polychondritis; D47.2 Monoclonal gammopathy; L28.2 Other prurigo; F32.A Depression, unspecified; Z78.9 Other specified health status
CPT/HCPCS: 96127; 99212

== ENCOUNTER 2024-09-05 08:48 | Day surgery (SDC) | payer MEDICARE, SELFPAY ==
[2023-08-25 11:07] VITALS: BMI 39.0
[2024-09-01 15:13] VITALS: BMI 37.2
--- NOTE | 2024-09-04 12:02 | HO.ANESPROP2 ---
Documented by User: Cheyanne Lujan NP 09/04/24 12:12 HPI - Anesthesia Eval Consult details Narrative: 74yo F for Colonoscopy [place] [facility] [place]. Stable at 01/2024 OV and optimized for procedure per workload message Daily ETOH per pulmo note [place] [facility] [place] CHRIS/SOB PMFSH Active Problems Active Problems: All Active Problems Alcohol use (Acute) Pruritic rash (Acute) Sinusitis (Acute) Bronchitis (Acute) Essential hypertension (Acute) Sacroiliac joint dysfunction of right side (Acute) Sacroiliitis (Acute) Cervical spondylosis (Acute) Neck pain (Acute) Keratosis (Acute) Abnormal finding on EKG (Acute) RSV (respiratory syncytial virus infection) (Acute) Upper respiratory tract infection (Acute) Morbid obesity (Acute) Chronic pain syndrome (Acute) Status post total knee replacement, right (Acute) Spondylosis without myelopathy or radiculopathy, lumbar region (Acute) CHRIS (obstructive sleep apnea) (Acute) Pre-operative clearance (Acute) Osteopenia (Acute) Relapsing polychondritis (Acute) Acquired elevated diaphragm (Acute) Varicose veins of right lower extremity with inflammation (Acute) MGUS (monoclonal gammopathy of unknown significance) (Acute) Cardiac hypertrophy (Acute) Choledocholithiasis (Acute) Depression (Acute) Acquired hypothyroidism (Acute) Hiatal hernia (Acute) Chronic restrictive lung disease (Acute) Pulmonary nodule (Acute) Right lumbar radiculopathy (Acute) Hernia, diaphragmatic (Acute) Obesity (BMI 30-39.9) (Acute) Relapsing polychondritis (Acute) Vitamin D deficiency (Acute) Osteopenia (Acute) Elevated LFTs (Acute) GERD without esophagitis (Acute) Thoracic scoliosis (Acute) Lumbar degenerative disc disease (Acute) Vitamin B12 deficiency (Acute) Rheumatoid arthritis (Acute) Impaired fasting glucose (Acute) Primary osteoarthritis of right knee (Acute) Neuropathy of left peroneal nerve (Acute) Hypothyroidism (Acute) Exertional dyspnea (Acute) Pure hypercholesterolemia (Acute) Benign essential hypertension (Acute) Bochdalek hernia (Acute) Past Medical History Medical History (Updated 09/01/24 @ 15:01 by Carol Webb RN) CHRIS (obstructive sleep apnea) Cardiac hypertrophy Choledocholithiasis Depression Acquired hypothyroidism Hiatal hernia Chronic restrictive lung disease Pulmonary nodule Right lumbar radiculopathy Hernia, diaphragmatic Obesity (BMI 30-39.9) Relapsing polychondritis Vitamin D deficiency Osteopenia Elevated LFTs GERD without esophagitis Thoracic scoliosis Lumbar degenerative disc disease Vitamin B12 deficiency Rheumatoid arthritis Impaired fasting glucose Primary osteoarthritis of right knee Neuropathy of left peroneal nerve Hypothyroidism Exertional dyspnea Pure hypercholesterolemia Benign essential hypertension Bochdalek hernia Family History Family History Father CVD (cardiovascular disease) Mother Ovarian cancer Maternal Aunt Breast cancer Brother Colon cancer Family/Other Breast cancer Family/Other Breast cancer Family/Other Breast cancer Family history of problems with anesthesia: No Surgical History Surgical History History of laparoscopic cholecystectomy (07/10/22) History of cataract surgery History of colonoscopy History of surgery on right wrist (~05/2004) History of appendectomy (~1963) History of surgery on right wrist (~02/2020) History of carpal tunnel surgery (~03/2016) History of right knee joint replacement (~08/2016) History of Problems with Anesthesia: No Social History Social History Household Members: Family Household Members Other:: 4 Housing: House Are you a primary care support representative to a significant other at home: No Do you presently have visiting nurse or other home services: No Alcohol intake: current Alcohol intake frequency: holidays/special occasions only Alcohol type: wine Patient Tobacco Use Status: Former Tobacco user Tobacco use type: Cigarette Years Smoked: 50 e-Cigarette/Vaping Use: Never Used Second Hand Smoke Exposure: No Use of substances other than those prescribed or required for medical reasons: No Are you DNR?: No Advance Directives: No Advance Directives Information Provided: Yes Advance Directives Date on File: 07/09/22 Recently lost weight without trying: No Nutrition Risks: No Nutritional Risk Patient : No service: No Current occupational status: retired Cognitive needs: No Hearing needs: No Vision needs: Yes (reading glasses) Meds Allergies Allergy/AdvReac Type Severity Reaction Status Date / Time No Known Allergies Allergy Verified 06/23/24 16:37 [No Known Allergies*] Home Medications ?Medication ?Instructions ?Recorded ?Confirmed ?Last Taken ?Type cholecalciferol (vitamin D3) 25 1,000 unit PO DAILY 05/16/20 09/01/24 07/07/22 History mcg (1,000 unit) chewable tablet (Vitamin D3) cyanocobalamin (vitamin B-12) 1,000 mcg PO DAILY 05/16/20 09/01/24 07/07/22 History 1,000 mcg tablet (Vitamin B-12) thiamine HCl (vitamin B1) 100 mg 300 mg PO DAILY 05/16/20 09/01/24 07/07/22 History tablet (Vitamin B-1) pyridoxine (vitamin B6) 25 mg 25 mg PO DAILY 01/24/21 09/01/24 07/07/22 History tablet Exam Height,Weight and Vital Signs: Height 5 ft 3 in Weight 95.254 kg Pertinent Lab Results Pertinent Lab Results: Laboratory Tests 06/21/24 09:02 WBC 6.1 Hgb 12.4 Hct 38.5 Plt Count 224 Sodium 139 Potassium 4.7 Chloride 105 Carbon Dioxide 27 BUN 21 H Creatinine 0.75 Narrative Narrative: Per 01/2024 Cardiology office visit note: Baseline EKG shows nonspecific ST-T changes. In the echocardiogram, LVEF 69%. Moderate concentric left ventricular hypertrophy with severe septal hypertrophy. Otherwise unremarkable. In the exercise stress echocardiogram, she was able to exercise only for 3 minutes and reached 4.1 Mets. Poor exercise tolerance. The echocardiographic component was nondiagnostic. Then pharmacological stress perfusion imaging study showed normal perfusion and normal gated LVEF. PYP scan shows no evidence of amyloid. Overall, suspect poorly controlled hypertension, secondary left ventricular hypertrophy and shortness of breath secondary to that with additional components of deconditioning/pulmonary etiology. Assessment and Plan Assessment Anesthesia Assessment: Chart Reviewed Final Anesthetic Review Family History of Problems with Anesthesia: No History of Problems with Anesthesia: No Documented by User: Juan Pearson MD 09/05/24 10:01 [facility] Past Medical History Medical History (Updated 09/01/24 @ 15:01 by Carol Webb RN) CHRIS (obstructive sleep apnea) Cardiac hypertrophy Choledocholithiasis Depression Acquired hypothyroidism Hiatal hernia Chronic restrictive lung disease Pulmonary nodule Right lumbar radiculopathy Hernia, diaphragmatic Obesity (BMI 30-39.9) Relapsing polychondritis Vitamin D deficiency Osteopenia Elevated LFTs GERD without esophagitis Thoracic scoliosis Lumbar degenerative disc disease Vitamin B12 deficiency Rheumatoid arthritis Impaired fasting glucose Primary osteoarthritis of right knee Neuropathy of left peroneal nerve Hypothyroidism Exertional dyspnea Pure hypercholesterolemia Benign essential hypertension Bochdalek hernia Family History Family History Father CVD (cardiovascular disease) Mother Ovarian cancer Maternal Aunt Breast cancer Brother Colon cancer Family/Other Breast cancer Family/Other Breast cancer Family/Other Breast cancer Surgical History Surgical History History of laparoscopic cholecystectomy (07/10/22) History of cataract surgery History of colonoscopy History of surgery on right wrist (~05/2004) History of appendectomy (~1963) History of surgery on right wrist (~02/2020) History of carpal tunnel surgery (~03/2016) History of right knee joint replacement (~08/2016) Social History Social History Household Members: Family Household Members Other:: 4 Housing: House Are you a primary care support representative to a significant other at home: No Do you presently have visiting nurse or other home services: No Alcohol intake: current Alcohol intake frequency: holidays/special occasions only Alcohol type: wine Patient Tobacco Use Status: Former Tobacco user Tobacco use type: Cigarette Years Smoked: 50 e-Cigarette/Vaping Use: Never Used Second Hand Smoke Exposure: No Use of substances other than those prescribed or required for medical reasons: No Are you DNR?: No Advance Directives: No Advance Directives Information Provided: Yes Advance Directives Date on File: 07/09/22 Recently lost weight without trying: No Nutrition Risks: No Nutritional Risk Patient : No service: No Current occupational status: retired Cognitive needs: No Hearing needs: No Vision needs: Yes (reading glasses) Meds Allergies Allergy/AdvReac Type Severity Reaction Status Date / Time No Known Allergies Allergy Verified 06/23/24 16:37 [No Known Allergies*] Home Medications ?Medication ?Instructions ?Recorded ?Confirmed ?Last Taken ?Type cholecalciferol (vitamin D3) 25 1,000 unit PO DAILY 05/16/20 09/01/24 07/07/22 History mcg (1,000 unit) chewable tablet (Vitamin D3) cyanocobalamin (vitamin B-12) 1,000 mcg PO DAILY 05/16/20 09/01/24 07/07/22 History 1,000 mcg tablet (Vitamin B-12) thiamine HCl (vitamin B1) 100 mg 300 mg PO DAILY 05/16/20 09/01/24 07/07/22 History tablet (Vitamin B-1) pyridoxine (vitamin B6) 25 mg 25 mg PO DAILY 01/24/21 09/01/24 07/07/22 History tablet Exam Airway Mallampati Class: III TM Dist: >3cm Neck ROM: Full Assessment and Plan Assessment Anesthesia Assessment: Anesthesia Plan Discussed Final Anesthetic Review NPO: Yes ASA Class: III Final Preanesthetic Review: No Changes in Pt Med Stat, Meds/Allgs Chart Reviewed, Consent Obtained/Reviewed, Anes Risks/Benef Reviewed and DNR Form (If Appl.) Patient Risk: Intermediate Procedure Risk: Low Anesthetic Plan Anesthetic Plan: TIVA Disposition: Standard PACU
--- OUTSIDE RECORDS SUMMARY | 2024-09-05 09:08 | XMS_ITS ---
Author Organization [facility] Address [address] [place] [address] Care Team Providers Care Structural Technician Name Role Phone Lorenzo CARLIN, [place] Primary Care Provider Unava ilcara Peters Jr, Faheem Unavailable REASON FOR VISIT screening Encounters Encounter Location Date Provider Diagnosis [facility] [place] [address] [place] [phone] 09/05/2024 Faheem Peters Jr PLAN OF TREATMENT Next Appt Details Provider Name:Faheem carrera Jr, 09/05/2024 10:50:00 AM, [address] [place] [address] , [place], [phone],
--- OUTSIDE RECORDS SUMMARY | 2024-09-05 09:08 | XMS_ITS | Patient Health Record ---
Author Organization [facility] Address [address] [place] [address] Care Team Providers Care Film Developing Machine Operator Name Role Phone Lorenzo CARLIN, [place] Primary Care Provider Faheem Cornejo Jr Unavailable [phone] ALLERGIES No Known Allergies REASON FOR REFERRAL No Information MEDICATIONS Medication SIG (Take, Route, Frequency, Duration) Notes Start Date End Date Status Vitamin D-3 25 MCG (1000 UT) 1 capsule Orally Once a day for 30 day(s) Active Gabapentin 300 MG 1 capsule Orally Onc e a day for 30 day(s) Active amLODIPine Besy-Benazepril HCl 2.5-10 MG as directed Orally Active MiraLax (colon prep) 8.3 ounce ((238) grams mixed with Gatorade or Crystal Light orally begin at 5:00 p.m. the day before the procedure for 1 day 08/10/2024 Active Crestor 20 MG 1 tablet Orally Once a day Active Lisinopril 40 MG 1 tablet Orally Once a day Active Levothyroxine Sodium 88 MCG 1 tablet in the morning on an empty stomach Orally Once a day Active Omeprazole 20 MG 1 capsule Orally Onc e a day for 30 Active Fluticasone Propionate 50 MCG/ACT USE 2 SPRAYS INTRANASALLY DAILY FOR 30 DAYS Nasal for 90 Active Ibuprofen 200 MG 1 tablet with food o r milk as needed Orally Three times a day Active amLODIPine Besylate 5 MG TAKE 1 TABLET B Y MOUTH EVERY DAY FOR 90 DAYS Oral for 90 Active Vitamin B-1 250 MG as directed Orally Active Benzonatate 200 MG TAKE 1 CAPSULE BY [facility] 3 TIMES A DAY NEEDED FOR COUGH FOR 30 DAYS Oral for 30 Active Vitamin B 12 500 MCG 1 tablet Orally Onc e a day for 30 day(s) Active Cetirizine HCl 10 MG TAKE 1 TABLET BY [facility] DAILY NEEDED FOR ALLERGY SYMPTOMS Oral for 90 Active IMMUNIZATIONS Vaccine Route Administration Date Status Comme nts Influenza Unknown 05/08/2024 Administered SOCIAL HISTORY Tobacco Use: Social History Observation Description Date Details (start date - stop date) Former Smoker NA - NA Sex Assigned At : Social History Observation Description Sex Assigned At Unknown Tobacco Use/Smoking Question Answer Notes Patient is a former smoker PROBLEMS Problem Type ICD Code Onset Dates Problem Status W/U Status Risk SNOMED Code Notes Problem Colon cancer screening (V76.51) Active confirmed 103935893 Problem Esophageal reflux (530.81) Active confirmed 642211281 Problem Gastroesophageal reflux disease, unspecified whether esophagitis present (K21.9) Active confirmed 806508966 Problem Colon cancer screening (Z12.11) Active confirmed 641264489 Problem Encounter for long-term (current) use of NSAIDs (Z79.1) Active confirmed 431540387492623 VITAL SIGNS Temperature 96.9 degrees Fahrenheit 08/07/2024 Blood pressure diastolic 00 mm Hg 08/07/2024 Height 63 in 08/07/2024 Blood pressure systolic 000 mm Hg 08/07/2024 Weight 210 lbs 08/07/2024 BMI 37.20 kg/m2 08/07/2024 Encounters Encounter Location Date Provider Diagnosis [facility] Outpatient [address] [place] [id number] 09/05/2024 Faheem Peters Jr [facility] [address] [place] [phone] 08/07/2024 Faheem Peters Jr Gastroesophageal reflux disease, unspecified whether esophagitis present K21.9 ; Colon cancer screening Z12.11 and Encounter for long-term (current) use of NSAIDs Z79.1 ASSESSMENTS Encounter Date Diagnosis Assessment Notes Treatment Notes Treatment Clinical Notes 08/07/2024 Colon cancer screening (ICD-10 - Z12.11) 08/07/2024 Gastroesophageal reflux disease, unspecified whether esophagitis present (ICD-10 - K21.9) Gastroesophageal reflux disease material was printed 08/07/2024 Encounter for long-term (current) use of NSAIDs (ICD-10 - Z79.1) PLAN OF TREATMENT Future Test Test Name Order Date COLONOSCOPY 05/24/2014 COLONOSCOPY 08/10/2024 Next Appt Details Provider Name:Faheem hammraj Patterson, 09/05/2024 10:50:00 AM, [address] [place] [address] , [place], [place], [phone], Insurance Providers Payer Name Payer Address Payer Phone Subscriber Number Group Number Insured Name Patient Relationship to Insured Coverage Start Date Coverage End Date [facility] [address] [address] [place] [address] [phone] [id number] ALEXUS REDD Self - patient is the insured MEDICAL (GENERAL) HISTORY Medical History History ICD Code Colonoscopy to mid transvers e colon 08/23 hyperplastic rectal polyp, barium enema: scattered diverticulosis Hyperlipidemia Hypertension Relapsing polychondritis Hypothyroidism Elevated BMI Osteoarthritis/rheumatoid arthritis Osteopenia Disc disease MGUS Surgical History Surgery Date(Month/Year) wrist replacement-right appendectomy dilatation and curettage Ovarian cystectomy Laparoscopic cholecystectomy/ERCP for ga llstones 2021
--- OUTSIDE RECORDS SUMMARY | 2024-09-05 09:08 | XMS_ITS | Clinical Summary ---
Author Organization [facility] Address [address] [place] [address] Care Team Providers Care Foreign Languages Department Chair Name Role Phone Bolivar Ventura MD Primary Care Provider Social History Tobacco Use Types Packs/Day Years Used Date Smoking Tobacco: Former Smokeless Tobacco: Never Alcohol Use Standard Drinks/Week Comments Yes 0 (1 standard drink = 0.6 oz pur e alcohol) Sex and Gender Information Value Date Recorded Sex Assigned at Not on file Gender Identity Not on file Sexual Orientation Not on file Obstetrics History Last Filed Vital Signs Vital Sign Reading Time Taken Comments Blood Pressure 183/94 06/08/2023 3:57 PM EDT Pulse 67 06/08/2023 3:57 PM EDT Temperature - - Respiratory Rate - - Oxygen Saturation - - Inhaled Oxygen Concentration - - Weight 93.9 kg (207 lb) 04/14/2024 10:58 AM EDT Height 157.5 cm (5' 2 ) 04/14/2024 10:58 AM EDT Body Mass Index 37.86 04/14/2024 10:58 AM EDT Plan of Treatment Health Maintenance Due Date Last Done Comments Breast Cancer Screening 1950 DTaP,Tdap,and Td Vaccines (1 - Tdap) 1969 Zoster Vaccines (1 of 2) 2000 Pneumococcal Vaccine: 65+ Years (2 of 2 - PCV) 08/12/2016 08/12/2015 Colorectal Cancer Screening: Colonoscopy 07/18/2022 Depression Screening 07/18/2022 Falls Risk Assessment 07/18/2022 Hepatitis C Screening 07/18/2022 Osteoporosis Screening (Bone Density Screening) 07/18/2022 Social Influencers of Health Screening 07/18/2022 COVID-19 Vaccine (2023- season) 2024 Influenza Vaccine (#1) 2024 9, 05/12/2018, 05/07/2017, Additional history exists RSV Immunization Patients 60+ Years Old (1 - 1-dose 75+ series) 2025 HIB Vaccines Aged Out No longer eligi ble based on patient's age to complete this topic HPV Vaccines Aged Out No longer eligi ble based on patient's age to complete this topic Hepatitis A Vaccines Aged Out No long er eligible based on patient's age to complete this topic Hepatitis B Vaccines Aged Out No long er eligible based on patient's age to complete this topic IPV Vaccines Aged Out No longer eligi ble based on patient's age to complete this topic MMR Vaccines Aged Out No longer eligi ble based on patient's age to complete this topic Meningococcal ACWY Vaccine Aged Out N o longer eligible based on patient's age to complete this topic RSV Immunization Patients Under 20 months Aged Out No longer eligible based on patient's age to complete this topic Varicella Vaccines Aged Out No longer eligible based on patient's age to complete this topic Care Teams Foreign Languages Department Chair Relationship Specialty Start Date End Date Bolivar Ventura MD [address] [place] [address] Dr [address] MEGHANN Crain PCP - General Internal Medicine 12/27/20
--- OUTSIDE RECORDS SUMMARY | 2024-09-05 09:08 | XMS_ITS ---
Author Organization [facility] Address [address] [place] [phone] Care Team Providers Care Supervisor/Port Director Name Role Phone Lorenzo CARLIN, [place] Primary Care Provider Faheem Cornejo Jr Unavailable ALLERGIES No Known Allergies REASON FOR VISIT Patient presents today for consultation MEDICATIONS Medication SIG (Take, Route, Frequency, Duration) Notes Start Date End Date Status Vitamin D-3 25 MCG (1000 UT) 1 capsule Orally Once a day for 30 day(s) Active Gabapentin 300 MG 1 capsule Orally Onc e a day for 30 day(s) Active amLODIPine Besy-Benazepril HCl 2.5-10 MG as directed Orally Active Vitamin B-1 250 MG as directed Orally Active Vitamin B 12 500 MCG 1 tablet Orally Onc e a day for 30 day(s) Active MiraLax (colon prep) 8.3 ounce ((238) grams mixed with Gatorade or Crystal Light orally begin at 5:00 p.m. the day before the procedure for 1 day 08/10/2024 Active Ibuprofen 200 MG 1 tablet with food o r milk as needed Orally Three times a day Active Omeprazole 20 MG 1 capsule Orally Onc e a day for 30 Active Fluticasone Propionate 50 MCG/ACT USE 2 SPRAYS INTRANASALLY DAILY FOR 30 DAYS Nasal for 90 Active amLODIPine Besylate 5 MG TAKE 1 TABLET B Y MOUTH EVERY DAY FOR 90 DAYS Oral for 90 Active Benzonatate 200 MG TAKE 1 CAPSULE BY MO UTH 3 TIMES A DAY NEEDED FOR COUGH FOR 30 DAYS Oral for 30 Active Cetirizine HCl 10 MG TAKE 1 TABLET BY MO UTH DAILY NEEDED FOR ALLERGY SYMPTOMS Oral for 90 Active Crestor 20 MG 1 tablet Orally Once a day Active Lisinopril 40 MG 1 tablet Orally Once a day Active Levothyroxine Sodium 88 MCG 1 tablet in the morning on an empty stomach Orally Once a day Active SOCIAL HISTORY Tobacco Use: Social History Observation Description Date Details (start date - stop date) Former Smoker NA - NA Sex Assigned At : Social History Observation Description Sex Assigned At Unknown Tobacco Use/Smoking Question Answer Notes Patient is a former smoker PROBLEMS Problem Type ICD Code Onset Dates Problem Status W/U Status Risk SNOMED Code Notes Problem Gastroesophageal reflux disease, unspecified whether esophagitis present (K21.9) Active confirmed 043428024 Problem Colon cancer screening (Z12.11) Active confirmed 101708706 Problem Encounter for long-term (current) use of NSAIDs (Z79.1) Active confirmed 969920547707876 VITAL SIGNS BMI 37.20 kg/m2 08/07/2024 Blood pressure systolic 000 mm Hg 08/07/20 24 Blood pressure diastolic 00 mm Hg 024 Height 63 in 08/07/2024 Temperature 96.9 degrees Fahrenheit 08/07/20 24 Weight 210 lbs 08/07/2024 Encounters Encounter Location Date Provider Diagnosis [facility] [address] [place] [phone] 08/07/2024 Faheem Peters Jr Gastroesophageal reflux disease, unspecified whether esophagitis present K21.9 ; Colon cancer screening Z12.11 and Encounter for long-term (current) use of NSAIDs Z79.1 ASSESSMENTS Encounter Date Diagnosis Assessment Notes Treatment Notes Treatment Clinical Notes 08/07/2024 Gastroesophageal reflux disease, unspecified whether esophagitis present (ICD-10 - K21.9) Gastroesophageal reflux disease material was printed 08/07/2024 Colon cancer screening (ICD-10 - Z12.11) 08/07/2024 Encounter for long-term (current) use of NSAIDs (ICD-10 - Z79.1) PLAN OF TREATMENT Medication Medication Name Sig Start Date Stop Date Notes MiraLax (colon prep) 8.3 oun ce ((238) grams mixed with Gatorade or Crystal Light orally begin at 5:00 p.m. the day before the procedure for 1 day 08/10/2024 Treatment Notes Assessment Notes Gastroesophageal reflux dise ase, unspecified whether esophagitis present Gastroesophageal reflux disease material was printed Future Test Test Name Order Date COLONOSCOPY 08/10/2024 Next Appt Details Follow Up: 1 Year, Reason: Provider Name:Faheem carrera Jr, 09/05/2024 10:50:00 AM, [address] [place] [address], [id number], Progress Notes * Examination Category Sub-Category Detail Notes General Examination GENERAL APPEARANCE: in no ac danny distress HEAD: normocephalic EYES: sclera non-icteric NECK/THYROID: no lymphadenopathy HEART: S1, S2 normal, no mu rmurs CHEST: normal shape and exp ansion LUNGS: clear to auscultatio n bilaterally ABDOMEN: soft, nontender, non distended, bowel sounds present, no organomegaly SKIN: anicteric EXTREMITIES: no clubbing, cyanosi s, or edema PSYCH: cognitive function i ntact ORAL CAVITY: mucosa moist
[2024-09-05 09:32] VITALS: BMI 38.1
--- NOTE | 2024-09-05 09:47 | MHC.SHP ---
Pre-Procedural Eval Section A - 24 Hr Update-Section A only Date of Service: 09/05/24 Section B - Complete if H&P > 30 days Chief Complaint: screening Details of Present Illness: see H&P no changes Relevant Family History (Specify if Yes): No Relevant Social History: None Present Medications: see Short Stay Collaborative assessment Medical History: No relevant PMH History of Previous Operations: No relevant previous surgery Allergies: Allergies Allergy/AdvReac Type Severity Reaction Status Date / Time No Known Allergies Allergy Verified 06/23/24 16:37 [No Known Allergies*] Review of Systems Sugical H&P ROS: Negative: Constitution, Cardiovascular, Respiratory, Neurological, Psychiatric, Hem-Onc, Allergic/Immunologic, Gastrointestinal, Genitourinary, Musculoskeletal, Integumentary, Endocrine and Eyes/Ears/Nose/Throat Exam Surgical H&P Exam: Normal: HEENT, Normal: Heart, Normal: Lungs, Normal: Extremities, Normal: Abdomen, Normal: Skin and Normal: Neurological Plan Diagnosis/Plan: Unchanged I have reviewed the history and physical and performed a pertinent physical examination on my patient. No changes have occurred unless specified. Time Spent With Patient Time: Total time managing care of this patient today ____ minutes.
[2024-09-05 09:54] VITALS: BP 142/69; PULSE 75; RESP 16; TEMP 37.5; O2SAT 98
[2024-09-05] MEDS: Lactated Ringers 1,000 ML 100 ML IVCONT (10:06)
[2024-09-05 11:08] VITALS: BP 121/72; PULSE 76; RESP 16; TEMP 36.2; O2SAT 97
[2024-09-05 11:23] VITALS: BP 141/61; PULSE 76; RESP 16; O2SAT 99
[2024-09-05 11:35] VITALS: BP 147/64; PULSE 64; RESP 16; TEMP 36.3; O2SAT 99
--- NOTE | 2024-09-05 13:38 | OP_ITS ---
DATE OF SERVICE: 09/05/2024 SURGEON: Faheem Peters MD INDICATIONS: Colon cancer screening. PREOPERATIVE DIAGNOSIS: POSTOPERATIVE DIAGNOSIS: PROCEDURE PERFORMED: Colonoscopy to the terminal ileum with biopsy. ESTIMATED BLOOD LOSS: COMPLICATIONS: ANESTHESIA: Monitored anesthesia care. ASSISTANTS: SPECIMENS: DESCRIPTION OF PROCEDURE: A history and physical was performed. The risks and benefits of the procedure were explained to the patient, and informed consent was obtained. The patient was placed in the left lateral decubitus position. A digital rectal exam was performed and was found to be normal. The Olympus pediatric video colonoscope was introduced into the rectum and advanced to the cecum. The cecum was identified by transillumination, palpation, and identification of ileocecal valve. Examination was performed. The scope was removed. She tolerated the procedure well and was returned to the recovery area in stable condition. FINDINGS: The terminal ileum was examined and appeared normal. The visualized colonic mucosa was normal. There was a single polyp measuring less than 5 mm, which was removed with a biopsy forceps. This was located at 50 cm. There was mild sigmoid diverticulosis. Retroflexed examination showed some small internal hemorrhoids. IMPRESSION: Colon polyp. RECOMMENDATION: Follow up the biopsy results. MD KEYLA Lopez/NEELMIA / [id number]
== END 2024-09-05 11:54 | disposition home or self-care (01) ==
PROVIDERS: PCP Internal Medicine; Visit Provider Internal Medicine Gastroenterology
PROC: 0DJD8ZZ Inspection of Lower Intestinal Tract, Via Natural or Artificial Opening Endoscopic (ICD-10-PCS; CPT 45378; principal; 2024-09-05 10:50)
DX: Z12.11 Encounter for screening for malignant neoplasm of colon (principal); D12.5 Benign neoplasm of sigmoid colon; K57.30 Diverticulosis of large intestine without perforation or abscess without bleeding; K64.8 Other hemorrhoids; K21.9 Gastro-esophageal reflux disease without esophagitis; I10 Essential (primary) hypertension; D47.2 Monoclonal gammopathy; E78.5 Hyperlipidemia, unspecified; E03.9 Hypothyroidism, unspecified; M94.1 Relapsing polychondritis; M06.9 Rheumatoid arthritis, unspecified; M19.90 Unspecified osteoarthritis, unspecified site; G47.33 Obstructive sleep apnea (adult) (pediatric); Z79.51 Long term (current) use of inhaled steroids; Z79.1 Long term (current) use of non-steroidal anti-inflammatories (NSAID); Z79.899 Other long term (current) drug therapy; Z90.49 Acquired absence of other specified parts of digestive tract; Z98.890 Other specified postprocedural states; Z87.891 Personal history of nicotine dependence
CPT/HCPCS: 45380; 88305; J2003; J2704

== ENCOUNTER 2024-09-18 07:41 | Outpatient (REF) | payer MEDICARE, SELFPAY ==
[2023-08-25 11:07] VITALS: BMI 39.0
== END 2024-09-18 07:42 | disposition home or self-care (01) ==
LOC: HO.CT 07:41
PROVIDERS: PCP Internal Medicine; Visit Provider Otolaryngology
DX: J33.0 Polyp of nasal cavity (principal); H81.4 Vertigo of central origin
CPT/HCPCS: 70486

== ENCOUNTER → 2024-09-18 07:43 | Outpatient (BNV) | payer MEDICARE, SELFPAY ==
[2023-08-25 11:07] VITALS: BMI 39.0
== END ==
PROVIDERS: PCP Internal Medicine; Visit Provider Radiology Diagnostic Radiology
DX: J33.9 Nasal polyp, unspecified (principal)
CPT/HCPCS: 70486

== ENCOUNTER 2024-10-31 10:09 | Outpatient (AMB) | payer MEDICARE, SELFPAY ==
[2023-08-25 11:07] VITALS: BMI 39.0
--- NOTE | 2024-10-31 10:12 | MHC.OFFVIS ---
Vital Signs 10/31/24 10:13 Height 5 ft 3 in Weight 221 lb 9.033 oz BMI 39.2 BP 126/82 Blood Pressure Location Lt brachial Position Sitting Pulse 68 Pulse Source Pulse Oximeter Pulse Oximetry (%) 97 Oxygen Delivery Method Room Air Intake Visit Reasons: Obstructive sleep apnea Allergies No Known Allergies [No Known Allergies*] Allergy (Verified 10/31/24 10:16) HPI Comments Details: Patient is a 74-year-old woman with a known history of cough in shortness of breath. Sghy-co-knwlcjbb in severity. The patient did have an abnormal chest x-ray and ultimately underwent a CT scan of the chest back in September 2020. Did demonstrate she has been a diaphragmatic hernia in addition to them the hiatal hernia and small pulmonary nodules. She did follow-up with thoracic surgery for the the bockdalek hernia. No surgical intervention needed. She was sent for pulmonary function studies which demonstrated a mild restrictive defect. Therefore she was referred to Pulmonary. Her cough is nonproductive in nature it is intermittent denies any postnasal drip or any wheezing. She does not use any respiratory medications. She does have symptoms of heartburn. She does take medications for Gerd. In addition to that she is taking an CHAITANYA inhibitor. She does have associated shortness of breath with activity. Mild in severity. Does get better with rest. We did review her CT scan of the chest demonstrating the small diaphragmatic hernia that is likely incidental finding. More significant and was her hiatal hernia in addition to the pulmonary nodules that we need follow-up. 08/26/2021 the patient is here for a pulmonary follow-up visit. Her symptoms are persistent. She continues to have dyspnea on exertion. Even with minimal activity. We did review her studies initially demonstrating the pulmonary function studies demonstrating the restrictive ventilatory defect. She also underwent a CT scan of the chest without any evidence of any interstitial lung disease. The patient also had a sniff study ruling out any evidence of any diaphragmatic paralysis. Her pulmonary function studies also demonstrated a moderate diffusion impairment. Explained to her that she may indeed also have a component of pulmonary vascular disease. We did briefly review her last echocardiogram from 2019 which demonstrated some degree of left ventricular hypertrophy. Explained to her that this could also result in increased pulmonary vascular pressures. In addition to that untreated sleep apnea can also result in increased pulmonary vascular pressures. She does have daytime drowsiness. Her [place] score is elevated 10. At this point I will request a home sleep study to assess for obstructive sleep apnea which may be contributing to her symptoms. 12/01/2021 the patient is here for pulmonary follow-up visit. She continues to have dyspnea on exertion. Moderate severity. Based on her pulmonary function study she appears to have evidence of restrictive lung disease. Therefore, I did recommend she start pulmonary rehabilitation. I do believe that this will provide her some benefit in improving her underlying dyspnea symptoms. In the meantime her dyspnea symptoms are likely multifactorial. Part deconditioning part restrictive lung disease but also need to consider pulmonary vascular conditions. The patient did have an elevated [place] score. We had her undergo a home sleep study. No significant evidence of sleep apnea although it is likely nondiagnostic. She did have significant episodes of apnea and specially hypopneas while laying supine. The patient also desaturated down to below 88% for about 12 minutes. I did request patient try positional therapy for now while not sleep in her back. She will try different devices in order to do so. Once the patient is able to do that we can repeat her overnight oximetry or consider having her undergo a in-lab PSG. Will do this based on her degree of daytime drowsiness And cardiovascular risk factors. The patient has a rescue inhaler available. She has not interested in starting any maintenance therapy at this time. 07/07/2022 the patient is here for pulmonary follow-up visit. Overall the patient is relatively well from a respiratory status. She continues to participate in pulmonary rehabilitation. She is completing the program and that she can consider continuing on her own. The patient has been able to make some strides in her pulmonary capacity. She is still complaining of epigastric discomfort. Moderate severity. Sometimes radiates to her back. She does have a hiatal hernia. We did look at her recent CT scan of the chest done May 2022 demonstrating stable pulmonary nodules. She does have the hiatal hernia. She does take medications. We did talk about the importance of good reflux diet. In view of her epigastric discomfort the patient should be evaluated either with barium swallow or with an endoscopy. She is also having issues with transaminitis. She was recently taken off her lipid medication. She also had an ultrasound which is reassuring. Again, if she has any worsening epigastric discomfort she seek urgent medical advice. 12/29/2022 the patient is here for a pulmonary follow-up visit. She continues complaint of dyspnea on exertion. She has had an eventful year and has had multiple surgeries. She has recovered well in tolerated anesthesia well. She has to have 1 more wrist surgery couple min up at [facility]. In the meantime she continues to have shortness of breath. We reviewed a get her a previous pulmonary function studies demonstrating some degree of restriction. She does have incentive spirometer at home she is going to do so. But more than that there is a disproportional low to moderate diffusion impairment. Therefore pulmonary vascular conditions need to be considered. Hemoglobin has been stable. The patient does have lower extremity edema. She does use salt and she injury salt. It is likely that she does have some volume overload status. With the decrease in DLCO I also suspect that there is a cardiac component to her respiratory symptoms. Will request a stress echo. The patient has already has EKGs. In addition to that will plan to repeat her PFTs. She will try 3 day course of Lasix to see if we can improve her respiratory status at this time. 03/23/2023 the patient is here for pulmonary follow-up visit. She continues to be about the same. Still complaining of dyspnea on exertion. Moderate severity. Specially going up a flight of stairs. She did participate in the pulmonary rehabilitation although she did not feel that she had a lot of teaching. I did reach out to the pulmonary rehab to see if they can give her some breathing techniques teachings. The patient does have some restrictive lung disease likely from her body habitus. She is also the condition and has significant discomfort primarily at the knees making it difficult for her to ambulate. We did have her undergo a cardiac evaluation based on the fact that she has had some lower extremity edema. She did have a stress echo that was nondiagnostic. Therefore she had had a Nikki nuclear scan that demonstrating no evidence of any underlying coronary artery disease or perfusion defects. Her gated EF was 69% which is reassuring. I did encourage the patient with the fact that her cardiac status is stable. I would also given Lasix to help with lower extremity edema the last time but she had some vomiting after worse and she is not sure if he was the medications so she stopped that after the 1st dose. She still has some lower extremity but is less in amount. 08/25/2023 the patient is here for pulmonary follow-up visit. She is doing about the same still having dyspnea on exertion. She has multiple factors. She is having significant pains in her musculoskeletal area lower back area now in the upper neck area. She recently had an x-ray demonstrating spondylosis. She does have a follow-up with pain management. In the meantime she has been using the Wixela daily. She is going to try to increase that to twice a day. We did look at her PFTs and there was not anything significant as far as response to bronchodilators. One option will be to titrate her up to Trelegy to try muscarinic antagonist and maybe this proposal writer better airway response. In addition to that we did look at the echocardiogram again demonstrating hypertrophy of the left ventricle and explained to her that that can result in diastolic dysfunction and subsequent shortness of breath with increased heart rate. Therefore, will be good for her to be seen by tnt powder worker at this time to further adjust her medications appropriately. 11/03/2023 the patient is here for a pulmonary follow-up visit. She continues have dyspnea on exertion. Moderate severity. Which has other issues going on such as her back discomfort and also her hand discomfort. She was doing rehab but it was difficult for her to do with all her orthopedic issues. Now the patient will be seeing Cardiology for the severe asymmetrical septal hypertrophy. Wondering how much that is affecting her breathing. I did give her a small dose of diuretic during the last visit for 3 days which did help decrease some of the lower extremity edema. She will talk to Cardiology to see if additional diuretic therapy is warranted. We did look at her last CT scan of the chest that was done about a year ago which demonstrated a small 2 mm pulmonary nodule in the right upper lobe area. The patient also had a Bochdalek hernia. She had been seen by thoracic surgery in the past was small and therefore no intervention warranted. Will go ahead and plan to repeat a CT scan in 4-6 months in order to reassess the pulmonary nodule and also to reassess her hernia. 05/02/2024 the patient is here for a pulmonary follow-up visit. She is still having the same symptoms. Complains of dyspnea on exertion. She is wondering the etiology. We did talk about the multifactorial aspect of things that she does have hypertrophic cardiac changes, in addition to that there is evidence of restrictive lung disease due to her body habitus in addition to that there is a component of deconditioning. She is also concerned that she is feeling dizzy lately. She has an appointment with ENT. Feels like she is has pressure in her ears. She does have some nasal congestion nasal spray may be helpful for that. We did talk about the pathophysiology of the pressure gradients of the sinuses. I do believe that a nasal spray we helpful. She has had issues with epistaxis in the past we did go with the instructions on how to use it properly to try to minimize that. The patient also admits to drinking alcohol. Sometimes she drinks more than other times. She does drink usually hard liquor including Tequila and vodka. Sometimes she drinks red wine. She moves blood some days more than others. But has been on a regular basis. The patient is concerned because her brother was diagnosed with ataxia. She understands that this could be related to alcohol drinking. She needs to cut down. I did not appreciate any evidence of any ataxia this time. Although she needs to be evaluated further by her primary care doctor or neurologist. 10/31/2024 the patient is here for pulmonary follow-up visit. She still complains of dyspnea on exertion. Moderate severity. She does have difficulties walking because of her knees and deconditioning. She has also had a hard time losing weight. She is looking into medical weight management. I do believe that this will be helpful. She has been dealing with significant sinusitis. She was evaluated by ENT and did undergo a CT scan of the sinuses demonstrating significant maxillary sinusitis. Appears to have subcu and chronic findings. She is still having significant congestion. Will go ahead and start her on Dymista and also Singulair for her allergies. She does have significant eosinophilia suggesting allergies started playing a role. She continues on the respiratory inhaler with good effect. The patient does have daytime drowsiness. [place] score is elevated 07/02. She can consider having a repeat sleep study. Her previous 1 was borderline. [facility] Medical History (Updated 09/01/24 @ 15:01 by Carol Webb RN) CHRIS (obstructive sleep apnea) Cardiac hypertrophy Choledocholithiasis Depression Acquired hypothyroidism Hiatal hernia Chronic restrictive lung disease Pulmonary nodule Right lumbar radiculopathy Hernia, diaphragmatic Obesity (BMI 30-39.9) Relapsing polychondritis Vitamin D deficiency Osteopenia Elevated LFTs GERD without esophagitis Thoracic scoliosis Lumbar degenerative disc disease Vitamin B12 deficiency Rheumatoid arthritis Impaired fasting glucose Primary osteoarthritis of right knee Neuropathy of left peroneal nerve Hypothyroidism Exertional dyspnea Pure hypercholesterolemia Benign essential hypertension Bochdalek hernia Surgical History History of laparoscopic cholecystectomy (07/10/22) History of cataract surgery History of colonoscopy History of surgery on right wrist (~05/2004) History of appendectomy (~1963) History of surgery on right wrist (~02/2020) History of carpal tunnel surgery (~03/2016) History of right knee joint replacement (~08/2016) Family History Father CVD (cardiovascular disease) Mother Ovarian cancer Maternal Aunt Breast cancer Brother Colon cancer Family/Other Breast cancer Family/Other Breast cancer Family/Other Breast cancer Social History Household Members: Family Household Members Other:: 4 Housing: House Are you a primary palliative care physician to a significant other at home: No Do you presently have visiting nurse or other home services: No Alcohol intake: current Alcohol intake frequency: holidays/special occasions only Alcohol type: wine Patient Tobacco Use Status: Former Tobacco user Tobacco use type: Cigarette Years Smoked: 50 e-Cigarette/Vaping Use: Never Used Second Hand Smoke Exposure: No Advance Directives Date on File: 07/09/22 service: No Current occupational status: retired Cognitive needs: No Hearing needs: No Vision needs: Yes (reading glasses) Review of Systems Const Denies chills, Reports fatigue (mild), Denies fever(s), Denies headache(s) and Reports weight gain ENT Denies dysphagia, Reports dizziness, Denies otalgia, Denies headache(s), Denies nasal congestion, Denies odynophagia and Denies sore throat Card Denies chest pain, Denies palpitations and Reports dyspnea on exertion (mild, unchanged from previous) Resp Denies chest congestion, Denies cough, Denies hemoptysis, Reports dyspnea on exertion (mild, unchanged from previous) and Denies wheezing GI Denies abdominal pain, Denies constipation, Denies dysphagia, Denies heartburn, Denies diarrhea, Denies nausea, Denies odynophagia and Denies vomiting Denies difficulty voiding, Denies nocturia and Denies dysuria Musc Reports back pain (with radiation of pain down her legs at times - chronic), Reports myalgias and Reports arthralgias (right knee) Skin/Breast Details: (+) few raised dark lesions on her trunk - thinks that they may be skin tags Neuro Reports dizziness, Denies headache(s) and Reports tremor(s) Endo Reports fatigue (mild) and Denies palpitations Isidoro/Lymph Denies easy bruising Aller/Immun Denies wheezing Physical Exam Vital Signs: Last Vital Signs Pulse 68 10/31/24 10:13 BP 126/82 10/31/24 10:13 Pulse Ox 97 10/31/24 10:13 Oxygen Delivery Method Room Air 10/31/24 10:13 BMI result Body Mass Index 39.2 Const General: alert HEENT Head: Yes atraumatic Eyes Pupils: Equal, round and reactive pupils present Neck Neck: Yes normal visual inspection, Yes full ROM and Yes no lymphadenopathy Chest Chest palpation & inspection: normal inspection of the chest Resp Effort & Inspection: normal respiratory effort Auscultation: diminished lung sounds Cardio Rate: regular rate Rhythm: regular rhythm Heart sounds: S1 normal heart sound present and S2 normal heart sound present GI Palpation (GI): Soft to palpation and nontender Auscultation: normal bowel sounds Skin General skin exam: rashes and/or lesions noted Neuro Cranial nerves: Yes Equal, round and reactive pupils present Extrem General: No clubbing, No cyanosis and Yes edema Assessment & Plan Assessment & Plan (1) CHRIS (obstructive sleep apnea): Code(s): G47.33 - Obstructive sleep apnea (adult) (pediatric) Category: Medical (2) Pulmonary nodule: Code(s): R91.1 - Solitary pulmonary nodule Category: Medical (3) Hernia, diaphragmatic: Code(s): K44.9 - Diaphragmatic hernia without obstruction or gangrene Category: Medical Qualifiers: Obstruction and gangrene presence: without obstruction or gangrene Qualified Code(s): K44.9 - Diaphragmatic hernia without obstruction or gangrene (4) Hiatal hernia: Code(s): K44.9 - Diaphragmatic hernia without obstruction or gangrene Category: Medical (5) Chronic restrictive lung disease: Code(s): J98.4 - Other disorders of lung Category: Medical (6) Cardiac hypertrophy: Code(s): I51.7 - Cardiomegaly Category: Medical (7) Sinusitis: Code(s): J32.9 - Chronic sinusitis, unspecified Category: Medical Qualifiers: Chronicity: chronic Sinusitis location: unspecified location Qualified Code(s): J32.9 - Chronic sinusitis, unspecified Plan positional sleep therapy continue exercise regimen consider repeating PSG continue Wixela BID low Na diet continue PPI reflux diet weight management JAIMIE as needed neti bottle, distilled water only start Dymista F/U 6-8 months Medications: New azelastine-fluticasone 137-50 mcg/spray (Dymista) administer into each nostril 1 spray intranasal BID 23 grams 11RF 30 days Coding Level of Care Code Est Pt Level 4 (53947) Diagnoses CHRIS (obstructive sleep apnea) G47.33 Pulmonary nodule R91.1 Diaphragmatic hernia without obstruction and without gangrene K44.9 Obstruction and gangrene presence: without obstruction or gangrene Hiatal hernia K44.9 Chronic restrictive lung disease J98.4 Cardiac hypertrophy I51.7 Chronic sinusitis, unspecified location J32.9 Chronicity: chronic Sinusitis location: unspecified location Time Spent (min) 16
[2024-10-31 10:13] VITALS: BP 126/82; PULSE 68; O2SAT 97; BMI 39.2
--- OUTSIDE RECORDS SUMMARY | 2024-10-31 12:04 | XMS_ITS | Clinical Summary ---
Author Organization [facility] ity Address [address] [place] [address] Care Team Providers Care Machine Molder Name Role Phone Bolivar Ventura MD Primary Care Provider Social History Tobacco Use Types Packs/Day Years Used Date Smoking Tobacco: Former Smokeless Tobacco: Never Alcohol Use Standard Drinks/Week Comments Yes 0 (1 standard drink = 0.6 oz pur e alcohol) Comments Unknown Sex and Gender Information Value Date Recorded Sex Assigned at Not on file Legal Sex Female 8:03 AM EST Gender Identity Not on file Sexual Orientation [...] Vaccines (1 of 2) 2000 Pneumococcal Vaccine: 50+ Years (2 of 2 - PCV) 08/12/2016 [...] patient's age to complete this topic Meningococcal B Vacine Aged Out No lo nger eligible based on patient's age to complete this topic RSV Immunization Patients Under 20 months Aged Out No longer eligible based on patient's age to complete this topic Varicella Vaccines Aged Out No longer eligible based on patient's age to complete this topic Care Teams Machine Molder Relationship Specialty Start Date End Date Bolivar Ventura MD [address] [place] [address] Dr [address] MEGHANN Crain PCP - General Internal Medicine 12/27/20
--- OUTSIDE RECORDS SUMMARY | 2024-10-31 12:04 | XMS_ITS ---
Author Organization [facility] Address [address] [place] [id number] Care Team Providers Care Vendette Name Role Phone Lorenzo CARLIN, Bolivar Primary Care Provider Faheem Cornejo Jr [phone] REASON FOR VISIT screening Encounters Encounter Location Date Provider Diagnosis [facility] [address] [place] [id number] 09/05/2024 Faheem Peters Jr Colon cancer screening Z12.11 and Colon polyps K63.5 Assessments Encounter Date Diagnosis (ICD Code) Assessment Notes Treatment Notes Treatment Clinical Notes Section Notes 09/05/2024 Colon cancer screening (ICD-10 - Z12.11) 09/05/2024 Colon polyps (ICD-10 - K63.5) Plan Of Treatment No Information Progress Notes * ALEXUS REDD ADOB: [birth year] (74 yo F)Acc No.[id number]:09/05/2024 COLON WITH MAC Patient:?ALEXUS REDD Tasia Provider:?Faheem Peters MD :1950???Age:74 Y???Sex:Female D ate:09/05/2024 Address:[address] [id number] Pcp:Bolivar Ventura MD Subjective: * Chief Complaints: * ???1. Screening. * Medical History:? Objective: * Vitals:? Assessment: * Assessment: 1.?Colon cancer screening - Z12.11 (Primary)???2.?Colon polyps - K63.5??? Plan: * Treatment: * Procedure Codes:?37048 COLON OSCOPY AND BIOPSY, 0529F INTRVL 3+YRS PTS CLNSCP DOCD * * The named appointment provid er may or may not be the originator of this progress note, and it is not deemed complete until electronically signed by the appointment provider. Sign off status: Pending * Provider:?Faheem Peters MD Date:?0 09/05/2024 Generated for Tita art/Robi/Bijalsmitting on:?10/31/2024 12:04 PM EDT
--- OUTSIDE RECORDS SUMMARY | 2024-10-31 12:04 | XMS_ITS | Patient Health Record ---
Author Organization [facility] Address [address] [place] [address] Care Team Providers Care Tourist Home Keeper Name Role Phone Lorenzo CARLIN, [employer] Primary Care Provider Faheem Cornejo Jr Unavailable Allergies No Known Allergies Results Component Value Reference Range Notes Pathology Reviewed date:09/14/2024 12:59:40 PM Interpretation: Performing Lab:[facility], [address] [place] [id number] Notes/Report: Name: Alexus Redd Age/Sex: 74/F : 1950 Unit#: [id number] Attend Dr: Faheem Peters MD Re09/05/24 Status : [facility] Location: [facility] Disch: SPEC : [id number] RECD: 09/05/24-1220 STATUS: ERICA PHELPS NUM: [id number] BAKARI: 09/05/24-1058 [facility] DR: Faheem Peters MD ENTERED: 09/05/24- 24 SP TYPE: Surgical OTHR DR: Bolivar Ventura MD ORDERED: HE Stain/3, Gross Micro L4 Diagnosis Colon, 50 cm, polype ctomy: Fragments of tubular adenoma; negative for high-grade dysplasia or carcinoma. Clinical History Pre-Op Dx: Screening Post-Op Dx: Colon polyp Microscopic Description Microscopic sections reviewed. Material Received Polyp at 50 cm Gross Description Received in formalin labeled polyp at 50 cm? is a 0.25 cm matias-pink irregular tissue fragment, submitted in toto in a cassette labeled A. CEDS Copies To: Bolivar Ventura MD [facility] [place] [place] [address] Faheem Peters MD [facility] [address] [place] [address] Signed (si gnature on file) Carl Herndon MD 09/07/24 1044 END OF REPORT Reason For Referral No Information Medications Medication SIG (Take, Route, Frequency, Duration) Notes [...] FOR ALLERGY SYMPTOMS Oral for 90 Active Immunizations Vaccine Route Administration Date Status Comme nts Influenza Unknown 05/08/2024 Administered Social History Tobacco Use: Social History Observation Description Date Details (start date - stop date) Former Smoker NA - NA Tobacco Use/Smoking Question Answer Notes Patient is a former smoker Problems Problem Type SNOMED Code ICD Code Onset Dates Problem Status W/U Status Risk Notes Problem 083182781 Colon cancer screening (Z12.11) Active confirmed Problem 926537142390602 Encounter for long-term (current) use of NSAIDs (Z79.1) Active confirmed Problem 018564432 Gastroesophageal reflux disease, unspecified whether esophagitis present (K21.9) Active confirmed Vital Signs Temperature 96.9 degrees Fahrenheit 08/07/2024 Blood pressure diastolic 00 mm Hg 08/07/2024 Height 63 in 08/07/2024 Blood pressure systolic 000 mm Hg 08/07/2024 Weight 210 lbs 08/07/2024 BMI 37.20 kg/m2 08/07/2024 Encounters Encounter Location Date Provider Diagnosis [facility] Out[facility] [address], [place] [id number] 09/05/2024 Faheem Peters Jr Colon cancer screening Z12.11 and Colon polyps K63.5 [facility] [address] [place] [phone] 08/07/2024 Faheem Peters Jr Gastroesophageal reflux disease, unspecified whether esophagitis present K21.9 ; Colon cancer screening Z12.11 and Encounter for long-term (current) use of NSAIDs Z79.1 [facility] [address] [place] [phone] 09/14/2024 Faheem Peters Jr Assessments Encounter Date Diagnosis (ICD Code) Assessment Notes Treatment Notes Treatment Clinical Notes Section Notes 09/05/2024 Colon cancer screening (ICD-10 - Z12.11) 09/05/2024 Colon polyps (ICD-10 - K63.5) 08/07/2024 Colon cancer screening (ICD-10 - Z12.11) Currently, she is doing well. We discussed gastroesophageal reflux disease today. We discussed diet, lifestyle modifications, and weight management regarding the treatment of reflux. We recommended that she continue omeprazole. She can use zlpg-hnq-cudoinw antacids for breakthrough symptoms. She is due for colorectal cancer screening. This will be arranged. She understands risks and benefits of the procedure and agrees to proceed. She is advised stop ibuprofen one week before the procedure. 08/07/2024 Gastroesophageal reflux disease, unspecified whether esophagitis present (ICD-10 - K21.9) Gastroesophageal reflux disease material was printed Currently, she is doing well. We discussed gastroesophageal reflux disease today. We discussed diet, lifestyle modifications, and weight management regarding the treatment of reflux. We recommended that she continue omeprazole. She can use vuba-rhm-nvydvss antacids for breakthrough symptoms. She is due for colorectal cancer screening. This will be arranged. She understands risks and benefits of the procedure and agrees to proceed. She is advised stop ibuprofen one week before the procedure. 08/07/2024 Encounter for long-term (current) use of NSAIDs (ICD-10 - Z79.1) Currently, she is doing well. We discussed gastroesophageal reflux disease today. We discussed diet, lifestyle modifications, and weight management regarding the treatment of reflux. We recommended that she continue omeprazole. She can use ywst-cjg-ppdnspy antacids for breakthrough symptoms. She is due for colorectal cancer screening. This will be arranged. She understands risks and benefits of the procedure and agrees to proceed. She is advised stop ibuprofen one week before the procedure. Plan Of Treatment Future Test Test Name Order Date COLONOSCOPY 05/24/2014 COLONOSCOPY 08/10/2024 Insurance Providers Payer Name Payer Address Payer Phone Subscriber Number Group Number Insured Name Patient Relationship to Insured Coverage Start Date Coverage End Date [facility] [address] [address] [place] [address] [id number] TYRONE REDDA Self - patient is the insured Medical (General) History Medical History History ICD Code Colonoscopy to mid transvers e colon 08/23 hyperplastic rectal polyp, barium enema: scattered diverticulosis Hyperlipidemia Hypertension Relapsing polychondritis Hypothyroidism Elevated BMI Osteoarthritis/rheumatoid arthritis Osteopenia Disc disease MGUS Surgical History Surgery Date(Month/Year) wrist replacement-right appendectomy dilatation and curettage Ovarian cystectomy Laparoscopic cholecystectomy/ERCP for ga llstones 2021
--- OUTSIDE RECORDS SUMMARY | 2024-10-31 12:04 | XMS_ITS ---
Author Organization [facility] Address [address] [place] [phone] Care Team Providers Care Provisioning Specialist Name Role Phone Lorenzo CARLIN, [place] Primary Care Provider Unaelidia Peters Jr, Faheem Hutchison [phone] REASON FOR VISIT pathology Encounters Encounter Location Date Provider Diagnosis [facility] [address] [place] [phone] 09/14/2024 Faheem Peters Jr Plan Of Treatment No Information Progress Notes * GENNARO ORRALEXUS Cruz ADOB: [birth year] (74 yo F)Acc No.[id number]:09/14/2024 Patient:?ALEXUS REDD :1950???Age:74 Y???Sex:Female Address[address], [place] [address] * true * Date:? Generated for Printi ng/Famoreg/eTransmitting on:?10/31/2024 12:04 PM EDT
--- OUTSIDE RECORDS SUMMARY | 2024-10-31 12:04 | XMS_ITS ---
Author Organization [facility] Address [address] [place] [phone] Care Team Providers Care Rate And Cost Analyst Name Role Phone Lorenzo CARLIN, [place] Primary Care Provider Faheem Cornejo Jr Unavailable Allergies No Known Allergies REASON FOR VISIT Patient presents today for consultation Medications Medication SIG (Take, Route, Frequency, Duration) [...] empty stomach Orally Once a day Active Social History Tobacco Use: Social History Observation Description Date Details (start date - stop date) Former Smoker NA - NA Tobacco Use/Smoking Question Answer Notes Patient is a former smoker Problems Problem Type SNOMED Code ICD Code Onset Dates Problem Status W/U Status Risk Notes Problem [id number] Gastroesophageal reflux disease, unspecified whether esophagitis present (K21.9) Active confirmed Problem 987072500 Colon cancer screening (Z12.11) Active confirmed Problem 075831314212769 Encounter for long-term (current) use of NSAIDs (Z79.1) Active confirmed Vital Signs Temperature 96.9 degrees Fahrenheit 08/07/20 24 Blood pressure systolic 000 mm Hg 08/07/20 24 Blood pressure diastolic 00 mm Hg 024 Height 63 in 08/07/2024 Weight 210 lbs 08/07/2024 BMI 37.20 kg/m2 08/07/2024 Encounters Encounter Location Date Provider Diagnosis [facility] [address] [place] [address] 08/07/2024 Faheem Peters Jr Gastroesophageal reflux disease, unspecified whether esophagitis present K21.9 ; Colon cancer screening Z12.11 and Encounter for long-term (current) use of NSAIDs Z79.1 Assessments Encounter Date Diagnosis (ICD Code) Assessment Notes Treatment Notes Treatment Clinical Notes Section Notes 08/07/2024 Gastroesophageal reflux disease, unspecified whether esophagitis present (ICD-10 - K21.9) Gastroesophageal reflux disease material was printed Currently, she is doing well. We discussed gastroesophageal reflux disease today. We discussed diet, lifestyle modifications, and weight management regarding the treatment of reflux. We recommended that she continue omeprazole. She can use kocb-buh-yyvvmqd antacids for breakthrough symptoms. She is due for colorectal cancer screening. This will be arranged. She understands risks and benefits of the procedure and agrees to proceed. She is advised stop ibuprofen one week before the procedure. 08/07/2024 Colon cancer screening (ICD-10 - Z12.11) Currently, she is doing well. We discussed gastroesophageal reflux disease today. We discussed diet, lifestyle modifications, and weight management regarding the treatment of reflux. We recommended that she continue omeprazole. She can use anya-mlc-zzeypls antacids for breakthrough symptoms. She is due [...] that she continue omeprazole. She can use qovq-pue-wteyhpb antacids for breakthrough symptoms. She is due for colorectal cancer screening. This will be arranged. She understands risks and benefits of the procedure and agrees to proceed. She is advised stop ibuprofen one week before the procedure. Plan Of Treatment Medication Medication Name Sig Start Date Stop [...] Appt Details Follow Up: 1 Year, Reason: Progress Notes * ALEXUS REDD ADOB: [birth year] (74 yo F)Acc No.[id number]:08/07/2024 Progress Notes Patient:?ALEXUS REDD A Provider:?Faheem Peters MD :1950???Age:74 Y???Sex:Female D ate:08/07/2024 Address: [address], [place], [id number] Pcp:Bolivar Ventura MD Subjective: * Chief Complaints: * ???1. Patient presents today for consultation. * HPI: ???New symptom(s):? Alexus is a pleasant 74-year-old woman seen today in consultation. She has long-standing history of gastroesophageal reflux disease with substernal burning precipitated by typical foods including spicy foods and fatty foods. Symptoms are well-controlled on omeprazole 20 mg daily. She has no complaints of dysphagia, hematemesis, or melena. Weight and appetite have been stable. ?She has occasional diarrhea, which is usually diet related but no rectal bleeding. Last colonoscopy in 2014 showed a hyperplastic polyp and was only completed to the transverse colon due to looping in the sigmoid. Followup barium enema showed scattered diverticulosis. We reviewed this today. * ROS:?General/Constitutional:?Change in appetite?denies.?Fatigue?denies.?ENT:?Patient denies?difficulty swallowing.?Respiratory:?Patient denies?shortness of breath.?Cardiovascular:?Patient denies?chest pain.?Gastrointestinal:?Comments?See HPI for details.?Genitourinary:?Difficulty urinating?denies.?Incontinence?denies.?Musculoskeletal:?Patient denies?muscle aches.?Skin:?Patient denies?pruritis.?Neurologic:?Patient denies?low back pain.?Psychiatric:?Patient denies?mental or physical abuse.? * Medical History:?Colonoscopy to mid transverse colon 08/23 hyperplastic rectal polyp, barium enema: scattered diverticulosis, Hyperlipidemia, Hypertension, Relapsing polychondritis, Hypothyroidism, Elevated BMI, Osteoarthritis/rheumatoid arthritis, Osteopenia, Disc disease, MGUS. * Surgical History:?wrist repl acement-right , appendectomy , dilatation and curettage , Ovarian cystectomy , Laparoscopic cholecystectomy/ERCP for gallstones 2021. * Family History:?Father: dece ased, diagnosed with Heart disease.?Mother: .? No family history of liver cancer. Half brother had colon cancer, cousin on mother side has colon cancer. * Social History:?Tobacco Use:?Tobacco Use/Smoking?Patient is a?former smoker.?Drugs/Alcohol:?Alcohol Screen?Points: 4, Interpretation: Positive.?Miscellaneous:?Marital status: . Occupation: retired. * Medications:?Taking Ibuprofe n 200 MG Tablet 1 tablet with food or milk as needed Orally Three times a day, Taking Vitamin B-1 250 MG Tablet as directed Orally , Taking Vitamin B 12 500 MCG Tablet 1 tablet Orally Once a day, Taking Vitamin D- 3 25 MCG (1000 UT) Capsule 1 capsule Orally Once a day, Taking Gabapentin 300 MG Capsule 1 capsule Orally Once a day, Taking amLODIPine Besy-Benazepril HCl 2.5-10 MG Capsule as directed Orally , Taking Crestor 20 MG Tablet 1 tablet Orally Once a day, Taking Lisinopril 40 MG Tablet 1 tablet Orally Once a day, Taking Levothyroxine Sodium 88 MCG Tablet 1 tablet in the morning on an empty stomach Orally Once a day, Taking Omeprazole 20 MG Capsule Delayed Release 1 capsule Orally Once a day, Taking Fluticasone Propionate 50 MCG/ACT Suspension USE 2 SPRAYS INTRANASALLY DAILY FOR 30 DAYS Nasal , Taking amLODIPine Besylate 5 MG Tablet TAKE 1 TABLET BY MOUTH EVERY DAY FOR 90 DAYS Oral , Taking Benzonatate 200 MG Capsule TAKE 1 CAPSULE BY MOUTH 3 TIMES A DAY NEEDED FOR COUGH FOR 30 DAYS Oral , Taking Cetirizine HCl 10 MG Tablet TAKE 1 TABLET BY MOUTH DAILY NEEDED FOR ALLERGY SYMPTOMS Oral , Discontinued Zetia 10 MG Tablet 1 tablet Orally Once a day, Discontinued Famotidine 20 MG Tablet 1 tablet Orally Twice a day, Discontinued MoviPrep 100 GM Solution Reconstituted as directed before colonoscopy Orally , Medication List reviewed and reconciled with the patient * Allergies:?N.K.D.A. Objective: * Vitals:?Wt: 210 lbs, Ht: 63 in, BMI:37.20 Index, BP: 000/00 mm Hg, Temp: 96.9. * Examination: ???General Examination: ?GENERAL APPEARANCE:?in no acute distress.?HEAD:?normocephalic.?EYES:?sclera non-icteric.?ORAL CAVITY:?mucosa moist.?NECK/THYROID:?no lymphadenopathy.?SKIN:?anicteric.?HEART:?S1, S2 normal, no murmurs.?LUNGS:?clear to auscultation bilaterally.?CHEST:?normal shape and expansion.?ABDOMEN:?soft, nontender, nondistended, bowel sounds present, no organomegaly .?EXTREMITIES:?no clubbing, cyanosis, or edema.?PSYCH:?cognitive function intact.? Assessment: * Assessment: 1.?Gastroesophageal reflux d isease, unspecified whether esophagitis present - K21.9 (Primary)?2.?Colon cancer screening - Z12.11?3.?Encounter for long-term (current) use of NSAIDs - Z79.1? Currently, she is doing well . We discussed gastroesophageal reflux disease today. We discussed diet, lifestyle modifications, and weight management regarding the treatment of reflux. We recommended that she continue omeprazole. She can use fipq-ion-siuaoah antacids for breakthrough symptoms. She is due for colorectal cancer screening. This will be arranged. She understands risks and benefits of the procedure and agrees to proceed. She is advised stop ibuprofen one week before the procedure. Plan: * Treatment: 2.?Colon cancer screening? Start MiraLax (colon prep), 8.3 ounce ((238) grams, mixed with Gatorade or Crystal Light, orally, begin at 5:00 p.m. the day before the procedure, 1 day, 1 container, Refills no refills.?Procedure: COLONOSCOPY (Ordered for 08/10/2024) * Procedure Codes:?3017F COLOR ECTAL CA SCREEN DOC REV, G9903 Pt scrn co id as non user, G9744 PATIENT NOT ELIG D/T ACTIVE DX HTN * Preventive Medicine:? ??Counseling:?Care goal follow-up plan:?Above Normal BMI Follow-up?Giving encouragement to exercise,?BMI management provided?Yes.? ??Urinary Incontinence:?Urinary Incontinence?Assessment:?Present,?Plan of care documented:?Yes,?Type of plan of care:?Lifestyle interventions.? ??Screenings:?Fall Risk Screening?Fall Risk Assessment:?One fall without injury in the past year,?Screening:?One fall without injury in the past year,?Assessment:?Not performed, due to medical reason,?Plan of Care:?Documented,?Type of fall plan of care:?Balance, strength and gait training or instruction provided.? * Follow Up:?1 Year * * Sign off status: Completed true * Provider:?Faheem Peters MD Date:?1 Generated for Tita art/Robi/eTransmitting on:?10/31/2024 12:03 PM EDT History and Physical Notes * HPI (History of Present Illness) Category Sub-Category Detail Notes Category Not es New symptom(s) Alexus is a pleasant 74-year-old woman seen today in consultation. She has long-standing history of gastroesophageal reflux disease with substernal burning precipitated by typical foods including spicy foods and fatty foods. Symptoms are well-controlled on omeprazole 20 mg daily. She has no complaints of dysphagia, hematemesis, or melena. Weight and appetite have been stable. She has occasional diarrhea, which is usually diet related but no rectal bleeding. Last colonoscopy in 2014 showed a hyperplastic polyp and was only completed to the transverse colon due to looping in the sigmoid. Followup barium enema showed scattered diverticulosis. We reviewed this today. Examination Category Sub-Category Detail Notes Category Not es General Examination GENERAL APPEARANCE: in no acute di stress HEAD: normocephalic EYES: sclera non-icteric NECK/THYROID: no lymphadenopathy HEART: S1, S2 normal, no mu rmurs CHEST: normal shape and exp ansion LUNGS: clear to auscultatio n bilaterally ABDOMEN: soft, nontender, non distended, bowel sounds present, no organomegaly SKIN: anicteric EXTREMITIES: no clubbing, cyanosi s, or edema PSYCH: cognitive function i ntact ORAL CAVITY: mucosa moist
== END 2024-10-31 10:46 | disposition home or self-care (01) ==
LOC: HO.HPS 10:09
PROVIDERS: PCP Internal Medicine; Visit Provider Hospitalist
DX: G47.33 Obstructive sleep apnea (adult) (pediatric) (principal); R91.1 Solitary pulmonary nodule; K44.9 Diaphragmatic hernia without obstruction or gangrene; J98.4 Other disorders of lung; I51.7 Cardiomegaly; J32.9 Chronic sinusitis, unspecified
CPT/HCPCS: 99214

== ENCOUNTER → 2024-10-31 10:09 | Outpatient (BNVA) | payer MEDICARE, SELFPAY ==
[2023-08-25 11:07] VITALS: BMI 39.0
== END ==
PROVIDERS: PCP Internal Medicine; Visit Provider Hospitalist
DX: J32.9 Chronic sinusitis, unspecified (principal); J98.4 Other disorders of lung; G47.33 Obstructive sleep apnea (adult) (pediatric); R91.1 Solitary pulmonary nodule; K44.9 Diaphragmatic hernia without obstruction or gangrene; I51.7 Cardiomegaly; Z87.891 Personal history of nicotine dependence
CPT/HCPCS: 99212

== ENCOUNTER 2025-01-23 10:28 | Outpatient (AMB) | payer MEDICARE, SELFPAY ==
[2023-08-25 11:07] VITALS: BMI 39.0
--- NOTE | 2025-01-23 10:30 | A.OFFVIS_ITS ---
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 Accompanied by: Self / Same As Patient Allergies No Known Allergies [No Known Allergies*] Allergy (Verified 10/31/24 10:16) Medication List - Last Reconciled 01/23/25 by Manjit Varghese MD albuterol sulfate 90 mcg/actuation 2 inhalations inhalation Q6H PRN 30 days amlodipine 5 mg PO DAILY 90 days azelastine-fluticasone 137-50 mcg/spray (Dymista) 1 spray intranasal BID 30 days benzonatate 200 mg PO TID PRN 30 days cetirizine (Zyrtec) 10 mg PO DAILY PRN cholecalciferol (vitamin D3) (Vitamin D3) 1,000 units PO DAILY cyanocobalamin (vitamin B-12) (Vitamin B-12) 1,000 mcg PO DAILY fluticasone propion-salmeterol 250-50 mcg/dose (Wixela Inhub) 1 inh inhalation Q12H 30 days gabapentin 300 mg PO TID ibuprofen 800 mg PO TID PRN levothyroxine 88 mcg PO QAM 90 days lisinopril 40 mg PO DAILY omeprazole 20 mg PO DAILY pyridoxine (vitamin B6) 25 mg PO DAILY rosuvastatin 20 mg PO DAILY 90 days thiamine HCl (vitamin B1) (Vitamin B-1) 300 mg PO DAILY triamcinolone acetonide 0.5% 1 appl topical BID PRN HPI Comments Details: Angela returns for follow-up. In the past, she was referred for evaluation of left ventricle hypertrophy findings on the echocardiogram. Patient herself does not have any known cardiac issues. No history of any coronary disease, myocardial infarction or cardiomyopathy. She has had longstanding hypertension, not well controlled. Overall, she has got no new cardiac symptoms. No angina. Breathing is just about the same as before. Weight has gone up somewhat, almost 20 lb. She believes it is due to arthritis and inability to stay active. [facility] Medical History (Reviewed 01/23/25 @ 10:37 by Dilia Montana [facility]) CHRIS (obstructive sleep apnea) Cardiac hypertrophy Choledocholithiasis Depression Acquired hypothyroidism Hiatal hernia Chronic restrictive lung disease Pulmonary nodule Right lumbar radiculopathy Hernia, diaphragmatic Obesity (BMI 30-39.9) Relapsing polychondritis Vitamin D deficiency Osteopenia Elevated LFTs GERD without esophagitis Thoracic scoliosis Lumbar degenerative disc disease Vitamin B12 deficiency Rheumatoid arthritis Impaired fasting glucose Primary osteoarthritis of right knee Neuropathy of left peroneal nerve Hypothyroidism Exertional dyspnea Pure hypercholesterolemia Benign essential hypertension Bochdalek hernia Surgical History (Reviewed 01/23/25 @ 10:37 by Dilia Montana [facility]) History of laparoscopic cholecystectomy (07/10/22) History of cataract surgery History of colonoscopy History of surgery on right wrist (~05/2004) History of appendectomy (~1963) History of surgery on right wrist (~02/2020) History of carpal tunnel surgery (~03/2016) History of right knee joint replacement (~08/2016) Family History (Reviewed 01/23/25 @ 10:37 by Dilia Montana [facility]) Father CVD (cardiovascular disease) Mother Ovarian cancer Maternal Aunt Breast cancer Brother Colon cancer Family/Other Breast cancer Family/Other Breast cancer Family/Other Breast cancer Social History (Reviewed 01/23/25 @ 10:37 by Dilia Montana [facility]) Household Members: Family Household Members Other:: 4 Housing: House Are you a primary health care assistant to a significant other at home: No Do you presently have visiting nurse or other home services: No Alcohol intake: current Alcohol intake frequency: holidays/special occasions only Alcohol type: wine Patient Tobacco Use Status: Former Tobacco user Tobacco use type: Cigarette Years Smoked: 50 e-Cigarette/Vaping Use: Never Used Second Hand Smoke Exposure: No Advance Directives Date on File: 07/09/22 service: No Current occupational status: retired Cognitive needs: No Hearing needs: No Vision needs: Yes (reading glasses) Review of Systems Const Denies chills, Denies fatigue, Denies fever(s), Denies frequent falls, Denies weakness, Denies weight gain and Denies weight loss ENT Denies dizziness Card Reports chest pain, Reports chest pain with activity, Reports leg edema, Denies lightheadedness, Denies palpitations, Reports dyspnea and Reports dyspnea on exertion Resp Denies cough, Reports dyspnea and Reports dyspnea on exertion GI Denies hematochezia Musc Denies abnormal gait, Denies muscle weakness, Denies numbness, Reports radiating pain into limb and Denies tingling Neuro Denies abnormal gait, Denies dizziness, Denies frequent falls, Denies numbness, Denies tingling and Denies weakness Endo Denies fatigue and Denies palpitations Physical Exam Vital Signs: Last Vital Signs Pulse 66 01/23/25 10:33 BP 124/70 01/23/25 10:33 BMI result Body Mass Index 39.9 Const General: comfortable and no acute distress Orientation/consciousness: patient oriented x3 HEENT Other: Unremarkable Head: Yes normal to inspection Neck Neck: Yes normal visual inspection Chest Chest palpation & inspection: normal inspection of the chest Resp Auscultation: clear to auscultation bilaterally Cardio Palpation: normal PMI Heart sounds: S1 normal heart sound present, S2 normal heart sound present, no gallops, no murmurs and no rubs GI Palpation (GI): Soft to palpation Back/Spine/Pelvis Other: unremarkable Skin General skin exam: no rashes or lesions noted Neuro General: patient oriented x3 Extrem General: Yes normal to inspection Psych Mental Status: mental status grossly normal Office Procedures EKG Details: EKG with underlying sinus rhythm at 62/Min; cannot exclude old inferior infarct; cannot exclude old anterior infarct but could be from body habitus. [id number], Complete Assessment & Plan Assessment & Plan (1) Cardiac hypertrophy: Code(s): I51.7 - Cardiomegaly Category: Medical (2) Abnormal finding on EKG: Code(s): R94.31 - Abnormal electrocardiogram [ECG] [EKG] Category: Medical (3) Essential hypertension: Code(s): I10 - Essential (primary) hypertension Category: Medical (4) Morbid obesity: Code(s): E66.01 - Morbid (severe) obesity due to excess calories Category: Medical Plan EKGs quite different from before I am not entirely clear if it is all related to body weight change leading to low-voltage complexes. Less likely she had new myocardial infarction. In the prior echocardiogram, LVEF 69%. Moderate concentric left ventricular hypertrophy with severe septal hypertrophy. Otherwise unremarkable. In the exercise stress echocardiogram, she was able to exercise only for 3 minutes and reached 4.1 Mets. Poor exercise tolerance. The echocardiographic c omponent was nondiagnostic. Then pharmacological stress perfusion imaging study showed normal perfusion and normal gated LVEF. PYP scan shows no evidence of amyloid. Overall, hypertension induced left ventricular hypertrophy; weight gain; arthritic pains with sedentary lifestyle. Suspect EKG changes most likely related to body habitus and less likely true myocardial infarction type event and patient has no symptoms to suggest this. Any case, EKG was repeated twice and looks similar and hence we will check an echocardiogram to assess LVEF and wall motion. If any concerning findings, we will need to repeat ischemic workup. Otherwise, with regard to the weight gain itself, recommend dietitian consultation. To increase physical ectopy but not clear how much she can do with her aches and pains. For blood pressure, stable on the current regimen of lisinopril/amlodipine. Discussion Notes During our discussion, I reviewed the implications of obesity on her [facility], particularly concerning cardiac evaluations and current medication management. The patient expressed understanding of the need for weight reduction and consented to see a silk screen cutter for comprehensive dietary management. We discussed the non-urgent necessity of further cardiac studies. We also confirmed the potential effect of adipose tissue on EKG readings and agreed to optimize positioning techniques during subsequent tests. An echocardiogram will confirm any cardiac changes before deciding on further intervention. The patient was informed of all diagnostic steps, and her questions were addressed. We will follow up to assess progress in weight management and cardiovascular assessments. Patient was informed and verbally consented to the use of an ambient scribe for clinic note documentation during this visit. Orders: Orders CA echo transthoracic complete Today I51.7 - Cardiomegaly Referrals Comber Setter Nutrition Referral E66.9 - Obesity, unspecified Patient Instructions: - Follow the silk screen cutter's guidance for weight management. - Maintain current medication unless otherwise directed. - Report any persistent dizziness, chest pain, or unusual symptoms immediately. - Attend scheduled echocardiogram appointments. - Aim to stay active within comfort limits to improve knee function. - Return for a follow-up visit in three months or sooner if complications arise. Coding Level of Care Code Est Pt Level 4 (72116) Complex EM visit Add On G2211 Diagnoses Cardiac hypertrophy I51.7 Abnormal finding on EKG R94.31 Essential hypertension I10 Morbid obesity E66.01 CPT Codes EKG - CPT: 63777-[id number], Complete ([id number])
[2025-01-23 10:33] VITALS: BP 124/70; PULSE 66; BMI 39.9
--- OUTSIDE RECORDS SUMMARY | 2025-01-23 12:00 | XMS_ITS ---
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 Name Role Phone Lorenzo CARLIN, [place] Primary Care Provider Faheem Cornejo Jr Unavailable [...] Problem Status W/U Status Risk Notes Problem 729967200 Gastroesophageal reflux disease, unspecified whether esophagitis present (K21.9) Active confirmed Problem 393942405 Colon cancer screening (Z12.11) Active confirmed Problem [id number] Encounter for long-term (current) use of NSAIDs (Z79.1) Active confirmed Vital Signs Temperature 96.9 degrees Fahrenheit 08/07/20 24 Blood pressure systolic 000 mm Hg 08/07/20 24 Blood pressure diastolic 00 mm Hg 024 Height 63 in 08/07/2024 Weight 210 lbs 08/07/2024 BMI 37.20 kg/m2 08/07/2024 Encounters Encounter Location Date Provider Diagnosis [facility] [address] [place] [address] 08/07/2024 Faheem Peters Jr Gastroesophageal reflux disease, [...] that she continue omeprazole. She can use [id number]-ryrmqcb antacids for breakthrough symptoms. She is due [...] that she continue omeprazole. She can use naoh-jyo-riyiwpx antacids for breakthrough symptoms. She is due [...] that she continue omeprazole. She can use lnpi-ozk-etqwcko antacids for breakthrough symptoms. She is due [...] ALEXUS REDD ADOB: [birth year] (74 yo F)Acc No.[id number]:08/07/2024 Progress Notes Patient:?ALEXUS REDD A Provider:?Faheem Petesr MD :1950???Age:74 Y???Sex:Female D ate:08/07/2024 Address: [address], [place], [id number] Pcp:Bolivar Ventura MD Subjective: * Chief Complaints: [...] that she continue omeprazole. She can use agem-kev-gyiymbt antacids for breakthrough symptoms. She is due [...] Peters MD Date:?1 Generated for Tita art/Robi/eTransmitting on:?01/23/2025 12:00 PM EDT History and Physical Notes * [...]
== END 2025-01-23 11:10 | disposition home or self-care (01) ==
LOC: HO.HCS 10:28
PROVIDERS: PCP Internal Medicine; Visit Provider Internal Medicine
DX: I51.7 Cardiomegaly (principal); R94.31 Abnormal electrocardiogram [ECG] [EKG]; I10 Essential (primary) hypertension; E66.01 Morbid (severe) obesity due to excess calories
CPT/HCPCS: 93010; 99214; G2211

== ENCOUNTER → 2025-01-23 10:28 | Outpatient (BNVA) | payer MEDICARE, SELFPAY ==
[2023-08-25 11:07] VITALS: BMI 39.0
== END ==
PROVIDERS: PCP Internal Medicine; Visit Provider Internal Medicine
DX: I51.7 Cardiomegaly (principal); R94.31 Abnormal electrocardiogram [ECG] [EKG]; I10 Essential (primary) hypertension; E66.01 Morbid (severe) obesity due to excess calories; Z68.39 Body mass index [BMI] 39.0-39.9, adult
CPT/HCPCS: 93005; 99212

== ENCOUNTER → 2025-02-27 12:47 | Outpatient (REF) | payer MEDICARE, SELFPAY ==
[2023-08-25 11:07] VITALS: BMI 39.0
--- OUTSIDE RECORDS SUMMARY | 2024-09-05 06:50 | XMS_ITS ---
Author Organization [facility] Address [address] [place] [address] Care Team Providers Care Decorating Consultant Name Role Phone Lorenzo CARLIN, [place] Primary Care Provider Faheem Cornejo Jr [phone] REASON FOR VISIT screening Encounters Encounter Location Date Provider Diagnosis [facility] [place] [address] [place], [place] [phone] 09/05/2024 Faheem Peters Jr Colon cancer screening Z12.11 and Colon polyps K63.5 Assessments Encounter Date Diagnosis (ICD Code) Assessment Notes Treatment Notes Treatment Clinical Notes Section Notes 09/05/2024 Colon cancer screening (ICD-10 - Z12.11) 09/05/2024 Colon polyps (ICD-10 - K63.5) Plan Of Treatment No Information Progress Notes * ALEXUS REDD ADOB: [birth year] (74 yo F)Acc No.[id number]:09/05/2024 COLON WITH MAC Patient: ALEXUS MADSEN Provider: Toro Peters MD :1950 A ge:74 Y S ex:Female Date:09/05/2024 Address:[address] [id number] Pcp:Bolivar Ventura MD Subjective: * Chief Complaints: [...] 09/05/2024 Generated for Tita art/Robi/Javieritting on: 0 02/27/2025 01:47 PM EDT
--- NOTE | 2025-02-27 12:50 | CA_ITS ---
Transthoracic Echocardiogram Patient (Last, First, Middle): Angela Landry A Gender: Female Date of : 1950 Age: 74 Procedure Date: 02/27/2025 Procedure Type: Transthoracic Echocardiogram Location: OP Height: 157. cm Weight: 101.61 kg BSA: 2.00 m2 Heart Rate: 63 bpm BP: 135 / 80 mmHg Manager Channel: DOMENICA Referring MD: Manjit Varghese MD Symptoms: I51.7 - Cardiomegaly Study Quality: Technically Difficult w/Contrast ECG Rhythm: Sinus Conclusions: - The left ventricular systolic function is hyperdynamic. The visually estimated ejection fraction is >70%. - There is severe septal asymmetric hypertrophy. - No obvious valvular pathology seen on this study. Findings Procedure Information Contrast agent, definity, is being given per protocol without apparent complications. Left Ventricle Normal left ventricular cavity size. There is mildly increased left ventricular wall thickness. The left ventricular systolic function is hyperdynamic. The visually estimated ejection fraction is >70%. There is no evidence of regional wall motion abnormalities. Diastolic function is normal for age. There is severe septal asymmetric hypertrophy. Right Ventricle The right ventricle was not well visualized. There is normal right ventricular systolic function. Atria The left atrium is normal in size. The right atrium was not well visualized. Aortic Valve There is a normal trileaflet aortic valve. There is no aortic valve stenosis. There is no aortic valve regurgitation. Mitral Valve The mitral valve appears normal. There is no mitral valve regurgitation. There is no mitral valve stenosis. Pulmonic Valve The pulmonic valve is likely normal. Tricuspid Valve There is trace tricuspid valve regurgitation. There is no evidence of pulmonary hypertension. Great Vessels The asc aorta and aortic arch are normal in size. Venous The inferior vena cava is normal in size and collapses greater than 50% with inspiration. Pericardium/Pleural There is no evidence of pericardial effusion. Prior Study Comparison No significant change compared to prior study dated: 08/06/2023. Recommendations, Care & Conclusions No obvious valvular pathology seen on this study. Measurements 2D Linear Measurements IVSd: 1.55 0.6-0.9/0.6-1.0 cm LVIDd: 3.62 3.9-5.3/4.2-5.9 cm LVIDd Index: 1.81 2.4-3.2/2.2-3.1 cm/m2 LVIDs: 1.74 2.0-3.6 cm LVPWd: 1.19 0.7-1.1 cm LA Diam: 4.00 2.7-3.8/3.0-4.0 cm LAIDs Index: 2.00 1.5-2.3 cm/m2 LV Mass: 218.21 67-162/88-224 g LV Mass Index: 109.11 43-95/49-115 g/m2 LVOT Diam: 1.90 3.0+(-)1.3 cm 2D Systolic Function EF 4C: 68.40 >55% EF 2C: 76.20 >55% EF BiP: 72.90 >55% Mitral Valve MV Pk E: 0.85 MV PK A: 0.82 MV Decel Time: 224.00 E/A: 1.00 E'Lateral: 10.10 E'Medial: 7.18 E/E' Med: 11.80 E/E' Lat: 8.40 PHT: 66.00 MVA PHT: 3.33 Decel Schoolcraft: 3.79 Aortic Valve AoV Pk Maurice: 1.59 AoV Mn Maurice: 1.16 AoV VTI: 0.38 AoV Pk Grad: 10.00 Aov Mn Grad: 6.00 JAIME Cont.VTI: 1.82 LVOT LVOT Pk Maurice: 0.91 LVOT Mn Maurice: 0.65 LVOT VTI: 0.24 LVOT Pk Grad: 3.00 LVOT Mn Grad: 2.00 LVOT Diam: 1.90 LVOT Area: 2.84 Diastolic Function MV Pk E: 0.85 MV Pk A: 0.82 E/A: 1.00 E'Medial: 7.18 E/E' Med: 11.80 E' Laterial: 10.10 E/E' Lat: 8.40 Right Ventricle TAPSE (mm): 23.60 TVS' Maurice: 11.40 Tricuspid Valve TR Pk Maurice: 2.05 TR Pk Grad: 17.00 RA Press: 3.00 RVSP: 20.00 Great Vessels Aorta Sinus of Valsalva: 3.20 2.0-3.5 cm Ao Asc: 3.30 2.1-3.4 cm Ao Arch: 3.00 Pulmonary Valve PV Pk Maurice: 0.96 Peak PV Grad: 4.00 Updated in Other Vendor System with Status of Final Manjit Varghese MD electronically signed on 02/28/2025 2:13:00 PM with status of Final
--- OUTSIDE RECORDS SUMMARY | 2025-02-27 13:48 | XMS_ITS | Clinical Summary ---
Author Organization [facility] Address [address] [facility] [address] [place] [address] Phone Care Team Providers Care Projector Operator Name Role Phone Bolivar Ventura MD Primary Care Provider [phone] Allergies No known active allergies Medications omeprazole (PRILOSEC) 20 mg TbEC Take 20 mg by mouth daily. Active cholecalciferol (VITAMIN D3) 1,000 unit tablet Take 2,000 Units by mouth daily. Active rosuvastatin (CRESTOR) 20 MG tablet Take 20 mg by mouth daily. Active gabapentin (NEURONTIN) 300 MG capsule Take 300 mg by mouth 3 (three) times a day. Active cyanocobalamin, vitamin B-12, 250 MCG tablet Take 1,000 mcg by mouth daily. Active albuterol 90 mcg/actuation inhaler Inhale 2 puffs into the lungs every 6 (six) hours as needed for wheezing. Active lisinopril (PRINIVIL,ZESTR IL) 40 MG tablet Take 40 mg by mouth daily. Active thiamine HCl (VITAMIN B-1 ORAL) Take 300 mg by mouth daily. Active IBUPROFEN ORAL Take 800 mg by mouth nightly at bedtime as needed. Active pyridoxine, vitamin B6, (B-6) 100 MG tablet Take by mouth daily. Active levothyroxine (SYNTHROID, LEVOTHROID) 88 MCG tablet Take 88 mcg by mouth every morning. 06/06/2023 Active WIXELA INHUB 250-50 mcg/dose DISKUS Inhale 1 puff into the lungs daily. 06/20/2023 Active amLODIPine (NORVASC) 5 MG tablet Take 5 mg by mouth every morning. 10/15/2023 Active fluticasone propionate (FLONASE) 50 mcg/actuation nasal spray 2 sprays by Nasal route daily. 05/02/2024 Active triamcinolone acetonide 0.5 % cream Apply topically. As needed 06/23/2024 Active Active Problems Problem Noted Date Diagnosed Date Class 2 obesity due to exces s calories with body mass index (BMI) of 39.0 to 39.9 in adult 01/10/2025 Assessment & Plan (02/06/2025 6:48 PM EDT): Continue diligent portion control particularly in view of gaining 9 pounds from 216 on up to 225 today. Limit concentrated sugars, saturated fats and calories in the diet. Keep well-hydrated. If unable to achieve expected goal consider formal dietary/nutritional support. Hypertension, essential 07/12/2024 Assessment & Plan (01/10/2025 10:49 AM EDT): Repeated blood pressure at 11:04 AM on the right arm was 145/82. She is asked to check her blood pressure at home about the same time of the day, after 30 minutes rest, on the same arm, by the same equipment. If readings repeatedly elevated > 120/80 seek help from PCP. Assessment & Plan (07/12/2024 12:34 PM EST): Repeated blood pressure at 11:04 AM on the right arm was 145/82. She is asked to check her blood pressure at home about the same time of the day, after 30 minutes rest, on the same arm, by the same equipment. If readings repeatedly elevated > 120/80 seek help from PCP. Injury of right knee 01/10/2024 Knee joint injury, left, initial encounter 01/09 Gastroesophageal reflux disease without esophagi tis 01/10/2024 Assessment & Plan (01/10/2025 10:49 AM EDT): Avoid late, large, spicy meals. Keep headboard elevated at 45 angle for nighttime. Assessment & Plan (07/12/2024 10:48 AM EST): Avoid late, large, spicy meals. Keep headboard elevated at 45 angle for nighttime. Assessment & Plan (01/10/2024 10:31 AM EDT): Avoid late, large, spicy meals. Keep headboard elevated at 45 angle for nighttime. Encounter for long-term (current) use of NSAIDs 12/18/2022 Assessment & Plan (01/10/2025 10:49 AM EDT): Take the lowest dose, with least frequency, for shortest time. Remember to take it always with food. Favor topical over oral preparations. Assessment & Plan (07/12/2024 10:48 AM EST): Take the lowest dose, with least frequency, for shortest time. Remember to take it always with food. Favor topical over oral preparations. Assessment & Plan (01/10/2024 10:24 AM EDT): Take the lowest dose, with least frequency, for shortest time. Remember to take it always with food. Favor topical over oral preparations. Assessment & Plan (07/09/2023 12:13 PM EST): Take the lowest dose, with least frequency, for shortest time. Remember to take it always with food. Favor topical over oral preparations. Assessment & Plan (12/18/2022 12:19 PM EDT): Take the lowest dose, with least frequency, for shortest time. Remember to take it always with food. Favor topical over oral preparations. Irregular heart beat 09/24/2021 Primary osteoarthritis involving multiple joints 02/02/2019 Assessment & Plan (01/10/2025 10:48 AM EDT): Joint protection, energy conservation. Avoid falls, injuries, overuse, stair climbing, squatting, heavy lifting, kneeling. Continue working hard on reducing body weight as close as possible to ideal range for her height. Topical cream versus patch as needed. Low back exercises particularly core muscle strengthening with pictures and detailed explanations printed for home use. Follow carefully instructions from PT Because of ongoing pain in her knees we want to assess the extent of arthritis and make sure that she does not require surgical intervention. She is willing to try aquatic therapy at [facility] wrote a note of clearance for her (see details in media section of [facility]). Assessment & Plan (07/11/2023 1:08 PM EST): Joint protection, energy conservation. Avoid falls, injuries, overuse, stair climbing, squatting, heavy lifting, kneeling. Continue working hard on reducing body weight as close as possible to ideal range for her height. Topical cream versus patch as needed. Low back exercises particularly core muscle strengthening with pictures and detailed explanations printed for home use. Follow carefully instructions from PT Because of ongoing pain in her knees we want to assess the extent of arthritis and make sure that she does not require surgical intervention. She is willing to try aquatic therapy at [facility] wrote a note of clearance for her (see details in media section of [facility]). Assessment & Plan (01/03/2023 11:24 AM EDT): Joint protection, energy conservation. Avoid falls, injuries, overuse, stair climbing, squatting, heavy lifting, kneeling. Continue working work on reducing body weight as close as possible to ideal range for her height. Topical cream versus patch as needed. Low back exercises particularly core muscle strengthening with pictures and detailed explanations printed for home use. Follow carefully instructions from PT Because of ongoing pain in her knees we want to assess the extent of arthritis and make sure that she does not require surgical intervention. She is willing to try aquatic therapy at [facility] wrote a note of clearance for her (see details in media section of [facility]). Assessment & Plan (03/23/2022 10:26 AM EDT): Joint protection, energy conservation. Avoid falls, injuries, overuse, stair climbing, squatting, heavy lifting, kneeling. Work on reducing body weight as close as possible to ideal range for her height. Topical cream versus patch as needed. Low back exercises particularly core muscle strengthening with pictures and detailed explanations printed for home use. Follow carefully instructions from PT Because of ongoing pain in her knees we want to assess the extent of arthritis and make sure that she does not require surgical intervention. She is willing to try aquatic therapy at [facility] wrote a note of clearance for her (see details in media section of [facility]). Assessment & Plan (09/24/2021 10:14 AM EST): Joint protection, energy conservation. Avoid falls, injuries, overuse, stair climbing, squatting, heavy lifting, kneeling. Work on reducing body weight as close as possible to ideal range for her height. Topical cream versus patch as needed. Low back exercises particularly core muscle strengthening with pictures and detailed explanations printed for home use. Follow carefully instructions from PT Because of ongoing pain in her knees we want to assess the extent of arthritis and make sure that she does not require surgical intervention. She is willing to try aquatic therapy at [facility] wrote a note of clearance for her (see details in media section of [facility]). Assessment & Plan (05/06/2021 9:18 PM EDT): Joint protection, energy conservation. Avoid falls, injuries, overuse, stair climbing, squatting, heavy lifting, kneeling. Work on reducing body weight as close as possible to ideal range for her height. Topical cream versus patch as needed. Low back exercises particularly core muscle strengthening with pictures and detailed explanations printed for home use. Follow carefully instructions from PT Because of ongoing pain in her knees we want to assess the extent of arthritis and make sure that she does not require surgical intervention. She is willing to try aquatic therapy at [facility] wrote a note of clearance for her (see details in media section of [facility]). Assessment & Plan (12/07/2020 8:21 PM EDT): Joint protection, energy conservation. Avoid falls, injuries, overuse, stair climbing, squatting, heavy lifting, kneeling. Work on reducing body weight as close as possible to ideal range for her height. Topical cream versus patch as needed. Low back exercises particularly core muscle strengthening with pictures and detailed explanations printed for home use. Follow carefully instructions from PT Because of ongoing pain in her knees we want to assess the extent of arthritis and make sure that she does not require surgical intervention. Assessment & Plan (08/06/2020 9:11 AM EST): Joint protection, energy conservation. Avoid falls, injuries, overuse, stair climbing, squatting, heavy lifting, kneeling. Work on reducing body weight as close as possible to ideal range for her height. Topical cream versus patch as needed. Low back exercises particularly core muscle strengthening with pictures and detailed explanations printed for home use. Follow carefully instructions from PT Assessment & Plan (08/27/2019 4:15 PM EST): Joint protection, energy conservation. Avoid falls, injuries, overuse, stair climbing, squatting, heavy lifting, kneeling. Work on reducing body weight as close as possible to ideal range for her height. Topical cream versus patch as needed. Follow carefully instructions from PT Assessment & Plan (04/03/2019 11:16 AM EDT): Joint protection, energy conservation. Avoid falls, injuries, overuse, stair climbing, squatting, heavy lifting, kneeling. Work on reducing body weight as close as possible to ideal range for her height. Topical cream versus patch as needed. Follow carefully instructions from PT and see orthopedic surgeon at [facility] as scheduled for consultation regarding feasibility, pros and cons of another surgical procedure on her right knee Assessment & Plan (02/02/2019 11:15 PM EDT): Joint protection, energy conservation. Avoid falls, injuries, overuse, stair climbing, squatting, heavy lifting, kneeling. Work on reducing body weight as close as possible to ideal range for her height. Topical cream versus patch as needed. Follow carefully instructions from PT and see orthopedic surgeon at [facility] as scheduled for consultation regarding feasibility, pros and cons of another surgical procedure on her right knee Relapsing polychondritis of multiple sites 02/01 Assessment & Plan (01/10/2025 10:49 AM EDT): Clinically stable. Patient admits that since she stopped methotrexate no clinical deterioration observed therefore we agreed to continue watchful monitoring. She is aware about need for close follow-up and knows when to call if progressive symptoms develop Assessment & Plan (07/12/2024 10:47 AM EST): Clinically stable. Patient admits that since she stopped methotrexate no clinical deterioration observed therefore we agreed to continue watchful monitoring. She is aware about need for close follow-up and knows when to call if progressive symptoms develop Assessment & Plan (01/10/2024 10:33 AM EDT): Clinically stable. Patient admits that since she stopped methotrexate no clinical deterioration observed therefore we agreed to continue watchful monitoring. She is aware about need for close follow-up and knows when to call if progressive symptoms develop Assessment & Plan (03/23/2022 10:26 AM EDT): Clinically stable. Patient admits that since she stopped methotrexate no clinical deterioration observed therefore we agreed to continue watchful monitoring. She is aware about need for close follow-up and knows when to call if progressive symptoms develop Assessment & Plan (09/24/2021 10:14 AM EST): Clinically stable. Patient admits that since she stopped methotrexate no clinical deterioration observed therefore we agreed to continue watchful monitoring. She is aware about need for close follow-up and knows when to call if progressive symptoms develop Assessment & Plan (05/06/2021 9:11 PM EDT): Clinically stable. Patient admits that since she stopped methotrexate no clinical deterioration observed therefore we agreed to continue watchful monitoring. She is aware about need for close follow-up and knows when to call if progressive symptoms develop Assessment & Plan (11/27/2020 10:55 AM EDT): Clinically stable. Patient admits that since she stopped methotrexate no clinical deterioration observed therefore we agreed to continue watchful monitoring. She is aware about need for close follow-up and knows when to call if progressive symptoms develop Assessment & Plan (07/31/2020 9:37 AM EST): Clinically stable. Patient admits that since she stopped methotrexate no clinical deterioration observed therefore we agreed to continue watchful monitoring. She is aware about need for close follow-up and knows when to call if progressive symptoms develop Assessment & Plan (08/27/2019 4:11 PM EST): Clinically stable. Patient admits that since she stopped methotrexate no clinical deterioration observed therefore we agreed to continue watchful monitoring. She is aware about need for close follow-up and knows when to call if progressive symptoms develop Assessment & Plan (04/03/2019 11:14 AM EDT): Clinically stable. Patient admits that since she stopped methotrexate no clinical deterioration observed therefore we agreed to continue watchful monitoring. She is aware about need for close follow-up and knows when to call if progressive symptoms develop Assessment & Plan (02/02/2019 11:11 PM EDT): Clinically stable. Patient admits that since she stopped methotrexate no clinical deterioration observed therefore we agreed to continue watchful monitoring. 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 She knows to call if symptoms progress particularly if she develops swelling, stiffness, warmth in her joints that persists despite full anti-inflammatory dose of ibuprofen and joint resting with icing alternating with warm packs and topical medications Joint protection, energy conservation. Avoid falls, injuries, overuse. Splinting and assistive devices as educated by OT and PT. Gentle, regular exercise routine as tolerated. Assessment & Plan (07/12/2024 10:46 AM EST): Since both CRP and ESR monitoring activity of inflammatory process normal and there are no signs of inflammation on clinical exam we continue to monitor her periodically without DMARD therapy. She knows to call if symptoms progress particularly if she develops swelling, stiffness, warmth in her joints that persists despite full anti-inflammatory dose of ibuprofen and joint resting with icing alternating with warm packs and topical medications Joint protection, energy conservation. Avoid falls, injuries, overuse. Splinting and assistive devices as educated by OT and PT. Gentle, regular exercise routine as tolerated. Assessment & Plan (01/10/2024 10:23 AM EDT): Since both CRP and ESR monitoring activity of inflammatory process normal and there are no signs of inflammation on clinical exam we continue to monitor her periodically without DMARD therapy. She knows to call if symptoms progress particularly if she develops swelling, stiffness, warmth in her joints that persists despite full anti-inflammatory dose of ibuprofen and joint resting with icing alternating with warm packs and topical medications Joint protection, energy conservation. Avoid falls, injuries, overuse. Splinting and assistive devices as educated by OT and PT. Gentle, regular exercise routine as tolerated. Assessment & Plan (07/09/2023 11:51 AM EST): Since both CRP and ESR monitoring activity of inflammatory process normal and there are no signs of inflammation on clinical exam we continue to monitor her periodically without DMARD therapy. She knows to call if symptoms progress particularly if she develops swelling, stiffness, warmth in her joints that persists despite full anti-inflammatory dose of ibuprofen and joint resting with icing alternating with warm packs and topical medications Joint protection, energy conservation. Avoid falls, injuries, overuse. Splinting and assistive devices as educated by OT and PT. Gentle, regular exercise routine as tolerated. Assessment & Plan (01/03/2023 11:37 AM EDT): Since both CRP and ESR monitoring activity of inflammatory process normal and there are no signs of inflammation on clinical exam we continue to monitor her periodically without DMARD therapy. She knows to call if symptoms progress particularly if she develops swelling, stiffness, warmth in her joints that persists despite full anti-inflammatory dose of ibuprofen and joint resting with icing alternating with warm packs and topical medications Joint protection, energy conservation. Avoid falls, injuries, overuse. Splinting and assistive devices as educated by OT and PT. Gentle, regular exercise routine as tolerated. Assessment & Plan (04/12/2022 8:41 PM EDT): I have requested CRP and ESR to monitor activity of inflammatory process to reconsider DMARD therapy if active. Joint protection, energy conservation. Avoid falls, injuries, overuse. Splinting and assistive devices as educated by OT and PT. Gentle, regular exercise routine as tolerated. Assessment & Plan (09/24/2021 10:15 AM EST): I have requested operative and pathology report from right wrist February 2020 surgery but have not received them yet-Angela promises to check on status of it. Joint protection, energy conservation. Avoid falls, injuries, overuse. Splinting and assistive devices as educated by OT and PT. Gentle, regular exercise routine as tolerated. Assessment & Plan (05/06/2021 9:12 PM EDT): I have requested operative and pathology report from right wrist February 2020 surgery but have not received them yet-Angela promises to check on status of it. Joint protection, energy conservation. Avoid falls, injuries, overuse. Splinting and assistive devices as educated by OT and PT. Gentle, regular exercise routine as tolerated. Get yearly influenza vaccination by mid May 2021. Procedure: After an informed oral consent, under sterile conditions using Ethyl chloride spray for local anesthesia I have injected 40 mg DepoMedrol and 2 cc 1% Lidocaine into Left knee from infero-medial approach uneventfully. Details of post-procedure care were explained to the patient in the office and given in writing. Provider: Stephany Chen MD Patient: Angela Villar : 1950 Date: 04/24/2021 Assessment & Plan (12/07/2020 8:18 PM EDT): I have requested operative and pathology report from right wrist February 2020 surgery but have not received them yet-Angela galavizs to check on status of it. Joint protection, energy conservation. Avoid falls, injuries, overuse. Splinting and assistive devices as educated by OT and PT. Gentle, regular exercise routine as tolerated. Assessment & Plan (08/06/2020 9:02 AM EST): I will request operative and pathology report from right wrist February 2020 surgery. Joint protection, energy conservation. Avoid falls, injuries, overuse. Splinting and assistive devices as educated by OT and PT. Gentle, regular exercise routine as tolerated. Assessment & Plan (08/27/2019 4:14 PM EST): She is looking forward to meeting with her orthopedic hand surgeon to discuss her surgical options for ongoing severe right wrist arthritis. Joint protection, energy conservation. Avoid falls, injuries, overuse. Splinting and assistive devices as educated by OT and PT. Gentle, regular exercise routine as tolerated. Assessment & Plan (04/03/2019 11:15 AM EDT): Joint protection, energy conservation. Avoid falls, injuries, overuse. Splinting and assistive devices as educated by OT and PT. Gentle, regular exercise routine as tolerated. Assessment & Plan (02/02/2019 11:12 PM EDT): Await right wrist CT and subsequent surgical procedure to help decide regarding need for DMARD therapy. Joint protection, energy conservation. Avoid falls, injuries, overuse. Splinting and assistive devices as educated by OT and PT. Gentle, regular exercise routine as tolerated. Vitamin D insufficiency 02/01/2019 Assessment & Plan (01/10/2025 10:49 AM EDT): Take vitamin D 3000 units daily to replace deficit. Assessment & Plan (09/24/2021 10:19 AM EST): Take vitamin D 3000 units daily to replace deficit. Assessment & Plan (08/27/2019 4:10 PM EST): Take vitamin D 5000 units daily to replace deficit. Assessment & Plan (04/03/2019 11:16 AM EDT): Take vitamin D 5000 units daily to replace deficit. Assessment & Plan (02/02/2019 11:09 PM EDT): Take vitamin D 5000 units daily to replace deficit. Acquired hypothyroidism 02/01/2019 Assessment & Plan (12/07/2020 8:17 PM EDT): Continue current dose of levothyroxine and check with prescribing physician whether she needs adjustment in dosing because of elevated TSH Assessment & Plan (07/31/2020 9:36 AM EST): Continue current dose of levothyroxine and periodic checkup with prescribing physician as scheduled. Assessment & Plan (08/27/2019 4:11 PM EST): Continue current dose of levothyroxine and periodic checkup with prescribing physician as scheduled. Assessment & Plan (04/03/2019 11:16 AM EDT): Continue current dose of levothyroxine and periodic checkup with prescribing physician as scheduled. Assessment & Plan (02/02/2019 11:09 PM EDT): Continue current dose of levothyroxine and periodic checkup with prescribing physician as scheduled. On statin therapy 02/01/2019 Assessment & Plan (01/10/2025 10:49 AM EDT): Monitor for muscle tenderness, swelling and weakness Assessment & Plan (07/12/2024 11:08 AM EST): Monitor for muscle tenderness, swelling and weakness Assessment & Plan (09/24/2021 10:17 AM EST): Monitor for muscle tenderness, swelling and weakness Assessment & Plan (04/24/2021 12:31 PM EDT): Monitor for muscle tenderness, swelling and weakness Assessment & Plan (12/07/2020 8:19 PM EDT): Monitor for muscle tenderness, swelling and weakness Assessment & Plan (07/31/2020 9:38 AM EST): Monitor for muscle tenderness, swelling and weakness Assessment & Plan (08/27/2019 4:16 PM EST): Monitor for muscle tenderness, swelling and weakness Assessment & Plan (04/03/2019 11:16 AM EDT): Monitor for muscle tenderness, swelling and weakness Assessment & Plan (02/02/2019 11:15 PM EDT): Monitor for muscle tenderness, swelling and weakness Osteopenia of multiple sites 02/01/2019 Assessment & Plan (01/10/2025 10:49 AM EDT): Proper calcium and vitamin D supplementation. Daily weightbearing exercises. Fall and fracture prevention strategies. Consider bone preserving therapy due to progressing osteopenia and lack of weightbearing exercises. Assessment & Plan (07/12/2024 10:47 AM EST): Proper calcium and vitamin D supplementation. Daily weightbearing exercises. Fall and fracture prevention strategies. Consider bone preserving therapy due to progressing osteopenia and lack of weightbearing exercises. Assessment & Plan (01/10/2024 10:24 AM EDT): Proper calcium and vitamin D supplementation. Daily weightbearing exercises. Fall and fracture prevention strategies. Consider bone preserving therapy due to progressing osteopenia and lack of weightbearing exercises. Assessment & Plan (07/09/2023 11:55 AM EST): Proper calcium and vitamin D supplementation. Daily weightbearing exercises. Fall and fracture prevention strategies. Consider bone preserving therapy due to progressing osteopenia and lack of weightbearing exercises. Assessment & Plan (12/18/2022 12:19 PM EDT): Proper calcium and vitamin D supplementation. Daily weightbearing exercises. Fall and fracture prevention strategies. Consider bone preserving therapy due to progressing osteopenia and lack of weightbearing exercises. Assessment & Plan (03/23/2022 10:27 AM EDT): Proper calcium and vitamin D supplementation. Daily weightbearing exercises. Fall and fracture prevention strategies. Consider bone preserving therapy due to progressing osteopenia and lack of weightbearing exercises. Assessment & Plan (09/28/2021 7:51 PM EST): Proper calcium and vitamin D supplementation. Daily weightbearing exercises. Fall and fracture prevention strategies. Consider bone preserving therapy due to progressing osteopenia and lack of weightbearing exercises. Assessment & Plan (05/06/2021 9:16 PM EDT): Proper calcium and vitamin D supplementation. Daily weightbearing exercises. Fall and fracture prevention strategies. Get a new study for interval changes assessment since previous was done on the 09/24/2017 at [facility]. (L1-L4 T score -2.1= osteopenia, left femoral neck T score -1.7= osteopenia, total left femur T score -0.5= stephie-see details in media section of epicl) Assessment & Plan (11/27/2020 10:56 AM EDT): Proper calcium and vitamin D supplementation. Daily weightbearing exercises. Fall and fracture prevention strategies. I requested Angela to release a copy of most recent BMD for review and if longer than 2 years ago get a new study for interval changes assessment. Assessment & Plan (07/31/2020 9:38 AM EST): Proper calcium and vitamin D supplementation. Daily weightbearing exercises. Fall and fracture prevention strategies. I requested Angela to release a copy of most recent BMD for review and if longer than 2 years ago get a new study for interval changes assessment. Assessment & Plan (08/27/2019 4:15 PM EST): Proper calcium and vitamin D supplementation. Daily weightbearing exercises. Fall and fracture prevention strategies. I requested Angela to release a copy of most recent BMD for review and if longer than 2 years ago get a new study for interval changes assessment. Assessment & Plan (04/03/2019 11:17 AM EDT): Proper calcium and vitamin D supplementation. Daily weightbearing exercises. Fall and fracture prevention strategies. I requested Angela to release a copy of most recent BMD for review and if longer than 2 years ago get a new study for interval changes assessment. Assessment & Plan (02/02/2019 11:13 PM EDT): Proper calcium and vitamin D supplementation. Daily weightbearing exercises. Fall and fracture prevention strategies. I requested Angela to release a copy of most recent BMD for review and if longer than 2 years ago get a new study for interval changes assessment. MGUS (monoclonal gammopathy of unknown significa nce) 02/01/2019 Assessment & Plan (01/10/2025 10:49 AM EDT): Clinically quiescent-periodic checkup with hematology/oncology every 6-12 months as scheduled. Next visit with Dr Garcia in May 2025 Assessment & Plan (07/12/2024 12:32 PM EST): Clinically quiescent-periodic checkup with hematology/oncology every 6-12 months as scheduled. Next visit with Dr Garcia in May 2025 Assessment & Plan (01/10/2024 10:24 AM EDT): Clinically quiescent-periodic checkup with hematology/oncology every 6-12 months as scheduled. Next visit with Dr Garcia in May 2024 Assessment & Plan (07/11/2023 1:08 PM EST): Clinically quiescent-periodic checkup with hematology/oncology every 6-12 months as scheduled. Next visit with Dr Garcia in May 2024 Assessment & Plan (12/18/2022 12:19 PM EDT): Clinically quiescent-periodic checkup with hematology/oncology every 6-12 months as scheduled. Next visit with Dr Garcia in May 2022 Assessment & Plan (03/23/2022 10:27 AM EDT): Clinically quiescent-periodic checkup with hematology/oncology every 6-12 months as scheduled. Next visit with Dr Garcia in May 2022 Assessment & Plan (09/24/2021 10:17 AM EST): Clinically quiescent-periodic checkup with hematology/oncology every 6-12 months as scheduled. Next visit with Dr Garcia in May 2022 Assessment & Plan (04/24/2021 12:32 PM EDT): Clinically quiescent-periodic checkup with hematology/oncology every 6-12 months as scheduled. Next visit with Dr Garcia in May 2021 Assessment & Plan (11/27/2020 10:56 AM EDT): Clinically quiescent-periodic checkup with hematology/oncology every 6-12 months as scheduled. Next visit with Dr Garcia in May 2021 Assessment & Plan (08/06/2020 9:01 AM EST): Clinically quiescent-periodic checkup with hematology/oncology every 6-12 months as scheduled. Next visit with Dr Garcia in November 2020 Assessment & Plan (08/27/2019 4:10 PM EST): Clinically quiescent-periodic checkup with hematology/oncology every 6-12 months as scheduled. Next visit with Dr Garcia in November 2019 Assessment & Plan (04/03/2019 11:18 AM EDT): Clinically quiescent-periodic checkup with hematology/oncology every 6-12 months as scheduled. Next visit with Dr Garcia in May 2019 Assessment & Plan (02/02/2019 11:08 PM EDT): Clinically quiescent-periodic checkup with hematology/oncology every 6-12 months as scheduled. Resolved Problems Problem Noted Date Diagnosed Date Resolved Date Class 2 severe obesity due t o excess calories with serious comorbidity and body mass index (BMI) of 38.0 to 38.9 in adult 07/12/2024 5 Assessment & Plan (07/12/2024 12:34 PM EST): Continue diligent portion control to bring her body weight as close as possible to ideal range for her height. Limit concentrated sugars, saturated fats and calories in the diet. Keep well-hydrated. If unable to achieve expected goal consider formal dietary/nutritional support. Class 2 severe obesity due t o excess calories with serious comorbidity and body mass index (BMI) of 39.0 to 39.9 in adult 07/09/2023 4 Assessment & Plan (01/10/2024 10:30 AM EDT): Congrats on 17 lbs since 07/09/1023 down to 207 lbs today. Continue diligent portion control particularly in view of 4 pounds weight gain since December 2022 from 220 lbs up to 224 lbs today. Limit concentrated sugars, saturated fats and calories in the diet. Keep well-hydrated. If unable to achieve expected goal consider formal dietary/nutritional support. Assessment & Plan (07/11/2023 1:09 PM EST): Continue diligent portion control particularly in view of 4 pounds weight gain since December 2022 from 220 lbs up to 224 lbs today. Limit concentrated sugars, saturated fats and calories in the diet. Keep well-hydrated. If unable to achieve expected goal consider formal dietary/nutritional support. Class 2 severe obesity due t o excess calories with serious comorbidity and body mass index (BMI) of 38.0 to 38.9 in adult 12/18/2022 3 Assessment & Plan (01/03/2023 11:21 AM EDT): Congratulations on 4 pounds weight loss from 204 lbs down to 220 lbs -keep it off and continue diligent portion control. Limit concentrated sugars, saturated fats and calories in the diet. Keep well-hydrated. If unable to achieve expected goal consider formal dietary/nutritional support. Vitamin D insufficiency 04/24/202109/09 Assessment & Plan (04/24/2021 12:31 PM EDT): Take vitamin D 5000 units daily to replace deficit. Hypertension 11/27/2020 01/10/2025 Assessment & Plan (12/07/2020 8:16 PM EDT): Continue antihypertensive medication exactly as prescribed. Monitor BP at home preferably about the same time of the day, after 30 minutes rest, on the same arm, by the same equipment. Aim at BP= 120/80 as close as possible. Class 3 severe obesity due t o excess calories with serious comorbidity and body mass index (BMI) of 40.0 to 44.9 in adult 07/31/2020 3 Assessment & Plan (04/12/2022 8:39 PM EDT): Continue diligent portion control. Limit concentrated sugars, saturated fats and calories in the diet. Keep well-hydrated. If unable to achieve expected goal consider formal dietary/nutritional support. Assessment & Plan (09/24/2021 10:16 AM EST): Portion control. Limit concentrated sugars, saturated fats and calories in the diet. Keep well-hydrated. If unable to achieve expected goal consider formal dietary/nutritional support. Assessment & Plan (04/24/2021 12:34 PM EDT): Portion control. Limit concentrated sugars, saturated fats and calories in the diet. Keep well-hydrated. If unable to achieve expected goal consider formal dietary/nutritional support. Assessment & Plan (11/27/2020 10:57 AM EDT): Portion control. Limit concentrated sugars, saturated fats and calories in the diet. Keep well-hydrated. If unable to achieve expected goal consider formal dietary/nutritional support. Assessment & Plan (07/31/2020 9:37 AM EST): Portion control. Limit concentrated sugars, saturated fats and calories in the diet. Keep well-hydrated. If unable to achieve expected goal consider formal dietary/nutritional support. Gastroesophageal reflux dise ase without esophagitis 02/01/2019 04/24/2021 Assessment & Plan (04/24/2021 12:32 PM EDT): Avoid late, large, spicy meals. Keep headboard elevated at 45 angle for nighttime. Assessment & Plan (11/27/2020 10:57 AM EDT): Avoid late, large, spicy meals. Keep headboard elevated at 45 angle for nighttime. Assessment & Plan (07/31/2020 9:38 AM EST): Avoid late, large, spicy meals. Keep headboard elevated at 45 angle for nighttime. Assessment & Plan (08/27/2019 4:14 PM EST): Avoid late, large, spicy meals. Keep headboard elevated at 45 angle for nighttime. Assessment & Plan (04/03/2019 11:17 AM EDT): Avoid late, large, spicy meals. Keep headboard elevated at 45 angle for nighttime. Assessment & Plan (02/02/2019 11:15 PM EDT): Avoid late, large, spicy meals. Keep headboard elevated at 45 angle for nighttime. Class 2 severe obesity due t o excess calories with serious comorbidity in adult 02/01/20192021 Assessment & Plan (08/27/2019 4:11 PM EST): Portion control. Limit concentrated sugars, saturated fats and calories in the diet. Keep well-hydrated. If unable to achieve expected goal consider formal dietary/nutritional support. Assessment & Plan (04/03/2019 11:18 AM EDT): Portion control. Limit concentrated sugars, saturated fats and calories in the diet. Keep well-hydrated. If unable to achieve expected goal consider formal dietary/nutritional support. Assessment & Plan (02/02/2019 11:09 PM EDT): Portion control. Limit concentrated sugars, saturated fats and calories in the diet. Keep well-hydrated. If unable to achieve expected goal consider formal dietary/nutritional support. Encounters Date Type Department Care Team Description 02/08/2025 Telephone [facility] Rheumatology [address] [place] [address] Jessica Tay CMA 01/10/2025 10:30 AM EDT Office Visit [facility] [address] [place] [address] Stephany Chen MD Rheumatoid arthritis of multiple sites with negative rheumatoid factor (Primary Dx); Primary osteoarthritis involving multiple joints; Osteopenia of multiple sites; MGUS (monoclonal gammopathy of unknown significance); Encounter for long-term (current) use of NSAIDs; Gastroesophageal reflux disease without esophagitis; Relapsing polychondritis of multiple sites; Hypertension, essential; On statin therapy; Vitamin D insufficiency; Class 2 severe obesity due to excess calories with serious comorbidity and body mass index (BMI) of 39.0 to 39.9 in adult from Last 3 Months Social History Tobacco Use Types Packs/Day Years Used Date Smoking Tobacco: Former Cigarettes Q uit: 02/02/2016 Smokeless Tobacco: Never Tobacco Cessation:Counseling Given: Not Answered Alcohol Use Standard Drinks/Week Comments Not Currently 14 (1 standard drink = 0.6 oz pu re alcohol) Education Answer Date Recorded Are you interested in more education? Not on sherry e 12/04/2022 Are you concerned about learning? Not on file 12/04/2022 No 12/04/2022 No 12/04/2022 Digital Access Answer Date Recorded No 01/03/2023 No 01/03/2023 Reliable internet access at home? Not on file 01/03/2023 Device with a working camera? Not on file Comments Unknown Sex and Gender Information Value Date Recorded Sex Assigned at Not on file Legal Sex Female 10:02 PM EDT Gender Identity Not on file Sexual Orientation Not on file Last Filed Vital Signs Vital Sign Reading Time Taken Comments Blood Pressure 130/84 01/10/2025 10:25 AM EDT Pulse 67 01/10/2025 10:25 AM EDT Temperature 36.3 C (97.4 F) 07/31/2020 9:07 AM EST Respiratory Rate - - Oxygen Saturation 95% 01/10/2025 10:25 AM EDT Inhaled Oxygen Concentration - - Weight 102.1 kg (225 lb) 01/10/2025 10:25 AM EDT Height 160 cm (5' 3 ) 01/10/2025 10:25 AM EDT Body Mass Index 39.86 01/10/2025 10:25 AM EDT Plan of Treatment Upcoming Encounters Date Type Department Care Team (Late st Contact Info) Description 07/12/2025 11:00 AM EST Office Visit [facility] Rheumatology [address] [place] [address] Stephany Chen MD [address] [facility], [address] [place] [address] Health Maintenance Due Date Last Done Comments CREATININE LEVEL 1950 LIPID PANEL 1950 POTASSIUM LEVEL 1950 TSH LEVEL 1950 DEPRESSION SCREENING 1962 SMOKING Hx and SMOKELESS TOBACCO SCREENING 1963 HEPATITIS C SCREENING 1968 MAMMOGRAM 1990 COLOGUARD 1995 COLONOSCOPY 1995 COLORECTAL CANCER SCREENING 1995 FIT TEST 1995 FOBT 1995 SIGMOIDOSCOPY 1995 VIRTUAL COLONOSCOPY 1995 BLOOD PRESSURE 07/12/2025 01/10/2025 Adult Td,Tdap Booster 10/16/2034 10/16/2024 RSV VACCINE Completed 05/26/2023 ZOSTER VACCINES Completed 10/20/2023, 06/21/2023 PNEUMOCOCCAL VACCINES (50+ years) Completed 10/16/2024, 08/12/2015 COVID-19 VACCINE Completed 11/29/2024, , 05/05/2023, Additional history exists OSTEOPOROSIS SCREENING INITIAL (ONE-TIME) Completed 02/08/2025 HEPATITIS A VACCINES Aged Out No long er eligible based on patient's age to complete this topic HIB VACCINES Aged Out No longer eligi ble based on patient's age to complete this topic MENINGOCOCCAL VACCINES (ACWY) Aged Out No longer eligible based on patient's age to complete this topic MENINGOCOCCAL VACCINES (B) Aged Out N o longer eligible based on patient's age to complete this topic Medical Devices Not on file Procedures Procedure Name Priority Date/Time Associated Diagnosis Comments OUTSIDE IMAGING 02/21/2025 BD DXA SCREENING Routine 02/08/2025 5:53 PM EDT Osteopenia from Last 3 Months Results * Outside Imaging Report Only (02/21/2025) us Scanning Interface Provider IMG XR CHEST Stephanie l Result from Last [address] [facility] MEDICARE REPLACEMENT [place] [address] MEDICARE REPLACEMENT Member Subscriber Plan / Payer (Ef fective 2024-Present) Name:Angela Villar Relation to Subscriber:Self Name:GalaAngela garcia Payer ID:[id number] (NAIC) Type:Medicare Address: [place] [id number] [facility] MEDICARE REPLACEMENT [facility] MEDICARE REPLACEMENT [facility] MEDICARE REPLACEMENT [facility] MEDICARE REPLACEMENT Care Teams Projector Operator Relationship Specialty Start Date End Date Bolivar Ventura MD [address] [place] [address] [place] [address] PCP - General Internal Medicine 12/22/18 Additional Source Comments The information contained in this document represents components of the legal health record. It is not the complete legal health record.[facility]
--- OUTSIDE RECORDS SUMMARY | 2025-02-27 13:48 | XMS_ITS | Clinical Summary ---
Author Organization [facility] it Address [address] [place] [address] Care Team Providers Care Optical Effects Layout Person Name Role Phone Bolivar Ventura MD Primary [...] 08/12/2016 08/12/2015 Colorectal Cancer Screening: Colonoscopy 07/18/2022 Falls Risk Assessment 07/18/2022 Hepatitis C Screening 07/18/2022 Osteoporosis Screening (Bone Density Screening) 07/18/2022 Social Influencers of Health Screening 07/18/2022 COVID-19 Vaccine ( - 2023-25 season) 2024 Depression Screening 08/09/2024 RSV Immunization Adult Patients (1 - 1-dose 75+ series) 2025 Influenza Vaccine (#1) 2025 9, 05/12/2018, 05/07/2017, Additional history exists HIB Vaccines Aged Out No longer eligi [...] age to complete this topic Meningococcal B Vaccine Aged Out No l onger eligible based on patient's age to complete this topic RSV Immunization Patients Under 20 months Aged Out No longer eligible based on patient's age to complete this topic Varicella Vaccines Aged Out No longer eligible based on patient's age to complete this topic Care Teams Optical Effects Layout Person Relationship Specialty Start Date End Date Bolivar Ventura MD [address] [place] [address] [address] MEGHANN Crain PCP - General Internal Medicine 12/27/20
== END ==
LOC: HO.CARD 12:47
PROVIDERS: PCP Internal Medicine; Visit Provider Internal Medicine
DX: I51.7 Cardiomegaly (principal)
CPT/HCPCS: 93306; Q9957

== ENCOUNTER → 2025-02-27 12:50 | Outpatient (BNV) | payer MEDICARE, SELFPAY ==
[2023-08-25 11:07] VITALS: BMI 39.0
== END ==
PROVIDERS: PCP Internal Medicine; Visit Provider Internal Medicine
DX: I42.2 Other hypertrophic cardiomyopathy (principal); I51.89 Other ill-defined heart diseases
CPT/HCPCS: 93306

== ENCOUNTER 2025-03-10 10:32 | Outpatient (REF) | payer OTHER, SELFPAY ==
[2023-08-25 11:07] VITALS: BMI 39.0
--- OUTSIDE RECORDS SUMMARY | 2025-03-10 10:34 | XMS_ITS | Clinical Summary ---
Author Organization [facility] it Address [address] [place] [address] Care Team Providers Care Polisher Dial Name Role Phone Bolivar Ventura MD Primary [...] age to complete this topic Care Teams Polisher Dial Relationship Specialty Start Date End Date Bolivar Ventura MD [address] [place] [address] [address] MEGHANN Crain PCP - General Internal Medicine 12/27/20
--- OUTSIDE RECORDS SUMMARY | 2025-03-10 10:34 | XMS_ITS | Clinical Summary ---
Author Organization [facility] Address [address] [facility] [address] [place] [address] Phone Care Team Providers Care Route Delivery Supervisor Name Role Phone Bolivar Ventura MD Primary Care Provider [phone] Allergies No known active allergies Medications omeprazole [...] is willing to try aquatic therapy at [facility] wrote a note of clearance for her (see details in media section of [facility]). Assessment & Plan (07/11/2023 1:08 PM EST): [...] is willing to try aquatic therapy at [facility] wrote a note of clearance for her (see details in media section of [facility]). Assessment & Plan (01/03/2023 11:24 AM EDT): [...] is willing to try aquatic therapy at [facility] wrote a note of clearance for her (see details in media section of [facility]). Assessment & Plan (03/23/2022 10:26 AM EDT): [...] is willing to try aquatic therapy at [facility] wrote a note of clearance for her (see details in media section of [facility]). Assessment & Plan (09/24/2021 10:14 AM EST): [...] is willing to try aquatic therapy at [facility] wrote a note of clearance for her (see details in media section of [facility]). Assessment & Plan (05/06/2021 9:18 PM EDT): [...] is willing to try aquatic therapy at [facility] wrote a note of clearance for her (see details in media section of [facility]). Assessment & Plan (12/07/2020 8:21 PM EDT): [...] from PT and see orthopedic surgeon at [facility] as scheduled for consultation regarding feasibility, pros [...] from PT and see orthopedic surgeon at [facility] as scheduled for consultation regarding feasibility, pros [...] if progressive symptoms develop [facility] with negative rheumatoid factor 02/01/2019 Assessment [...] previous was done on the 09/24/2017 at [facility]. (L1-L4 T score -2.1= osteopenia, left [...] Type Department Care Team Description 02/08/2025 Telephone [facility] Rheumatology [address] [place] [address] Jessica Tay CMA Request For Order(s) 01/10/2025 10:30 AM EDT Office Visit [facility] Rheumatology [address] [place] [address] Stephany Chen MD Rheumatoid arthritis of multiple [...] Description 07/12/2025 11:00 AM EST Office Visit [facility] Rheumatology [address] [place] [address] Stephany Chen MD [address] [facility], [address] [place] [address] Health Maintenance Due Date Last Done Comments [...] l Result from Last 3 Months Insurance [facility] MEDICARE REPLACEMENT MEDICARE REPLACEMENT MEDICARE [place] [place] [address] MEDICARE REPLACEMENT [facility] MEDICARE REPLACEMENT [facility] MEDICARE REPLACEMENT [place] [id number] Care Teams Route Delivery Supervisor Relationship Specialty Start Date End Date Bolivar Ventura MD [address] [place] [address] [place] [address] PCP - General Internal Medicine 12/22/18 Additional Source Comments The information contained in this document represents components of the legal health record. It is not the complete legal health record.[facility]
[2025-03-10 14:12] LABS: MANUAL DIFF FLAG NO
[2025-03-10 14:21] LABS: Hematocrit 40.0 % (37.0-47.0); Hemoglobin 12.8 g/dl (12.0-16.0); Imm Gran Abs Auto 0.01 X10*3/uL (0.00-0.03); Imm Gran Pct Auto 0.2 % (0.0-0.4); Lymphocytes Absolute Auto 1.8 X10*3/uL (1.2-4.9); Mean Corpuscular HGB Conc 32.0 g/dl (31.0-35.0); Mean Corpuscular Hemoglobin 28.9 pg (27.0-33.0); Mean Corpuscular Volume 90.3 fL (80.0-98.0); NRBC Abs Auto 0.000 X10*3/uL (0.0-0.012); NRBC Pct Auto 0.0 /100WBC (0.0-0.2); Platelet Count 202 X10*3/uL (160-400); Red Blood Count 4.43 X10*6/uL (4.20-5.50); White Blood Count 5.0 X10*3/uL (4.8-10.8)
[2025-03-10 15:02] LABS: Appearance Urine Clear; Glucose Urine UA Negative (Negative); PH 5.5 (5.0-9.0); Specific Gravity - Urine 1.010 (1.005-1.025)
[2025-03-10 15:34] LABS: Alanine Aminotransferase 15 U/L (0-31); Albumin Level 4.0 g/dL (3.5-5.0); Alkaline Phosphatase 91 U/L (39-117); Anion Gap 9 (12-20); Aspartate Amino Transferase 23 U/L (5-31); Blood Urea Nitrogen 12 mg/dL (9-16); Calcium 9.6 mg/dL (8.4-10.2); Carbon Dioxide 29 mmol/L (22-29); Chloride 108 mmol/L (96-108); Cholesterol 189 mg/dL (<200); Estimated Glomerular Filt Rate > 60; HDL Cholesterol 52 mg/dL (>40); Potassium 3.5 mmol/L (3.3-5.1); Sodium 142 mmol/L (135-145); Total Protein 6.6 g/dL (6.5-8.0); Triglycerides 96 mg/dL (<150)
[2025-03-10 15:53] LABS: Free T4 (Free Thyroxine) 1.08 ng/dL (0.71-1.85); Thyroid Stimulating Hormone 4.14 uIU/mL (0.32-4.0)
[2025-03-10 16:11] LABS: Folate 8.2 ng/mL (> or = 4.0); Vitamin B12 519 pg/mL (200-900)
== END 2025-03-10 10:33 | disposition home or self-care (01) ==
LOC: HO.HMGCLDS 10:32
PROVIDERS: PCP Internal Medicine; Visit Provider Internal Medicine
DX: M94.1 Relapsing polychondritis (principal); M79.7 Fibromyalgia; E55.9 Vitamin D deficiency, unspecified; R30.0 Dysuria; E03.9 Hypothyroidism, unspecified; E78.00 Pure hypercholesterolemia, unspecified; D64.9 Anemia, unspecified
CPT/HCPCS: 36415; 80053; 80061; 81003; 82306; 82607; 82746; 84439; 84443; 85025; 85652; 86140

== ENCOUNTER 2025-03-14 15:26 | Outpatient (AMB) | payer OTHER, SELFPAY ==
[2023-08-25 11:07] VITALS: BMI 39.0
--- OUTSIDE RECORDS SUMMARY | 2024-09-05 06:50 | XMS_ITS ---
Author Organization [facility] Address [address] [place] [phone] Care Team Providers Care Track Laminating Machine Tender Name Role Phone Lorenzo CARLIN, Bolivar Primary Care Provider Faheem Cornejo Jr REASON FOR VISIT screening Encounters Encounter Location Date Provider Diagnosis [facility] [address] [place], [place] [phone] 09/05/2024 Faheem Peters Jr Colon cancer screening Z12.11 and Colon polyps K63.5 Assessments Encounter Date Diagnosis (ICD Code) Assessment Notes Treatment Notes Treatment Clinical Notes Section Notes 09/05/2024 Colon cancer screening (ICD-10 - Z12.11) 09/05/2024 Colon polyps (ICD-10 - K63.5) Plan Of Treatment No Information Progress Notes * ALEXUS REDD ADOB: [birth year] (74 yo F)Acc No.[id number]:09/05/2024 COLON WITH MAC Patient: ALEXUS MADSEN Provider: Toro Peters MD :1950 A ge:74 Y S ex:Female Date:09/05/2024 Address:[address] [id number] Pcp:Bolivar Ventura MD Subjective: * Chief Complaints: [...] 09/05/2024 Generated for Tita art/Robi/Javieritting on: 0 03/14/2025 03:56 PM EDT
[2025-03-14 15:32] VITALS: BP 124/78; PULSE 68; O2SAT 95; BMI 40.1
--- NOTE | 2025-03-14 15:32 | A.OFFPC_ITS ---
Vital Signs 03/14/25 15:32 Height 5 ft 3 in Weight 226 lb 6 oz BMI 40.1 BP 124/78 Blood Pressure Location Lt brachial Position Sitting Pulse 68 Pulse Source Pulse Oximeter Pulse Oximetry (%) 95 Oxygen Delivery Method Room Air Intake Visit Reasons: FOLLOW UP Territory Account Manager Required: No Accompanied by: Self / Same As Patient Allergies No Known Allergies (No Known Allergies*) Allergy (Verified 03/14/25 15:59) Medication List - Last Reconciled 03/14/25 by Bolivar Ventura MD albuterol sulfate 90 mcg/actuation 2 inhalations inhalation Q6H PRN 30 days amlodipine 5 mg PO DAILY 90 days amoxicillin 2,000 mg orally before dental procedure; azelastine-fluticasone 137-50 mcg/spray (Dymista) 1 spray intranasal BID 30 days benzonatate 200 mg PO TID PRN 30 days cetirizine (Zyrtec) 10 mg PO DAILY PRN cholecalciferol (vitamin D3) (Vitamin D3) 1,000 units PO DAILY cyanocobalamin (vitamin B-12) (Vitamin B-12) 1,000 mcg PO DAILY fluticasone propion-salmeterol 250-50 mcg/dose (Wixela Inhub) 1 inh inhalation Q12H 30 days gabapentin 300 mg PO TID ibuprofen 800 mg PO TID PRN levothyroxine 88 mcg PO QAM 90 days lisinopril 40 mg PO DAILY omeprazole 20 mg PO DAILY pyridoxine (vitamin B6) 25 mg PO DAILY rosuvastatin 20 mg PO DAILY 90 days thiamine HCl (vitamin B1) (Vitamin B-1) 300 mg PO DAILY triamcinolone acetonide 0.5% 1 appl topical BID PRN Tobacco use date assessed: 03/14/25 Fall risk assessment: 1 Fall in past year Last assessed Fall Risk: 03/14/25 Dental Screening Dental Screen Date: 03/14/25 Did you have a dental visit in the last 12 months?: Yes Did you have a dental problem in the last 6 months where you did not have access to dental care?: No Was dental information given to patient?: Patient has dentist HPI FOLLOW UP HPI Details Patient comes in today for her follow-up visit States that she fell onto both of her knees last month on 02/09/2025 and has been experiencing increased pain in both of her knees since Her right leg is still slightly swollen at present States that she feels okay otherwise She denies any headaches or dizziness Denies any chest pains, no increased shortness of breath No nausea/vomiting, no abdominal pain No change in bowel habits noted She had her follow-up labs done a few days ago - to discuss her results FORMERLY [facility], [facility] Medical History CHRIS (obstructive sleep apnea) Cardiac hypertrophy Choledocholithiasis Depression Acquired hypothyroidism Hiatal hernia Chronic restrictive lung disease Pulmonary nodule Right lumbar radiculopathy Hernia, diaphragmatic Obesity (BMI 30-39.9) Relapsing polychondritis Vitamin D deficiency Osteopenia Elevated LFTs GERD without esophagitis Thoracic scoliosis Lumbar degenerative disc disease Vitamin B12 deficiency Rheumatoid arthritis Impaired fasting glucose Primary osteoarthritis of right knee Neuropathy of left peroneal nerve Hypothyroidism Exertional dyspnea Pure hypercholesterolemia Benign essential hypertension Bochdalek hernia Surgical History History of laparoscopic cholecystectomy (07/10/22) History of cataract surgery History of colonoscopy History of surgery on right wrist (~05/2004) History of appendectomy (~1963) History of surgery on right wrist (~02/2020) History of carpal tunnel surgery (~03/2016) History of right knee joint replacement (~08/2016) Family History Father CVD (cardiovascular disease) Mother Ovarian cancer Maternal Aunt Breast cancer Brother Colon cancer Family/Other Breast cancer Family/Other Breast cancer Family/Other Breast cancer Social History Household Members: Family Household Members Other:: 4 Housing: House Are you a primary healthcare project manager to a significant other at home: No Do you presently have visiting nurse or other home services: No Alcohol intake: current Alcohol intake frequency: holidays/special occasions only Alcohol type: wine Patient Tobacco Use Status: Former Tobacco user Tobacco use type: Cigarette Years Smoked: 50 e-Cigarette/Vaping Use: Never Used Second Hand Smoke Exposure: No Advance Directives Date on File: 07/09/22 service: No Current occupational status: retired Cognitive needs: No Hearing needs: No Vision needs: Yes (reading glasses) Questionnaire PHQ-9 Over the last 2 weeks, how often have you been bothered by any of the following problems? 1. Little interest or pleasure in doing things: not at all 2. Feeling down, depressed, or hopeless: not at all 3. Trouble falling or staying asleep, or sleeping too much: nearly every day 4. Feeling tired or having little energy: several days 5. Poor appetite or overeating: not at all 6. Feeling bad about yourself - or that you are a failure or have let yourself or your family down: not at all 7. Trouble concentrating on things, such as reading the newspaper or watching television: not at all 8. Moving or speaking so slowly that other people could have noticed. Or the opposite - being so fidgety or restless that you have been moving around a lot more than usual: not at all 9. Thoughts that you would be better off or of hurting yourself in some way: not at all Total score: 4 Depression Screening Interpretation: Positive Depression Screening Follow-up: Follow-up Visit Requested Depression Screening Done: Yes 92785 - PHQ-9 Billing: Yes Source: Developed by Drs. Jeremy Ramesh, Lesly Dias, Dayne Samano and colleagues, with an educational kashmir from [employer]. Thrive Questionnaire Date Thrive assessed: 03/14/25 I am a: Patient What is your living situation today?: I have a steady place to live Within the past 12 months, did the food you bought not last and you didn't have the money to get more?: I choose not to answer this question Within the past 12 months, did you worry whether your food would run out before you got money to buy more?: I choose not to answer this question Do you have trouble paying for medicines?: I choose not to answer this question Do you have trouble getting transportation to medical appointments?: I choose not to answer this question Do you have trouble paying your heating and electricity bill?: I choose not to answer this question Do you have trouble taking care of your child, family member or friend?: I choose not to answer this question Do you have trouble with day-to-day activities such as bathing, preparing meals, shopping, managing finances, etc.?: I choose not to answer this question Are you currently unemployed and looking for a job?: No Are you interested in more education?: No Please select the resources that you would like help with: None Currently or been in a relationship where the following occur: No concerns reported THRIVE Score: 0 AUDIT C Alcohol Use Questionnaire (AUDIT-C) 1. How often do you have a drink containing alcohol?: Never 3. How often do you have six or more drinks on one occasion?: Never Total Score: 0 Score Reviewed/Action Taken: Yes KAVITHA-7 AMB Questionnaire KAVITHA-7 Date KAVITHA - 7 assessed: 03/14/25 Feeling nervous, anxious, or on edge: 0 = Not at all Not being able to stop or control worryin = Not at all Worrying too much about different things: 0 = Not at all Trouble relaxin = Not at all Being so restless that it is hard to sit still: 0 = Not at all Becoming easily annoyed or irritable: 0 = Not at all Feeling afraid as if something awful might happen: 0 = Not at all Total KAVITHA-7 score (0-4 normal; 5-9 mild; 10-14 moderate; 15-21 severe): 0 Source: Developed by Drs. Jeremy Ramesh, Lesly Dias, Dayne Samano and colleagues, with an educational kashmir from [employer]. Review of Systems Const Denies chills, Reports fatigue, Denies fever(s) and Denies headache(s) ENT Denies dysphagia, Denies dizziness, Denies otalgia, Denies headache(s), Denies neck pain, Denies odynophagia and Denies sore throat Card Denies chest pain, Denies palpitations and Reports dyspnea on exertion (mild) Resp Denies chest congestion, Denies cough, Denies excessive phlegm production and Reports dyspnea on exertion (mild) GI Denies abdominal pain, Denies constipation, Denies dysphagia, Denies heartburn, Denies diarrhea and Denies odynophagia Denies nocturia, Denies dysuria and Denies urinary urgency Musc Reports back pain, Reports arthralgias (involving multiple joints; increased pain in both knees over the past month) and Denies neck pain Skin/Breast Denies rash Neuro Denies dizziness and Denies headache(s) Endo Reports fatigue and Denies palpitations Physical exam (Primary Care) Vital Signs: Last Vital Signs Pulse 68 03/14/25 15:32 BP 124/78 03/14/25 15:32 Pulse Ox 95 03/14/25 15:32 Oxygen Delivery Method Room Air 03/14/25 15:32 BMI result Body Mass Index 40.1 Tobacco/Smoking Status: Tobacco use Status Tobacco use date assessed 03/14/25 03/14/25 15:41 Patient Tobacco Use Status Former Tobacco user 03/14/25 15:41 Tobacco use type Cigarette 03/14/25 15:41 e-Cigarette/Vaping Use Never Used 03/14/25 15:41 PHQ-9: PHQ-9 Score PHQ-9: Total score 4 03/14/25 16:06 Depression Screening Interpretation: Positive Depression Screening Follow-up: Follow-up Visit Requested Thrive Assessment: Date of Thrive Assessment Date Thrive assessed 03/14/25 03/14/25 15:41 Currently or been in a relationship where the following occur: No concerns reported Const General: no acute distress and alert HENMT Ears: TM's normal bilaterally and EAC's normal Throat: Yes posterior oropharynx normal and Yes tonsils normal (no TP congestion noted) Neck Neck: Yes no lymphadenopathy and Yes supple Thyroid: Thyroid normal Resp Auscultation: no rales, no rhonchi and diminished lung sounds (slightly) bilateral Cardio Rate: regular rate Rhythm: regular rhythm Heart sounds: no murmurs GI Palpation (GI): Soft to palpation and nontender Auscultation: normal bowel sounds General: Yes no CVA tenderness Back/Spine/Pelvis Back: no CVA tenderness Cervical Spine: Cervical spine tenderness Thoracic/Lumbar Spine: lumbar spinal tenderness Sacroiliac joints: on the right tender to palpation Skin Rashes: no rashes Extrem General: No clubbing, No cyanosis and Yes edema (in both lower legs, slightly worse in the right leg) Right lower extremity: knee Details: tenderness; no swelling Results Reviewed Results Reviewed: Laboratory Tests 03/10/25 10:57 WBC 5.0 Hgb 12.8 Hct 40.0 Plt Count 202 ESR 8 Sodium 142 Potassium 3.5 D Creatinine 0.67 Estimated GFR > 60 Fasting Glucose 98 Calcium 9.6 AST 23 ALT 15 C-Reactive Protein 0.18 Triglycerides 96 Cholesterol 189 LDL Cholesterol, Calc 118 H HDL Cholesterol 52 Vitamin B12 519 25-OH Vitamin D Total 52.4 TSH 4.14 H Free T4 1.08 Ur Specific Mellott 1.010 Urine Protein Negative Urine Glucose (UA) Negative Urine Blood Negative Urine Nitrite Negative Ur Leukocyte Esterase Negative Coding Level of Care Code Est Pt Level 4 (95320) Diagnoses Benign essential hypertension I10 Pure hypercholesterolemia E78.00 Chronic restrictive lung disease J98.4 Acquired hypothyroidism E03.9 Impaired fasting glucose R73.01 Bochdalek hernia Q79.0 Neuropathy of left peroneal nerve G57.32 Primary osteoarthritis of right knee M17.11 Pain and swelling of right lower leg M79.661; M79.89 Rheumatoid arthritis, involving unspecified site, unspecified whether rheumatoid factor present M06.9 Rheumatoid arthritis location: unspecified site Rheumatoid factor presence: unspecified presence Vitamin B12 deficiency E53.8 GERD without esophagitis K21.9 Degeneration of intervertebral disc of lumbar region with discogenic back pain M51.360 Disc-related pain type: discogenic back pain only Osteopenia, unspecified location M85.80 Osteopenia location: unspecified Scoliosis of thoracic spine, unspecified scoliosis type M41.9 Scoliosis type: unspecified scoliosis Vitamin D deficiency E55.9 Relapsing polychondritis M94.1 MGUS (monoclonal gammopathy of unknown significance) D47.2 Alcohol use Z78.9 Depression, unspecified depression type F32.A Depression Type: unspecified Obesity (BMI 30-39.9) E66.9 Additional Codes PHQ-9 - 17389 - PHQ-9 Billing: Yes ([id number]) Assessment & Plan Assessment & Plan (1) Benign essential hypertension: Code(s): I10 - Essential (primary) hypertension Category: Medical Plan: Reinforced low-sodium diet -?goal is systolic BP of at least 130 to 140 mm or less Continue Lisinopril 40 mg QD and Amlodipine 5 mg QD She is reminded to continue monitoring her blood pressure regularly (2) Pure hypercholesterolemia: Code(s): E78.00 - Pure hypercholesterolemia, unspecified Category: Medical Plan: Results of her labs done a few days ago reviewed and discussed with patient Reinforced low cholesterol diet Continue Rosuvastatin 20 mg QD Will recheck her labs and fasting lipids in 4 months for follow up (3) Chronic restrictive lung disease: Code(s): J98.4 - Other disorders of lung Category: Medical Plan: Patient continues to present with chronic ESTRELLA and has been advised that this is likely multifactorial - partly due to deconditioning and partly to restrictive lung disease She had pulmonary function studies done in the past that demonstrated (+) restrictive ventilatory defect suggesting the presence of restrictive lung disease She has been following up with pulmonary at [facility] and has been referred to pulmonary rehab with mixed results She also has (+) hypertrophic cardiac changes on echocardiogram She has been evaluated as well for CHRIS and her home sleep study came back negative She has Albuterol HFA to use for rescue if needed and has declined Rx for maintenance inhaler in the past Follow up with pulmonary as scheduled (4) Acquired hypothyroidism: Code(s): E03.9 - Hypothyroidism, unspecified Category: Medical Plan: Her TFTs remain normal on her recent labs Continue Levothyroxine 88 mcg QD Will recheck her TFTs in 4 months for follow up (5) Impaired fasting glucose: Code(s): R73.01 - Impaired fasting glucose Category: Medical Plan: FBS was normal at 98 mg/dl on her recent labs; HgbA1c was normal at 5.3% and 5.4% when checked in the past Reinforced low calorie/low carb diet Will continue to monitor her FBS regularly (6) Bochdalek hernia: Code(s): Q79.0 - Congenital diaphragmatic hernia Category: Medical Plan: Chest CT done in 2020 revealed the presence of a fat-containing Bochdalek hernia of the left hemidiaphragm with a small sliding-type hiatal hernia of the stomach - this is mostly unchanged compared to her scan on 03/04/2019 She was seen for this by thoracic surgery last year and recommended observation only Repeat chest CT done in May 2022 revealed stable 2 mm subpleural nodules, right upper lobe, with no new nodules seen; (+) small left diaphragm Bochdalek hernia containing fat that is stable; also visualized is focal eventration of left posterior diaphragm Unclear at this time how much of her diaphragmatic hernia is affecting her breathing (7) Neuropathy of left peroneal nerve: Code(s): G57.32 - Lesion of lateral popliteal nerve, left lower limb Category: Medical Plan: Continue Gabapentin 300 mg TID (8) Primary osteoarthritis of right knee: Comment: S/P total right knee arthroplasty with Dr. Miramontes on 08/31/2016 without any significant improvement of her knee pain following surgery Has been seen for a follow-up by Dr. Jacobson, who recommended a revision of right knee prosthesis Patient reportedly went to see Dr. Edwards at [facility] for a 2nd opinion and was advised against revision surgery Subsequently went to see a Dr. Eriberto Kirk in [place] in 2019 but her insurance is declining to cover any appointments with him and all of her appointments are now on hold due to the COVID-19 pandemic Code(s): M17.11 - Unilateral primary osteoarthritis, right knee Category: Medical Plan: Will send patient for x-rays of the right knee SHWETA for further evaluation She reports experiencing increased bilateral knee pains since her fall back on 02/09/2025 Follow up with orthopedics as scheduled (9) Pain and swelling of right lower leg: Code(s): M79.661 - Pain in right lower leg; M79.89 - Other specified soft tissue disorders Category: Medical Plan: Will send patient for venous doppler of the right leg SHWETA to r/o DVT (10) Rheumatoid arthritis: Code(s): M06.9 - Rheumatoid arthritis, unspecified Category: Medical Qualifiers: Rheumatoid arthritis location: unspecified site Rheumatoid factor presence: unspecified presence Qualified Code(s): M06.9 - Rheumatoid arthritis, unspecified Plan: Follow up with rheumatology (Dr. Walsh) as scheduld (11) Vitamin B12 deficiency: Code(s): E53.8 - Deficiency of other specified B group vitamins Category: Medical Plan: Continue OTC Vitamin B12 1000 mcg QD (12) GERD without esophagitis: Code(s): K21.9 - Gastro-esophageal reflux disease without esophagitis Category: Medical Plan: Dietary restrictions reinforced Continue Omeprazole 20 mg once a day and Famotidine 20 mg twice a day as needed (13) Lumbar degenerative disc disease: Code(s): M51.36 - Other intervertebral disc degeneration, lumbar region Category: Medical Qualifiers: Disc-related pain type: discogenic back pain only Qualified Code(s): M51.360 - Other intervertebral disc degeneration, lumbar region with discogenic back pain only Plan: Reinforced activity and weight lifting restrictions MRI done in 2015 showed (+) changes of mild lumbar spondylosis Follow up with pain management as scheduled (14) Osteopenia: Comment: (Bone Dexa T-score -2.1 - 09/24/2017) Code(s): M85.80 - Other specified disorders of bone density and structure, unspecified si te Category: Medical Qualifiers: Osteopenia location: unspecified Qualified Code(s): M85.80 - Other specified disorders of bone density and structure, unspecified site Plan: Repeat BMD done on 07/31/2021 showed (+) osteopenia with no significant change from her previous BMD except for a slight decrease in BMD in her AP spine Will continue to monitor BMD regularly (every 2 to 3 years) - have advised patient that it is now time for her repeat BMD (ordered) (15) Thoracic scoliosis: Code(s): M41.9 - Scoliosis, unspecified Category: Medical Qualifiers: Scoliosis type: unspecified scoliosis Qualified Code(s): M41.9 - Scoliosis, unspecified Plan: Recent back x-rays showed the presence of some kyphoscoliosis and thoracic scoliosis, which are probably contributing to patient's frequent back pain (16) Vitamin D deficiency: Code(s): E55.9 - Vitamin D deficiency, unspecified Category: Medical Plan: Continue Vitamin D3 1000 units QD (17) Relapsing polychondritis: Code(s): M94.1 - Relapsing polychondritis Category: Medical Plan: Follow up with rheumatology as scheduled (18) MGUS (monoclonal gammopathy of unknown significance): Code(s): D47.2 - Monoclonal gammopathy Category: Medical Plan: Her protein electrophoresis is still testing positive for IgA kappa monoclonal band but her numbers have been stable for years Follow up with hematology/oncology as scheduled for continuing surveillance and monitoring (19) Alcohol use: Code(s): Z78.9 - Other specified health status Category: Social Hx Plan: Patient admits to drinking alcohol regularly - states that sometimes she drinks more than others She usually drinks hard liquor, including Tequila and Vodka but sometimes drinks red wine Has been advised to try cutting back and ultimately quit, if possible (20) Depression: Code(s): F32.A - Depression, unspecified Category: Medical Qualifiers: Depression Type: unspecified Qualified Code(s): F32.A - Depression, unspecified Plan: Follow up with psychiatry as scheduled (21) Obesity (BMI 30-39.9): Code(s): E66.9 - Obesity, unspecified Category: Medical Plan: Reinforced diet; exercise and weight loss are not realistic given patient's multiple physical issues and comorbidities Plan Follow up in 4 months Orders: Orders Complete Blood Count Auto Diff 4 Months D64.9 - Anemia, unspecified UA CC w/rflx Micro + Cult 4 Months R30.0 - Dysuria Vitamin D 25-OH Total 4 Months E55.9 - Vitamin D deficiency, unspecified Vitamin B12 and Folate 4 Months E53.8 - Deficiency of other specified B group vitamins Free T4 (Free Thyroxine) 4 Months E03.9 - Hypothyroidism, unspecified US venous duplex LE RT 03/16/25 M79.661 - Pain in right lower leg, M79.89 - Other specified soft tissue disorders XR knee RT 4V 03/16/25 M25.561 - Pain in right knee Lipid Panel 4 Months E78.00 - Pure hypercholesterolemia, unspecified Comprehensive [place]. Panel Fast 4 Months E78.00 - Pure hypercholesterolemia, unspecified Thyroid Stimulating Hormone 4 Months E03.9 - Hypothyroidism, unspecified Medications: New lidocaine 5% leave on most painful area for up to 12 hrs 1 patch topical DAILY 30 ea 0RF Refilled amoxicillin 2,000 mg orally before dental procedure; 4 tabs 3RF
--- OUTSIDE RECORDS SUMMARY | 2025-03-14 15:56 | XMS_ITS | Clinical Summary ---
Author Organization [facility] it Address [address] [place] [address] Care Team Providers Care Shift Nurse Manager Name Role Phone Bolivar Ventura MD Primary [...] age to complete this topic Care Teams Shift Nurse Manager Relationship Specialty Start Date End Date Bolivar Ventura MD [address] [place] [address] [address] MEGHANN Crain PCP - General Internal Medicine 12/27/20
--- OUTSIDE RECORDS SUMMARY | 2025-03-14 15:56 | XMS_ITS | Clinical Summary ---
Author Organization [facility] Address [address] [employer] [facility] [address] [place] [address] Phone Care Team Providers Care Revenue Stamp Cutter Name Role Phone Bolivar Ventura MD Primary Care Provider [phone] Allergies No known active allergies Medications omeprazole [...] is willing to try aquatic therapy at [facility] wrote a note of clearance for her (see details in media section of the medical center). Assessment & Plan (07/11/2023 1:08 [...] is willing to try aquatic therapy at [facility] wrote a note of clearance for her (see details in media section of the medical center). Assessment & Plan (01/03/2023 11:24 [...] is willing to try aquatic therapy at [facility] wrote a note of clearance for her (see details in media section of the medical center). Assessment & Plan (03/23/2022 10:26 [...] is willing to try aquatic therapy at [facility] wrote a note of clearance for her (see details in media section of the medical center). Assessment & Plan (09/24/2021 10:14 [...] is willing to try aquatic therapy at [facility] wrote a note of clearance for her (see details in media section of the medical center). Assessment & Plan (05/06/2021 9:18 [...] is willing to try aquatic therapy at [facility] wrote a note of clearance for her (see details in media section of the medical center). Assessment & Plan (12/07/2020 8:21 [...] from PT and see orthopedic surgeon at [facility] as scheduled for consultation regarding feasibility, [...] from PT and see orthopedic surgeon at [facility] as scheduled for consultation regarding feasibility, [...] if progressive symptoms develop Rheumatoid arthritis of [facility] with negative rheumatoid factor 02/01/2019 [...] previous was done on the 09/24/2017 at [facility]. (L1-L4 T score -2.1= osteopenia, [...] Type Department Care Team Description 02/08/2025 Telephone [facility] Rheumatology [address] [place] [address] Jessica Tay CMA Request For Order(s) 01/10/2025 10:30 AM EDT Office Visit [facility] [address] [place] [address] Stephany Chen MD Rheumatoid arthritis of multiple [...] Description 07/12/2025 11:00 AM EST Office Visit [facility] Rhe[facility]ology [address] [place] [address] Stephany Chen MD [address] [facility], [address] [place] [address] Health Maintenance Due Date Last Done Comments [...] l Result from Last 3 Months Insurance [facility] MEDICARE REPLACEMENT MEDICARE REPLACEMENT MEDICARE RE[place] [address] MEDICARE REPLACEMENT [facility] MEDICARE REPLACEMENT [facility] MEDICARE REPLACEMENT [place] [id number] Care Teams Revenue Stamp Cutter Relationship Specialty Start Date End Date Bolivar Ventura MD [address] [place] [address] [place] [address] PCP - General Internal Medicine 12/22/18 Additional Source Comments The information contained in this document represents components of the legal health record. It is not the complete legal health record.[facility]
== END 2025-03-14 16:27 | disposition home or self-care (01) ==
LOC: HO.HMCH 15:27
PROVIDERS: PCP Internal Medicine; Visit Provider Internal Medicine
DX: I10 Essential (primary) hypertension (principal); E78.00 Pure hypercholesterolemia, unspecified; J98.4 Other disorders of lung; M06.9 Rheumatoid arthritis, unspecified; E03.9 Hypothyroidism, unspecified; R73.01 Impaired fasting glucose; Q79.0 Congenital diaphragmatic hernia; G57.32 Lesion of lateral popliteal nerve, left lower limb; M17.11 Unilateral primary osteoarthritis, right knee; M79.661 Pain in right lower leg; M79.89 Other specified soft tissue disorders

== ENCOUNTER → 2025-03-14 15:26 | Outpatient (BNVA) | payer OTHER, SELFPAY ==
[2023-08-25 11:07] VITALS: BMI 39.0
== END ==
PROVIDERS: PCP Internal Medicine; Visit Provider Internal Medicine
DX: M17.11 Unilateral primary osteoarthritis, right knee (principal); M25.562 Pain in left knee; I10 Essential (primary) hypertension; E78.00 Pure hypercholesterolemia, unspecified; J98.4 Other disorders of lung; E03.9 Hypothyroidism, unspecified; R73.01 Impaired fasting glucose; Q79.0 Congenital diaphragmatic hernia; G57.32 Lesion of lateral popliteal nerve, left lower limb; M79.661 Pain in right lower leg; M79.89 Other specified soft tissue disorders; M06.9 Rheumatoid arthritis, unspecified; E53.8 Deficiency of other specified B group vitamins; K21.9 Gastro-esophageal reflux disease without esophagitis; M51.360 Other intervertebral disc degeneration, lumbar region with discogenic back pain only; M85.80 Other specified disorders of bone density and structure, unspecified site; M41.9 Scoliosis, unspecified; E55.9 Vitamin D deficiency, unspecified; M94.1 Relapsing polychondritis; D47.2 Monoclonal gammopathy; Z78.9 Other specified health status; F32.A Depression, unspecified; E66.9 Obesity, unspecified; Z68.41 Body mass index [BMI] 40.0-44.9, adult; Z91.81 History of falling
CPT/HCPCS: 96127

== ENCOUNTER 2025-03-16 09:50 | Outpatient (REF) | payer OTHER, SELFPAY ==
[2023-08-25 11:07] VITALS: BMI 39.0
--- OUTSIDE RECORDS SUMMARY | 2024-09-05 06:50 | XMS_ITS ---
Author Organization [facility] Address [address] [place] [address] Care Team Providers Care Outer Diameter Grinder Name Role Phone Lorenzo CARLIN, Bolivar Primary Care Provider Faheem Cornejo Jr REASON FOR VISIT screening Encounters Encounter Location Date Provider Diagnosis [facility] [place] Out[place] [address] [place] [phone] 09/05/2024 Faheem Peters Jr Colon cancer screening Z12.11 and Colon polyps K63.5 Assessments Encounter Date Diagnosis (ICD Code) Assessment Notes Treatment Notes Treatment Clinical Notes Section Notes 09/05/2024 Colon cancer screening (ICD-10 - Z12.11) 09/05/2024 Colon polyps (ICD-10 - K63.5) Plan Of Treatment No Information Progress Notes * ALEXUS REDD ADOB: [birth year] (74 yo F)Acc No.[id number]:09/05/2024 COLON WITH MAC Patient: ALEXUS MADSEN Provider: Toro Pteers MD :1950 A ge:74 Y S ex:Female Date:09/05/2024 Address:[address] [id number] Pcp:Bolivar Ventura MD Subjective: * Chief Complaints: [...] 09/05/2024 Generated for Tita art/Robi/Javieritting on: 0 03/16/2025 09:53 AM EDT
--- NOTE | ~2025-03-16 | US_ITS ---
EXAMINATION: US TRIPLEX LOWER EXTREMITY, BILATERAL CLINICAL INFORMATION: Pain in right and left lower leg. COMPARISON: 06/17/2020 TECHNIQUE: Color-flow triplex imaging with spectral analysis and compression Doppler were performed on the bilateral lower extremities. FINDINGS: Respiratory variation, normal compression and augmented flow are noted throughout the bilateral lower extremities. The visualized common femoral vein, superficial femoral vein, profunda femoral vein, popliteal vein and midcalf peroneal and posterior tibial venous segments show no evidence of deep venous thrombosis bilaterally. There is a Munson's cyst in the LEFT popliteal fossa measuring 5.7 x 1.2 x 3.8 cm. US/US venous duplex LE BI IMPRESSION: 1. No evidence of deep venous thrombosis involving the bilateral lower extremities. 2. Munson's cyst LEFT popliteal fossa measuring 5.7 x 1.2 x 3.8 cm. Electronically signed by: Shun Rico MD 03/16/2025 11:21 AM EDT
--- NOTE | ~2025-03-16 | XR_ITS ---
EXAMINATION: XR KNEE 4 VIEWS BILATERAL HISTORY: M25.562 - Pain in left knee COMPARISON: Comparison is made with the prior examination dated 09/13/2017. FINDINGS: Standing AP views of both knees and additional lateral and sunrise patellar views of the bilateral knees are submitted. On the right, the patient is status post total knee arthroplasty. The orthopedic elements are in anatomic alignment. There is no radiographic evidence of loosening. There is no fracture, dislocation, or joint effusion. On the left, osseous mineralization is normal. There is no fracture or dislocation. There is moderate to severe joint space narrowing of the medial compartment and mild to moderate narrowing of the patellofemoral compartment. There is no joint effusion. XR/XR Knee Alvino 4V IMPRESSION: 1. Status post right total hip knee arthroplasty without change. 2. Moderate to severe narrowing of the medial compartment and mild to moderate narrowing of the patellofemoral compartment of the left knee. Electronically signed by: Jeremy Sabillon MD 03/16/2025 10:40 AM EDT
--- OUTSIDE RECORDS SUMMARY | 2025-03-16 09:53 | XMS_ITS | Clinical Summary ---
Author Organization [employer] [facility] it Address [address] [place] [address] Care Team Providers Care Consumer Services Advisor Name Role Phone Bolivar Ventura MD Primary [...] age to complete this topic Care Teams Consumer Services Advisor Relationship Specialty Start Date End Date Bolivar Ventura MD [address] [place] [address] [address] MEGHANN Crain PCP - General Internal Medicine 12/27/20
--- OUTSIDE RECORDS SUMMARY | 2025-03-16 09:54 | XMS_ITS | Clinical Summary ---
Author Organization [facility] Address [address] [employer] [address] [facility] [address] [place] [address] Phone Care Team Providers Care Behavioral Intervention Specialist Name Role Phone Bolivar Ventura MD Primary Care Provider [phone] Allergies No known active allergies Medications omeprazole [...] is willing to try aquatic therapy at [facility] wrote a note of clearance for her (see details in media section of [facility]). Assessment & Plan (07/11/2023 1:08 PM EST): [...] is willing to try aquatic therapy at [facility] wrote a note of clearance for her (see details in media section of [facility]). Assessment & Plan (01/03/2023 11:24 AM EDT): [...] is willing to try aquatic therapy at [facility] wrote a note of clearance for her (see details in media section of [facility]). Assessment & Plan (03/23/2022 10:26 AM EDT): [...] is willing to try aquatic therapy at [facility] wrote a note of clearance for her (see details in media section of [facility]). Assessment & Plan (09/24/2021 10:14 AM EST): [...] is willing to try aquatic therapy at [facility] wrote a note of clearance for her (see details in media section of [facility]). Assessment & Plan (05/06/2021 9:18 PM EDT): [...] is willing to try aquatic therapy at [facility] wrote a note of clearance for her (see details in media section of [facility]). Assessment & Plan (12/07/2020 8:21 PM EDT): [...] from PT and see orthopedic surgeon at [facility] as scheduled for consultation regarding feasibility, pros [...] from PT and see orthopedic surgeon at [facility] as scheduled for consultation regarding feasibility, pros [...] if progressive symptoms develop [facility] with negative rheumatoid factor 02/01/2019 [...] previous was done on the 09/24/2017 at [facility]. (L1-L4 T score -2.1= osteopenia, left [...] Telephone [facility] Rheumatology [address] [place] [address] Jessica Tay CMA Request For Order(s) 01/10/2025 10:30 AM EDT Office Visit [facility] Rheumatology [address] [place] [address] Stephany Chen MD Rheumatoid arthritis of multiple [...] Description 07/12/2025 11:00 AM EST Office Visit [facility] Rheumatology [address] [place] [address] Stephany Chen MD [address] [facility], [address] [place] [address] Health Maintenance Due Date Last Done Comments [...] l Result from Last 3 Months Insurance [facility] MEDICARE REPLACEMENT MEDICARE REPLACEMENT MEDICARE [place] [address] MEDICARE REPLACEMENT [facility] MEDICARE REPLACEMENT [facility] MEDICARE REPLACEMENT [place] [id number] Care Teams Behavioral Intervention Specialist Relationship Specialty Start Date End Date Bolivar Ventura MD [address] [place] [address] [place] [address] PCP - General Internal Medicine 12/22/18 Additional Source Comments The information contained in this document represents components of the legal health record. It is not the complete legal health record.[facility]
== END 2025-03-16 09:51 | disposition home or self-care (01) ==
LOC: HO.US 09:50
PROVIDERS: PCP Internal Medicine; Visit Provider Internal Medicine
DX: M79.661 Pain in right lower leg (principal); M79.662 Pain in left lower leg; M25.562 Pain in left knee; M25.561 Pain in right knee; M79.89 Other specified soft tissue disorders
CPT/HCPCS: 73564; 93970

== ENCOUNTER → 2025-03-16 09:52 | Outpatient (BNV) | payer OTHER, SELFPAY ==
[2023-08-25 11:07] VITALS: BMI 39.0
== END ==
PROVIDERS: PCP Internal Medicine; Visit Provider Radiology Diagnostic Radiology
DX: M79.604 Pain in right leg (principal); M79.605 Pain in left leg; M17.12 Unilateral primary osteoarthritis, left knee
CPT/HCPCS: 93970

== ENCOUNTER 2025-03-22 10:54 | Outpatient (AMB) | payer MEDICARE, SELFPAY ==
[2023-08-25 11:07] VITALS: BMI 39.0
--- OUTSIDE RECORDS SUMMARY | 2024-09-05 06:50 | XMS_ITS ---
Author Organization [facility] Address [address] [place] [address] Care Team Providers Care Eligibility Services Representative Name Role Phone Lorenzo CARLIN, Boliv[place] Primary Care Provider Faheem Cornejo Jr [phone] REASON FOR VISIT screening Encounters Encounter Location Date Provider Diagnosis [facility] [place] [place] [address] [place], [place] [phone] 09/05/2024 Faheem Peters Jr Colon cancer screening Z12.11 and Colon polyps K63.5 Assessments Encounter Date Diagnosis (ICD Code) Assessment Notes Treatment Notes Treatment Clinical Notes Section Notes 09/05/2024 Colon cancer screening (ICD-10 - Z12.11) 09/05/2024 Colon polyps (ICD-10 - K63.5) Plan Of Treatment No Information Progress Notes * ALEXUS REDD ADOB: [birth year] (74 yo F)Acc No.[id number]:09/05/2024 COLON WITH MAC Patient: ALEXUS MADSEN Provider: Toro Peters MD :1950 A ge:74 Y S ex:Female Date:09/05/2024 Address:[address] [id number] Pcp:Bolivar Ventura MD Subjective: * Chief Complaints: [...] 0 09/05/2024 Generated for Tita art/Robi/Javieritting on: 0 03/22/2025 12:06 PM EDT
[2025-03-22 11:08] VITALS: BMI 40.5
--- NOTE | 2025-03-22 11:08 | A.OFFVIS_ITS ---
VS Expanded 03/22/25 11:08 03/27/25 09:47 Height 5 ft 3 in 5 ft 3 in Weight 228 lb 13.437 oz 230 lb BMI 40.5 40.7 Intake Visit Reasons: Obesity Allergies No Known Allergies (No Known Allergies*) Allergy (Verified 03/14/25 15:59) Nutrition Presentation Details: Pt presents for MNT for obesity Pt has hx of OA/osteopenia therefor physical activity has lessened food frequency fruit: 0-1/d vegetables: 4-5 /day dairy : cheese most fish: 0-1/wk etoh/smoking --- BS Monitoring Most Recent Diabetes Results: Cholesterol, (<200) 189 mg/dL 03/10/25 HDL Cholesterol, (>40) 52 mg/dL 03/10/25 Triglycerides, (<150) 96 mg/dL 03/10/25 Creatinine, (0.5-1.4) 0.67 mg/dL 03/10/25 BUN, (9-16) 12 mg/dL 03/10/25 Sodium, (135-145) 142 mmol/L 03/10/25 Potassium, (3.3-5.1) 3.5 mmol/L Δ 03/10/25 Chloride, (96-108) 108 mmol/L 03/10/25 Carbon Dioxide, (22-29) 29 mmol/L 03/10/25 Calcium, (8.4-10.2) 9.6 mg/dL 03/10/25 AST, (5-31) 23 U/L 03/10/25 ALT, (0-31) 15 U/L 03/10/25 Total Protein, (6.5-8.0) 6.6 g/dL 03/10/25 Albumin, (3.5-5.0) 4.0 g/dL 03/10/25 XJB-Amlggls-Ip.Jeor Equation Height: 5 ft 3 in Weight: 230 lb Resting Metabolic Rate: 1517.26 Calculated Activity Level: Sedentary Calories Needed to Maintain Weight: 1820.71 Diagnosis Nutrition problem #1: overweight/obesity As related to (etiology) #1: diagnosis As evidenced by (sign/symptom) #1: knowledge deficit of diet PFSH Medical History CHRIS (obstructive sleep apnea) Cardiac hypertrophy Choledocholithiasis Depression Acquired hypothyroidism Hiatal hernia Chronic restrictive lung disease Pulmonary nodule Right lumbar radiculopathy Hernia, diaphragmatic Obesity (BMI 30-39.9) Relapsing polychondritis Vitamin D deficiency Osteopenia Elevated LFTs GERD without esophagitis Thoracic scoliosis Lumbar degenerative disc disease Vitamin B12 deficiency Rheumatoid arthritis Impaired fasting glucose Primary osteoarthritis of right knee Neuropathy of left peroneal nerve Hypothyroidism Exertional dyspnea Pure hypercholesterolemia Benign essential hypertension Bochdalek hernia Surgical History History of laparoscopic cholecystectomy (07/10/22) History of cataract surgery History of colonoscopy History of surgery on right wrist (~05/2004) History of appendectomy (~1963) History of surgery on right wrist (~02/2020) History of carpal tunnel surgery (~03/2016) History of right knee joint replacement (~08/2016) Family History Father CVD (cardiovascular disease) Mother Ovarian cancer Maternal Aunt Breast cancer Brother Colon cancer Family/Other Breast cancer Family/Other Breast cancer Family/Other Breast cancer Social History Household Members: Family Household Members Other:: 4 Housing: House Are you a primary healthcare administrative assistant to a significant other at home: No Do you presently have visiting nurse or other home services: No Alcohol intake: current Alcohol intake frequency: holidays/special occasions only Alcohol type: wine Patient Tobacco Use Status: Former Tobacco user Tobacco use type: Cigarette Years Smoked: 50 e-Cigarette/Vaping Use: Never Used Second Hand Smoke Exposure: No Advance Directives Date on File: 07/09/22 service: No Current occupational status: retired Cognitive needs: No Hearing needs: No Vision needs: Yes (reading glasses) Assessment & Plan Assessment & Plan (1) Morbid obesity: Code(s): E66.01 - Morbid (severe) obesity due to excess calories Category: Medical Plan: Wt: 104.5 Kg (04/02 ) Est kcal needs as per MSJ: 1800 -1900 (40% carb, 30% protein/fat) Est fluid needs as per 25-30 ml/d: 3100 Est prot per day as per 1 g/kg bw: 100 Recommend fiber intake : 8-10 g per day and gradually increase to 25-28 g per day for women and 35-38 g for men or as tolerated Recommend sodium intake per day : less than 2300 mg Educated patient on: ( R = reviewed V = verbalizes understanding N/R = needs review N/A = not applicable * Food sources of carbohydrate, adequate serving sizes and its role in various health conditions: R * Differences between complex carbohydrates a simple carbohydrates, role of fiber in diet: R * Lean protein sources of foods: R V * Differences between types of fats and role in diet (mono on saturated fat fatty acids, saturated fatty acids, trans fats): R V N/R * Food sources of sodium in salt and healthy modifications for heart health in kidney health: R V R/V * Vitamins and minerals: R V N/R * Healthy plate method concept: R * Physical activity: Benefits a precaution: R V N/R * Hypoglycemia protocol (rule of 15): R V N/R * Dietary prevention of Hyperglycemia: R V R/V Patient Instructions: Include fiber rich foods in your diet (whole grain breads/cereals/vegetables/fruits /legumes Work on having 3 meals per day reducing total carb per meal to 60 g or less following healthy plate method Have water, low sugar beverages with meals/snacks practice mindful eating Coding Level of Care Code Nutr Indiv Intake (53281) Diagnoses Morbid obesity E66.01 Time Spent (min) 30
--- OUTSIDE RECORDS SUMMARY | 2025-03-22 12:06 | XMS_ITS | Clinical Summary ---
Author Organization [employer] [facility] it Address [address] [place] [address] Care Team Providers Care Commercial Title Examiner Name Role Phone Bolivar Ventura MD Primary [...] age to complete this topic Care Teams Commercial Title Examiner Relationship Specialty Start Date End Date Bolivar Ventura MD [address] [place] [address] [address] MEGHANN Crain PCP - General Internal Medicine 12/27/20
--- OUTSIDE RECORDS SUMMARY | 2025-03-22 12:06 | XMS_ITS | Clinical Summary ---
Author Organization [facility] Address [address] [facility] [place] [address] [place] [address] Phone Care Team Providers Care Personal Fitness Trainer Name Role Phone Bolivar Ventura MD Primary Care Provider [phone] [phone] Allergies No known active allergies Medications omeprazole [...] is willing to try aquatic therapy at [facility] wrote a note of clearance for her (see details in media section of [facility]). Assessment & Plan (07/11/2023 1:08 [...] is willing to try aquatic therapy at [facility] wrote a note of clearance for her (see details in media section of [facility]). Assessment & Plan (01/03/2023 11:24 [...] is willing to try aquatic therapy at [facility] wrote a note of clearance for her (see details in media section of [facility]). Assessment & Plan (03/23/2022 10:26 [...] is willing to try aquatic therapy at [facility] wrote a note of clearance for her (see details in media section of [facility]). Assessment & Plan (09/24/2021 10:14 [...] is willing to try aquatic therapy at [facility] wrote a note of clearance for her (see details in media section of [facility]). Assessment & Plan (05/06/2021 9:18 [...] is willing to try aquatic therapy at [facility] wrote a note of clearance for her (see details in media section of [facility]). Assessment & Plan (12/07/2020 8:21 [...] from PT and see orthopedic surgeon at [facility] as scheduled for consultation regarding feasibility, [...] from PT and see orthopedic surgeon at [facility] as scheduled for consultation regarding feasibility, [...] if progressive symptoms develop Rheumatoid arthritis of [facility] with negative rheumatoid factor 02/01/2019 [...] previous was done on the 09/24/2017 at [facility]. (L1-L4 T score -2.1= osteopenia, left femoral [...] Description 02/08/2025 Telephone [facility] Rheumatology [address] [place] [address] Jessica Tay CMA Request For Order(s) 01/10/2025 10:30 AM EDT Office Visit [facility] Rheumatology [address] [place] [address] Stephany Chen MD Rheumatoid arthritis of multiple [...] Description 07/12/2025 11:00 AM EST Office Visit [facility] Rheumatology [address] [place] [address] Stephany Chen MD [address] [facility], [address] [place] [address] Health Maintenance Due Date Last Done Comments [...] l Result from Last 3 Months Insurance [facility] MEDICARE REPLACEMENT MEDICARE REPLACEMENT MEDICARE [place] [place] [address] MEDICARE REPLACEMENT [facility] MEDICARE REPLACEMENT [facility] MEDICARE REPLACEMENT [place] [id number] Care Teams Personal Fitness Trainer Relationship Specialty Start Date End Date Bolivar Ventura MD [address] [place] [address] [place] [address] PCP - General Internal Medicine 12/22/18 Additional Source Comments The information contained in this document represents components of the legal health record. It is not the complete legal health record.[facility]
[2025-03-27 09:47] VITALS: BMI 40.7
== END 2025-03-22 11:46 | disposition home or self-care (01) ==
LOC: HO.ENCR 10:55
PROVIDERS: PCP Internal Medicine; Visit Provider Dietitian, Registered
DX: E66.01 Morbid (severe) obesity due to excess calories (principal)

== ENCOUNTER → 2025-03-22 10:54 | Outpatient (BNVA) | payer MEDICARE, SELFPAY ==
[2023-08-25 11:07] VITALS: BMI 39.0
== END ==
PROVIDERS: PCP Internal Medicine; Visit Provider Dietitian, Registered
DX: E66.01 Morbid (severe) obesity due to excess calories (principal); Z71.3 Dietary counseling and surveillance
CPT/HCPCS: 97802

== ENCOUNTER 2025-04-25 10:13 | Outpatient (AMB) | payer MEDICARE, SELFPAY ==
[2023-08-25 11:07] VITALS: BMI 39.0
--- OUTSIDE RECORDS SUMMARY | 2024-09-05 06:50 | XMS_ITS ---
Author Organization [facility] Address [address] [place] [address] Care Team Providers Care Relay Motorman Name Role Phone Lorenzo CARLIN, Bolivar Primary Care Provider Faheem Cornejo Jr [phone] REASON FOR VISIT screening Encounters Encounter Location Date Provider Diagnosis [facility] [place] [address] [place], [place] [phone] 09/05/2024 Faheem Peters Jr Colon cancer screening Z12.11 and Colon polyps K63.5 Assessments Encounter Date Diagnosis (ICD Code) Assessment Notes Treatment Notes Treatment Clinical Notes Section Notes 09/05/2024 Colon cancer screening (ICD-10 - Z12.11) 09/05/2024 Colon polyps (ICD-10 - K63.5) Plan Of Treatment No Information Progress Notes * ALEXUS REDD ADOB: [birth year] (75 yo F)Acc No.[id number]:09/05/2024 COLON WITH MAC Patient: ALEXUS MADSEN Provider: Toro Peters MD :1950 A ge:74 Y S ex:Female Date:09/05/2024 Address:[address] [id number] Pcp:Bolivar Ventura MD Subjective: * Chief Complaints: [...] 09/05/2024 Generated for Tita art/Robi/Javieritting on: 0 04/25/2025 12:26 PM EDT
--- NOTE | 2025-04-25 10:15 | MHC.OFFVIS ---
Vital Signs 04/25/25 10:16 Height 5 ft 3 in Weight 221 lb 9.033 oz BMI 39.2 BP 132/76 Blood Pressure Location Lt brachial Position Sitting Pulse 70 Pulse Source Pulse Oximeter Pulse Oximetry (%) 98 Oxygen Delivery Method Room Air Intake Visit Reasons: Obstructive sleep apnea Railcar Brake Operator Required: No Accompanied by: Self / Same As Patient Allergies No Known Allergies (No Known Allergies*) Allergy (Verified 04/25/25 10:19) HPI Comments Details: Patient is a 75-year-old woman with a known history of cough in shortness of breath. [id number] in severity. The patient did have an abnormal chest x-ray and ultimately underwent a CT scan of the chest back in September 2020. Did demonstrate she has been a diaphragmatic hernia in addition to them the hiatal hernia and small pulmonary nodules. She did follow-up with thoracic surgery for the the bockdalek hernia. No surgical intervention needed. She was sent for pulmonary function studies which demonstrated a mild restrictive defect. Therefore she was referred to Pulmonary. Her cough is nonproductive in nature it is intermittent denies any postnasal drip or any wheezing. She does not use any respiratory medications. She does have symptoms of heartburn. She does take medications for Gerd. In addition to that she is taking an CHAITANYA inhibitor. She does have associated shortness of breath with activity. Mild in severity. Does get better with rest. We did review her CT scan of the chest demonstrating the small diaphragmatic hernia that is likely incidental finding. More significant and was her hiatal hernia in addition to the pulmonary nodules that we need follow-up. 08/26/2021 the patient is here for a pulmonary follow-up visit. Her symptoms are persistent. She continues to have dyspnea on exertion. Even with minimal activity. We did review her studies initially demonstrating the pulmonary function studies demonstrating the restrictive ventilatory defect. She also underwent a CT scan of the chest without any evidence of any interstitial lung disease. The patient also had a sniff study ruling out any evidence of any diaphragmatic paralysis. Her pulmonary function studies also demonstrated a moderate diffusion impairment. Explained to her that she may indeed also have a component of pulmonary vascular disease. We did briefly review her last echocardiogram from 2019 which demonstrated some degree of left ventricular hypertrophy. Explained to her that this could also result in increased pulmonary vascular pressures. In addition to that untreated sleep apnea can also result in increased pulmonary vascular pressures. She does have daytime drowsiness. Her Springfield score is elevated 10/24. At this point I will request a home sleep study to assess for obstructive sleep apnea which may be contributing to her symptoms. 12/01/2021 the patient is here for pulmonary follow-up visit. She continues to have dyspnea on exertion. Moderate severity. Based on her pulmonary function study she appears to have evidence of restrictive lung disease. Therefore, I did recommend she start pulmonary rehabilitation. I do believe that this will provide her some benefit in improving her underlying dyspnea symptoms. In the meantime her dyspnea symptoms are likely multifactorial. Part deconditioning part restrictive lung disease but also need to consider pulmonary vascular conditions. The patient did have an elevated Springfield score. We had her undergo a home sleep study. No significant evidence of sleep apnea although it is likely nondiagnostic. She did have significant episodes of apnea and specially hypopneas while laying supine. The patient also desaturated down to below 88% for about 12 minutes. I did request patient try positional therapy for now while not sleep in her back. She will try different devices in order to do so. Once the patient is able to do that we can repeat her overnight oximetry or consider having her undergo a in-lab PSG. Will do this based on her degree of daytime drowsiness And cardiovascular risk factors. The patient has a rescue inhaler available. She has not interested in starting any maintenance therapy at this time. 07/07/2022 the patient is here for pulmonary follow-up visit. Overall the patient is relatively well from a respiratory status. She continues to participate in pulmonary rehabilitation. She is completing the program and that she can consider continuing on her own. The patient has been able to make some strides in her pulmonary capacity. She is still complaining of epigastric discomfort. Moderate severity. Sometimes radiates to her back. She does have a hiatal hernia. We did look at her recent CT scan of the chest done May 2022 demonstrating stable pulmonary nodules. She does have the hiatal hernia. She does take medications. We did talk about the importance of good reflux diet. In view of her epigastric discomfort the patient should be evaluated either with barium swallow or with an endoscopy. She is also having issues with transaminitis. She was recently taken off her lipid medication. She also had an ultrasound which is reassuring. Again, if she has any worsening epigastric discomfort she seek urgent medical advice. 12/29/2022 the patient is here for a pulmonary follow-up visit. She continues complaint of dyspnea on exertion. She has had an eventful year and has had multiple surgeries. She has recovered well in tolerated anesthesia well. She has to have 1 more wrist surgery couple min up at [facility]. In the meantime she continues to have shortness of breath. We reviewed a get her a previous pulmonary function studies demonstrating some degree of restriction. She does have incentive spirometer at home she is going to do so. But more than that there is a disproportional low to moderate diffusion impairment. Therefore pulmonary vascular conditions need to be considered. Hemoglobin has been stable. The patient does have lower extremity edema. She does use salt and she injury salt. It is likely that she does have some volume overload status. With the decrease in DLCO I also suspect that there is a cardiac component to her respiratory symptoms. Will request a stress echo. The patient has already has EKGs. In addition to that will plan to repeat her PFTs. She will try 3 day course of Lasix to see if we can improve her respiratory status at this time. 03/23/2023 the patient is here for pulmonary follow-up visit. She continues to be about the same. Still complaining of dyspnea on exertion. Moderate severity. Specially going up a flight of stairs. She did participate in the pulmonary rehabilitation although she did not feel that she had a lot of teaching. I did reach out to the pulmonary rehab to see if they can give her some breathing techniques teachings. The patient does have some restrictive lung disease likely from her body habitus. She is also the condition and has significant discomfort primarily at the knees making it difficult for her to ambulate. We did have her undergo a cardiac evaluation based on the fact that she has had some lower extremity edema. She did have a stress echo that was nondiagnostic. Therefore she had had a Nikki nuclear scan that demonstrating no evidence of any underlying coronary artery disease or perfusion defects. Her gated EF was 69% which is reassuring. I did encourage the patient with the fact that her cardiac status is stable. I would also given Lasix to help with lower extremity edema the last time but she had some vomiting after worse and she is not sure if he was the medications so she stopped that after the 1st dose. She still has some lower extremity but is less in amount. 08/25/2023 the patient is here for pulmonary follow-up visit. She is doing about the same still having dyspnea on exertion. She has multiple factors. She is having significant pains in her musculoskeletal area lower back area now in the upper neck area. She recently had an x-ray demonstrating spondylosis. She does have a follow-up with pain management. In the meantime she has been using the Wixela daily. She is going to try to increase that to twice a day. We did look at her PFTs and there was not anything significant as far as response to bronchodilators. One option will be to titrate her up to Trelegy to try muscarinic antagonist and maybe this policy writer typist better airway response. In addition to that we did look at the echocardiogram again demonstrating hypertrophy of the left ventricle and explained to her that that can result in diastolic dysfunction and subsequent shortness of breath with increased heart rate. Therefore, will be good for her to be seen by tape keller operator at this time to further adjust her medications appropriately. 11/03/2023 the patient is here for a pulmonary follow-up visit. She continues have dyspnea on exertion. Moderate severity. Which has other issues going on such as her back discomfort and also her hand discomfort. She was doing rehab but it was difficult for her to do with all her orthopedic issues. Now the patient will be seeing Cardiology for the severe asymmetrical septal hypertrophy. Wondering how much that is affecting her breathing. I did give her a small dose of diuretic during the last visit for 3 days which did help decrease some of the lower extremity edema. She will talk to Cardiology to see if additional diuretic therapy is warranted. We did look at her last CT scan of the chest that was done about a year ago which demonstrated a small 2 mm pulmonary nodule in the right upper lobe area. The patient also had a Bochdalek hernia. She had been seen by thoracic surgery in the past was small and therefore no intervention warranted. Will go ahead and plan to repeat a CT scan in 4-6 months in order to reassess the pulmonary nodule and also to reassess her hernia. 05/02/2024 the patient is here for a pulmonary follow-up visit. She is still having the same symptoms. Complains of dyspnea on exertion. She is wondering the etiology. We did talk about the multifactorial aspect of things that she does have hypertrophic cardiac changes, in addition to that there is evidence of restrictive lung disease due to her body habitus in addition to that there is a component of deconditioning. She is also concerned that she is feeling dizzy lately. She has an appointment with ENT. Feels like she is has pressure in her ears. She does have some nasal congestion nasal spray may be helpful for that. We did talk about the pathophysiology of the pressure gradients of the sinuses. I do believe that a nasal spray we helpful. She has had issues with epistaxis in the past we did go with the instructions on how to use it properly to try to minimize that. The patient also admits to drinking alcohol. Sometimes she drinks more than other times. She does drink usually hard liquor including Tequila and vodka. Sometimes she drinks red wine. She moves blood some days more than others. But has been on a regular basis. The patient is concerned because her brother was diagnosed with ataxia. She understands that this could be related to alcohol drinking. She needs to cut down. I did not appreciate any evidence of any ataxia this time. Although she needs to be evaluated further by her primary care doctor or neurologist. 10/31/2024 the patient is here for pulmonary follow-up visit. She still complains of dyspnea on exertion. Moderate severity. She does have difficulties walking because of her knees and deconditioning. She has also had a hard time losing weight. She is looking into medical weight management. I do believe that this will be helpful. She has been dealing with significant sinusitis. She was evaluated by ENT and did undergo a CT scan of the sinuses demonstrating significant maxillary sinusitis. Appears to have subcu and chronic findings. She is still having significant congestion. Will go ahead and start her on Dymista and also Singulair for her allergies. She does have significant eosinophilia suggesting allergies started playing a role. She continues on the respiratory inhaler with good effect. The patient does have daytime drowsiness. Springfield score is elevated 11/24. She can consider having a repeat sleep study. Her previous 1 was borderline. 04/25/2025 the patient is here for a pulmonary follow-up visit. She continues to have dyspnea on exertion. Moderate severity. She is very limited as far as her activity at this time. She does not respond to the respiratory inhalers. Has not seen any significant improvement. She does have daytime drowsiness with an elevated Springfield score of 11/24. Sometime ago she did have a home sleep study which I reviewed demonstrating evidence of nocturnal hypoxia. 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 Therefore, will request an in-lab sleep study. The patient does have a hard time sleeping so I will give her sleep aid in order for her to have an adequate study. The patient was given torsemide by her primary care doctor and she has not taking it regularly. She still has lower extremity edema. She knows to take it. The patient will continue with respiratory therapy she will continue with a low-sodium diet and diuretics. She will continue working with weight management. Will follow-up after her sleep study. Hopefully we can have that soon. [facility] Medical History (Updated 04/25/25 @ 10:32 by Dread Tineo MD) Nocturnal hypoxia CHRIS (obstructive sleep apnea) Cardiac hypertrophy Choledocholithiasis Depression Acquired hypothyroidism Hiatal hernia Chronic restrictive lung disease Pulmonary nodule Right lumbar radiculopathy Hernia, diaphragmatic Obesity (BMI 30-39.9) Relapsing polychondritis Vitamin D deficiency Osteopenia Elevated LFTs GERD without esophagitis Thoracic scoliosis Lumbar degenerative disc disease Vitamin B12 deficiency Rheumatoid arthritis Impaired fasting glucose Primary osteoarthritis of right knee Neuropathy of left peroneal nerve Hypothyroidism Exertional dyspnea Pure hypercholesterolemia Benign essential hypertension Bochdalek hernia Surgical History History of laparoscopic cholecystectomy (07/10/22) History of cataract surgery History of colonoscopy History of surgery on right wrist (~05/2004) History of appendectomy (~1963) History of surgery on right wrist (~02/2020) History of carpal tunnel surgery (~03/2016) History of right knee joint replacement (~08/2016) Family History Father CVD (cardiovascular disease) Mother Ovarian cancer Maternal Aunt Breast cancer Brother Colon cancer Family/Other Breast cancer Family/Other Breast cancer Family/Other Breast cancer Social History Household Members: Family Household Members Other:: 4 Housing: House Are you a primary medicare sales representative to a significant other at home: No Do you presently have visiting nurse or other home services: No Alcohol intake: current Alcohol intake frequency: holidays/special occasions only Alcohol type: wine Patient Tobacco Use Status: Former Tobacco user Tobacco use type: Cigarette Years Smoked: 50 e-Cigarette/Vaping Use: Never Used Second Hand Smoke Exposure: No Advance Directives Date on File: 07/09/22 service: No Current occupational status: retired Cognitive needs: No Hearing needs: No Vision needs: Yes (reading glasses) Review of Systems Const Denies chills, Reports daytime sleepiness, Reports difficulty sleeping, Reports fatigue (mild), Denies fever(s), Denies headache(s) and Reports weight gain ENT Denies dysphagia, Reports dizziness, Denies otalgia, Denies headache(s), Denies nasal congestion, Denies odynophagia and Denies sore throat Card Denies chest pain, Denies palpitations and Reports dyspnea on exertion (mild, unchanged from previous) Resp Denies chest congestion, Denies cough, Denies hemoptysis, Reports dyspnea on exertion (mild, unchanged from previous) and Denies wheezing GI Denies abdominal pain, Denies constipation, Denies dysphagia, Denies heartburn, Denies diarrhea, Denies nausea, Denies odynophagia and Denies vomiting Denies difficulty voiding, Denies nocturia and Denies dysuria Musc Reports back pain (with radiation of pain down her legs at times - chronic), Reports myalgias and Reports arthralgias (right knee) Skin/Breast Details: (+) few raised dark lesions on her trunk - thinks that they may be skin tags Neuro Reports dizziness, Denies headache(s) and Reports tremor(s) Endo Reports fatigue (mild) and Denies palpitations Isidoro/Lymph Denies easy bruising Aller/Immun Denies wheezing Physical Exam Vital Signs: Last Vital Signs Pulse 70 04/25/25 10:16 BP 132/76 04/25/25 10:16 Pulse Ox 98 04/25/25 10:16 Oxygen Delivery Method Room Air 04/25/25 10:16 BMI result Body Mass Index 39.2 Const General: alert HEENT Head: Yes atraumatic Eyes Pupils: Equal, round and reactive pupils present Neck Neck: Yes normal visual inspection, Yes full ROM and Yes no lymphadenopathy Chest Chest palpation & inspection: normal inspection of the chest Resp Effort & Inspection: normal respiratory effort Auscultation: diminished lung sounds Cardio Rate: regular rate Rhythm: regular rhythm Heart sounds: S1 normal heart sound present and S2 normal heart sound present GI Palpation (GI): Soft to palpation and nontender Auscultation: normal bowel sounds Skin General skin exam: rashes and/or lesions noted Neuro Cranial nerves: Yes Equal, round and reactive pupils present Extrem General: No clubbing, No cyanosis and Yes edema Results Reviewed Results Reviewed: Personally reviewed echocardiogram from February 2025 demonstrating severe asymmetric hypertrophy of the ventricular septum personally reviewed CT scan of the chest from 2023 demonstrating stable pulmonary nodules Assessment & Plan Assessment & Plan (1) CHRIS (obstructive sleep apnea): Code(s): G47.33 - Obstructive sleep apnea (adult) (pediatric) Category: Medical (2) Pulmonary nodule: Code(s): R91.1 - Solitary pulmonary nodule Category: Medical (3) Hernia, diaphragmatic: Code(s): K44.9 - Diaphragmatic hernia without obstruction or gangrene Category: Medical Qualifiers: Obstruction and gangrene presence: without obstruction or gangrene Qualified Code(s): K44.9 - Diaphragmatic hernia without obstruction or gangrene (4) Hiatal hernia: Code(s): K44.9 - Diaphragmatic hernia without obstruction or gangrene Category: Medical (5) Chronic restrictive lung disease: Code(s): J98.4 - Other disorders of lung Category: Medical (6) Cardiac hypertrophy: Code(s): I51.7 - Cardiomegaly Category: Medical (7) Sinusitis: Code(s): J32.9 - Chronic sinusitis, unspecified Category: Medical Qualifiers: Chronicity: chronic Sinusitis location: unspecified location Qualified Code(s): J32.9 - Chronic sinusitis, unspecified (8) Nocturnal hypoxia: Code(s): G47.34 - Idiopathic sleep related nonobstructive alveolar hypoventilation Category: Medical Plan continue exercise regimen in lab PSG ambien for her sleep study continue Wixela BID low Na diet diuresis as tolerated continue PPI reflux diet weight management JAIMIE as needed neti bottle, distilled water only F/U 6-8 months Orders: Orders RT PSG in-lab sleep study Today G47.33 - Obstructive sleep apnea (adult) (pediatric), G47.34 - Idiopathic sleep related nonobstructive alveolar hypoventilation Medications: New zolpidem 10 mg PO BEDTIME PRN 5 tabs 0RF sleep 5 days Refilled torsemide 10 mg PO DAILY 30 tabs 2RF 30 days albuterol sulfate 90 mcg/actuation 2 inhalations inhalation Q6H PRN 18 grams 12RF shortness of breath or wheezing 30 days J44.9 - Chronic obstructive pulmonary disease, unspecified Coding Level of Care Code Est Pt Level 5 (74929) Complex EM visit Add On G2211 Diagnoses CHRIS (obstructive sleep apnea) G47.33 Pulmonary nodule R91.1 Diaphragmatic hernia without obstruction and without gangrene K44.9 Obstruction and gangrene presence: without obstruction or gangrene Hiatal hernia K44.9 Chronic restrictive lung disease J98.4 Cardiac hypertrophy I51.7 Chronic sinusitis, unspecified location J32.9 Chronicity: chronic Sinusitis location: unspecified location Nocturnal hypoxia G47.34 Time Spent (min) 40
[2025-04-25 10:16] VITALS: BP 132/76; PULSE 70; O2SAT 98; BMI 39.2
--- OUTSIDE RECORDS SUMMARY | 2025-04-25 12:27 | XMS_ITS | Clinical Summary ---
Author Organization [facility] Address [address] [facility] [address] [place] [address] Phone Care Team Providers Care Mathematics Improvement Teacher Name Role Phone Bolivar Ventura MD Primary Care Provider [phone] Allergies No known active allergies Medications omeprazole [...] is willing to try aquatic therapy at [facility] wrote a note of clearance for her (see details in media section of [facility]). Assessment & Plan (07/11/2023 1:08 PM [...] is willing to try aquatic therapy at [facility] wrote a note of clearance for her (see details in media section of [facility]). Assessment & Plan (01/03/2023 11:24 AM [...] is willing to try aquatic therapy at [facility] wrote a note of clearance for her (see details in media section of [facility]). Assessment & Plan (03/23/2022 10:26 AM [...] is willing to try aquatic therapy at [facility] wrote a note of clearance for her (see details in media section of [facility]). Assessment & Plan (09/24/2021 10:14 AM [...] is willing to try aquatic therapy at [facility] wrote a note of clearance for her (see details in media section of [facility]). Assessment & Plan (05/06/2021 9:18 PM [...] is willing to try aquatic therapy at [facility] wrote a note of clearance for her (see details in media section of [facility]). Assessment & Plan (12/07/2020 8:21 PM [...] from PT and see orthopedic surgeon at [facility] as scheduled for consultation regarding feasibility, [...] from PT and see orthopedic surgeon at [facility] as scheduled for consultation regarding feasibility, [...] if progressive symptoms develop [facility] with negative rheumatoid factor 02/01/2019 Assessment [...] previous was done on the 09/24/2017 at [facility]. (L1-L4 T score -2.1= osteopenia, left [...] Type Department Care Team Description 02/08/2025 Telephone [facility] Rheumatology [address] [place] [address] Jessica Tay CMA Request For Order(s) from Last 3 Months Social History Tobacco [...] Description 07/12/2025 11:00 AM EST Office Visit [facility] Rheumatology [address] [place] [address] Stephany Chen MD [address] [facility], [address] [place] [address] Health Maintenance Due Date Last Done Comments CREATININE LEVEL 1950 LIPID PANEL 1950 POTASSIUM LEVEL 1950 TSH LEVEL 1950 DEPRESSION SCREENING 1962 SMOKING Hx and SMOKELESS TOBACCO SCREENING 1963 HEPATITIS C SCREENING 1968 COLOGUARD 1995 COLONOSCOPY 1995 COLORECTAL CANCER SCREENING 1995 FIT TEST 1995 FOBT 1995 SIGMOIDOSCOPY 1995 VIRTUAL COLONOSCOPY 1995 INFLUENZA VACCINE (#1) 2025 , 05/05/2023, 05/20/2022, Additional history exists BLOOD PRESSURE 07/12/2025 01/10/2025 Adult Td,Tdap Booster [...] l Result from Last 3 Months Insurance [facility] MEDICARE REPLACEMENT [facility] MEDICARE REPLACEMENT MEDICARE [place] [address] [place] [address] MEDICARE REPLACEMENT Member Subscriber Plan / Payer (Ef fective 2024-Present) Name:Angela Villar Relation to Subscriber:Self Name:GalaAngela garcia Payer ID:[id number] (NAIC) Type:Medicare Address: [place] [id number] [place] [address] MEDICARE REPLACEMENT Member Subscriber Plan / Payer (Ef fective 2024-Present) Name:Angela Villar Relation to Subscriber:Self Name:Angela Villar Payer ID:[id number] (NAIC) Type:Medicare Address: [place] [id number] [facility] MEDICARE REPLACEMENT Care Teams Mathematics Improvement Teacher Relationship Specialty Start Date End Date Bolivar Ventura MD [address] [place] [address] [place] [address] PCP - General Internal Medicine 12/22/18 Additional Source Comments The information contained in this document represents components of the legal health record. It is not the complete legal health record.[facility]
--- OUTSIDE RECORDS SUMMARY | 2025-04-25 12:27 | XMS_ITS | Clinical Summary ---
Author Organization [facility] [employer] [facility] ity Address [address] [place] [address] Care Team Providers Care Liquefied Petroleum Gasfitter Name Role Phone Bolivar Ventura MD Primary [...] Health Maintenance Due Date Last Done Comments DTaP,Tdap,and Td Vaccines (1 - Tdap) 1969 Zoster Vaccines (1 of 2) 2000 Pneumococcal Vaccine: 50+ Years (2 of 2 - PCV) 08/12/2016 08/12/2015 Colorectal Cancer Screening: Colonoscopy 07/18/2022 Falls Risk Assessment 07/18/2022 Hepatitis C Screening 07/18/2022 Osteoporosis Screening (Bone Density Screening) 07/18/2022 Social Influencers of Health Screening 07/18/2022 Depression Screening 08/09/2024 RSV Immunization Adult Patients (1 - 1-dose 75+ series) 2025 COVID-19 Vaccine ( season) 2025 Influenza Vaccine (#1) 2025 9, 05/12/2018, [...] age to complete this topic Care Teams Liquefied Petroleum Gasfitter Relationship Specialty Start Date End Date Bolivar Ventura MD [address] [place] [address] [address] MEGHANN Crain PCP - General Internal Medicine 12/27/20
--- OUTSIDE RECORDS SUMMARY | 2025-04-25 12:27 | XMS_ITS | Patient Health Record ---
Author Organization [facility] Address [address] [place] [address] Care Team Providers Care Research Mechanic Name Role Phone Lorenzo CARLIN, [place] Primary Care Provider Faheem Cornejo Jr [phone] Allergies No Known Allergies Results Component Value Reference Range Notes Pathology Reviewed date:09/14/2024 12:59:40 PM Interpretation: Performing Lab:[facility], [address] [place] [id number] Notes/Report: Reason For Referral No Information Medications Medication [...] Problem Status W/U Status Risk Notes Problem 507096910 Colon cancer screening (Z12.11) Active confirmed Problem 468065049925862 Encounter for long-term (current) use of NSAIDs (Z79.1) Active confirmed Problem 849747639 Gastroesophageal reflux disease, unspecified whether esophagitis present (K21.9) Active confirmed Vital Signs Temperature 96.9 degrees Fahrenheit 08/07/2024 Blood pressure diastolic 00 mm Hg 08/07/2024 Height 63 in 08/07/2024 Blood pressure systolic 000 mm Hg 08/07/2024 Weight 210 lbs 08/07/2024 BMI 37.20 kg/m2 08/07/2024 Encounters Encounter Location Date Provider Diagnosis [facility] [address] [place] [id number] 09/05/2024 Faheem Peters Jr Colon cancer screening Z12.11 and Colon polyps K63.5 [facility] [address] [place] [phone] 08/07/2024 Faheem Peters Jr Gastroesophageal reflux disease, unspecified whether esophagitis present K21.9 ; Colon cancer screening Z12.11 and Encounter for long-term (current) use of NSAIDs Z79.1 [facility] [address] [facility] [address] [place] [phone] 09/14/2024 Faheem Peters Jr Assessments Encounter Date [...] that she continue omeprazole. She can use lssm-jsi-eipunio antacids for breakthrough symptoms. She is due [...] that she continue omeprazole. She can use brso-nvv-mhjvrjw antacids for breakthrough symptoms. She is due [...] that she continue omeprazole. She can use nplf-cdo-hbvsjxe antacids for breakthrough symptoms. She is due [...] Insured Coverage Start Date Coverage End Date [facility] [address] [address] [place] [id number] ALEXUS REDD Self - patient is the insured Medical [...]
== END 2025-04-25 10:52 | disposition home or self-care (01) ==
LOC: HO.HPS 10:14
PROVIDERS: PCP Internal Medicine; Visit Provider Hospitalist
DX: G47.33 Obstructive sleep apnea (adult) (pediatric) (principal); R91.1 Solitary pulmonary nodule; K44.9 Diaphragmatic hernia without obstruction or gangrene; J98.4 Other disorders of lung; I51.7 Cardiomegaly; J32.9 Chronic sinusitis, unspecified; G47.34 Idiopathic sleep related nonobstructive alveolar hypoventilation
CPT/HCPCS: 99215; G2211

== ENCOUNTER → 2025-04-25 10:13 | Outpatient (BNVA) | payer MEDICARE, SELFPAY ==
[2023-08-25 11:07] VITALS: BMI 39.0
== END ==
PROVIDERS: PCP Internal Medicine; Visit Provider Hospitalist
DX: G47.33 Obstructive sleep apnea (adult) (pediatric) (principal); K44.9 Diaphragmatic hernia without obstruction or gangrene; J32.9 Chronic sinusitis, unspecified; R91.1 Solitary pulmonary nodule; J98.4 Other disorders of lung; I51.7 Cardiomegaly; G47.34 Idiopathic sleep related nonobstructive alveolar hypoventilation
CPT/HCPCS: 99212

== ENCOUNTER 2025-05-10 09:57 | Outpatient (AMB) | payer MEDICARE, SELFPAY ==
[2023-08-25 11:07] VITALS: BMI 39.0
--- OUTSIDE RECORDS SUMMARY | 2024-09-05 06:50 | XMS_ITS ---
Author Organization [facility] Address [address] [place] [address] Care Team Providers Care Mine Car Mechanic Name Role Phone Lorenzo CARLIN, Bolivar Primary Care Provider Faheem Cornejo Jr [phone] REASON FOR VISIT screening Encounters Encounter Location Date Provider Diagnosis [facility] Outpatient [address] [place], [place] [phone] 09/05/2024 Faheem Peters Jr Colon cancer screening Z12.11 and Colon polyps K63.5 Assessments Encounter Date Diagnosis (ICD Code) Assessment Notes Treatment Notes Treatment Clinical Notes Section Notes 09/05/2024 Colon cancer screening (ICD-10 - Z12.11) 09/05/2024 Colon polyps (ICD-10 - K63.5) Plan Of Treatment No Information Progress Notes * ALEXUS REDD ADOB: [birth year] (75 yo F)Acc No.[id number]:09/05/2024 COLON WITH MAC Patient: ALEXUS MADSEN Provider: Toro Peters MD :1950 A ge:74 Y S ex:Female Date:09/05/2024 Address:[address] [id number] Pcp:Bolivar Ventura MD Subjective: * Chief Complaints: * 1 . Screening. * Medical History: Objective: * Vitals: Assessment: * Assessment: 1. C olon cancer screening - Z12.11 (Primary) 2 . C olon polyps - K63.5? Plan: * Treatment: * Procedure Codes: 4 5380 COLONOSCOPY AND BIOPSY, 0529F INTRVL 3+YRS PTS CLNSCP DOCD * * The named appointment provid er may or may not be the originator of this progress note, and it is not deemed complete until electronically signed by the appointment provider. Sign off status: Pending * Provider: Toro Peters MD Date: 0 09/05/2024 Generated for Tita art/Robi/Cesilia on: 1 11:12 AM EDT
[2025-05-10 10:21] VITALS: BMI 39.0
--- NOTE | 2025-05-10 10:21 | A.OFFVIS_ITS ---
VS Expanded 05/10/25 10:21 Height 5 ft 3 in Weight 220 lb 7.396 oz BMI 39.0 Intake Visit Reasons: f/u thyroid cancer Allergies No Known Allergies (No Known Allergies*) Allergy (Verified 04/25/25 10:19) Nutrition Presentation Details: Pt presents for MNT f/u for obesity Pt reports working on meal planning, reducing on carb Today will review low sodium food choices BS Monitoring Most Recent Diabetes Results: Cholesterol, (<200) 189 mg/dL 03/10/25 HDL Cholesterol, (>40) 52 mg/dL 03/10/25 Triglycerides, (<150) 96 mg/dL 03/10/25 Creatinine, (0.5-1.4) 0.67 mg/dL 03/10/25 BUN, (9-16) 12 mg/dL 03/10/25 Sodium, (135-145) 142 mmol/L 03/10/25 Potassium, (3.3-5.1) 3.5 mmol/L Δ 03/10/25 Chloride, (96-108) 108 mmol/L 03/10/25 Carbon Dioxide, (22-29) 29 mmol/L 03/10/25 Calcium, (8.4-10.2) 9.6 mg/dL 03/10/25 AST, (5-31) 23 U/L 03/10/25 ALT, (0-31) 15 U/L 03/10/25 Total Protein, (6.5-8.0) 6.6 g/dL 03/10/25 Albumin, (3.5-5.0) 4.0 g/dL 03/10/25 IIT-Hxfdjcv-Ad.Jeor Equation Height: 5 ft 3 in Weight: 220 lb Resting Metabolic Rate: 1467.03 Calculated Activity Level: Sedentary Calories Needed to Maintain Weight: 1760.44 [facility] Medical History (Updated 04/25/25 @ 10:32 by Dread Tineo MD) Nocturnal hypoxia CHRIS (obstructive sleep apnea) Cardiac hypertrophy Choledocholithiasis Depression Acquired hypothyroidism Hiatal hernia Chronic restrictive lung disease Pulmonary nodule Right lumbar radiculopathy Hernia, diaphragmatic Obesity (BMI 30-39.9) Relapsing polychondritis Vitamin D deficiency Osteopenia Elevated LFTs GERD without esophagitis Thoracic scoliosis Lumbar degenerative disc disease Vitamin B12 deficiency Rheumatoid arthritis Impaired fasting glucose Primary osteoarthritis of right knee Neuropathy of left peroneal nerve Hypothyroidism Exertional dyspnea Pure hypercholesterolemia Benign essential hypertension Bochdalek hernia Surgical History History of laparoscopic cholecystectomy (07/10/22) History of cataract surgery History of colonoscopy History of surgery on right wrist (~05/2004) History of appendectomy (~1963) History of surgery on right wrist (~02/2020) History of carpal tunnel surgery (~03/2016) History of right knee joint replacement (~08/2016) Family History Father CVD (cardiovascular disease) Mother Ovarian cancer Maternal Aunt Breast cancer Brother Colon cancer Family/Other Breast cancer Family/Other Breast cancer Family/Other Breast cancer Social History Household Members: Family Household Members Other:: 4 Housing: House Are you a primary patient care secretary to a significant other at home: No Do you presently have visiting nurse or other home services: No Alcohol intake: current Alcohol intake frequency: holidays/special occasions only Alcohol type: wine Patient Tobacco Use Status: Former Tobacco user Tobacco use type: Cigarette Years Smoked: 50 e-Cigarette/Vaping Use: Never Used Second Hand Smoke Exposure: No Advance Directives Date on File: 07/09/22 service: No Current occupational status: retired Cognitive needs: No Hearing needs: No Vision needs: Yes (reading glasses) Assessment & Plan Assessment & Plan (1) Morbid obesity: Code(s): E66.01 - Morbid (severe) obesity due to excess calories Category: Medical Plan: Wt: 104.5 Kg (04/02 ), 100 kg(06/02) Est kcal needs as per MSJ: 1700 - 832=5767 (40% carb, 30% protein/fat) Est fluid needs as per 25-30 ml/d: 3000 Est prot per day as per 1 g/kg bw: 100 Recommend fiber intake : 8-10 g per day and gradually increase to 25-28 g per day for women and 35-38 g for men or as tolerated Recommend sodium intake per day : less than 2300 mg Educated patient on: ( R = reviewed V = verbalizes understanding N/R = needs review N/A = not applicable * Food sources of carbohydrate, adequate serving sizes and its role in various health conditions: R * Differences between complex carbohydrates a simple carbohydrates, role of fiber in diet: R * Lean protein sources of foods: R V * Differences between types of fats and role in diet (mono on saturated fat fatty acids, saturated fatty acids, trans fats): R * Food sources of sodium in salt and healthy modifications for heart health in kidney health: R * Vitamins and minerals: R V N/R * Healthy plate method concept: R * Physical activity: Benefits a precaution: R V N/R * Hypoglycemia protocol (rule of 15): R V N/R * Dietary prevention of Hyperglycemia: R V R/V Patient Instructions: Choose low sodium food options and seasonings- see list Choose complaint manager meal in the evening Coding Level of Care Code Nutr Indiv Subseq (15872) Diagnoses Morbid obesity E66.01 Time Spent (min) 30
--- OUTSIDE RECORDS SUMMARY | 2025-05-10 11:13 | XMS_ITS | Clinical Summary ---
Author Organization [employer] [facility] ity Address [address] [place] [address] Care Team Providers Care Bell Attendant Name Role Phone Bolivar Ventura MD Primary [...] Health Maintenance Due Date Last Done Comments Colorectal Cancer Screening: Colonoscopy 1950 DTaP,Tdap,and Td Vaccines (1 - Tdap) 1969 Zoster Vaccines (1 of 2) 2000 Pneumococcal Vaccine: 50+ Years (2 of 2 - PCV) 08/12/2016 08/12/2015 Falls Risk Assessment 07/18/2022 Hepatitis C Screening 07/18/2022 Osteoporosis Screening (Bone Density Screening) 07/18/2022 Social Influencers of Health Screening 07/18/2022 Depression Screening 08/09/2024 RSV Immunization Adult Patients (1 - 1-dose 75+ series) 2025 COVID-19 Vaccine (2023- season) 2025 Influenza Vaccine (#1) 2025 9, [...] age to complete this topic Care Teams Bell Attendant Relationship Specialty Start Date End Date Bolivar Ventura MD [address] [place] [address] [address] MEGHANN Crain PCP - General Internal Medicine 12/27/20
--- OUTSIDE RECORDS SUMMARY | 2025-05-10 11:13 | XMS_ITS | Patient Health Record ---
Author Organization [facility] Address [address] [place] [address] Care Team Providers Care Manager Hair Name Role Phone Lorenzo CARLIN, [place] Primary Care Provider Faheem Cornejo Jr [phone] Allergies No Known Allergies Results Component Value Reference Range Notes Pathology Reviewed date:09/14/2024 12:59:40 PM Interpretation: Performing Lab:[facility], [address] [place] [id number] Notes/Report: Reason For Referral No Information Medications [...] Problem Status W/U Status Risk Notes Problem 588547946 Colon cancer screening (Z12.11) Active confirmed Problem [id number] Encounter for long-term (current) use of NSAIDs (Z79.1) Active confirmed Problem 380361424 Gastroesophageal reflux disease, unspecified whether esophagitis present (K21.9) Active confirmed Vital Signs Temperature 96.9 degrees Fahrenheit 08/07/2024 Blood pressure diastolic 00 mm Hg 08/07/2024 Height 63 in 08/07/2024 Blood pressure systolic 000 mm Hg 08/07/2024 Weight 210 lbs 08/07/2024 BMI 37.20 kg/m2 08/07/2024 Encounters Encounter Location Date Provider Diagnosis [facility] Outpatient [address] [place] [id number] 09/05/2024 Faheem Peters Jr Colon cancer screening Z12.11 and Colon polyps K63.5 [facility] [address] [place] [phone] 08/07/2024 Faheem Peters Jr Gastroesophageal reflux disease, unspecified whether esophagitis present K21.9 ; Colon cancer screening Z12.11 and Encounter for long-term (current) use of NSAIDs Z79.1 [facility] [address] [facility] [address] [place] [phone] 09/14/2024 Faheem Peters Jr Assessments Encounter Date [...] that she continue omeprazole. She can use xehw-uyw-ccdtmad antacids for breakthrough symptoms. She is due [...] that she continue omeprazole. She can use pctw-dzw-jnunjtt antacids for breakthrough symptoms. She is due [...] that she continue omeprazole. She can use bvxg-lrs-cjymmyz antacids for breakthrough symptoms. She is due [...] Coverage End Date [facility] [address] [address] [place] [id number] ALEXUS REDD Self - patient is the [...]
--- OUTSIDE RECORDS SUMMARY | 2025-05-10 11:13 | XMS_ITS | Clinical Summary ---
Author Organization [facility] Address [address] [facility] [address] [place] [address] Phone Care Team Providers Care Infusion Pharmacist Name Role Phone Bolivar Ventura MD Primary Care Provider [phone] Allergies No known active allergies Medications omeprazole [...] is willing to try aquatic therapy at [facility] wrote a note of clearance for [...] is willing to try aquatic therapy at [facility] wrote a note of clearance for [...] is willing to try aquatic therapy at [facility] wrote a note of clearance for [...] is willing to try aquatic therapy at [facility] wrote a note of clearance for [...] is willing to try aquatic therapy at [facility] wrote a note of clearance for [...] is willing to try aquatic therapy at [facility] wrote a note of clearance for [...] from PT and see orthopedic surgeon at [facility] as scheduled for consultation regarding feasibility, pros [...] from PT and see orthopedic surgeon at [facility] as scheduled for consultation regarding feasibility, pros [...] progressive symptoms develop [facility]oid [facility] with negative rheumatoid factor 02/01/2019 Assessment [...] previous was done on the 09/24/2017 at [facility]. (L1-L4 T score -2.1= osteopenia, left [...] Department Care Team Description 02/08/2025 Telephone [facility] Rheumatology [address] [place] [address] Jessica Tay CMA Request For Order(s) from [...] Description 07/12/2025 11:00 AM EST Office Visit [facility] Rheumatology [address] [place] [address] Stephany Chen MD [address] [facility], [address] [place] [address] Health Maintenance Due Date Last Done Comments [...] l Result from Last 3 Months Insurance [facility] MEDICARE REPLACEMENT [facility] MEDICARE REPLACEMENT [place] [address] [place] [address] MEDICARE REPLACEMENT Member Subscriber Plan / Payer (Ef fective 2024-Present) Name:Angela Villar Relation to Subscriber:Self Name:GalaAngela garcia Payer ID:[id number] (NAIC) Type:Medicare Address: [place] [id number] [place] [address] MEDICARE REPLACEMENT Member Subscriber Plan / Payer (Ef fective 2024-Present) Name:Angela Villar Relation to Subscriber:Self Name:Angela Villar Payer ID:[id number] (NAIC) Type:Medicare Address: [place] [id number] [facility] MEDICARE REPLACEMENT Care Teams Infusion Pharmacist Relationship Specialty Start Date End Date Bolivar Ventura MD [address] [place] [address] [place] [address] PCP - General Internal Medicine 12/22/18 Additional Source Comments The information contained in this document represents components of the legal health record. It is not the complete legal health record.[facility]
[2025-05-10 13:23] VITALS: BMI 39.0
== END 2025-05-10 12:16 | disposition home or self-care (01) ==
LOC: HO.ENCR 09:58
PROVIDERS: PCP Internal Medicine; Visit Provider Dietitian, Registered
DX: E66.01 Morbid (severe) obesity due to excess calories (principal)

== ENCOUNTER 2025-05-10 13:40 | Outpatient (AMB) | payer MEDICARE, SELFPAY ==
[2023-08-25 11:07] VITALS: BMI 39.0
--- NOTE | 2025-05-10 13:43 | MHC.OFFVIS ---
Vital Signs 05/10/25 13:44 Height 5 ft 3 in Weight 220 lb 7.396 oz BMI 39.0 BP 122/66 Blood Pressure Location Lt brachial Position Sitting Pulse 66 Pulse Source Pulse Oximeter Intake Visit Reasons: 3 mth s/p echo/ case management specialist Allergies No Known Allergies (No Known Allergies*) Allergy (Verified 04/25/25 10:19) Medication List - Last Reconciled 05/10/25 by Manjit Varghese MD albuterol sulfate 90 mcg/actuation 2 inhalations inhalation Q6H PRN 30 days amlodipine 5 mg PO DAILY 90 days amoxicillin 2,000 mg orally before dental procedure; azelastine-fluticasone 137-50 mcg/spray (Dymista) 1 spray intranasal BID PRN cyanocobalamin (vitamin B-12) (Vitamin B-12) 1,000 mcg PO DAILY fluticasone propion-salmeterol 250-50 mcg/dose (Wixela Inhub) 1 inh inhalation Q12H 30 days gabapentin 300 mg PO TID ibuprofen 800 mg PO TID PRN levothyroxine 88 mcg PO QAM 90 days lidocaine 5% 1 patch topical DAILY lisinopril 40 mg PO DAILY omeprazole 20 mg PO DAILY pyridoxine (vitamin B6) 25 mg PO DAILY rosuvastatin 20 mg PO DAILY 90 days thiamine HCl (vitamin B1) (Vitamin B-1) 300 mg PO DAILY torsemide 10 mg PO DAILY PRN triamcinolone acetonide 0.5% 1 appl topical BID PRN zolpidem 10 mg PO BEDTIME PRN 5 days HPI Comments Details: Angela returns for follow-up. In the past, she was referred for evaluation of left ventricular hypertrophy findings on the echocardiogram. Patient herself does not have any known cardiac issues. No history of any coronary disease, myocardial infarction or cardiomyopathy. She has had longstanding hypertension. Since last seen, she feels just about the same as before. No specific concerns like angina or shortness of breath. Still having difficulty losing weight. Has started seeing a dietitian. [facility] Medical History (Updated 04/25/25 @ 10:32 by Dread Tineo MD) Nocturnal hypoxia CHRIS (obstructive sleep apnea) Cardiac hypertrophy Choledocholithiasis Depression Acquired hypothyroidism Hiatal hernia Chronic restrictive lung disease Pulmonary nodule Right lumbar radiculopathy Hernia, diaphragmatic Obesity (BMI 30-39.9) Relapsing polychondritis Vitamin D deficiency Osteopenia Elevated LFTs GERD without esophagitis Thoracic scoliosis Lumbar degenerative disc disease Vitamin B12 deficiency Rheumatoid arthritis Impaired fasting glucose Primary osteoarthritis of right knee Neuropathy of left peroneal nerve Hypothyroidism Exertional dyspnea Pure hypercholesterolemia Benign essential hypertension Bochdalek hernia Surgical History History of laparoscopic cholecystectomy (07/10/22) History of cataract surgery History of colonoscopy History of surgery on right wrist (~05/2004) History of appendectomy (~1963) History of surgery on right wrist (~02/2020) History of carpal tunnel surgery (~03/2016) History of right knee joint replacement (~08/2016) Family History Father CVD (cardiovascular disease) Mother Ovarian cancer Maternal Aunt Breast cancer Brother Colon cancer Family/Other Breast cancer Family/Other Breast cancer Family/Other Breast cancer Social History Household Members: Family Household Members Other:: 4 Housing: House Are you a primary healthcare administrative assistant to a significant other at home: No Do you presently have visiting nurse or other home services: No Alcohol intake: current Alcohol intake frequency: holidays/special occasions only Alcohol type: wine Patient Tobacco Use Status: Former Tobacco user Tobacco use type: Cigarette Years Smoked: 50 e-Cigarette/Vaping Use: Never Used Second Hand Smoke Exposure: No Advance Directives Date on File: 07/09/22 service: No Current occupational status: retired Cognitive needs: No Hearing needs: No Vision needs: Yes (reading glasses) Review of Systems Const Denies weakness ENT Denies dizziness Card Denies chest pain, Denies chest pain with activity, Denies syncope, Denies rapid heart rate, Denies pedal edema, Denies edema, Denies leg edema, Denies lightheadedness, Denies palpitations, Denies dyspnea, Denies dyspnea on exertion and Denies orthopnea Resp Denies cough, Denies dyspnea and Denies dyspnea on exertion GI Denies hematochezia and Denies change in stool character Musc Denies abnormal gait, Denies muscle cramps, Denies muscle weakness, Denies numbness, Denies radiating pain into limb and Denies tingling Neuro Denies abnormal gait, Denies dizziness, Denies syncope, Denies numbness, Denies tingling and Denies weakness Endo Denies palpitations Physical Exam Vital Signs: Last Vital Signs Pulse 66 05/10/25 13:44 BP 122/66 05/10/25 13:44 BMI result Body Mass Index 39.0 Const General: comfortable and no acute distress Orientation/consciousness: patient oriented x3 HEENT Other: Unremarkable Head: Yes normal to inspection Neck Neck: Yes normal visual inspection Chest Chest palpation & inspection: normal inspection of the chest Resp Auscultation: clear to auscultation bilaterally Cardio Palpation: normal PMI Heart sounds: S1 normal heart sound present, S2 normal heart sound present, no gallops, no murmurs and no rubs GI Palpation (GI): Soft to palpation Back/Spine/Pelvis Other: unremarkable Skin General skin exam: no rashes or lesions noted Neuro General: patient oriented x3 Extrem General: Yes normal to inspection Psych Mental Status: mental status grossly normal Assessment & Plan Assessment & Plan (1) Cardiac hypertrophy: Code(s): I51.7 - Cardiomegaly Category: Medical (2) Essential hypertension: Code(s): I10 - Essential (primary) hypertension Category: Medical (3) Morbid obesity: Code(s): E66.01 - Morbid (severe) obesity due to excess calories Category: Medical Plan Cardiac studies reviewed. Last EKG with low-voltage complexes most likely from body habitus. Echocardiogram with hyperdynamic LVEF; severe septal hypertrophy; no significant valvular findings. In the exercise stress echocardiogram, she was able to exercise only for 3 minutes and reached 4.1 Mets. Poor exercise tolerance. The echocardiographic component was nondiagnostic. Then pharmacological stress perfusion imaging study showed normal perfusion and normal gated LVEF. PYP scan shows no evidence of amyloid. Overall, hypertension induced left ventricular hypertrophy; weight gain; arthritic pains with sedentary lifestyle. Suspect EKG changes most likely related to body habitus and less likely true myocardial infarction type event and patient has no symptoms to suggest this. Main advise remains with efforts to lose weight and hopefully she try for losing about 10% body weight. Otherwise, blood pressure itself is stable and she is on amlodipine and lisinopril. We will see her back in about a year. In the interim, she will continue efforts at weight loss. Total time spent including review of data, counseling, documentation coordination of care-32 minutes. Patient was informed and verbally consented to the use of an ambient scribe for clinic note documentation during this visit. Medications: Changed From torsemide 10 mg PO DAILY 30 days 30 tabs 2RF To torsemide 10 mg PO DAILY PRN From azelastine-fluticasone 137-50 mcg/spray (Dymista) administer into each nostril 1 spray intranasal BID 30 days 23 grams 11RF To azelastine-fluticasone 137-50 mcg/spray (Dymista) administer into each nostril 1 spray intranasal BID PRN Patient Instructions: - Continue working with your case management specialist to improve dietary habits. - Engage in regular physical activity to support weight loss and reduce joint pressure. - Monitor your blood pressure regularly and continue taking amlodipine/lisinopril as prescribed. Coding Level of Care Code Est Pt Level 4 (00784) Complex EM visit Add On G2211 Diagnoses Cardiac hypertrophy I51.7 Essential hypertension I10 Morbid obesity E66.01
[2025-05-10 13:44] VITALS: BP 122/66; PULSE 66; BMI 39.0
== END 2025-05-10 14:02 | disposition home or self-care (01) ==
LOC: HO.HCS 13:41
PROVIDERS: PCP Internal Medicine; Visit Provider Internal Medicine
DX: I51.7 Cardiomegaly (principal); I10 Essential (primary) hypertension; E66.01 Morbid (severe) obesity due to excess calories
CPT/HCPCS: 99214; G2211

== ENCOUNTER → 2025-05-10 20:30 | Outpatient (REF) | payer MEDICARE, SELFPAY ==
[2023-08-25 11:07] VITALS: BMI 39.0
--- OUTSIDE RECORDS SUMMARY | 2025-05-10 21:25 | XMS_ITS | Clinical Summary ---
Author Organization [employer] [facility] ity Address [address] [place] [address] Care Team Providers Care Mental Health Clinician Name Role Phone Bolivar Ventura MD Primary [...] age to complete this topic Care Teams Mental Health Clinician Relationship Specialty Start Date End Date Bolivar Ventura MD [address] [place] [address] [address] MEGHANN Crain PCP - General Internal Medicine 12/27/20
--- OUTSIDE RECORDS SUMMARY | 2025-05-10 21:26 | XMS_ITS | Clinical Summary ---
Author Organization [facility] Address [address] [facility] [address] [place] [address] Phone Care Team Providers Care Activities Aide Name Role Phone Bolivar Ventura MD Primary Care Provider [phone] Allergies No known active allergies Medications omeprazole [...] is willing to try aquatic therapy at [facility] wrote a note of clearance for her (see details in media section of [facility]). Assessment & Plan (07/11/2023 1:08 PM [...] is willing to try aquatic therapy at [facility] wrote a note of clearance for her (see details in media section of [facility]). Assessment & Plan (01/03/2023 11:24 AM [...] is willing to try aquatic therapy at [facility] wrote a note of clearance for her (see details in media section of [facility]). Assessment & Plan (03/23/2022 10:26 AM [...] is willing to try aquatic therapy at [facility] wrote a note of clearance for her (see details in media section of [facility]). Assessment & Plan (09/24/2021 10:14 AM [...] is willing to try aquatic therapy at [facility] wrote a note of clearance for her (see details in media section of [facility]). Assessment & Plan (05/06/2021 9:18 PM [...] is willing to try aquatic therapy at [facility] wrote a note of clearance for her (see details in media section of [facility]). Assessment & Plan (12/07/2020 8:21 PM [...] from PT and see orthopedic surgeon at [facility] as scheduled for consultation regarding feasibility, [...] from PT and see orthopedic surgeon at [facility] as scheduled for consultation regarding feasibility, [...] if progressive symptoms develop [facility]oid [facility] with negative rheumatoid factor 02/01/2019 [...] previous was done on the 09/24/2017 at [facility]. (L1-L4 T score -2.1= osteopenia, left femoral [...] Care Team Description 02/08/2025 Telephone [facility] Rheumatology [address] [place] [address] Jessica Tay CMA Request For Order(s) from [...] Description 07/12/2025 11:00 AM EST Office Visit [facility] Rheumatology [address] [place] [address] Stephany Chen MD [address] [facility], [address] [place] [address] Health Maintenance Due Date Last Done Comments [...] l Result from Last 3 Months Insurance [facility] MEDICARE REPLACEMENT [facility] MEDICARE REPLACEMENT MEDICARE [place] [address] [place] [address] MEDICARE REPLACEMENT Member Subscriber Plan / Payer (Ef fective 2024-Present) Name:Angela Villar Relation to Subscriber:Self Name:GalaAngela garcia Payer ID:[id number] (NAIC) Type:Medicare Address: [place] [id number] [place] [address] MEDICARE REPLACEMENT Member Subscriber Plan / Payer (Ef fective 2024-Present) Name:Angela Villar Relation to Subscriber:Self Name:Angela Villar Payer ID:[id number] (NAIC) Type:Medicare Address: [place] [id number] [facility] MEDICARE REPLACEMENT Care Teams Activities Aide Relationship Specialty Start Date End Date Bolivar Ventura MD [address] [place] [address] [place] [address] PCP - General Internal Medicine 12/22/18 Additional Source Comments The information contained in this document represents components of the legal health record. It is not the complete legal health record.[facility]
== END ==
LOC: HO.SL 20:30
PROVIDERS: PCP Internal Medicine; Visit Provider Hospitalist
DX: I11.9 Hypertensive heart disease without heart failure (principal); E66.01 Morbid (severe) obesity due to excess calories; Z68.39 Body mass index [BMI] 39.0-39.9, adult; G47.33 Obstructive sleep apnea (adult) (pediatric); G47.34 Idiopathic sleep related nonobstructive alveolar hypoventilation; Z87.891 Personal history of nicotine dependence; Z71.3 Dietary counseling and surveillance
CPT/HCPCS: 95810; 97803; 99212

== ENCOUNTER → 2025-05-10 21:27 | Outpatient (BNV) | payer MEDICARE, SELFPAY ==
[2023-08-25 11:07] VITALS: BMI 39.0
== END ==
PROVIDERS: PCP Internal Medicine; Visit Provider Internal Medicine
DX: G47.33 Obstructive sleep apnea (adult) (pediatric) (principal); R06.83 Snoring
CPT/HCPCS: 95810

== ENCOUNTER 2025-05-11 09:08 | Outpatient (REF) | payer MEDICARE, SELFPAY ==
[2023-08-25 11:07] VITALS: BMI 39.0
--- OUTSIDE RECORDS SUMMARY | 2024-09-05 06:50 | XMS_ITS ---
Author Organization [facility] Address [address] [place] [phone] Care Team Providers Care Silver Miner Name Role Phone Lorenzo CARLIN, Boliv[place] Primary Care Provider Faheem Cornejo Jr REASON FOR VISIT screening Encounters Encounter Location Date Provider Diagnosis [facility] [place] [address] [place], [place] [phone] 09/05/2024 Faheem Peters Jr Colon cancer screening Z12.11 and Colon polyps K63.5 Assessments Encounter Date Diagnosis (ICD Code) Assessment Notes Treatment Notes Treatment Clinical Notes Section Notes 09/05/2024 Colon cancer screening (ICD-10 - Z12.11) 09/05/2024 Colon polyps (ICD-10 - K63.5) Plan Of Treatment No Information Progress Notes * ALEXUS REDD ADOB: [birth year] (75 yo F)Acc No.[id number]:09/05/2024 COLON WITH MAC Patient: ALEXUS MADSEN Provider: Toro Peters MD :1950 A ge:74 Y S ex:Female Date:09/05/2024 Address:[address] [id number] Pcp:Bolivar Ventura MD Subjective: * Chief Complaints: [...] 0 09/05/2024 Generated for Tita art/Robi/Javieritting on: 09:35 AM EDT
--- NOTE | ~2025-05-11 | MM_ITS ---
EXAMINATION: DXA BONE DENSITY AXIAL HISTORY: OSTEOPENIA TECHNIQUE: Goomeo Dual energy absorptiometry (DEXA) of the lumbar spine, total left hip, and femoral neck was performed. COMPARISON: Comparison is made with the prior examination dated 07/31/2021. FINDINGS: The bone mineral density of the lumbar spine is 1.029 g/cm2, corresponding to a T-score of -1.3, and a Z-score of -0.7. This is indicative of osteopenia. This represents a BMD change of 4.7% compared to the prior exam. This is statistically significant. The bone mineral density of the left total hip is 0.898 g/cm2, corresponding to a T-score of -0.9, and a Z-score of 0.0. This is indicative of normal bone mineral density. This represents a BMD change of -2.2% compared to the prior exam. This is not statistically significant. The bone mineral density of the left femoral neck is 0.777 g/cm2, corresponding to a T-score of -1.9, and a Z-score of -0.7. This is indicative of osteopenia. This represents a BMD change of -1.9% compared to the prior exam. FRACTURE RISK: The FRAX index suggests a ten year probability of major osteoporotic fracture of 14.5%, and of hip fracture 3.6%. MM/XR DEXA axial skeleton IMPRESSION: Based on bone mineral density, and according to World Health Organization (WHO) criteria, the diagnosis is consistent with osteopenia. Statistically, 68% of repeat scans fall within 1 SD (+/- 0.010 g/cm2 for AP spine L1-L4) and 1 SD (+/- 0.012 g/cm2 for femur total) FRAX is a trademark of the [employer]'s [place] [employer] Met[employer] Bone Disease, a World Health Organization (WHO) Collaborating Center. Electronically signed by: Jeremy Sabillon MD 05/11/2025 09:40 AM EDT
--- OUTSIDE RECORDS SUMMARY | 2025-05-11 09:35 | XMS_ITS | Clinical Summary ---
Author Organization [facility] Address [address] [facility] [address] [place] [address] Phone Care Team Providers Care Anode Worker Name Role Phone Bolivar Ventura MD Primary Care Provider [phone] Allergies No known active allergies Medications omeprazole [...] is willing to try aquatic therapy at [facility] wrote a note of clearance for her (see details in media section of [facility]). Assessment & Plan (07/11/2023 1:08 PM [...] is willing to try aquatic therapy at [facility] wrote a note of clearance for her (see details in media section of [facility]). Assessment & Plan (01/03/2023 11:24 AM [...] is willing to try aquatic therapy at [facility] wrote a note of clearance for her (see details in media section of [facility]). Assessment & Plan (03/23/2022 10:26 AM [...] is willing to try aquatic therapy at [facility] wrote a note of clearance for her (see details in media section of [facility]). Assessment & Plan (09/24/2021 10:14 AM [...] is willing to try aquatic therapy at [facility] wrote a note of clearance for her (see details in media section of [facility]). Assessment & Plan (05/06/2021 9:18 PM [...] is willing to try aquatic therapy at [facility] wrote a note of clearance for her (see details in media section of [facility]). Assessment & Plan (12/07/2020 8:21 PM [...] from PT and see orthopedic surgeon at [facility] as scheduled for consultation regarding feasibility, [...] from PT and see orthopedic surgeon at [facility] as scheduled for consultation regarding feasibility, [...] if progressive symptoms develop Rheumatoid arthritis [facility] with negative rheumatoid factor 02/01/2019 [...] in writing. Provider: Stephany Chen MD Patient: Anegla Villar : 1950 Date: 04/24/2021 Assessment & [...] previous was done on the 09/24/2017 at [facility]. (L1-L4 T score -2.1= osteopenia, left [...] Department Care Team Description 02/08/2025 Telephone [facility] Rheumatology [address] [place] [address] Jessica Tay CMA Request For Order(s) from Last 3 Months Social History Tobacco Use Types Packs/Day Years Used Date Smoking Tobacco: Former Cigarettes Q uit: 02/02/2016 Smokeless Tobacco: Never Tobacco Cessation:Counseling Given: Not Answered Alcohol Use Standard Drinks/Week Comments Not Currently 14 (1 standard drink = 0.6 oz pu re alcohol) Education Answer Date Recorded Are you interested in more education? Not on sehrry e 12/04/2022 Are you concerned about learning? [...] Description 07/12/2025 11:00 AM EST Office Visit [facility] Rheumatology [address] [place] [address] Stephany Chen MD [address] [facility], [address] [place] [address] [email or web address] Health Maintenance Due Date Last Done Comments [...] Result from Last 3 Months Insurance [facility] MEDICARE REPLACEMENT [facility] MEDICARE REPLACEMENT MEDICARE [place] [address] [place] [address] MEDICARE REPLACEMENT Member Subscriber Plan / Payer (Ef fective 2024-Present) Name:Angela Villar Relation to Subscriber:Self Name:GalaAngela garcia Payer ID:[id number] (NAIC) Type:Medicare Address: [place] [id number] [place] [address] MEDICARE REPLACEMENT Member Subscriber Plan / Payer (Ef fective 2024-Present) Name:Angela Villar Relation to Subscriber:Self Name:Angela Villar Payer ID:[id number] (NAIC) Type:Medicare Address: [place] [id number] [facility] MEDICARE REPLACEMENT Care Teams Anode Worker Relationship Specialty Start Date End Date Bolivar Ventura MD [address] [place] [address] [place] [address] PCP - General Internal Medicine 12/22/18 Additional Source Comments The information contained in this document represents components of the legal health record. It is not the complete legal health record.[facility]
--- OUTSIDE RECORDS SUMMARY | 2025-05-11 09:35 | XMS_ITS | Clinical Summary ---
Author Organization [employer] [facility] ity Address [address] [place] [address] Care Team Providers Care Waste Removalist Name Role Phone Bolivar Ventura MD Primary [...] age to complete this topic Care Teams Waste Removalist Relationship Specialty Start Date End Date Bolivar Ventura MD [address] [place] [address] [address] MEGHANN Crain PCP - General Internal Medicine 12/27/20
--- OUTSIDE RECORDS SUMMARY | 2025-05-11 09:35 | XMS_ITS | Patient Health Record ---
Author Organization [facility] Address [address] [place] [address] Care Team Providers Care Program Eligibility Specialist Name Role Phone Lorenzo CARLIN, [place] Primary Care Provider Faheem Cornejo Jr Allergies No Known Allergies Results Component Value Reference Range Notes Pathology Reviewed date:09/14/2024 12:59:40 PM Interpretation: Performing Lab:[facility], [address] [place] [phone] Notes/Report: Reason For Referral No Information Medications [...] Problem Status W/U Status Risk Notes Problem 572139240 Colon cancer screening (Z12.11) Active confirmed Problem [id number] Encounter for long-term (current) use of NSAIDs (Z79.1) Active confirmed Problem [id number] Gastroesophageal reflux disease, unspecified whether esophagitis present (K21.9) Active confirmed Vital Signs Temperature 96.9 degrees Fahrenheit 08/07/2024 Blood pressure diastolic 00 mm Hg 08/07/2024 Height 63 in 08/07/2024 Blood pressure systolic 000 mm Hg 08/07/2024 Weight 210 lbs 08/07/2024 BMI 37.20 kg/m2 08/07/2024 Encounters Encounter Location Date Provider Diagnosis [facility] Outpatient [address] [place] [id number] 09/05/2024 Faheme Peters Jr Colon cancer screening Z12.11 and Colon polyps K63.5 [facility] [address] [place] [phone] 08/07/2024 Faheem Peters Jr Gastroesophageal reflux disease, unspecified whether esophagitis present K21.9 ; Colon cancer screening Z12.11 and Encounter for long-term (current) use of NSAIDs Z79.1 [facility] [address] [facility] [address] [place] [phone] 09/14/2024 Faheem Peters Jr Assessments Encounter Date [...] that she continue omeprazole. She can use eznw-khr-gpxiqgx antacids for breakthrough symptoms. She is due [...] that she continue omeprazole. She can use rigl-sep-jpwdrab antacids for breakthrough symptoms. She is due [...] that she continue omeprazole. She can use gasn-atn-ezisalb antacids for breakthrough symptoms. She is due [...] Insured Coverage Start Date Coverage End Date [facility] [address] [address] [place] [address] [id number] ALEXUS REDD Self - patient is the [...]
== END 2025-05-11 09:09 | disposition home or self-care (01) ==
LOC: HO.MAMMO 09:08
PROVIDERS: PCP Internal Medicine; Visit Provider Internal Medicine Rheumatology
DX: Z13.820 Encounter for screening for osteoporosis (principal); M85.89 Other specified disorders of bone density and structure, multiple sites
CPT/HCPCS: 77080

== ENCOUNTER → 2025-05-11 09:15 | Outpatient (BNV) | payer MEDICARE, SELFPAY ==
[2023-08-25 11:07] VITALS: BMI 39.0
== END ==
PROVIDERS: PCP Internal Medicine; Visit Provider Radiology Diagnostic Radiology
DX: E28.39 Other primary ovarian failure (principal)
CPT/HCPCS: 77080

== ENCOUNTER 2025-07-12 10:29 | Outpatient (REF) | payer MEDICARE, SELFPAY ==
[2023-08-25 11:07] VITALS: BMI 39.0
--- OUTSIDE RECORDS SUMMARY | 2025-07-12 12:58 | XMS_ITS | Encounter Summary ---
Author Organization [facility] Address [address] [facility] [address] [place] [address] Phone Care Team Providers Care Business Systems Administrator Name Role Phone Bolivar Ventura MD Primary Care Provider [phone] Encounter Details Date Type Department Care Team (Late st Contact Info) Description 07/12/2025 Telephone [facility] Rheumatology [address] [place] [address] Tessa Little MD [address] [facility], [address] [place] [address] Social History Tobacco Use Types Packs/Day Years Used Date Smoking Tobacco: Former Cigarettes Q uit: 02/02/2016 Smokeless Tobacco: Never Alcohol Use Standard Drinks/Week Comments Not Currently [...] on file Sexual Orientation Not on file documented as of this encounter Progress Notes * Tessa Little MD - 07/12/2025 11:14 AM EST Reviewing my schedule, patient is new to me and needs a 60 minute follow up spot. I am not able to see her at 3PM and still be able to leave on time for childcare. DAVID Mcneil I have been noticing more of these patients being scheduled. Can you follow up to make sure I have 60 minute spots for patients I am not familiar with? I'll include you in the messages miloou're aware. Can she be rescheduled? documented in this encounter Plan of Treatment Upcoming Encounters Date Type Department Care Team (Late st Contact Info) Description 07/18/2025 3:00 PM EST Office Visit [facility] Rheumatology [address] [place] [address] Tessa Little MD [address] [facility], [address] [place] [address] [email or web address] documented as of this encounter Visit Diagnoses Not on filedocumented in this encounter Care Teams Business Systems Administrator Relationship Specialty Start Date End Date Bolivar Ventura MD [address] [place] [address] Dr Tobias [address] [place] [address] PCP - General Internal Medicine 12/22/18 documented as of this encounter Additional Source Comments The information contained in this document represents components of the legal health record. It is not the complete legal health record.[facility]
--- OUTSIDE RECORDS SUMMARY | 2025-07-12 12:58 | XMS_ITS | Clinical Summary ---
Author Organization [facility] Address [address] [place] [address] Phone Care Team Providers Care Sewer Pipe Cleaner Name Role Phone Bolivar Ventura MD Primary Care Provider [phone] Allergies No known active allergies Medications omeprazole [...] is willing to try aquatic therapy at [facility] wrote a note of clearance for her (see details in media section of [facility]). Assessment & Plan (07/11/2023 1:08 PM [...] is willing to try aquatic therapy at [facility] wrote a note of clearance for her (see details in media section of [facility]). Assessment & Plan (01/03/2023 11:24 AM [...] is willing to try aquatic therapy at [facility] wrote a note of clearance for her (see details in media section of [facility]). Assessment & Plan (03/23/2022 10:26 AM [...] is willing to try aquatic therapy at [facility] wrote a note of clearance for her (see details in media section of [facility]). Assessment & Plan (09/24/2021 10:14 AM [...] is willing to try aquatic therapy at [facility] wrote a note of clearance for her (see details in media section of [facility]). Assessment & Plan (05/06/2021 9:18 PM [...] is willing to try aquatic therapy at [facility] wrote a note of clearance for her (see details in media section of epic). Assessment & Plan (12/07/2020 8:21 PM EDT): [...] from PT and see orthopedic surgeon at [facility] as scheduled for consultation regarding feasibility, pros [...] from PT and see orthopedic surgeon at [facility] as scheduled for consultation regarding feasibility, pros [...] if progressive symptoms develop [facility] with negative rheumatoid factor [...] surgery but have not received them yet-Angela donis to check on status of it. Joint [...] previous was done on the 09/24/2017 at [facility]. (L1-L4 T score -2.1= osteopenia, left [...] Encounters Date Type Department Care Team Description 07/12/2025 Telephone [facility] Rheumatology [address] [place] [address] Tessa Little MD from Last 3 Months Social History Tobacco [...] Description 07/18/2025 3:00 PM EST Office Visit [facility] Rheumatology [address] [place] [address] [place] [address] Tessa Little MD [address], [address] [place] [address] [email or web address] Health Maintenance Due Date Last Done Comments CREATININE LEVEL 1950 LIPID PANEL 1950 POTASSIUM LEVEL 1950 TSH LEVEL 1950 DEPRESSION SCREENING 1962 SMOKING Hx and SMOKELESS TOBACCO SCREENING 1963 HEPATITIS C SCREENING 1968 COLOGUARD 1995 COLONOSCOPY 1995 COLORECTAL CANCER SCREENING 1995 FIT TEST 1995 FOBT 1995 SIGMOIDOSCOPY 1995 VIRTUAL COLONOSCOPY 1995 INFLUENZA VACCINE (#1) 2025 , 05/05/2023, 05/20/2022, Additional history exists COVID-19 VACCINE ( season) 2025 11/29/2024, 05/08/2024, 05/05/2023, Additional history exists BLOOD PRESSURE 07/12/2025 01/10/2025 Adult Td,Tdap Booster 10/16/2034 10/16/2024 RSV VACCINE Completed 05/26/2023 ZOSTER VACCINES Completed 10/20/2023, 06/21/2023 PNEUMOCOCCAL VACCINES (50+ years) Completed 10/16/2024, 08/12/2015 OSTEOPOROSIS SCREENING INITIAL (ONE-TIME) Completed 05/11/2025 HEPATITIS A VACCINES Aged Out No long [...] Procedure Name Priority Date/Time Associated Diagnosis Comments BD DXA SCREENING Routine 05/11/2025 1:06 PM EDT Osteopenia from Last 3 Months Results * DXA Screening (05/11/2025 1:06 PM EDT) Anatomical Region Laterality Modality Bone Density Bone Density Stephany Chen MD [facility] BD BONE DENSITY DEXA Final Result from Last 3 Months Insurance [facility] [place] [address] [facility] MEDICARE REPLACEMENT MEDICARE RE[place]ACEMENT [place] [address] [place] [address] MEDICARE REPLACEMENT [facility] MEDICARE REPLACEMENT Care Teams Sewer Pipe Cleaner Relationship Specialty Start Date End Date Bolivar Ventura MD [address] [place] [address] [place] [address] PCP - General Internal Medicine 12/22/18 Additional Source Comments The information contained in this document represents components of the legal health record. It is not the complete legal health record.[facility]
--- OUTSIDE RECORDS SUMMARY | 2025-07-12 12:58 | XMS_ITS | Clinical Summary ---
Author Organization [facility] [facility] Address [address] [place] [address] Care Team Providers Care Certified Art Therapist Name Role Phone Bloivar Ventura MD Primary Care Provider Social History [...] - 1-dose 75+ series) 2025 COVID-19 Vaccine (2024-26 season) 2025 Influenza Vaccine (#1) 2025 9, [...] age to complete this topic Care Teams Certified Art Therapist Relationship Specialty Start Date End Date Bolivar Ventura MD [address] [place] [address] [address] MEGHANN Crain PCP - General Internal Medicine 12/27/20
[2025-07-12 13:02] LABS: MANUAL DIFF FLAG NO
[2025-07-12 13:06] LABS: Hematocrit 38.1 % (37.0-47.0); Hemoglobin 12.2 g/dl (12.0-16.0); Imm Gran Abs Auto 0.01 X10*3/uL (0.00-0.03); Imm Gran Pct Auto 0.2 % (0.0-0.4); Lymphocytes Absolute Auto 2.2 X10*3/uL (1.2-4.9); Mean Corpuscular HGB Conc 32.0 g/dl (31.0-35.0); Mean Corpuscular Hemoglobin 29.3 pg (27.0-33.0); Mean Corpuscular Volume 91.4 fL (80.0-98.0); NRBC Abs Auto 0.000 X10*3/uL (0.0-0.012); NRBC Pct Auto 0.0 /100WBC (0.0-0.2); Platelet Count 188 X10*3/uL (160-400); Red Blood Count 4.17 X10*6/uL (4.20-5.50); White Blood Count 5.7 X10*3/uL (4.8-10.8)
[2025-07-12 13:25] LABS: Appearance Urine Clear; Glucose Urine UA Negative (Negative); PH 5.5 (5.0-9.0); Specific Gravity - Urine 1.020 (1.005-1.025)
[2025-07-12 13:30] LABS: Alanine Aminotransferase 14 U/L (0-31); Albumin Level 4.1 g/dL (3.5-5.0); Alkaline Phosphatase 78 U/L (39-117); Anion Gap 7 (12-20); Aspartate Amino Transferase 20 U/L (5-31); Blood Urea Nitrogen 23 mg/dL (9-16); Calcium 9.6 mg/dL (8.4-10.2); Carbon Dioxide 28 mmol/L (22-29); Chloride 109 mmol/L (96-108); Cholesterol 194 mg/dL (<200); Estimated Glomerular Filt Rate > 60; HDL Cholesterol 49 mg/dL (>40); Potassium 4.3 mmol/L (3.3-5.1); Sodium 140 mmol/L (135-145); Total Protein 6.6 g/dL (6.5-8.0); Triglycerides 72 mg/dL (<150)
[2025-07-12 13:55] LABS: Free T4 (Free Thyroxine) 1.17 ng/dL (0.71-1.85); Thyroid Stimulating Hormone 2.18 uIU/mL (0.32-4.0)
[2025-07-12 14:01] LABS: Folate 6.6 ng/mL (> or = 4.0); Vitamin B12 467 pg/mL (200-900)
== END 2025-07-12 10:30 | disposition home or self-care (01) ==
LOC: HO.HMGCLDS 10:29
PROVIDERS: PCP Internal Medicine; Visit Provider Internal Medicine
DX: D64.9 Anemia, unspecified (principal); E53.8 Deficiency of other specified B group vitamins; E03.9 Hypothyroidism, unspecified; E78.00 Pure hypercholesterolemia, unspecified; R30.0 Dysuria; E55.9 Vitamin D deficiency, unspecified
CPT/HCPCS: 36415; 80053; 80061; 81003; 82306; 82607; 82746; 84439; 84443; 85025

== ENCOUNTER 2025-07-17 09:53 | Outpatient (AMB) | payer OTHER, SELFPAY ==
[2023-08-25 11:07] VITALS: BMI 39.0
--- NOTE | 2025-07-17 10:03 | MHC.PC.OV ---
Vital Signs 07/17/25 10:04 07/17/25 10:53 Height 5 ft 3 in Weight 222 lb 4 oz BMI 39.4 BP 140/64 H 120/82 Blood Pressure Location Lt brachial Lt brachial Position Sitting Sitting Pulse 70 Pulse Source Pulse Oximeter Temp 97.3 F Temp Source Temporal Artery Scan Pulse Oximetry (%) 97 Oxygen Delivery Method Room Air Intake Visit Reasons: Follow Up [employer] Manager Required: No Banquet Coordinator: Not Required per policy Accompanied by: Self / Same As Patient Allergies No Known Allergies (No Known Allergies*) Allergy (Verified 07/17/25 10:13) Medication List - Last Reconciled 07/17/25 by Bolivar Ventura MD albuterol sulfate 90 mcg/actuation 2 inhalations inhalation Q6H PRN 30 days amlodipine 5 mg PO DAILY 90 days amoxicillin 2,000 mg orally before dental procedure; azelastine-fluticasone 137-50 mcg/spray (Dymista) 1 spray intranasal BID PRN cyanocobalamin (vitamin B-12) (Vitamin B-12) 1,000 mcg PO DAILY fluticasone propion-salmeterol 250-50 mcg/dose (Wixela Inhub) 1 inh inhalation Q12H 30 days gabapentin 300 mg PO TID ibuprofen 800 mg PO TID PRN levothyroxine 88 mcg PO QAM 90 days lidocaine 5% 1 patch topical DAILY lisinopril 40 mg PO DAILY omeprazole 20 mg PO DAILY pyridoxine (vitamin B6) 25 mg PO DAILY rosuvastatin 20 mg PO DAILY 90 days thiamine HCl (vitamin B1) (Vitamin B-1) 300 mg PO DAILY torsemide 10 mg PO DAILY PRN triamcinolone acetonide 0.5% 1 appl topical BID PRN Tobacco use date assessed: 07/17/25 Fall risk assessment: No Falls in past year Last assessed Fall Risk: 07/17/25 Dental Screening Dental Screen Date: 03/14/25 HPI Follow Up HPI Details Patient comes in today for her follow-up visit States that she feels okay She denies any headaches or dizziness Denies any chest pains, no increased shortness of breath No nausea/vomiting, no abdominal pain No change in bowel habits noted Needs a few of her Rx refilled She had her follow-up labs done a few days ago - to discuss her results [facility] Medical History Nocturnal hypoxia CHRIS (obstructive sleep apnea) Cardiac hypertrophy Choledocholithiasis Depression Acquired hypothyroidism Hiatal hernia Chronic restrictive lung disease Pulmonary nodule Right lumbar radiculopathy Hernia, diaphragmatic Obesity (BMI 30-39.9) Relapsing polychondritis Vitamin D deficiency Osteopenia Elevated LFTs GERD without esophagitis Thoracic scoliosis Lumbar degenerative disc disease Vitamin B12 deficiency Rheumatoid arthritis Impaired fasting glucose Primary osteoarthritis of right knee Neuropathy of left peroneal nerve Hypothyroidism Exertional dyspnea Pure hypercholesterolemia Benign essential hypertension Bochdalek hernia Surgical History History of laparoscopic cholecystectomy (07/10/22) History of cataract surgery History of colonoscopy History of surgery on right wrist (~05/2004) History of appendectomy (~1963) History of surgery on right wrist (~02/2020) History of carpal tunnel surgery (~03/2016) History of right knee joint replacement (~08/2016) Family History Father CVD (cardiovascular disease) Mother Ovarian cancer Maternal Aunt Breast cancer Brother Colon cancer Family/Other Breast cancer Family/Other Breast cancer Family/Other Breast cancer Social History Household Members: Family Household Members Other:: 4 Housing: House Are you a primary career representative to a significant other at home: No Do you presently have visiting nurse or other home services: No Alcohol intake: current Alcohol intake frequency: holidays/special occasions only Alcohol type: wine Patient Tobacco Use Status: Former Tobacco user Tobacco use type: Cigarette Years Smoked: 50 e-Cigarette/Vaping Use: Never Used Second Hand Smoke Exposure: Yes Advance Directives Date on File: 07/09/22 service: No Current occupational status: retired Cognitive needs: Yes (Cane) Hearing needs: No Vision needs: Yes (reading glasses) Questionnaire Thrive Questionnaire Date Thrive assessed: 03/07/25 I am a: Patient What is your living situation today?: I have a steady place to live Within the past 12 months, did the food you bought not last and you didn't have the money to get more?: I choose not to answer this question Within the past 12 months, did you worry whether your food would run out before you got money to buy more?: I choose not to answer this question Do you have trouble paying for medicines?: I choose not to answer this question Do you have trouble getting transportation to medical appointments?: I choose not to answer this question Do you have trouble paying your heating and electricity bill?: I choose not to answer this question Do you have trouble taking care of your child, family member or friend?: I choose not to answer this question Do you have trouble with day-to-day activities such as bathing, preparing meals, shopping, managing finances, etc.?: I choose not to answer this question Are you currently unemployed and looking for a job?: No Are you interested in more education?: No Please select the resources that you would like help with: None Currently or been in a relationship where the following occur: No concerns reported THRIVE Score: 0 AUDIT C Alcohol Use Questionnaire (AUDIT-C) 1. How often do you have a drink containing alcohol?: 2-3 times a week 2. How many drinks containing alcohol do you have on a typical day when you are drinking?: 1 or 2 3. How often do you have six or more drinks on one occasion?: Monthly Total Score: 5 Score Reviewed/Action Taken: Yes KAVITHA-7 AMB Questionnaire KAVITHA-7 Date KAVITHA - 7 assessed: 03/14/25 Feeling nervous, anxious, or on edge: 0 = Not at all Not being able to stop or control worryin = Not at all Source: Developed by Drs. Jeremy Ramesh, Lesly Dias, Dayne Samano and colleagues, with an educational kashmir from [employer]. Review of Systems Const Denies chills, Reports fatigue, Denies fever(s) and Denies headache(s) ENT Denies dysphagia, Denies dizziness, Denies otalgia, Denies headache(s), Denies neck pain, Denies odynophagia and Denies sore throat Card Denies chest pain, Denies palpitations and Reports dyspnea on exertion (mild) Resp Denies chest congestion, Denies cough and Reports dyspnea on exertion (mild) GI Denies abdominal pain, Denies constipation, Denies dysphagia, Denies heartburn, Denies diarrhea and Denies odynophagia Denies nocturia, Denies dysuria and Denies urinary urgency Musc Reports back pain, Reports arthralgias (involving multiple joints) and Denies neck pain Skin/Breast Denies rash Neuro Denies dizziness and Denies headache(s) Endo Reports fatigue and Denies palpitations Physical exam (Primary Care) Vital Signs: Last Vital Signs Temp 97.3 F 07/17/25 10:04 Pulse 70 07/17/25 10:04 BP 140/64 H 07/17/25 10:04 Pulse Ox 97 07/17/25 10:04 Oxygen Delivery Method Room Air 07/17/25 10:04 BMI result Body Mass Index 39.4 Tobacco/Smoking Status: Tobacco use Status Tobacco use date assessed 07/17/25 07/17/25 10:10 Patient Tobacco Use Status Former Tobacco user 07/17/25 10:04 Tobacco use type Cigarette 07/17/25 10:04 e-Cigarette/Vaping Use Never Used 07/17/25 10:04 Thrive Assessment: Date of Thrive Assessment Date Thrive assessed 03/07/25 07/17/25 10:04 Currently or been in a relationship where the following occur: No concerns reported Const General: no acute distress and alert HENMT Ears: TM's normal bilaterally and EAC's normal Throat: Yes posterior oropharynx normal and Yes tonsils normal (no TP congestion noted) Neck Neck: Yes no lymphadenopathy and Yes supple Thyroid: Thyroid normal Resp Auscultation: no rales, no rhonchi and diminished lung sounds (slightly) bilateral Cardio Rate: regular rate Rhythm: regular rhythm Heart sounds: no murmurs GI Palpation (GI): Soft to palpation and nontender Auscultation: normal bowel sounds General: Yes no CVA tenderness Back/Spine/Pelvis Back: no CVA tenderness Cervical Spine: Cervical spine tenderness Thoracic/Lumbar Spine: lumbar spinal tenderness Skin Rashes: no rashes Extrem General: No clubbing, No cyanosis and Yes edema (in both lower legs, slightly worse in the right leg) Results Reviewed Results Reviewed: Laboratory Tests 07/12/25 07/12/25 10:51 10:57 WBC 5.7 Hgb 12.2 Hct 38.1 Plt Count 188 Sodium 140 Potassium 4.3 Creatinine 0.75 Estimated GFR > 60 Fasting Glucose 102 H Calcium 9.6 AST 20 ALT 14 Triglycerides 72 Cholesterol 194 LDL Cholesterol, Calc 131 H HDL Cholesterol 49 Vitamin B12 467 25-OH Vitamin D Total 55.4 TSH 2.18 Free T4 1.17 Ur Specific [place] 1.020 Urine Protein Negative Urine Glucose (UA) Negative Urine Blood Negative Urine Nitrite Negative Ur Leukocyte Esterase Negative Coding Level of Care Code Est Pt Level 4 (10913) Diagnoses Pure hypercholesterolemia E78.00 Benign essential hypertension I10 Chronic restrictive lung disease J98.4 Acquired hypothyroidism E03.9 Impaired fasting glucose R73.01 Bochdalek hernia Q79.0 Neuropathy of left peroneal nerve G57.32 Primary osteoarthritis of right knee M17.11 Rheumatoid arthritis, involving unspecified site, unspecified whether rheumatoid factor present M06.9 Rheumatoid arthritis location: unspecified site Rheumatoid factor presence: unspecified presence Vitamin B12 deficiency E53.8 GERD without esophagitis K21.9 Degeneration of intervertebral disc of lumbar region with discogenic back pain M51.360 Disc-related pain type: discogenic back pain only Osteopenia, unspecified location M85.80 Osteopenia location: unspecified Scoliosis of thoracic spine, unspecified scoliosis type M41.9 Scoliosis type: unspecified scoliosis Vitamin D deficiency E55.9 Relapsing polychondritis M94.1 MGUS (monoclonal gammopathy of unknown significance) D47.2 Alcohol use Z78.9 Depression, unspecified depression type F32.A Depression Type: unspecified Obesity (BMI 30-39.9) E66.9 Assessment & Plan Assessment & Plan (1) Pure hypercholesterolemia: Code(s): E78.00 - Pure hypercholesterolemia, unspecified Category: Medical Plan: Results of her labs done a few days ago reviewed and discussed with patient Reinforced low cholesterol diet Continue Rosuvastatin 20 mg QD Will recheck her labs and fasting lipids in 4 months for follow up (2) Benign essential hypertension: Code(s): I10 - Essential (primary) hypertension Category: Medical Plan: Reinforced low-sodium diet -?goal is systolic BP of at least 130 to 140 mm or less Continue Lisinopril 40 mg QD and Amlodipine 5 mg QD She is reminded to continue monitoring her blood pressure regularly (3) Chronic restrictive lung disease: Code(s): J98.4 - Other disorders of lung Category: Medical Plan: Patient continues to present with chronic ESTRELLA and has been advised that this is likely multifactorial - partly due to deconditioning and partly to restrictive lung disease She had pulmonary function studies done in the past that demonstrated (+) restrictive ventilatory defect suggesting the presence of restrictive lung disease She has [place] [facility] [place] been referred to pulmonary rehab with mixed results Per cardiology, her last EKG showed low-voltage complexes most likely from body habitus She has hypertrophic cardiac changes on her echocardiogram - echocardiogram with hyperdynamic LVEF; severe septal hypertrophy; no significant valvular findings As for her exercise stress echocardiogram, she was only able to exercise for 3 minutes and reached 4.1 Mets - has poor exercise tolerance. The echocardiographic component was nondiagnostic Then pharmacological stress perfusion imaging study showed normal perfusion and normal gated LVEF PYP scan shows no evidence of amyloid Overall, she has hypertension-induced left ventricular hypertrophy She has been evaluated as well for CHRIS and her home sleep study came back negative She has Albuterol HFA to use for rescue if needed and has declined Rx for maintenance inhaler in the past Follow up with pulmonary as scheduled (4) Acquired hypothyroidism: Code(s): E03.9 - Hypothyroidism, unspecified Category: Medical Plan: Her TFTs remain normal on her recent labs Continue Levothyroxine 88 mcg QD Will recheck her TFTs in 4 months for follow up (5) Impaired fasting glucose: Code(s): R73.01 - Impaired fasting glucose Category: Medical Plan: FBS was normal at 102 mg/dl on her recent labs; HgbA1c was normal at 5.3% and 5.4% when checked in the past Reinforced low calorie/low carb diet Will continue to monitor her FBS regularly (6) Bochdalek hernia: Code(s): Q79.0 - Congenital diaphragmatic hernia Category: Medical Plan: Chest CT done in 2020 revealed the presence of a fat-containing Bochdalek hernia of the left hemidiaphragm with a small sliding-type hiatal hernia of the stomach - this is mostly unchanged compared to her scan on 03/04/2019 She was seen for this by thoracic surgery a couple of years ago and they recommended observation only Repeat chest CT done in May 2022 revealed stable 2 mm subpleural nodules, right upper lobe, with no new nodules seen; (+) small left diaphragm Bochdalek hernia containing fat that is stable; also visualized is focal eventration of left posterior diaphragm Unclear at this time how much of her diaphragmatic hernia is affecting her breathing (7) Neuropathy of left peroneal nerve: Code(s): G57.32 - Lesion of lateral popliteal nerve, left lower limb Category: Medical Plan: Continue Gabapentin 300 mg TID (8) Primary osteoarthritis of right knee: Comment: S/P total right knee arthroplasty with Dr. Miramontes on 08/31/2016 without any significant improvement of her knee pain following surgery Has been seen for a follow-up by Dr. Jacobson, who recommended a revision of right knee prosthesis Patient reportedly went to see Dr. Edwards at [facility] for a 2nd opinion and was advised against revision surgery Subsequently went to see a Dr. Eriberto Kirk in [place] in 2019 but her insurance is declining to cover any appointments with him and all of her appointments are now on hold due to the COVID-19 pandemic Code(s): M17.11 - Unilateral primary osteoarthritis, right knee Category: Medical Plan: She reports experiencing increased bilateral knee pains since her fall back on 02/09/2025 X-rays of the knees done back in March 2025 revealed status post right total hip knee arthroplasty without change and moderate to severe narrowing of the medial compartment and mild to moderate narrowing of the patellofemoral compartment of the left knee Follow up with orthopedics as scheduled (9) Rheumatoid arthritis: Code(s): M06.9 - Rheumatoid arthritis, unspecified Category: Medical Qualifiers: Rheumatoid arthritis location: unspecified site Rheumatoid factor presence: unspecified presence Qualified Code(s): M06.9 - Rheumatoid arthritis, unspecified Plan: Follow up with rheumatology (Dr. Walsh) as scheduled (10) Vitamin B12 deficiency: Code(s): E53.8 - Deficiency of other specified B group vitamins Category: Medical Plan: Continue OTC Vitamin B12 1000 mcg QD (11) GERD without esophagitis: Code(s): K21.9 - Gastro-esophageal reflux disease without esophagitis Category: Medical Plan: Dietary restrictions reinforced Continue Omeprazole 20 mg QD and Famotidine 20 mg BID PRN (12) Lumbar degenerative disc disease: Code(s): M51.36 - Other intervertebral disc degeneration, lumbar region Category: Medical Qualifiers: Disc-related pain type: discogenic back pain only Qualified Code(s): M51.360 - Other intervertebral disc degeneration, lumbar region with discogenic back pain only Plan: Reinforced activity and weight lifting restrictions MRI done in 2015 showed (+) changes of mild lumbar spondylosis Follow up with pain management as scheduled (13) Osteopenia: Comment: (Bone Dexa T-score -2.1 - 09/24/2017) Code(s): M85.80 - Other specified disorders of bone density and structure, unspecified site Category: Medical Qualifiers: Osteopenia location: unspecified Qualified Code(s): M85.80 - Other specified disorders of bone density and structure, unspecified site Plan: BMD done on 07/31/2021 showed (+) osteopenia with no significant change from her previous BMD except for a slight decrease in BMD in her AP spine Her most recent BMD done in March 2025 still showed (+) osteopenia with no significant change from previous Will continue to monitor BMD regularly every 2 to 3 years (14) Thoracic scoliosis: Code(s): M41.9 - Scoliosis, unspecified Category: Medical Qualifiers: Scoliosis type: unspecified scoliosis Qualified Code(s): M41.9 - Scoliosis, unspecified Plan: Recent back x-rays showed the presence of some kyphoscoliosis and thoracic scoliosis, which are probably contributing to patient's frequent back pain (15) Vitamin D deficiency: Code(s): E55.9 - Vitamin D deficiency, unspecified Category: Medical Plan: Continue Vitamin D3 1000 units QD (16) Relapsing polychondritis: Code(s): M94.1 - Relapsing polychondritis Category: Medical Plan: Follow up with rheumatology as scheduled (17) MGUS (monoclonal gammopathy of unknown significance): Code(s): D47.2 - Monoclonal gammopathy Category: Medical Plan: Her protein electrophoresis is still testing positive for IgA kappa monoclonal band but her numbers have been stable for years Follow up with hematology/oncology as scheduled for continuing surveillance and monitoring (18) Alcohol use: Code(s): Z78.9 - Other specified health status Category: Social Hx Plan: Patient admits to drinking alcohol regularly - states that sometimes she drinks more than others She usually drinks hard liquor, including Tequila and Vodka but sometimes drinks red wine Has been advised to try cutting back and ultimately quit, if possible (19) Depression: Code(s): F32.A - Depression, unspecified Category: Medical Qualifiers: Depression Type: unspecified Qualified Code(s): F32.A - Depression, unspecified Plan: Follow up with psychiatry as scheduled (20) Obesity (BMI 30-39.9): Code(s): E66.9 - Obesity, unspecified Category: Medical Plan: Reinforced diet; exercise and weight loss are not realistic given patient's multiple physical issues and comorbidities Plan Follow up in 4 months Orders: Orders Lipid Panel 4 Months E78.00 - Pure hypercholesterolemia, unspecified Free T4 (Free Thyroxine) 4 Months E03.9 - Hypothyroidism, unspecified Thyroid Stimulating Hormone 4 Months E03.9 - Hypothyroidism, unspecified Vitamin D 25-OH Total 4 Months E55.9 - Vitamin D deficiency, unspecified Vitamin B12 and Folate 4 Months E53.8 - Deficiency of other specified B group vitamins C Reactive Protein 4 Months M94.1 - Relapsing polychondritis Complete Blood Count Auto Diff 4 Months D64.9 - Anemia, unspecified Comprehensive [place]. Panel Fast 4 Months E78.00 - Pure hypercholesterolemia, unspecified UA CC w/rflx Micro + Cult 4 Months R30.0 - Dysuria Erythrocyte Sedimentation Rate 4 Months M94.1 - Relapsing polychondritis Medications: Refilled lisinopril 40 mg PO DAILY 90 tabs 3RF gabapentin 300 mg PO TID 270 caps 1RF amlodipine 5 mg PO DAILY 90 tabs 3RF 90 days
[2025-07-17 10:04] VITALS: BP 140/64; PULSE 70; TEMP 36.3; O2SAT 97; BMI 39.4
[2025-07-17 10:53] VITALS: BP 120/82
== END 2025-07-17 11:05 | disposition home or self-care (01) ==
LOC: HO.HMCH 09:54
PROVIDERS: PCP Internal Medicine; Visit Provider Internal Medicine
DX: E78.00 Pure hypercholesterolemia, unspecified (principal); I10 Essential (primary) hypertension; J98.4 Other disorders of lung; M06.9 Rheumatoid arthritis, unspecified; E03.9 Hypothyroidism, unspecified; R73.01 Impaired fasting glucose; Q79.0 Congenital diaphragmatic hernia; G57.32 Lesion of lateral popliteal nerve, left lower limb; M17.11 Unilateral primary osteoarthritis, right knee; E53.8 Deficiency of other specified B group vitamins; K21.9 Gastro-esophageal reflux disease without esophagitis; M51.360 Other intervertebral disc degeneration, lumbar region with discogenic back pain only; M85.80 Other specified disorders of bone density and structure, unspecified site; M41.9 Scoliosis, unspecified; E55.9 Vitamin D deficiency, unspecified; M94.1 Relapsing polychondritis; D47.2 Monoclonal gammopathy; Z78.9 Other specified health status; F32.A Depression, unspecified

== ENCOUNTER 2025-07-27 10:59 | Outpatient (AMB) | payer MEDICARE, SELFPAY ==
[2023-08-25 11:07] VITALS: BMI 39.0
--- OUTSIDE RECORDS SUMMARY | 2024-09-05 05:50 | XMS_ITS ---
Author Organization [facility] Address [address] [place] [address] Care Team Providers Care Stone Paver Name Role Phone Lorenzo ACRLIN, Bolivar Primary Care Provider Faheem Cornejo Jr REASON FOR VISIT screening Encounters Encounter Location Date Provider Diagnosis [facility] [place] [address] [place] [id number] 09/05/2024 Faheem Peters Jr Colon cancer screening Z12.11 and Colon polyps K63.5 Assessments Encounter Date Diagnosis (ICD Code) Assessment Notes Treatment Notes Treatment Clinical Notes Section Notes 09/05/2024 Colon cancer screening (ICD-10 - Z12.11) 09/05/2024 Colon polyps (ICD-10 - K63.5) Plan Of Treatment No Information Progress Notes * ALEXUS REDD ADOB: [birth year] (75 yo F)Acc No.[id number]:09/05/2024 COLON WITH MAC Patient: ALEXUS MADSEN Provider: Toro Peters MD :1950 A ge:74 Y S ex:Female Date:09/05/2024 Address:[address] [id number] Pcp:Bolivar Ventura MD Subjective: * Chief Complaints: * S creening Assessment: * Assessment: 1. C olon cancer screening - Z12.11 (Primary) 2 . C olon polyps - K63.5? Plan: * Procedure Codes: 4 5380 COLONOSCOPY AND [id number] INTRVL 3+YRS PTS CLNSCP DOCD Billing Information: * Procedure Codes: 85141 COLONOSCOPY AND BIOPSY. 0529F INTRVL 3+YRS PTS CLNSCP DOCD. * The named appointment provid er may or may not be the originator of this progress note, and it is not deemed complete until electronically signed by the appointment provider. Sign off status: Pending * Provider: Toro Peters MD Date: 0 09/05/2024 Generated for Tita art/Robi/Javieritting on: 09/27/2024 12:52 PM EST
[2025-07-27 11:03] VITALS: BP 156/76; PULSE 68; O2SAT 97; BMI 39.8
--- NOTE | 2025-07-27 11:03 | MHC.OFFVIS ---
Vital Signs 07/27/25 11:03 Height 5 ft 3 in Weight 224 lb 13.944 oz BMI 39.8 BP 156/76 H Blood Pressure Location Lt brachial Position Sitting Pulse 68 Pulse Source Pulse Oximeter Pulse Oximetry (%) 97 Oxygen Delivery Method Room Air Intake Visit Reasons: Obstructive sleep apnea Electrician Wiring Required: No Envelope Stuffer: Envelope Stuffer offered & declined Accompanied by: Self / Same As Patient Allergies No Known Allergies (No Known Allergies*) Allergy (Verified 07/27/25 11:06) HPI Comments Details: Patient is a 75-year-old woman with a known history of cough in shortness of breath. [id number] in severity. The patient did have an abnormal chest x-ray and ultimately underwent a CT scan of the chest back in September 2020. Did demonstrate she has been a diaphragmatic hernia in addition to them the hiatal hernia and small pulmonary nodules. She did follow-up with thoracic surgery for the the bockdalek hernia. No surgical intervention needed. She was sent for pulmonary function studies which demonstrated a mild restrictive defect. Therefore she was referred to Pulmonary. Her cough is nonproductive in nature it is intermittent denies any postnasal drip or any wheezing. She does not use any respiratory medications. She does have symptoms of heartburn. She does take medications for Gerd. In addition to that she is taking an CHAITANYA inhibitor. She does have associated shortness of breath with activity. Mild in severity. Does get better with rest. We did review her CT scan of the chest demonstrating the small diaphragmatic hernia that is likely incidental finding. More significant and was her hiatal hernia in addition to the pulmonary nodules that we need follow-up. 08/26/2021 the patient is here for a pulmonary follow-up visit. Her symptoms are persistent. She continues to have dyspnea on exertion. Even with minimal activity. We did review her studies initially demonstrating the pulmonary function studies demonstrating the restrictive ventilatory defect. She also underwent a CT scan of the chest without any evidence of any interstitial lung disease. The patient also had a sniff study ruling out any evidence of any diaphragmatic paralysis. Her pulmonary function studies also demonstrated a moderate diffusion impairment. Explained to her that she may indeed also have a component of pulmonary vascular disease. We did briefly review her last echocardiogram from 2019 which demonstrated some degree of left ventricular hypertrophy. Explained to her that this could also result in increased pulmonary vascular pressures. In addition to that untreated sleep apnea can also result in increased pulmonary vascular pressures. She does have daytime drowsiness. Her Velva score is elevated 06/01. At this point I will request a home sleep study to assess for obstructive sleep apnea which may be contributing to her symptoms. 12/01/2021 the patient is here for pulmonary follow-up visit. She continues to have dyspnea on exertion. Moderate severity. Based on her pulmonary function study she appears to have evidence of restrictive lung disease. Therefore, I did recommend she start pulmonary rehabilitation. I do believe that this will provide her some benefit in improving her underlying dyspnea symptoms. In the meantime her dyspnea symptoms are likely multifactorial. Part deconditioning part restrictive lung disease but also need to consider pulmonary vascular conditions. The patient did have an elevated Velva score. We had her undergo a home sleep study. No significant evidence of sleep apnea although it is likely nondiagnostic. She did have significant episodes of apnea and specially hypopneas while laying supine. The patient also desaturated down to below 88% for about 12 minutes. I did request patient try positional therapy for now while not sleep in her back. She will try different devices in order to do so. Once the patient is able to do that we can repeat her overnight oximetry or consider having her undergo a in-lab PSG. Will do this based on her degree of daytime drowsiness And cardiovascular risk factors. The patient has a rescue inhaler available. She has not interested in starting any maintenance therapy at this time. 07/07/2022 the patient is here for pulmonary follow-up visit. Overall the patient is relatively well from a respiratory status. She continues to participate in pulmonary rehabilitation. She is completing the program and that she can consider continuing on her own. The patient has been able to make some strides in her pulmonary capacity. She is still complaining of epigastric discomfort. Moderate severity. Sometimes radiates to her back. She does have a hiatal hernia. We did look at her recent CT scan of the chest done May 2022 demonstrating stable pulmonary nodules. She does have the hiatal hernia. She does take medications. We did talk about the importance of good reflux diet. In view of her epigastric discomfort the patient should be evaluated either with barium swallow or with an endoscopy. She is also having issues with transaminitis. She was recently taken off her lipid medication. She also had an ultrasound which is reassuring. Again, if she has any worsening epigastric discomfort she seek urgent medical advice. 12/29/2022 the patient is here for a pulmonary follow-up visit. She continues complaint of dyspnea on exertion. She has had an eventful year and has had multiple surgeries. She has recovered well in tolerated anesthesia well. She has to have 1 more wrist surgery couple min up at [facility]. In the meantime she continues to have shortness of breath. We reviewed a get her a previous pulmonary function studies demonstrating some degree of restriction. She does have incentive spirometer at home she is going to do so. But more than that there is a disproportional low to moderate diffusion impairment. Therefore pulmonary vascular conditions need to be considered. Hemoglobin has been stable. The patient does have lower extremity edema. She does use salt and she injury salt. It is likely that she does have some volume overload status. With the decrease in DLCO I also suspect that there is a cardiac component to her respiratory symptoms. Will request a stress echo. The patient has already has EKGs. In addition to that will plan to repeat her PFTs. She will try 3 day course of Lasix to see if we can improve her respiratory status at this time. 03/23/2023 the patient is here for pulmonary follow-up visit. She continues to be about the same. Still complaining of dyspnea on exertion. Moderate severity. Specially going up a flight of stairs. She did participate in the pulmonary rehabilitation although she did not feel that she had a lot of teaching. I did reach out to the pulmonary rehab to see if they can give her some breathing techniques teachings. The patient does have some restrictive lung disease likely from her body habitus. She is also the condition and has significant discomfort primarily at the knees making it difficult for her to ambulate. We did have her undergo a cardiac evaluation based on the fact that she has had some lower extremity edema. She did have a stress echo that was nondiagnostic. Therefore she had had a Nikki nuclear scan that demonstrating no evidence of any underlying coronary artery disease or perfusion defects. Her gated EF was 69% which is reassuring. I did encourage the patient with the fact that her cardiac status is stable. I would also given Lasix to help with lower extremity edema the last time but she had some vomiting after worse and she is not sure if he was the medications so she stopped that after the 1st dose. She still has some lower extremity but is less in amount. 08/25/2023 the patient is here for pulmonary follow-up visit. She is doing about the same still having dyspnea on exertion. She has multiple factors. She is having significant pains in her musculoskeletal area lower back area now in the upper neck area. She recently had an x-ray demonstrating spondylosis. She does have a follow-up with pain management. In the meantime she has been using the Wixela daily. She is going to try to increase that to twice a day. We did look at her PFTs and there was not anything significant as far as response to bronchodilators. 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 In addition to that we did look at the echocardiogram again demonstrating hypertrophy of the left ventricle and explained to her that that can result in diastolic dysfunction and subsequent shortness of breath with increased heart rate. Therefore, will be good for her to be seen by lead man over all dies in pattern shop at this time to further adjust her medications appropriately. 11/03/2023 the patient is here for a pulmonary follow-up visit. She continues have dyspnea on exertion. Moderate severity. Which has other issues going on such as her back discomfort and also her hand discomfort. She was doing rehab but it was difficult for her to do with all her orthopedic issues. Now the patient will be seeing Cardiology for the severe asymmetrical septal hypertrophy. Wondering how much that is affecting her breathing. I did give her a small dose of diuretic during the last visit for 3 days which did help decrease some of the lower extremity edema. She will talk to Cardiology to see if additional diuretic therapy is warranted. We did look at her last CT scan of the chest that was done about a year ago which demonstrated a small 2 mm pulmonary nodule in the right upper lobe area. The patient also had a Bochdalek hernia. She had been seen by thoracic surgery in the past was small and therefore no intervention warranted. Will go ahead and plan to repeat a CT scan in 4-6 months in order to reassess the pulmonary nodule and also to reassess her hernia. 05/02/2024 the patient is here for a pulmonary follow-up visit. She is still having the same symptoms. Complains of dyspnea on exertion. She is wondering the etiology. We did talk about the multifactorial aspect of things that she does have hypertrophic cardiac changes, in addition to that there is evidence of restrictive lung disease due to her body habitus in addition to that there is a component of deconditioning. She is also concerned that she is feeling dizzy lately. She has an appointment with ENT. Feels like she is has pressure in her ears. She does have some nasal congestion nasal spray may be helpful for that. We did talk about the pathophysiology of the pressure gradients of the sinuses. I do believe that a nasal spray we helpful. She has had issues with epistaxis in the past we did go with the instructions on how to use it properly to try to minimize that. The patient also admits to drinking alcohol. Sometimes she drinks more than other times. She does drink usually hard liquor including Tequila and vodka. Sometimes she drinks red wine. She moves blood some days more than others. But has been on a regular basis. The patient is concerned because her brother was diagnosed with ataxia. She understands that this could be related to alcohol drinking. She needs to cut down. I did not appreciate any evidence of any ataxia this time. Although she needs to be evaluated further by her primary care doctor or neurologist. 10/31/2024 the patient is here for pulmonary follow-up visit. She still complains of dyspnea on exertion. Moderate severity. She does have difficulties walking because of her knees and deconditioning. She has also had a hard time losing weight. She is looking into medical weight management. I do believe that this will be helpful. She has been dealing with significant sinusitis. She was evaluated by ENT and did undergo a CT scan of the sinuses demonstrating significant maxillary sinusitis. Appears to have subcu and chronic findings. She is still having significant congestion. Will go ahead and start her on Dymista and also Singulair for her allergies. She does have significant eosinophilia suggesting allergies started playing a role. She continues on the respiratory inhaler with good effect. The patient does have daytime drowsiness. Velva score is elevated 11/24. She can consider having a repeat sleep study. Her previous 1 was borderline. 04/25/2025 the patient is here for a pulmonary follow-up visit. She continues to have dyspnea on exertion. Moderate severity. She is very limited as far as her activity at this time. She does not respond to the respiratory inhalers. Has not seen any significant improvement. She does have daytime drowsiness with an elevated Velva score of 11/24. Sometime ago she did have a home sleep study which I reviewed demonstrating evidence of nocturnal hypoxia. 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 Therefore, will request an in-lab sleep study. The patient does have a hard time sleeping so I will give her sleep aid in order for her to have an adequate study. The patient was given torsemide by her primary care doctor and she has not taking it regularly. She still has lower extremity edema. She knows to take it. The patient will continue with respiratory therapy she will continue with a low-sodium diet and diuretics. She will continue working with weight management. Will follow-up after her sleep study. Hopefully we can have that soon. 07/27/2025 the patient is here for pulmonary follow-up visit. The patient continues to have significant daytime drowsiness with an Velva score of 12/24. Significant shortness of breath significant lower extremity edema in just does not feel well she does not feel healthy. She did undergo the in-lab sleep study. The patient did have evidence of sleep apnea. She is agreeable to try starting CPAP at this time. Will go ahead and work with a local [employer] in order to get established. In addition to that she did uses the Ambien during the sleep study and actually worked very well for her. I did give the medication she should consider using least to provide her better sleep hygiene especially improving her sleep-wake cycle for period of time. In addition to that the patient is significantly overweight. It is likely contributing to her sleep apnea. Therefore considering GLP 1 inhibitor will be helpful. Will go ahead and send a message to her primary care doctor to see if this is something that they can help with or least send her some what they can help her see if she can qualify for Zepbound. Otherwise she is going to continue with the current respiratory therapy. She is continue her diuretics. She still has significant pitting edema 2+ up to the thighs. She needs to wear the compression stockings. The patient will start her CPAP hopefully that helps with the lower extremity edema to some degree. She will follow-up in 3-4 months. She will bring her machine into the next visit. [facility] Medical History Nocturnal hypoxia CHRIS (obstructive sleep apnea) Cardiac hypertrophy Choledocholithiasis Depression Acquired hypothyroidism Hiatal hernia Chronic restrictive lung disease Pulmonary nodule Right lumbar radiculopathy Hernia, diaphragmatic Obesity (BMI 30-39.9) Relapsing polychondritis Vitamin D deficiency Osteopenia Elevated LFTs GERD without esophagitis Thoracic scoliosis Lumbar degenerative disc disease Vitamin B12 deficiency Rheumatoid arthritis Impaired fasting glucose Primary osteoarthritis of right knee Neuropathy of left peroneal nerve Hypothyroidism Exertional dyspnea Pure hypercholesterolemia Benign essential hypertension Bochdalek hernia Surgical History History of laparoscopic cholecystectomy (07/10/22) History of cataract surgery History of colonoscopy History of surgery on right wrist (~05/2004) History of appendectomy (~1963) History of surgery on right wrist (~02/2020) History of carpal tunnel surgery (~03/2016) History of right knee joint replacement (~08/2016) Family History Father CVD (cardiovascular disease) Mother Ovarian cancer Maternal Aunt Breast cancer Brother Colon cancer Family/Other Breast cancer Family/Other Breast cancer Family/Other Breast cancer Social History Household Members: Family Household Members Other:: 4 Housing: House Are you a primary menagerie caretaker to a significant other at home: No Do you presently have visiting nurse or other home services: No Alcohol intake: current Alcohol intake frequency: holidays/special occasions only Alcohol type: wine Patient Tobacco Use Status: Former Tobacco user Tobacco use type: Cigarette Years Smoked: 50 e-Cigarette/Vaping Use: Never Used Second Hand Smoke Exposure: Yes Advance Directives Date on File: 07/09/22 service: No Current occupational status: retired Cognitive needs: Yes (Cane) Hearing needs: No Vision needs: Yes (reading glasses) Review of Systems Const Denies chills, Reports daytime sleepiness, Reports difficulty sleeping, Reports fatigue (mild), Denies fever(s), Denies headache(s) and Reports weight gain ENT Denies dysphagia, Reports dizziness, Denies otalgia, Denies headache(s), Denies nasal congestion, Denies odynophagia and Denies sore throat Card Denies chest pain, Denies palpitations and Reports dyspnea on exertion (mild, unchanged from previous) Resp Denies chest congestion, Denies cough, Denies hemoptysis, Reports dyspnea on exertion (mild, unchanged from previous) and Denies wheezing GI Denies abdominal pain, Denies constipation, Denies dysphagia, Denies heartburn, Denies diarrhea, Denies nausea, Denies odynophagia and Denies vomiting Denies difficulty voiding, Denies nocturia and Denies dysuria Musc Reports back pain (with radiation of pain down her legs at times - chronic), Reports myalgias and Reports arthralgias (right knee) Skin/Breast Details: (+) few raised dark lesions on her trunk - thinks that they may be skin tags Neuro Reports dizziness, Denies headache(s) and Reports tremor(s) Endo Reports fatigue (mild) and Denies palpitations Isidoro/Lymph Denies easy bruising Aller/Immun Denies wheezing Physical Exam Vital Signs: Last Vital Signs Pulse 68 07/27/25 11:03 BP 156/76 H 07/27/25 11:03 Pulse Ox 97 07/27/25 11:03 Oxygen Delivery Method Room Air 07/27/25 11:03 BMI result Body Mass Index 39.8 Const General: alert HEENT Head: Yes atraumatic Eyes Pupils: Equal, round and reactive pupils present Neck Neck: Yes normal visual inspection, Yes full ROM and Yes no lymphadenopathy Chest Chest palpation & inspection: normal inspection of the chest Resp Effort & Inspection: normal respiratory effort Auscultation: diminished lung sounds Cardio Rate: regular rate Rhythm: regular rhythm Heart sounds: S1 normal heart sound present and S2 normal heart sound present GI Palpation (GI): Soft to palpation and nontender Auscultation: normal bowel sounds Skin General skin exam: rashes and/or lesions noted Neuro Cranial nerves: Yes Equal, round and reactive pupils present Extrem General: No clubbing, No cyanosis and Yes edema Assessment & Plan Assessment & Plan (1) CHRIS (obstructive sleep apnea): Code(s): G47.33 - Obstructive sleep apnea (adult) (pediatric) Category: Medical (2) Pulmonary nodule: Code(s): R91.1 - Solitary pulmonary nodule Category: Medical (3) Hernia, diaphragmatic: Code(s): K44.9 - Diaphragmatic hernia without obstruction or gangrene Category: Medical Qualifiers: Obstruction and gangrene presence: without obstruction or gangrene Qualified Code(s): K44.9 - Diaphragmatic hernia without obstruction or gangrene (4) Hiatal hernia: Code(s): K44.9 - Diaphragmatic hernia without obstruction or gangrene Category: Medical (5) Chronic restrictive lung disease: Code(s): J98.4 - Other disorders of lung Category: Medical (6) Cardiac hypertrophy: Code(s): I51.7 - Cardiomegaly Category: Medical (7) Sinusitis: Code(s): J32.9 - Chronic sinusitis, unspecified Category: Medical Qualifiers: Chronicity: chronic Sinusitis location: unspecified location Qualified Code(s): J32.9 - Chronic sinusitis, unspecified (8) Nocturnal hypoxia: Code(s): G47.34 - Idiopathic sleep related nonobstructive alveolar hypoventilation Category: Medical Plan continue exercise regimen in lab PSG +CHRIS, start APAP ambien for her sleep study continue Wixela BID low Na diet diuresis as tolerated continue PPI reflux diet weight management, will benefit from GLP1 (Zepbound) JAIMIE as needed neti bottle, distilled water only F/U 3-4 months Coding Level of Care Code Est Pt Level 4 (72465) Diagnoses CHRIS (obstructive sleep apnea) G47.33 Pulmonary nodule R91.1 Diaphragmatic hernia without obstruction and without gangrene K44.9 Obstruction and gangrene presence: without obstruction or gangrene Hiatal hernia K44.9 Chronic restrictive lung disease J98.4 Cardiac hypertrophy I51.7 Chronic sinusitis, unspecified location J32.9 Chronicity: chronic Sinusitis location: unspecified location Nocturnal hypoxia G47.34 Time Spent (min) 17
--- OUTSIDE RECORDS SUMMARY | 2025-07-27 12:53 | XMS_ITS | Clinical Summary ---
Author Organization [facility] Address [address] [facility] [address] [place] [address] Phone Care Team Providers Care Web Development Director Name Role Phone Bolivar Ventura MD Primary Care Provider [phone] Allergies No known active allergies Medications omeprazole [...] Take 88 mcg by mouth every morning. 3 Active WIXELA INHUB 250-50 mcg/dose DISKUS Inhale 1 puff into the lungs daily. 3 Active amLODIPine (NORVASC) 5 MG tablet Take 5 mg by mouth every morning. 4 Active triamcinolone acetonide 0.5 % cream Apply topically. As needed 4 Active fluticasone propionate (FLONASE) 50 mcg/actuation nasal spray 2 sprays by Nasal route daily. 4 07/18/20 25 Discontinu ed(No longer taking) Active Problems Problem Noted Date Diagnosed Date Class 2 obesity due to exces s calories with body mass index (BMI) of 39.0 to 39.9 in adult 01/10/2025 Assessment & Plan (07/18/2025 10:10 PM EST): Continue diligent portion control . Limit concentrated sugars, saturated fats and calories in the diet. Keep well-hydrated. If unable to achieve expected goal consider formal dietary/nutritional support. Assessment & Plan (02/06/2025 6:48 PM EDT): [...] without esophagi tis 01/10/2024 Assessment & Plan (07/18/2025 3:40 PM EST): Avoid late, large, spicy meals. Keep headboard elevated at 45 angle for nighttime. Assessment & Plan (01/10/2025 10:49 AM EDT): [...] use of NSAIDs 12/18/2022 Assessment & Plan (07/18/2025 3:40 PM EST): Take the lowest dose, with least frequency, for shortest time. Remember to take it always with food. Favor topical over oral preparations. Assessment & Plan (01/10/2025 10:49 AM EDT): [...] involving multiple joints 02/02/2019 Assessment & Plan (07/18/2025 10:13 PM EST): Joint protection, energy conservation. Avoid [...] she does not require surgical intervention. She was willing to try aquatic therapy at [facility] previously wrote a note of clearance for her (see details in media section of [facility]). She has not tried yet and is wondering whether adjusting medications may reduce her suffering. She may benefit from careful buildup of gabapentin dose from 300 mg 3 times daily to 300 mg every morning + 600 mg for midday + 300 mg at nighttime. Assessment & Plan (01/10/2025 10:48 AM EDT): [...] is willing to try aquatic therapy at [facility] wrote a note of clearance for her (see details in media section of [facility]). Assessment & Plan (07/11/2023 1:08 PM EST): [...] is willing to try aquatic therapy at [facility] wrote a note of clearance for her (see details in media section of [facility]). Assessment & Plan (01/03/2023 11:24 AM EDT): [...] is willing to try aquatic therapy at [facility] wrote a note of clearance for her (see details in media section of epic). Assessment & Plan (03/23/2022 10:26 AM EDT): [...] is willing to try aquatic therapy at [facility] wrote a note of clearance for her (see details in media section of epic). Assessment & Plan (09/24/2021 10:14 AM EST): [...] is willing to try aquatic therapy at [facility] wrote a note of clearance for her (see details in media section of epic). 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 Patient admits that since she stopped methotrexate no clinical deterioration observed therefore we agreed to continue watchful monitoring. 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 Assessment & Plan (01/10/2025 10:48 AM EDT): [...] Vitamin D insufficiency 02/01/2019 Assessment & Plan (07/18/2025 3:40 PM EST): Take vitamin D 3000 units daily to replace deficit. Assessment & Plan (01/10/2025 10:49 AM EDT): [...] On statin therapy 02/01/2019 Assessment & Plan (07/18/2025 3:40 PM EST): Monitor for muscle tenderness, swelling and weakness Assessment & Plan (01/10/2025 10:49 AM EDT): [...] of multiple sites 02/01/2019 Assessment & Plan (07/18/2025 3:40 PM EST): Proper calcium and vitamin D supplementation. Daily weightbearing exercises. Fall and fracture prevention strategies. Consider bone preserving therapy due to progressing osteopenia and lack of weightbearing exercises. Assessment & Plan (01/10/2025 10:49 AM EDT): [...] previous was done on the 09/24/2017 at [facility]. (L1-L4 T score -2.1= osteopenia, left [...] unknown significa nce) 02/01/2019 Assessment & Plan (07/18/2025 10:09 PM EST): Clinically quiescent-periodic checkup with hematology/oncology every 6-12 months as scheduled. Assessment & Plan (01/10/2025 10:49 AM EDT): [...] months as scheduled. Next visit with Dr Gracia in November 2020 Assessment & Plan (08/27/2019 [...] of 40.0 to 44.9 in adult 07/31/2020 Assessment & Plan (04/12/2022 8:39 PM EDT): [...] Encounters Date Type Department Care Team Description 07/18/2025 3:30 PM EST Office Visit [facility] [address] [place] [address] Stephany Chen MD Rheumatoid arthritis of multiple sites with negative rheumatoid factor (Primary Dx); Primary osteoarthritis involving multiple joints; Osteopenia of multiple sites; MGUS (monoclonal gammopathy of unknown significance); Encounter for long-term (current) use of NSAIDs; Gastroesophageal reflux disease without esophagitis; Relapsing polychondritis of multiple sites; On statin therapy; Vitamin D insufficiency; Class 2 severe obesity due to excess calories with serious comorbidity and body mass index (BMI) of 39.0 to 39.9 in adult 07/12/2025 Telephone [facility] [address] [place] [address] Tessa Little MD from Last 3 Months [...] Sign Reading Time Taken Comments Blood Pressure 118/78 07/18/2025 3:33 PM EST Pulse 84 07/18/2025 3:33 PM EST Temperature 36.3 C (97.4 F) 07/31/2020 9:07 AM EST Respiratory Rate - - Oxygen Saturation 96% 07/18/2025 3:33 PM EST Inhaled Oxygen Concentration - - Weight 102.2 kg (225 lb 6.4 oz) 07/18/2025 3:33 PM EST Height 160 cm (5' 3 ) 01/10/2025 10:25 AM EDT Body Mass Index 39.93 01/10/2025 10:25 AM EDT Plan of Treatment Upcoming Encounters Date Type Department Care Team (Late st Contact Info) Description 01/16/2026 1:30 PM EDT Office Visit [facility] [address] [place] [address] Stephany Chen MD [address] [facility], [address] [place] [address] [email or web address] Health Maintenance Due Date Last Done Comments CREATININE LEVEL 1950 LIPID PANEL 1950 POTASSIUM LEVEL 1950 TSH LEVEL 1950 DEPRESSION SCREENING 1962 SMOKING Hx and SMOKELESS TOBACCO SCREENING 1963 HEPATITIS C SCREENING 1968 COLOGUARD 1995 COLONOSCOPY 1995 COLORECTAL CANCER SCREENING 1995 FIT TEST 1995 FOBT 1995 SIGMOIDOSCOPY 1995 VIRTUAL COLONOSCOPY 1995 COVID-19 VACCINE ( season) 2025 05/12/2025, 11/29/2024, 05/08/2024, Additional history exists BLOOD PRESSURE 01/16/2026 07/18/2025 Adult Td,Tdap Booster 10/16/2034 10/16/2024 RSV VACCINE Completed 05/26/2023 ZOSTER VACCINES Completed 10/20/2023, 06/21/2023 PNEUMOCOCCAL VACCINES (50+ years) Completed 10/16/2024, 08/12/2015 OSTEOPOROSIS SCREENING INITIAL (ONE-TIME) Completed 05/11/2025 INFLUENZA VACCINE Completed 05/12/2025, , 05/05/2023, Additional history exists HEPATITIS A VACCINES Aged Out No long [...] Region Laterality Modality Bone Density Bone Density us Stephany Chen MD IM BD BONE DENSITY DEXA Final Result from Last 3 Months Insurance [place] [address] [place] [address] [place] [address] [place] [address] [place] [address] [address] MEDICARE REPLACEMENT [facility] MEDICARE REPLACEMENT Care Teams Web Development Director Relationship Specialty Start Date End Date Bolivar Ventura MD [address] [place] [address] [place] [address] PCP - General Internal Medicine 12/22/18 Additional Source Comments The information contained in this document represents components of the legal health record. It is not the complete legal health record.[facility]
--- OUTSIDE RECORDS SUMMARY | 2025-07-27 12:53 | XMS_ITS | Patient Health Record ---
Author Organization [facility] Address [address] [place] [address] Care Team Providers Care Photo Studio Assistant Name Role Phone Lorenzo CARLIN, Adamant Primary Care Provider Faheem Cornejo Jr Allergies No Known Allergies Results Component Value Reference Range Notes Pathology Reviewed date:09/14/2024 12:59:40 PM Interpretation: Performing Lab:[facility], [address] [place] [id number] Notes/Report: Reason For Referral No Information Medications Medication SIG (Take, Route, Frequency, Duration) Notes Start Date End Date Status Vitamin D-3 25 MCG (1000 UT) Capsule 1 capsule Orally Once a day; Duration: 30 day(s) Active Gabapentin 300 MG Capsule 1 capsule Oral ly Once a day; Duration: 30 day(s) Active amLODIPine Besy-Benazepril HCl 2.5-10 MG Capsule as directed Orally Active MiraLax (colon prep) 8.3 ounce ((238) grams mixed with Gatorade or Crystal Light orally begin at 5:00 p.m. the day before the procedure; Duration: 1 day 08/10/2024 Active Crestor 20 MG Tablet 1 tablet Orally Onc e a day Active Lisinopril 40 MG Tablet 1 tablet Orally Once a day Active Levothyroxine Sodium 88 MCG Tablet 1 tablet in the morning on an empty stomach Orally Once a day Active Omeprazole 20 MG Capsule Delayed Release 1 capsule Orally Once a day; Duration: 30 Active Fluticasone Propionate 50 MCG/ACT Suspension USE 2 SPRAYS INTRANASALLY DAILY FOR 30 DAYS Nasal; Duration: 90 Active Ibuprofen 200 MG Tablet 1 tablet with fo od or milk as needed Orally Three times a day Active amLODIPine Besylate 5 MG Tablet TAKE 1 TABLET BY MOUTH EVERY DAY FOR 90 DAYS Oral; Duration: 90 Active Vitamin B-1 250 MG Tablet as directed Orally Active Benzonatate 200 MG Capsule TAKE 1 CAPSUL E BY MOUTH 3 TIMES A DAY NEEDED FOR COUGH FOR 30 DAYS Oral; Duration: 30 Active Vitamin B 12 500 MCG Tablet 1 tablet Ora lly Once a day; Duration: 30 day(s) Active Cetirizine HCl 10 MG Tablet TAKE 1 TABLE T BY MOUTH DAILY NEEDED FOR ALLERGY SYMPTOMS Oral; Duration: 90 Active Immunizations Vaccine Route Administration Date Status Comme nts Influenza Unknown 05/08/2024 Administered Social History Tobacco Use: Social History Observation Description Date Details (start date - stop date) Former Smoker NA - NA Social History Tobacco Use: Social Info Question Answer Notes Tobacco Use/Smoking Patient is a former smoker Additional Details Category Social Info Options Details Miscellaneous: Marital status: Occupation: retired Problems Problem Type SNOMED Code ICD Code Onset Dates Problem Status W/U Status Risk Notes Problem Colon cancer screening (764743419) Colon cancer screening (Z12.11) Active confirmed Problem intermission coordinator current use of non-steroidal anti-inflammatory drug (317245607941156) Encounter for long-term (current) use of NSAIDs (Z79.1) Active confirmed Problem Gastroesophageal reflux disease (475785998) Gastroesophageal reflux disease, unspecified whether esophagitis present (K21.9) Active confirmed Vital Signs Temperature 96.9 degrees Fahrenheit 08/07/2024 Blood pressure diastolic 00 mm Hg 08/07/2024 Height 63 in 08/07/2024 Blood pressure systolic 000 mm Hg 08/07/2024 Weight 210 lbs 08/07/2024 BMI 37.20 kg/m2 08/07/2024 Encounters Encounter Location Date Provider Diagnosis [facility] [address] [place], [place] [id number] 09/05/2024 Faheem Peters Jr Colon cancer screening Z12.11 and Colon polyps K63.5 [facility] [address] [facility] [address] [place] [address] 08/07/2024 Faheem Peters Jr Gastroesophageal reflux disease, unspecified whether esophagitis present K21.9 ; Colon cancer screening Z12.11 and Encounter for long-term (current) use of NSAIDs Z79.1 [facility] [address] [place] [address] 09/14/2024 Faheem Peters Jr Assessments Encounter Date [...] that she continue omeprazole. She can use [id number] antacids for breakthrough symptoms. She is due [...] that she continue omeprazole. She can use [id number] antacids for breakthrough symptoms. She is due [...] that she continue omeprazole. She can use [id number] antacids for breakthrough symptoms. She is due [...] Insured Coverage Start Date Coverage End Date [facility] [address] [address] [place] [address] [id number] GENNARO ORRALEXUS Cruz Self - patient is the insured Medical [...]
--- OUTSIDE RECORDS SUMMARY | 2025-07-27 12:53 | XMS_ITS | Clinical Summary ---
Author Organization [facility] it Address [address] [place] [address] Care Team Providers Care Geographic Information Systems Engineer Name Role Phone Bolivar Ventura MD Primary [...] - 1-dose 75+ series) 2025 COVID-19 Vaccine (2024- season) 2025 Influenza Vaccine (#1) 2025 9, [...] age to complete this topic Care Teams Geographic Information Systems Engineer Relationship Specialty Start Date End Date Bolivar Ventura MD [address] [place] [address] [address] MEGH[address] Crain PCP - General Internal Medicine 12/27/20
== END 2025-07-27 11:33 | disposition home or self-care (01) ==
LOC: HO.HPS 11:00
PROVIDERS: PCP Internal Medicine; Visit Provider Hospitalist
DX: G47.33 Obstructive sleep apnea (adult) (pediatric) (principal); R91.1 Solitary pulmonary nodule; K44.9 Diaphragmatic hernia without obstruction or gangrene; J98.4 Other disorders of lung; I51.7 Cardiomegaly; J32.9 Chronic sinusitis, unspecified; G47.34 Idiopathic sleep related nonobstructive alveolar hypoventilation
CPT/HCPCS: 99214

== ENCOUNTER → 2025-07-27 10:59 | Outpatient (BNVA) | payer MEDICARE, SELFPAY ==
[2023-08-25 11:07] VITALS: BMI 39.0
== END ==
PROVIDERS: PCP Internal Medicine; Visit Provider Hospitalist
DX: G47.33 Obstructive sleep apnea (adult) (pediatric) (principal); G47.34 Idiopathic sleep related nonobstructive alveolar hypoventilation; R91.1 Solitary pulmonary nodule; R60.0 Localized edema; J98.4 Other disorders of lung; Z87.891 Personal history of nicotine dependence; E66.9 Obesity, unspecified; Z68.39 Body mass index [BMI] 39.0-39.9, adult; K44.9 Diaphragmatic hernia without obstruction or gangrene
CPT/HCPCS: 99212